=== PATIENT | female | born 1965 | race Caucasian/White ===

== ENCOUNTER → 2018-08-23 10:52 | Outpatient (CLI) | payer OTHER, SELFPAY ==
[2017-07-14 12:49] VITALS: BMI 25.7
[2018-08-23 11:52] LABS: Absolute Lymphocyte Count 0.94 X10^3/ul (0.83-4.51); Absolute Neutrophil Count 2.6 X10^3/uL (2.0-7.7); Basophil# 0.04 X10^3/uL; Eosinophil# 0.16 X10^3/uL; Hematocrit 40.1 % (37-47); Hemoglobin 12.6 g/dl (12.0-15.0); Lymphocyte # 0.94 X10^3/ul (4.0); Lymphocyte % 23.2 % (19-41); Mean Corp Hgb Conc 31.4 g/gl (32-36); Mean Corpuscular Hgb 26.6 pg (27.0-32.0); Mean Corpuscular Volume 84.8 fL (81-99); Mean Platelet Vol. 10.8 fl (6.2-12.0); Monocyte% 7.4 % (0-10); Neutrophil # 2.61 X10^3/uL (2.7-7.7); Neutrophil % 64.4 % (47-70); Platelet Count 243 K/mm3 (150-450); RBC Distribution Width CV 14.4 % (11.6-14.6); RBC Distribution Width SD 44.9 fl (35.1-43.9); Red Blood Count 4.73 M/mm3 (4.2-5.4); White Blood Count 4.1 K/mm3 (4.4-11.0)
[2018-08-23 11:53] LABS: POSITIVE COUNT NO; POSITIVE DIFFERENTIAL NO; POSITIVE MORPHOLOGY NO
[2018-08-23 12:26] LABS: Vitamin B12 948 pg/mL (211-911); Vitamin D,25 Hydroxy 35.7 ng/mL (29.95-100.01)
[2018-08-23 12:35] LABS: AST(SGOT) 14 U/L (15-37); Alanine Aminotransfer ALT/SGPT 25 U/L (13-56); Albumin, Serum 3.7 g/dL (3.2-5.0); Alkaline Phosphatase 62 U/L (45-117); Anion Gap 7 (5-15); BUN 14 mg/dL (7-18); BUN/Creat Ratio 16.2 RATIO (10-20); Calcium,Total 8.8 mg/dL (8.5-10.1); Chloride 106 mmol/L (98-107); Cholesterol 159 mg/dL (200); Creatinine, Serum 0.86 mg/dL (0.55-1.02); EST Glomerular Filtration Rate 73 mL/min (>60); Est Glom Filt Rate - Afr Amer 88 mL/min (>60); Ferritin 18 ng/mL (8-252); Globulin 3.7 g/dL (2.2-4.2); Glucose 78 mg/dL (74-106); High Density Lipoprotein 70 mg/dL; Iron 125 ug/dL (50-170); Iron Binding Capacity,Total 399 ug/dL (250-450); Potassium 3.9 mmol/L (3.5-5.1); Protein, Total 7.4 g/dL (6.4-8.2); Sodium Level 139 mmol/L (136-145); T4 Free Direct 1.13 ng/dL (0.76-1.46); Thyroid Stim Hormone (TSH) 0.63 uIU/mL (0.358-3.74); Triglycerides 59 mg/dL; Very Low Density Lipoprotein 12 mg/dL (5-40)
[2018-08-25 09:28] LABS: Anti-Thyroglobulin AB < 1.0 IU/mL (0.0-0.9); Thyroglobulin, Serum Qt. < 0.1 ng/mL (1.5-38.5)
--- OUTSIDE RECORDS SUMMARY | 2018-10-28 06:49 | XMS RPT_ITS ---
:1965 Author Organization OH[facility] Care Team Providers Name Role Phone MARY MCKEON Referring Unavailable MARY MCKEON Attending Unavailable MARY MCKEON Referring Unavailable Dong Arreaga Attending Unavailable Dong Arreaga Primary Care Unavailable Yuri Banuelos Attending Unavailable PROBLEMS PROBLEMS DATE TYPE CONDITION / CODE ATTENDING STATUS SOURCE 08/28/2010 Active Malignant neoplasm NA Active [place] of thyroid gland / Clinic Main C73(ICD-10) [place] Rep[facility] 05/03/2018 Active Postprocedural NA Active [place] hypothyroidism / Clinic Main E89.0(ICD-10) [place] [facility] 10/25/2017 Active Unknown / MARY MCKEON Active [place] UNK(Unknown) Clinic Main [place] [facility] 07/14/2017 Unknown J01.00 - Acute Yuri Banuelos Active [place] maxillary sinusitis, Community unspecified / Hospital J01.00(ICD-10) Repository PROCEDURES PROCEDURES No Procedure Records FoundRESULTS RESULTS CBC W/DIFF, AUTOMATED Collected: 08/23/2018 Status: F Source: [place] 10:55 AM [facility] REPOSITORY TYPE CODE TESTS RESULT OUT OF RANGE REFERENCE UNITS LAB L100.1000 4.4-11.0 K/mm3 Low WBC 4.1 LAB L100.1200 4.2-5.4 M/mm3 Normal RBC 4.73 LAB L100.1300 12.0-15.0 g/dl Normal HGB 12.6 LAB L100.1400 37-47 % Normal HCT 40.1 LAB L100.1500 81-99 fL Normal MCV 84.8 LAB L100.1600 27.0-32.0 pg Low MCH 26.6 LAB L100.1700 32-36 g/gl Low MCHC 31.4 LAB L100.1810 11.6-14.6 % Normal RDW CV 14.4 LAB L100.1820 35.1-43.9 fl High RDW SD 44.9 LAB L100.1900 150-450 K/mm3 Normal PLT 243 LAB L100.2000 6.2-12.0 fl Normal MPV 10.8 LAB L100.2100 47-70 % Normal NEUT% 64.4 LAB L100.2200 19-41 % Normal LY% 23.2 LAB L100.2300 0-10 % Normal MONO% 7.4 LAB L100.2400 0-5 % Normal EO% 4.0 LAB L100.2500 0-1 % Normal BASO% 1.0 LAB L100.2550 0.0-0.9 % Normal IM GRAN % 0.000 Result Comment: IG% - Immature Granulocytes (promyelocytes, myelocytes and metamyelocytes) > 1% indicates that a LEFT SHIFT is Present. LAB L100.2620 2.0-7.7 X10 3/uL Normal Absolute Neut 2.6 LAB L100.2720 0.83-4.51 X10 3/ul Normal Absolute Lymph 0.94 Performed By: #### L100.0100, L503.0105, L506.1000, L500.4050, L500.4100, L501.9520, L503.6075, L503.6150, L503.6550, L506.0250, L506.0400 #### [facility] [address] [place], [address] #### [id number] #### [facility] (refer to report for specific site) refer to report for address and phone number VITAMIN B12 Collected: 08/23/2018 Status: F Source: [place] 10:55 AM [facility] [place] TYPE CODE TESTS RESULT OUT OF REFERENCE UNITS RANGE LAB L503.0105 211-911 pg/mL High Vitamin B12 948 Performed By: #### L100.0100, L503.0105, L506.1000, L500.4050, L500.4100, L501.9520, L503.6075, L503.6150, L503.6550, L506.0250, L506.0400 #### [facility] [address] [facility] [facility] [place], [address] #### [id number] #### [facility] (refer to report for specific site) refer to report for address and phone number VITAMIN D,25 HYDROXY Collected: 08/23/2018 Status: F Source: [place] 10:55 AM [facility] TYPE CODE TESTS RESULT OUT OF RANGE REFERENCE UNITS LAB L506.1000 29.95-100.01 ng/mL Normal Vitamin D 35.7 25-OH Result Comment: Vitamin D 25(OH) Status Range Deficiency <20 ng/mL (50nmol/L) Insuffciency 20 - 30 ng/mL (50 - 75 nmol/L) Sufficiency 30 - 100 ng/mL (75 - 250 nmol/L) Toxicity >100 ng/mL (>250 nmol/L) Performed By: #### L100.0100, L503.0105, L506.1000, L500.4050, L500.4100, L501.9520, L503.6075, L503.6150, L503.6550, L506.0250, L506.0400 #### [facility] [address] [place], [address] #### [id number] #### [facility] (refer to report for specific site) refer to report for address and phone number COMPREHENSIVE METABOLIC Collected: 08/23/2018 Status: F Source: [facility] 10:55 AM [facility] Order Comment: Is Patient Taking Vitamins or Folic Acid Supplements? N TYPE CODE TESTS RESULT OUT OF RANGE REFERENCE UNITS LAB L501.0100 74-106 mg/dL Normal GLU 78 Result Comment: Please note revised GLUCOSE reference range effective 2017. LAB L501.1000 7-18 mg/dL Normal BUN 14 LAB L501.1100 0.55-1.02 mg/dL Normal CREAT,SERUM 0.86 Result Comment: The validity of the calculated GFR AND GFRAA in patients over 70 years has not been determined. Clinical correlation is essential. LAB L501.1110 >60 mL/min Normal EST GFR 73 Result Comment: Non- GFR Calc LAB L501.1115 >60 mL/min Normal EST GFR - AA 88 Result Comment: GFR Calc LAB L501.1300 10-20 RATIO Normal BUN/CRE 16.2 LAB L501.1500 6.4-8.2 g/dL T Normal PROT 7.4 LAB L501.1800 3.2-5.0 g/dL Normal ALB 3.7 LAB L501.1950 2.2-4.2 g/dL Normal GLOB 3.7 LAB L501.2000 0.9-2.4 RATIO Normal A/G 1.0 LAB L501.2200 8.5-10.1 mg/dL CA Normal 8.8 LAB L501.4100 15-37 U/L Low AST 14 LAB L501.4305 45-117 U/L Normal ALK P 62 LAB L501.4405 13-56 U/L Normal ALT 25 LAB L501.4600 0.20-1.00 mg/dL T Normal BILI 0.60 LAB L501.5300 136-145 mmol/L NA Normal 139 LAB L501.5600 3.5-5.1 mmol/L K Normal 3.9 LAB L501.5900 98-107 mmol/L CL Normal 106 LAB L501.6100 21.0-32.0 mmol/L Normal CO2 26.0 LAB L501.6200 5-15 Normal GAP 7 Performed By: #### L100.0100, L503.0105, L506.1000, L500.4050, L500.4100, L501.9520, L503.6075, L503.6150, L503.6550, L506.0250, L506.0400 #### [facility] [address] [place], [place], [address] #### [id number] #### [facility] (refer to report for specific site) refer to report for address and phone number LIPID PROFILE Collected: 08/23/2018 Status: F Source: [place] 10:55 AM [facility] Order Comment: Is Patient Taking Vitamins or Folic Acid Supplements? N TYPE CODE TESTS RESULT OUT OF RANGE REFERENCE UNITS LAB L501.4900 200 mg/dL Normal CHOL 159 Result Comment: <200 mg/dL Desirable 200-240 mg/dL Borderline >240 mg/dL High Risk LAB L501.5000 mg/dL Normal TRIG 59 Result Comment: The drugs N-Acetylcysteine and Metamizole may falsely depress this assay. Serum Triglycerides Reference Interval Normal <150 mg/dL Borderline high 150 - 199 mg/dL High 200 - 499 mg/dL Very High > or = 500 mg/dL LAB L501.6400 mg/dL Normal HDL 70 Result Comment: The drugs N-Acetylcysteine and Metamizole may falsely depress this assay. Reference Range HDL <40 mg/dL Low HDL Cholesterol HDL >or= 60 mg/dL High HDL Cholesterol LAB L501.6500 0-130 mg/dL Normal LDL 77 LAB L501.6600 5-40 mg/dL Normal VLDL 12 Performed By: #### L100.0100, L503.0105, L506.1000, L500.4050, L500.4100, L501.9520, L503.6075, L503.6150, L503.6550, L506.0250, L506.0400 #### [facility] [address] [place], [address] #### [id number] #### [facility] (refer to report for specific site) refer to report for address and phone number THYROID STIM HORMONE Collected: 08/23/2018 Status: F Source: [place] (TSH) 10:55 AM [facility] Order Comment: Is Patient Taking Vitamins or Folic Acid Supplements? N TYPE CODE TESTS RESULT OUT OF RANGE REFERENCE UNITS LAB L501.9520 0.358-3.74 uIU/mL Normal TSH 0.63 Performed By: #### L100.0100, L503.0105, L506.1000, L500.4050, L500.4100, L501.9520, L503.6075, L503.6150, L503.6550, L506.0250, L506.0400 #### [facility] [address] [place], [place], [id number] #### [id number] #### [facility] (refer to report for specific site) refer to report for address and phone number IRON BINDING Collected: 08/23/2018 Status: F Source: [facility] 10:55 AM [facility] Order Comment: Is Patient Taking Vitamins or Folic Acid Supplements? N TYPE CODE TESTS RESULT OUT OF RANGE REFERENCE UNITS LAB L503.6075 250-450 ug/dL Normal TIBC 399 Performed By: #### L100.0100, L503.0105, L506.1000, L500.4050, L500.4100, L501.9520, L503.6075, L503.6150, L503.6550, L506.0250, L506.0400 #### [facility] [address] [place], [place], [id number] #### [id number] #### [facility] (refer to report for specific site) refer to report for address and phone number IRON Collected: 08/23/2018 Status: F Source: [place] 10:55 AM [facility] Order Comment: Is Patient Taking Vitamins or Folic Acid Supplements? N TYPE CODE TESTS RESULT OUT OF RANGE REFERENCE UNITS LAB L503.6150 50-170 ug/dL Normal IRON 125 Performed By: #### L100.0100, L503.0105, L506.1000, L500.4050, L500.4100, L501.9520, L503.6075, L503.6150, L503.6550, L506.0250, L506.0400 #### [facility] [address] [place], [place], [id number] #### [id number] #### [facility] (refer to report for specific site) refer to report for address and phone number FERRITIN Collected: 08/23/2018 Status: F Source: [place] 10:55 AM [facility] Order Comment: Is Patient Taking Vitamins or Folic Acid Supplements? N TYPE CODE TESTS RESULT OUT OF RANGE REFERENCE UNITS LAB L503.6550 8-252 ng/mL Normal FERRITIN 18 Performed By: #### L100.0100, L503.0105, L506.1000, L500.4050, L500.4100, L501.9520, L503.6075, L503.6150, L503.6550, L506.0250, L506.0400 #### [facility] [address], [place], [id number] #### [id number] #### [facility] (refer to report for specific site) refer to report for address and phone number FOLATES, (FOLIC ACID) Collected: 08/23/2018 Status: F Source: [place] 10:55 AM [facility] Order Comment: Is Patient Taking Vitamins or Folic Acid Supplements? N TYPE CODE TESTS RESULT OUT OF RANGE REFERENCE UNITS LAB L506.0250 3.1-55.4 ng/mL Normal FOLATES 13.30 Performed By: #### L100.0100, L503.0105, L506.1000, L500.4050, L500.4100, L501.9520, L503.6075, L503.6150, L503.6550, L506.0250, L506.0400 #### [facility] [address] [place] [address]. [place], [place], [id number] #### [id number] #### [facility] (refer to report for specific site) refer to report for address and phone number T4 FREE DIRECT Collected: 08/23/2018 Status: F Source: [place] 10:55 AM [facility] Order Comment: Is Patient Taking Vitamins or Folic Acid Supplements? N TYPE CODE TESTS RESULT OUT OF RANGE REFERENCE UNITS LAB L506.0400 0.76-1.46 ng/dL Normal T4 FREE 1.13 DIRECT Performed By: #### L100.0100, L503.0105, L506.1000, L500.4050, L500.4100, L501.9520, L503.6075, L503.6150, L503.6550, L506.0250, L506.0400 #### [facility] [address] [facility] [place], [place], [address] #### [id number] #### [facility] (refer to report for specific site) refer to report for address and phone number THYROGLOBULIN W/ANTI-TG Collected: 08/23/2018 Status: P Source: [place] AB 10:55 AM [facility] TYPE CODE TESTS RESULT OUT OF RANGE REFERENCE UNITS LAB L3300.7025 0.0-0.9 IU/mL Normal ANTI-TG < 1.0 AB Result Comment: Thyroglobulin Antibody measured by [facility] [employer] LAB L3400.1030 1.5-38.5 ng/mL Low THYROGLOB < 0.1 Result Comment: According to the National Academy of Clinical Biochemistry, the reference interval for Thyroglobulin (TG) should be related to euthyroid patients and not for patients who underwent thyroidectomy. TG reference intervals for these patients depend on the residual mass of the thyroid tissue left after surgery. Establishing a post-operative baseline is recommended. The assay limit of quantitation is 0.1 ng/mL Thyroglobulin measured by [facility] [employer] Assay Performed at: - [facility] [address] [id number] Cloth Tester: Nito Steinberg PhD, Phone: [phone] Performed By: #### L100.0100, L503.0105, L506.1000, L500.4050, L500.4100, L501.9520, L503.6075, L503.6150, L503.6550, L506.0250, L506.0400 #### [facility] [address] [facility] [place], [place], [address] #### [id number] #### [facility] (refer to report for specific site) refer to report for address and phone number COMP METABOLIC PANEL Collected: 05/03/2018 Status: F Source: [place] 9:15 AM [facility] [place] REPOSITORY TYPE CODE TESTS RESULT OUT OF REFERENCE UNITS RANGE LAB TP 6.3-8.0 g/dL Protein, Total 7.2 LAB ALB 3.9-4.9 g/dL Albumin 4.3 LAB CA 8.5-10.2 mg/dL Calcium, Total 10.1 LAB TBIL 0.2-1.3 mg/dL Bilirubin, Total 0.5 LAB ALKP 34-123 U/L Alkaline Phosphatase 62 LAB AST 13-35 U/L AST 15 LAB GLU 74-99 mg/dL Glucose 88 Result Comment: The [place] [employer] (ADA) provides guidance for cutoff values for fasting glucose and random glucose. The ADA defines fasting as no caloric intake for at least 8 hours. Fas ting plasma glucose results between 100 to 125 mg/dL indicate increased risk for diabetes (prediabetes). Fasting plasma glucose results greater than or equal to 126 mg/dL meet the criteria for diagnosis of diabetes. In the absence of unequivocal hyperglycemia, results should be confirmed by repeat testing. In a patient with classic symptoms of hyperglycemia or hyperglycemic crisis, random plasma glucose results greater than or equal to 200 mg/dL meet the criteria for diagnosis of diabetes. Reference: Standards of Medical Care in Diabetes 2016, [place] [employer] Association. Diabetes Care. 2016.39(Suppl 1). LAB BUN 7-21 mg/dL BUN 15 LAB CRET 0.58-0.96 mg/dL Creatinine 0.71 LAB NA 136-144 mmol/L Sodium 140 LAB K 3.7-5.1 mmol/L Potassium 4.1 LAB CL 97-105 mmol/L Chloride 104 LAB CO2 22-30 mmol/L CO2 23 LAB AGAP 9-18 mmol/L Anion Gap 13 LAB ALT 7-38 U/L ALT 13 LAB GFRAA eGFR- Amer. >60 LAB GFRNAA . eGFR-All Other Races >60 Result Comment: eGFR (Estimated GFR) Units of measure: mL/min/1.73 meters squared eGFR is derived from the reexpressed MDRD Study equation using the following parameters: serum creatinine, age, gender and race. The creatinine assay has been calibrated to be traceable to IDMS. An eGFR <60 mL/min/1.73m2 for >3 months is consistent with chronic kidney disease. Refer to KDOQI guidelines for clinical interpretation. In patients with unstable renal function, e.g. those with acute kidney injury, the eGFR may not accurately reflect actual GFR. Performed By: #### CMP, URIC, FT4, TSH, FREET3, TG #### [facility] [employer] [address] [place] [address] URIC ACID Collected: 05/03/2018 Status: F Source: [place] 9:15 AM [facility] REPOSITORY TYPE CODE TESTS RESULT OUT OF RANGE REFERENCE UNITS LAB URIC 2.5-6.6 mg/dL Uric Acid 3.7 Performed By: #### CMP, URIC, FT4, TSH, FREET3, TG #### [place] [phone] FREE T4 Collected: 05/03/2018 Status: F Source: [place] 9:15 AM [facility] REPOSITORY TYPE CODE TESTS RESULT OUT OF RANGE REFERENCE UNITS LAB FT4 0.9-1.7 ng/dL Free T4 1.5 Performed By: #### CMP, URIC, FT4, TSH, FREET3, TG #### [place] [phone] TSH Collected: 05/03/2018 Status: F Source: [place] 9:15 AM [facility] REPOSITORY TYPE CODE TESTS RESULT OUT OF RANGE REFERENCE UNITS LAB TSH 0.400-5.500 uU/mL Low TSH 0.266 Performed By: #### CMP, URIC, FT4, TSH, FREET3, TG #### [place] [phone] FREE T3 Collected: 05/03/2018 Status: F Source: [place] 9:15 [facility] REPOSITORY TYPE CODE TESTS RESULT OUT OF RANGE REFERENCE UNITS LAB FREET3 2.3-4.1 pg/mL Free T3 3.5 Performed By: #### CMP, URIC, FT4, TSH, FREET3, TG #### [place] [phone] THYROGLOBULIN Collected: 05/03/2018 Status: F Source: [place] 9:15 AM [facility] REPOSITORY TYPE CODE TESTS RESULT OUT OF REFERENCE UNITS RANGE LAB THYG 1.6-59.9 ng/mL Thyroglobulin Low <0.2 Result Comment: Test analyzed by the Siemens Immulite method LAB TGABS <14.4 IU/mL TG Antibody Screen 7.5 Performed By: #### CMP, URIC, FT4, TSH, FREET3, TG #### [address] [place] [address] PROGRESS Observed: 10/25/2017 Status: COMPLETED Source: [place] 12:36 PM [facility] RE[facility] HNO ID: [id number] Author: Mary Mckeon Service: (none) Author Type: Physician Type: Progress Notes Filed: 11/24/2017 11:02 AM Note Text: Last Visit: October 25, 2016 Reason for follow up: Thyroid Ca and hypothyrodism HISTORY OF PRESENT ILLNESS; Ms. Victor is a 52 year old woman came for follow up visit regarding Thyroid Ca and hypothyrodism. She was initially diagnosed with a thyroid disorder 2009, s/p total thyroidectomy, and I-131 in sep 2010. She had a sister thyroid cancer. October 25, 2016: Currently taking 7 pills of 112 mcg LT4, feeling very good at this time, she is also taking taking 5 mcg cytomel once daily, taking Vit D everyday. She had few episodes of high BP in the recent past during doctor's appointment and she had investigations done including ECHO, and everything was normal, and now her BP is normal without any meds. October 25, 2017: feels her thyroid medicine is working very well at this time, no concern or complaints, taking 112 mcg LT4 7 pills a week, and T3 5 mcg 7 pills a week, both at the AM together. Energy is better, but still dizzy from her old horse injuries. Severity, modifying factors, context and associated signs and symptoms are as follows: October 25, 2017 ? Thyroid pain: no ? Mass effect: still occasional cough Change in Voice, ? Energy: significantly better than before ? Sleep: hot flashes ? Temperature Intolerance: hot flashes in the night sporadic ? STUDENT SERVICES REPRESENTATIVE: irregular Menses not on any ? GI: normal ? Weight: lost 20 lbs on keto diet since last visit intentional ? Eyes: No ? Memory: good ? Diaphoresis: still night hot flashes ? Skin: normal ? Neuro: still some dizziness ? History of radiation exposure to head or neck area? yes: I-131 Rx ? Family h/o thyroid cancer: yes, sister, she also has Payal's thyroiditis Chart review: Prior History: Problem name: Thyroid cancer Location: left lobe and isthmus Quality: papillary, follicular variant Severity: 1.5cm in left lower pole is largest, also note minimal focal invasion into adipose tissue Duration: nodule found end of May 2010, Modifying factors:levothyroxine 112mcg 7.5 tabs per week. Thyrogen stimulated scan in December 2011 ROS: constitutional:no wt change in 6 months Endocrine:positive for heat intolerance Relevant History: 1) Thyroid CA * Surgery (07/08/10): total thyroidectomy, Dr. Joshua * Path (07/08/10): papillary thyroid CA, 1.5cm, left lobe inferior pole, and 3 microcarcinomas (<0.1cm), 2 in left lobe and 1 in isthmus, capsular penetration present, minimal focal invasion to surrounding adipose tissue * [facility] (09/23/10): Thyrogen stimulated 131-Iodine Rx with 126.1 mCi * Scan (10/02/10): post Rx scan, residual uptake in right thyroid bed and in possible thyroglossal duct remnant. (03/30/12): thyrogen stim 123-I scan, no evidence of disease * mRNA (06/01/10): TSH-R mRNA <1.0 ng/ug * Thyroglobulin Component Thyroglobulin TG Antibody Screen Latest Ref Rng 0.8 - 49.0 ng/mL <14.4 IU/mL 08/28/2010 0.9 12.1 09/23/2010 1.3 11.6 Thyrogen stim Rx 04/13/2011 <0.2 (L) 5.8 10/30/2011 <0.2 (L) 6.8 12/31/2011 <0.2 (L) 7.1 Thyrogen stim 05/13/2012 <0.2 (L) 4.3 * Ultrasound (08/28/10): no suspicious adenopathy along great vessels or in lateral neck on either side. No masses in thyroid bed. (11/22/11): no suspicious adenopathy along great vessels or in lateral neck on either side. No masses in thyroid bed. 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 - PAST SURGICAL HISTORY OF tubal ligation. - THYROIDECTOMY 2010 FAMILY HISTORY Problem Relation Age of Onset - thyroid cancer [Other] [OTHER] Sister - endometriosis [Other] [OTHER] Sister - Hypertension Sister - Hypertension Paternal Grandmother - Cancer Mother lung cancer with extensive mets including brain - Heart Failure Sister - Coronary Artery Disease Paternal Grandmother - Coronary Artery Disease Paternal Grandfather - Coronary Artery Disease Sister Family and social history reviewed and updated in the system. SOCIAL HISTORY Social History Substance Use Topics - Smoking status: Never Smoker - Smokeless tobacco: Never Used - Alcohol use Yes Comment: Seldom Current Outpatient Prescriptions: fluocinolone (SYNALAR) 0.025 % ointment Apply 1 application to affected area twice daily. APPLY TO AFFECTED AREA Disp: 15 g Rfl: 3 levothyroxine (SYNTHROID) 112 mcg tablet Take 1 tablet by mouth once daily. Disp: 90 tablet Rfl: 3 liothyronine (CYTOMEL) 5 mcg tablet Take 1 tablet by mouth once daily. Disp: 90 tablet Rfl: 3 Cholecalciferol, Vitamin D3, 5,000 unit cap Take 1 capsule by mouth once daily. Disp: Rfl: 0 No current facility-administered medications for this visit. ALLERGIES ALLERGIES Allergen Reactions - Seasonal Allergies Other: See Comments REVIEW OF SYSTEMS: October 25, 2017 SYSTEMIC: lost weight 20lbs intentionally and good energy EYES: normal NECK: always cough from allergy, and hoarseness - stable RESPIRATORY: normal, mild cough CARDIOVASCULAR: normal GASTRO-INTESTINAL: normal NEUROLOGICAL: still occasional dizziness MUSCULOSKELETAL: still some back pain from horse back riding. No joint pain, stiffness, swelling, cramping or weakness, SKIN: normal PSYCHIATRIC: normal occasional irritability LIBIDO: not asked SEXUAL-REPRODUCTIVE: not asked All other systems: non-contributory PHYSICAL EXAM: BP 116/75 (BP Site: Left Arm, BP Position: Sitting, BP Cuff Size: Regular Adult) Pulse 65 Ht 169.8 cm (5' 6.85) Wt 69.9 kg (154 lb) SpO2 98% BMI 24.23 kg/m2 October 25, 2017 General: alert, in no acute distress, Head: atraumatic, normocephalic Eyes: CAROLE, extra occular movements normal Oropharynx: Lips, mucosa, and tongue normal, Thyroid: surgically removed Thyroid size: surgically removed Heart: RRR without murmur, gallop, or rubs. No ectopy Lungs: Clear to auscultation, no wheezing or rhonchi Abdomen: soft, non-tender, positive bowel sounds Extremities: normal exam of the extremities, no edema present, no deformities Neuro: Awake, alert and oriented x 3, No involuntary motions. and Reflexes symmetrical Skin: color, texture, turgor normal, no rashes or lesions DATA: Component Latest Ref Rng AND Units 12/31/2016 10/18/2017 Thyroglobulin 1.6 - 59.9 ng/mL <0.2 (L) <0.2 (L) TG Antibody Screen <14.4 IU/mL 9.5 9.2 TSH 0.400 - 5.500 uU/mL 0.864 0.210 (L) Component Latest Ref Rng AND Units 10/20/2016 Vitamin D 25 Hydroxy 31.0 - 80.0 ng/mL 38.1 Free T4 0.9 - 1.7 ng/dL 1.3 Free T3 2.3 - 4.1 pg/mL 3.8 TSH 0.400 - 5.500 uU/mL 0.253 (L) Component Latest Ref Rng 06/11/2015 Thyroglobulin 0.8 - 49.0 ng/mL <0.2 (L) TG Antibody Screen <14.4 IU/mL 4.8 Free T4 0.7 - 1.8 ng/dL 1.1 TSH 0.400 - 5.500 uU/mL 0.918 Component Latest Ref [facility] 06/25/2014 Thyroglobulin 0.8 - 49.0 ng/mL <0.2 (L) TG Antibody Screen <14.4 IU/mL 6.0 Free T4 0.7 - 1.8 ng/dL 1.2 TSH 0.400 - 5.500 uU/mL 2.110 Free T3 1.8 - 4.6 pg/mL 3.6 Vitamin D 25 Hydroxy 31.0 - 80.0 ng/mL 29.1 (L) Component Latest Ref Rn 01/14/2014 Thyroglobulin 0.8 - 49.0 ng/mL <0.2 (L) TG Antibody Screen <14.4 IU/mL 4.7 TSH 0.400 - 5.500 uU/mL 1.850 Free T4 0.7 - 1.8 ng/dL 1.3 No components found with this basename: totalt4 Free T4 (ng/dL) Date Date Value Range Status 12/15/2012 1.4 0.7 - 1.8 ng/dL Final No components found with this basename: totalt3 TSH (uU/mL) Date Date Value Range Status 12/15/2012 0.962 0.400 - 5.500 uU/mL Final No results found for this basename: freet3 No results found for this basename: microsomab Component Latest Ref Rng 12/15/2012 Thyroglobulin 0.8 - 49.0 ng/mL <0.2 (L) TG Antibody Screen <14.4 IU/mL 4.2 TSH 0.400 - 5.500 uU/mL 0.962 Free T4 0.7 - 1.8 ng/dL 1.4 Vitamin D 25 Hydroxy 31.0 - 80.0 ng/mL 34.6 RADIOLOGY: US Thyroid was done in 2012. DATE OF EXAM: Dec 26 2012 [facility]ID / PROCEDURE REASON: Malignant neoplasm of thyroid gland --- Physician Interpretation --- RESULT: CLINICAL INDICATION: Malignant neoplasm of thyroid gland COMPARISON: 05/22/2010 TECHNIQUE: Real-time imaging of the thyroid was performed using ultrasound. Images were submitted for evaluation. RESULTS:The thyroid is surgically absent. No residual of thyroid tissue is seen. Lymph node is seen in the right thyroid bed, has a normal fatty hilum, and measures 1.9 x 0.5 x 1.0 cm. IMPRESSION: Post thyroidectomy. No abnormal mass is seen. CLINICIAN'S INDEPENDENT IMAGE INTERPRETATION: N.B.: Images pulled in the PACS and I independently reviewed the Thyroid US image from December 26, 2012. ASSESSMENT: Ms. Victor is a 52 year old woman came for follow up visit regarding Thyroid Ca, hypothyroid and few other medical concerns as below. RECOMMENDATIONS: (C73) Papillary thyroid CA (primary encounter diagnosis) Comment: pathophysiology AND treatment options discussed. Monitor TG and cervical lymph nodes. 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 Prescribe 112 mcg LT4. check level AND Rx as needed. Plan: levothyroxine (SYNTHROID) 112 mcg tablet, liothyronine (CYTOMEL) 5 mcg tablet, TSH BLD, T4 FREE/FREE THYROX, T3 FREE BLD, THYROGLOBULIN BLD (E55.9) Vitamin D deficiency Comment: on Vit D, stable Plan: continue current Rx. (I49.3) PVC's (premature ventricular contractions) Comment: followed by cardiology, stable Plan: follow cardiology suggestions, avoid too low TSH. (N95.1) Hot flash, menopausal Comment: pathophysiology AND treatment options discussed. After discussion we will try clonidine patch small dose. Plan: cloNIDine TTS (CATAPRES-TTS) 0.1 mg/24 hr (Z78.0) Menopause Comment: pathophysiology AND treatment options discussed. Plan: supportive care, not hot drinks at night time, use loose clothing during bed time, drink plenty of water etc healthy life style discussed. encouraged to avoid excess Coffee/tea/alcohol, enough calcium and Vit D, weight bearing exercise regularly. Mary Mckeon MD October 25, 2017 CNOV Observed: 10/25/2017 Status: COMPLETED Source: [place] 12:25 PM [facility] REPOSITORY Office Visit (MARY) NATHAN VICTOR ([id number]) 1965 F Date Time Provider Department 10/25/17 12:25 PM MARY MCKEON During your visit today, we recorded the following information about you: Pulse Blood pressure Weight Height 65/minute 116/75 69.9 kg 1.698 m Mary Mckeon MD 11/24/2017 11:02 AM Signed Last Visit: October 25, 2016 Reason for follow up: Thyroid Ca and hypothyrodism HISTORY OF PRESENT ILLNESS; Ms. Victor is a 52 year old woman came for follow up visit regarding Thyroid Ca and hypothyrodism. She was initially diagnosed with a thyroid disorder 2009, s/p total thyroidectomy, and I-131 in sep 2010. She had a sister thyroid cancer. October 25, 2016: Currently taking 7 pills of 112 mcg LT4, feeling very good at this time, she is also taking taking 5 mcg cytomel once daily, taking Vit D everyday. She had few episodes of high BP in the recent past during doctor's appointment and she had investigations done including ECHO, and everything was normal, and now her BP is normal without any meds. October 25, 2017: feels her thyroid medicine is working very well at this time, no concern or complaints, taking 112 mcg LT4 7 pills a week, and T3 5 mcg 7 pills a week, both at the AM together. Energy is better, but still dizzy from her old horse injuries. Severity, modifying factors, context and associated signs and symptoms are as follows: October 25, 2017 ? Thyroid pain: no ? Mass effect: still occasional cough Change in Voice, ? Energy: significantly better than before ? Sleep: hot flashes ? Temperature Intolerance: hot flashes in the night sporadic ? STUDENT SERVICES REPRESENTATIVE: irregular Menses not on any ? GI: normal ? Weight: lost 20 lbs on keto diet since last visit intentional ? Eyes: No ? Memory: good ? Diaphoresis: still night hot flashes ? Skin: normal ? Neuro: still some dizziness ? History of radiation exposure to head or neck area? yes: I-131 Rx ? Family h/o thyroid cancer: yes, sister, she also has Payal's thyroiditis Chart review: Prior History: Problem name: Thyroid cancer Location: left lobe and isthmus Quality: papillary, follicular variant Severity: 1.5cm in left lower pole is largest, also note minimal focal invasion into adipose tissue Duration: nodule found end of May 2010, Modifying factors:levothyroxine 112mcg 7.5 tabs per week. Thyrogen stimulated scan in December 2011 ROS: constitutional:no wt change in 6 months Endocrine:positive for heat intolerance Relevant History: 1) Thyroid CA * Surgery (07/08/10): total thyroidectomy, Dr. Joshua * Path (07/08/10): papillary thyroid CA, 1.5cm, left lobe inferior pole, and 3 microcarcinomas (ANDlt;0.1cm), 2 in left lobe and 1 in isthmus, capsular penetration present, minimal focal invasion to surrounding adipose tissue * [facility] (09/23/10): Thyrogen stimulated 131-Iodine Rx with 126.1 mCi * Scan (10/02/10): post Rx scan, residual uptake in right thyroid bed and in possible thyroglossal duct remnant. (03/30/12): thyrogen stim 123-I scan, no evidence of disease * mRNA (06/01/10): TSH-R mRNA ANDlt;1.0 ng/ug * Thyroglobulin Component Thyroglobulin TG Antibody Screen Latest Ref Rng 0.8 - 49.0 ng/mL ANDlt;14.4 IU/mL 08/28/2010 0.9 12.1 09/23/2010 1.3 11.6 Thyrogen stim Rx 04/13/2011 ANDlt;0.2 (L) 5.8 10/30/2011 ANDlt;0.2 (L) 6.8 12/31/2011 ANDlt;0.2 (L) 7.1 Thyrogen stim 05/13/2012 ANDlt;0.2 (L) 4.3 * Ultrasound (08/28/10): no suspicious adenopathy along great vessels or in lateral neck on either side. No masses in thyroid bed. (11/22/11): no suspicious adenopathy along great vessels or in lateral neck on either side. No masses in thyroid bed. 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 - PAST SURGICAL HISTORY OF tubal ligation. - THYROIDECTOMY 2009 FAMILY HISTORY Problem Relation Age of Onset - thyroid cancer [Other] [OTHER] Sister - endometriosis [Other] [OTHER] Sister - Hypertension Sister - Hypertension Paternal Grandmother - Cancer Mother lung cancer with extensive mets including brain - Heart Failure Sister - Coronary Artery Disease Paternal Grandmother - Coronary Artery Disease Paternal Grandfather - Coronary Artery Disease Sister Family and social history reviewed and updated in the system. SOCIAL HISTORY Social History Substance Use Topics - Smoking status: Never Smoker - Smokeless tobacco: Never Used - Alcohol use Yes Comment: Seldom Current Outpatient Prescriptions: fluocinolone (SYNALAR) 0.025 % ointment Apply 1 application to affected area twice daily. APPLY TO AFFECTED AREA Disp: 15 g Rfl: 3 levothyroxine (SYNTHROID) 112 mcg tablet Take 1 tablet by mouth once daily. Disp: 90 tablet Rfl: 3 liothyronine (CYTOMEL) 5 mcg tablet Take 1 tablet by mouth once daily. Disp: 90 tablet Rfl: 3 Cholecalciferol, Vitamin D3, 5,000 unit cap Take 1 capsule by mouth once daily. Disp: Rfl: 0 No current facility-administered medications for this visit. ALLERGIES ALLERGIES Allergen Reactions - Seasonal Allergies Other: See Comments REVIEW OF SYSTEMS: October 25, 2017 SYSTEMIC: lost weight 20lbs intentionally and good energy EYES: normal NECK: always cough from allergy, and hoarseness - stable RESPIRATORY: normal, mild cough CARDIOVASCULAR: normal GASTRO-INTESTINAL: normal NEUROLOGICAL: still occasional dizziness MUSCULOSKELETAL: still some back pain from horse back riding. No joint pain, stiffness, swelling, cramping or weakness, SKIN: normal PSYCHIATRIC: normal occasional irritability LIBIDO: not asked SEXUAL-REPRODUCTIVE: not asked All other systems: non-contributory PHYSICAL EXAM: BP 116/75 (BP Site: Left Arm, BP Position: Sitting, BP Cuff Size: Regular Adult) Pulse 65 Ht 169.8 cm (5' 6.85ANDquot;) Wt 69.9 kg (154 lb) SpO2 98% BMI 24.23 kg/m2 October 25, 2017 General: alert, in no acute distress, Head: atraumatic, normocephalic Eyes: CAROLE, extra occular movements normal Oropharynx: Lips, mucosa, and tongue normal, Thyroid: surgically removed Thyroid size: surgically removed Heart: RRR without murmur, gallop, or rubs. No ectopy Lungs: Clear to auscultation, no wheezing or rhonchi Abdomen: soft, non-tender, positive bowel sounds Extremities: normal exam of the extremities, no edema present, no deformities Neuro: Awake, alert and oriented x 3, No involuntary motions. and Reflexes symmetrical Skin: color, texture, turgor normal, no rashes or lesions DATA: Component Latest Ref Rng ANDamp; Units 12/31/2016 10/18/2017 Thyroglobulin 1.6 - 59.9 ng/mL ANDlt;0.2 (L) ANDlt;0.2 (L) TG Antibody Screen ANDlt;14.4 IU/mL 9.5 9.2 TSH 0.400 - 5.500 uU/mL 0.864 0.210 (L) Component Latest Ref Rng ANDamp; Units 10/20/2016 Vitamin D 25 Hydroxy 31.0 - 80.0 ng/mL 38.1 Free T4 0.9 - 1.7 ng/dL 1.3 Free T3 2.3 - 4.1 pg/mL 3.8 TSH 0.400 - 5.500 uU/mL 0.253 (L) Component Latest Ref [facility] 06/11/2015 Thyroglobulin 0.8 - 49.0 ng/mL ANDlt;0.2 (L) TG Antibody Screen ANDlt;14.4 IU/mL 4.8 Free T4 0.7 - 1.8 ng/dL 1.1 TSH 0.400 - 5.500 uU/mL 0.918 Component Latest Ref [facility] 06/25/2014 Thyroglobulin 0.8 - 49.0 ng/mL ANDlt;0.2 (L) TG Antibody Screen ANDlt;14.4 IU/mL 6.0 Free T4 0.7 - 1.8 ng/dL 1.2 TSH 0.400 - 5.500 uU/mL 2.110 Free T3 1.8 - 4.6 pg/mL 3.6 Vitamin D 25 Hydroxy 31.0 - 80.0 ng/mL 29.1 (L) Component Latest Ref [facility] 01/14/2014 Thyroglobulin 0.8 - 49.0 ng/mL ANDlt;0.2 (L) TG Antibody Screen ANDlt;14.4 IU/mL 4.7 TSH 0.400 - 5.500 uU/mL 1.850 Free T4 0.7 - 1.8 ng/dL 1.3 No components found with this basename: totalt4 Free T4 (ng/dL) Date Date Value Range Status 12/15/2012 1.4 0.7 - 1.8 ng/dL Final No components found with this basename: totalt3 TSH (uU/mL) Date Date Value Range Status 12/15/2012 0.962 0.400 - 5.500 uU/mL Final No results found for this basename: freet3 No results found for this basename: microsomab Component Latest Ref Rng 12/15/2012 Thyroglobulin 0.8 - 49.0 ng/mL ANDlt;0.2 (L) TG Antibody Screen ANDlt;14.4 IU/mL 4.2 TSH 0.400 - 5.500 uU/mL 0.962 Free T4 0.7 - 1.8 ng/dL 1.4 Vitamin D 25 Hydroxy 31.0 - 80.0 ng/mL 34.6 RADIOLOGY: US Thyroid was done in 2012. DATE OF EXAM: Dec 26 2012 2:32PM TOM 0122 - US THYROID / PROCEDURE REASON: Malignant neoplasm of thyroid gland --- Physician Interpretation --- RESULT: CLINICAL INDICATION: Malignant neoplasm of thyroid gland COMPARISON: 05/22/2010 TECHNIQUE: Real-time imaging of the thyroid was performed using ultrasound. Images were submitted for evaluation. RESULTS:The thyroid is surgically absent. No residual of thyroid tissue is seen. Lymph node is seen in the right thyroid bed, has a normal fatty hilum, and measures 1.9 x 0.5 x 1.0 cm. IMPRESSION: Post thyroidectomy. No abnormal mass is seen. CLINICIAN'S INDEPENDENT IMAGE INTERPRETATION: N.B.: Images pulled in the PACS and I independently reviewed the Thyroid US image from December 26, 2012. ASSESSMENT: Ms. Victor is a 52 year old woman came for follow up visit regarding Thyroid Ca, hypothyroid and few other medical concerns as below. RECOMMENDATIONS: (C73) Papillary thyroid CA (primary encounter diagnosis) Comment: pathophysiology ANDamp; treatment options discussed. Monitor TG and cervical lymph nodes. 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 Prescribe 112 mcg LT4. check level ANDamp; Rx as needed. Plan: levothyroxine (SYNTHROID) 112 mcg tablet, liothyronine (CYTOMEL) 5 mcg tablet, TSH BLD, T4 FREE/FREE THYROX, T3 FREE BLD, THYROGLOBULIN BLD (E55.9) Vitamin D deficiency Comment: on Vit D, stable Plan: continue current Rx. (I49.3) PVC's (premature ventricular contractions) Comment: followed by cardiology, stable Plan: follow cardiology suggestions, avoid too low TSH. (N95.1) Hot flash, menopausal Comment: pathophysiology ANDamp; treatment options discussed. After discussion we will try clonidine patch small dose. Plan: cloNIDine TTS (CATAPRES-TTS) 0.1 mg/24 hr (Z78.0) Menopause Comment: pathophysiology ANDamp; treatment options discussed. Plan: supportive care, not hot drinks at night time, use loose clothing during bed time, drink plenty of water etc healthy life style discussed. encouraged to avoid excess Coffee/tea/alcohol, enough calcium and Vit D, weight bearing exercise regularly. Mary Mckeon MD October 25, 2017 Referring Provider: SELF [200] Allergies As of Date: 10/25/2017 Noted Allergy Reaction SEASONAL ALLERGIES 06/01/2010 14 - Other: See Comments Date Reviewed: 10/25/2017 Reviewed by: Thu Neely MA - Fully Assessed Reason for Visit: Thyroid Problem [110] Primary Visit Diagnosis:Papillary thyroid CA [C73] Other Visit Diagnoses:Postablative hypothyroidism [E89.0] Vitamin D deficiency [E55.9] PVC's (premature ventricular contractions) [I49.3] Hot flash, menopausal [N95.1] Menopause [Z78.0] Order(s):levothyroxine (SYNTHROID) 112 mcg tabletTake 1 tablet by mouth once daily.Disp: 90 tabletRfl: 3 liothyronine (CYTOMEL) 5 mcg tabletTake 1 tablet by mouth once daily.Disp: 90 tabletRfl: 3 CERVICAL LYMPH NODE MAPPING [9122738] Order #: [id number] FUTURE cloNIDine TTS (CATAPRES-TTS) 0.1 mg/24 hrApply 1 Patch as directed once each week.Disp: 4 PatchRfl: 5 TSH BLD [SQTSH] Order #: [id number] FUTURE T4 FREE/FREE THYROX [SQFT4] Order #: [id number] FUTURE T3 FREE BLD [SQFREET3] Order #: [id number] FUTURE THYROGLOBULIN BLD [SQTG] Order #: [id number] FUTURE Prescriptions as of 10/25/2017 Sig: LEVOTHYROXINE 112 MCG TABLET Take 1 tablet by mouth once d* LIOTHYRONINE 5 MCG TABLET Take 1 tablet by mouth once d* FLUOCINOLONE 0.025 % TOPICAL * Apply 1 application to affect* CHOLECALCIFEROL (VITAMIN D3) * Take 1 capsule by mouth once * CLONIDINE 0.1 MG/24 HR WEEKLY* Apply 1 Patch as directed onc* Problem List As Of Date 10/25/2017 Noted Resolved Heart Murmur [R01.1] INVALID FOR* Papillary thyroid CA [C73] INVALID FOR* More... Lichen sclerosus [L90.0] INVALID FOR* Vitamin D deficiency [E55.9] INVALID FOR* PVC's (premature ventricular contractions) [I49*INVALID FOR* Prescriptions ordered this encounter Disp Refills Start End LEVOTHYROXINE 112 MCG TABLET 90 t* 3 10/25/2017 Route: ORAL Sig: Take 1 tablet by mouth once daily. LIOTHYRONINE 5 MCG TABLET 90 t* 3 10/25/2017 Route: ORAL Sig: Take 1 tablet by mouth once daily. CLONIDINE 0.1 MG/24 HR WEEKLY TRANSD* 4 Pa* 5 10/25/2017 Class: Print RX Route: TRANSDERM. Sig: Apply 1 Patch as directed once each week. Medications Discontinued During This Encounter levothyroxine (SYNTHROID) 112 mcg ta* 90 t* 3 10/25/2016 10/25/2017 Route: ORAL Sig: Take 1 tablet by mouth once daily. Disc: Reason for discontinue is not on file. liothyronine (CYTOMEL) 5 mcg tablet 90 t* 3 10/25/2016 10/25/2017 Route: ORAL Sig: Take 1 tablet by mouth once daily. Disc: Reason for discontinue is not on file. Disposition: Return in about 18 months (around 04/27/2019). Follow-up and Disposition History Recorded Encounter Status:Closed by MARY MCKEON MD on 11/24/17 TSH Collected: 10/18/2017 Status: F Source: [place] 8:56 AM [facility] REPOSITORY TYPE CODE TESTS RESULT OUT OF RANGE REFERENCE UNITS LAB TSH 0.400-5.500 uU/mL Low TSH 0.210 Performed By: #### TSH, TG #### [facility] [address], [place] [address] THYROGLOBULIN Collected: 10/18/2017 Status: F Source: [place] 8:56 AM [facility] [place] REPOSITORY TYPE CODE TESTS RESULT OUT OF REFERENCE UNITS RANGE LAB THYG 1.6-59.9 ng/mL Thyroglobulin Low <0.2 Result Comment: Test analyzed by the Siemens Immulite method LAB TGABS <14.4 IU/mL TG Antibody Screen 9.2 Performed By: #### TSH, TG #### [facility] [address] [place], [place] [address] OFFICE VISIT REPORT Observed: 09/20/2017 Status: F Source: [place] 11:12 AM [facility] [place] [facility] [place] [address] [place] [address] OFFICE VISIT Date of Service: 07/14/17 MR#: [id number] Acct: [id number] Patient: NATHAN VICTOR Rep #: [id number] : 1965 Provider: Yuri HARRELL Age/Sex: 51/F Location: [facility] Status: Signed Intake Vital Signs07/14/17 Height 5 ft 7 in Intake Visit Reasons: Cough Candle Wicker Required: No Accompanied by: None Allergies No Known Allergies Allergy (Unverified 07/14/17 12:51) Medications amoxicillin 500 mg capsule 500 mg PO BID 10 Days #20 cap 07/14/17 [Rx Confirmed 07/14/17] levothyroxine 112 mcg tablet PO 07/14/17 [History Confirmed 07/14/17] PFSH Medical History Sinusitis, acute maxillary (Acute) removal of cancerous thyroid (Acute) HPI Cough: Chief Complaint: Cough and sinus pressure Details: NATHAN VICTOR, is a 51 F who presents to the office today for initial evaluation facial pressure and postnasal drip times approximately 10 days. Patient notes chills beginning over the last couple of days and therefore decided to have her symptoms addressed at this time. She is a non-smoker. She notes her discomfort is aggravated with leaning forward, alleviated by essentially nothing. She notes no other associated symptoms, no other alleviating or aggravating factors. ROS Const Constitutional: Positive for chills; no excessive sweating, abnormal sleep pattern, fever(s) or night sweats Eyes Eyes: No change in vision ENT ENT: Positive for post nasal drip and sinus pressure; no abnormal hearing, ear pain, ear discharge, ear pressure or hearing loss Resp Respiratory: Positive for cough; no chest congestion Cardio Cardiology: No excessive sweating, chest pain at rest, chest pain with exertion, shortness of breath, dyspnea on exertion, irregular heart rhythm, generalized swelling or leg pain with exertion Gastro GI: No abdominal pain, change in stool character or change in bowel habits Musc Musculoskeletal: No joint pain, back pain or limited range of motion Skin Skin: No change in hair or sores Neuro Neurology: No abnormal hearing, abnormal speech or abnormal movements Psych Psychiatric: No abnormal sleep pattern Endo Endocrine: No excessive sweating, change in body appearance, cold intolerance or heat intolerance Aller/Imm Allergy/Immunologic: No food intolerance Greg/Lymp Hematologic/Lymphatic: No easy bruising Exam Const General: cooperative, healthy appearing, no acute distress Nutritional Appearance: average body habitus Orientation: alert, awake, oriented x3 HENMT Head: normal to inspection Ears: hearing grossly normal bilaterally, external ears normal, TM's normal bilaterally, EAC's normal Nose: external nose normal, nares normal, septum normal, no nasal discharge Face and sinus: normal facial exam, sinus tenderness (With fullness to bilateral maxillary sinuses) Mouth: oral mucosae normal Teeth and gingiva: dentition normal Throat: posterior oropharynx normal (Though exudative postnasal drip visualized in posterior pharynx) Eyes General: appearance normal, both eyes and all related structures Neck Neck: normal visual inspection, full ROM, no lymphadenopathy, no meningeal signs, supple Neck mass: No Thyroid: thyroid normal Lymphatic: no lymphadenopathy noted Chest Chest palpation AND inspection: normal inspection of the chest Resp Effort AND Inspection: normal respiratory effort, able to speak in complete sentences Auscultation: Bilateral: Clear to Auscultation (With moist nonproductive cough) Cardio Palpation: normal PMI Rate: regular rate Rhythm: regular rhythm Heart Sounds: S1 normal, S2 normal, no gallops, no murmurs, no rubs Pulses: radial pulses present GI Inspection: normal to inspection Palpation: soft, no hepatosplenomegaly Skin General: no rashes or lesions noted Neuro General: alert, awake, oriented x3, gait normal Cognition: normal cognition Speech: speech normal Gait: normal gait Motor: muscle tone normal throughout Sensory Exam: no sensory deficits noted Extrem General: normal to inspection Psych Appearance: grossly normal Mental Status: mental status grossly normal Mood: congruent mood Affect: normal affect Speech and Movement: speech and movement normal Attitude: cooperative Thought Process: normal Thought Content: normal Judgment: judgment good Assessment AND Plan Problems 1. Sinusitis, acute maxillary J01.00 Plan Amoxicillin as prescribed today. Clear fluids, rest, Tylenol, warm facial compresses as needed as instructed today. Avoid tobacco smoke exposure. Follow-up with PCP in 3-5 days should symptoms not improved, sooner should symptoms worsen or any other concerns develop. Patient states acknowledging understanding all the above. Medications New: Coding Level of Care Code Off vis,new,level 4 Diagnoses Sinusitis, acute maxillary J01.00 09/20/17 1112 <Electronically signed by Yuri HARRELL> Date Yuri HARRELL Cosigner Signature: Date (if applicable) CC: ALLERGIES ALLERGIES DATE TYPE / CODE NAME / CODE REACTION SEVERITY SOURCE 07/14/2017 Drug No Known Unknown [facility] Allergy/416 Allergies/[id number] [facility] [id number](SNOM 0388(RXNORM) Repository ED CT) 06/01/2010 Environ/420 SEASONAL OTHER: SEE C [facility] [id number](SNOM ALLERGIES [facility] [place] ED [facility]) Repository ENCOUNTERS ENCOUNTERS ADMIT/DISCHARGE ACCOUNT ADMITTING ENCOUNTER LOCATION SOURCE NUMBER CLASS 08/23/2018 [id number] [facility] ing:MFPLAB Repository 05/03/2018/05/03/20 [id number] Ambulatory [address] Repository 10/25/2017 [id number] Ambulatory [facility] Repository 10/18/2017/10/19/19 [id number] Ambulatory [address] Repository 07/14/2017/07/14/20 [id number] Ambulatory [address]MS[address]:[facility] [address] Repository PAYERS PAYERS ENCOUNTER GUARANTOR PAYER SUBSCRIBER SOURCE 08/23/2018 Kalia Primary NATHAN A Hazel [id number] Insurance:MEDICAL LAMONICADOB: [address] [address]Iwr: Number: Repository [id number] () Date:4812-23-[place] [id number]: 08/23/2018 Secondary NOT GIVENUNK Ronny Insurance:SELF PAY [facility] Number: Effective Repository Date:2018-08-23 07/14/2017 KALIA Primary NATHAN A Ronny [id number] Insurance:MEDICAL LAMONICADOB: [address] [address]Umy: Number: Repository [id number] () Date:[id number] [id number]: 07/14/2017 Secondary NOT GIVENUNK Hazel Insurance:SELF PAY [facility] Number: Effective Repository Date:2017-07-14
== END ==
PROVIDERS: Family Provider Family Medicine; PCP Family Medicine; Visit Provider Family Medicine
DX: E89.0 Postprocedural hypothyroidism (principal); R53.83 Other fatigue; Z86.2 Personal history of diseases of the blood and blood-forming organs and certain disorders involving the immune mechanism
CPT/HCPCS: 36415; 80053; 80061; 82306; 82607; 82728; 82746; 83540; 83550; 84432; 84439; 84443; 85025; 86800

== ENCOUNTER → 2018-11-16 10:22 | Outpatient (CLI) | payer OTHER, SELFPAY ==
--- NOTE | 2018-11-16 10:26 | BI_ITS ---
MAMMOGRAPHY - BILATERAL SCREENING REASON FOR EXAM: Female, 53 years old. Routine annual screening examination. PERTINENT HISTORY: Non-contributory. TECHNIQUE: Digital bilateral breast maritza (3D mammographic acquisition) in the CC and MLO projections. 2-D mediolateral oblique (MLO) and craniocaudad (CC) views of both breasts were obtained. CAD: Full Field Digital Mammography with Computer Added Detection was performed. COMPARISON: Comparison is made with prior outside examination dated March 10, 2016. FINDINGS: Breast Composition: The breasts are heterogeneously dense, which may obscure small masses. There are no dominant masses or suspicious calcifications. No other significant abnormalities are identified. There has been no significant change since the prior study. BI/SCREENING MAMM (CAD), BILAT IMPRESSION: Stable bilateral screening mammogram. Yearly follow-up mammogram recommended. (A) ASSESSMENT CATEGORY: BIRADS Category 1: Negative. A letter regarding these results will be sent to the patient by the facility within 30 days. Approximately 10% of breast cancers are not detected by mammography. A normal mammogram should not delay biopsy of a clinically suspicious abnormality. [id number] Electronically Signed: Tanvir Martinez, at 12:24 EDT , Service support ,
== END ==
PROVIDERS: Family Provider Family Medicine; PCP Family Medicine; Visit Provider Family Medicine
DX: Z12.31 Encounter for screening mammogram for malignant neoplasm of breast (principal)
CPT/HCPCS: 77063; 77067

== ENCOUNTER → 2019-01-02 | Outpatient (CLI) | payer OTHER, SELFPAY ==
[2017-07-14 12:49] VITALS: BMI 25.7
[2019-01-02 12:55] LABS: Free T3 3.3 pg/mL (2.18-3.98); T4 Free Direct 1.06 ng/dL (0.76-1.46); Thyroid Stim Hormone (TSH) 0.13 uIU/mL (0.358-3.74)
== END | disposition home or self-care (01) ==
LOC: MTLAB 09:43
PROVIDERS: Family Provider Family Medicine; PCP Family Medicine; Referring Provider Internal Medicine Endocrinology, Diabetes & Metabolism; Visit Provider Internal Medicine Endocrinology, Diabetes & Metabolism
DX: E89.0 Postprocedural hypothyroidism (principal); Z13.820 Encounter for screening for osteoporosis
CPT/HCPCS: 36415; 84439; 84443; 84481

== ENCOUNTER → 2019-06-13 09:09 | Outpatient (CLI) | payer OTHER, SELFPAY ==
[2017-07-14 12:49] VITALS: BMI 25.7
[2019-06-13 10:58] LABS: Free T3 3.5 pg/mL (2.18-3.98); T4 Free Direct 1.18 ng/dL (0.76-1.46); Thyroid Stim Hormone (TSH) 0.07 uIU/mL (0.358-3.74)
[2019-06-15 16:10] LABS: Anti-Thyroglobulin AB < 1.0 IU/mL (0.0-0.9); Thyroglobulin, Serum Qt. < 0.1 ng/mL (1.5-38.5); Thyroid Peroxidase AB 12 IU/mL (0-34)
== END ==
PROVIDERS: Family Provider Family Medicine; PCP Family Medicine; Referring Provider Family Medicine; Visit Provider Internal Medicine Endocrinology, Diabetes & Metabolism
DX: Z13.820 Encounter for screening for osteoporosis (principal); E89.0 Postprocedural hypothyroidism
CPT/HCPCS: 36415; 84432; 84439; 84443; 84481; 86376; 86800

== ENCOUNTER → 2019-07-17 08:43 | Outpatient (CLI) | payer OTHER, SELFPAY ==
--- NOTE | 2019-07-17 09:01 | BD_ITS ---
STUDY: DUAL ENERGY X-RAY ABSORPTIOMETRY / DXA REASON FOR EXAM: Female, 53 years old. The patient is postmenopausal. Loss of height. TECHNIQUE: Bone Mineral Density (BMD) measurements of lumbar spine and bilateral hips were obtained. COMPARISON: None. FINDINGS: Lumbar Spine (L1-L4): g/cm2 (1.019) / T-score (-1.5) / Z-score (-0.7) Findings are suggestive of osteopenia with a moderate fracture risk. Left Femur Total: g/cm2 (0.893) / T-score (-0.9) / Z-score (-0.3) Left Femoral Neck: g/cm2 (0.845) / T-score (-1.4) / Z-score (-0.4) Right Femur Total: g/cm2 (0.857) / T-score (-1.2) / Z-score (-0.6) Right Femoral Neck: g/cm2 (0.803) / T-score (-1.7) / Z-score (-0.7) BD/Dexa Bone Density Study IMPRESSION: The patient is considered osteopenic as outlined below according to World Jai Organization (WHO) criteria with a moderate fracture risk. Reference Information: The T-score is the number of standard deviations above or below the standard which is normal for young adults at their peak bone mineral density. The World Health Organization (WHO) interprets the T-scores as follows: Above -1 Normal bone density Between -1 and -2.5 Osteopenia Equal to / or below -2.5 Osteoporosis As a practical clinical guideline, osteopenia may be graded as follows: Mild -1 through -1.5 Moderate -1.6 through -2.0 Severe -2.1 through -2.4 The Z-score is the number of standard deviations above or below age-matched controls. A Z-score of less than -1.5 would be considered abnormal. References: 1. NIH Osteoporosis and Related Bone Diseases http://www.osteo.org 2. International Society for Clinical Densitometry http://www.iscd.org 3. National Osteoporosis Foundation http://www.nof.org Electronically Signed: Tanvir Martinez, at 9:29 EST , Service support ,
== END ==
PROVIDERS: Family Provider Family Medicine; PCP Family Medicine; Referring Provider Internal Medicine Endocrinology, Diabetes & Metabolism; Visit Provider Internal Medicine Endocrinology, Diabetes & Metabolism
DX: Z13.820 Encounter for screening for osteoporosis (principal)
CPT/HCPCS: 77080

== ENCOUNTER → 2019-09-04 09:17 | Outpatient (CLI) | payer OTHER, SELFPAY ==
[2017-07-14 12:49] VITALS: BMI 25.7
[2019-09-04 12:40] LABS: Free T3 3.6 pg/mL (2.18-3.98); T4 Free Direct 1.04 ng/dL (0.76-1.46); Thyroid Stim Hormone (TSH) 0.34 uIU/mL (0.358-3.74)
== END ==
PROVIDERS: PCP Family Medicine; Referring Provider Family Medicine; Visit Provider Family Medicine
DX: E89.0 Postprocedural hypothyroidism (principal)
CPT/HCPCS: 36415; 84439; 84443; 84481

== ENCOUNTER → 2019-10-25 16:54 | Outpatient (CLI) | payer OTHER, SELFPAY ==
[2017-07-14 12:49] VITALS: BMI 25.7
--- NOTE | 2019-10-25 16:57 | RAD_ITS ---
STUDY: X-RAY CHEST REASON FOR EXAM: Female, 54 years old. Cough x 1 1/2 months TECHNIQUE: Frontal and lateral views of the chest. COMPARISON: None. FINDINGS: The lungs are clear and expanded. There is no demonstrated pleural abnormality. Normal size heart. Normal mediastinum and poppy. Normal visualized pulmonary arteries. Normal visualized aortic arch and descending thoracic aorta. Normal visualized thoracic spine. Normal visualized ribs, clavicles, and shoulders. There is no demonstrated abnormality of the visualized soft tissue structures of the upper abdomen. RAD/Chest PA and Lateral IMPRESSION: Normal x-ray examination of the chest. Electronically Signed: Zeb Stein MD at 17:35 EDT , Service support ,
== END ==
PROVIDERS: PCP Family Medicine; Referring Provider Family Medicine; Visit Provider Family Medicine
DX: J20.9 Acute bronchitis, unspecified (principal)
CPT/HCPCS: 71046

== ENCOUNTER → 2020-01-04 16:22 | Outpatient (CLI) | payer OTHER, SELFPAY | PROVIDERS: PCP Family Medicine; Referring Provider Family Medicine; Visit Provider Family Medicine | DX: Z01.419 Encounter for gynecological examination (general) (routine) without abnormal findings (principal) | CPT/HCPCS: 88175; G0145 ==

== ENCOUNTER → 2020-02-12 08:37 | Outpatient (CLI) | payer OTHER, SELFPAY ==
[2017-07-14 12:49] VITALS: BMI 25.7
--- NOTE | 2020-02-12 08:39 | BI_ITS ---
MAMMOGRAPHY - BILATERAL SCREENING REASON FOR EXAM: Female, 54 years old. Routine annual screening examination. PERTINENT HISTORY: Non-contributory. TECHNIQUE: Digital bilateral breast angely (3D mammographic acquisition) in the CC and MLO projections. 2-D mediolateral oblique (MLO) and craniocaudad (CC) views of both breasts were obtained. CAD: Full Field Digital Mammography with Computer Added Detection was performed. COMPARISON: Comparison is made with prior study dated November 16, 2018. FINDINGS: Breast Composition: The breasts are heterogeneously dense, which may obscure small masses. There are no dominant masses or suspicious calcifications. No other significant abnormalities are identified. There has been no significant change since the prior study. BI/SCREEN MAMM (CAD) W/ANGELY BILAT IMPRESSION: Stable bilateral screening mammogram. Yearly follow-up mammogram recommended. (A) ASSESSMENT CATEGORY: BIRADS Category 1: Negative. A letter regarding these results will be sent to the patient by the facility within 30 days. Approximately 10% of breast cancers are not detected by mammography. A normal mammogram should not delay biopsy of a clinically suspicious abnormality. [id number] Electronically Signed: Tanvir Martinez, at 9:22 EDT , Service support ,
== END ==
PROVIDERS: PCP Family Medicine; Referring Provider Family Medicine; Visit Provider Family Medicine
DX: Z12.31 Encounter for screening mammogram for malignant neoplasm of breast (principal)
CPT/HCPCS: 77063; 77067

== ENCOUNTER → 2020-04-21 16:45 | Outpatient (CLI) | payer OTHER, SELFPAY ==
[2017-07-14 12:49] VITALS: BMI 25.7
[2020-04-22 10:57] LABS: ALB/GLOB Ratio 1.1 RATIO (0.9-2.4); AST(SGOT) 16 U/L (15-37); Alanine Aminotransfer ALT/SGPT 21 U/L (13-56); Albumin, Serum 3.8 g/dL (3.2-5.0); Alkaline Phosphatase 61 U/L (45-117); Anion Gap 4 (5-15); BUN 16 mg/dL (7-18); BUN/Creat Ratio 20.3 RATIO (10-20); Calcium,Total 8.9 mg/dL (8.5-10.1); Chloride 106 mmol/L (98-107); Creatinine, Serum 0.79 mg/dL (0.55-1.02); EST Glomerular Filtration Rate 80 mL/min (>60); Est Glom Filt Rate - Afr Amer 97 mL/min (>60); Free T3 2.8 pg/mL (2.18-3.98); Globulin 3.6 g/dL (2.2-4.2); Glucose 102 mg/dL (74-106); Protein, Total 7.4 g/dL (6.4-8.2); Sodium Level 136 mmol/L (136-145); Thyroid Stim Hormone (TSH) 0.11 uIU/mL (0.358-3.74)
== END ==
PROVIDERS: PCP Family Medicine; Referring Provider Family Medicine; Visit Provider Internal Medicine Endocrinology, Diabetes & Metabolism
DX: E89.0 Postprocedural hypothyroidism (principal)
CPT/HCPCS: 36415; 80053; 84439; 84443; 84481

== ENCOUNTER → 2020-09-17 13:52 | Outpatient (CLI) | payer OTHER, SELFPAY ==
[2020-09-17 18:24] LABS: T4 Free Direct 1.04 ng/dL (0.76-1.46)
== END ==
PROVIDERS: PCP Family Medicine; Referring Provider Family Medicine; Visit Provider Internal Medicine Endocrinology, Diabetes & Metabolism
DX: E89.0 Postprocedural hypothyroidism (principal)
CPT/HCPCS: 36415; 84439; 84443

== ENCOUNTER → 2021-05-11 09:16 | Outpatient (CLI) | payer OTHER, SELFPAY ==
[2021-05-11 10:26] LABS: Vitamin D,25 Hydroxy 57.6 ng/mL
[2021-05-11 10:34] LABS: AST(SGOT) 13 U/L (15-37); Alanine Aminotransfer ALT/SGPT 22 U/L (13-56); Albumin, Serum 3.4 g/dL (3.2-5.0); Alkaline Phosphatase 59 U/L (45-117); Anion Gap 7 (5-15); BUN 20 mg/dL (7-18); BUN/Creat Ratio 24.8 RATIO (10-20); Chloride 105 mmol/L (98-107); EST Glomerular Filtration Rate 78 mL/min (>60); Est Glom Filt Rate - Afr Amer 95 mL/min (>60); Globulin 3.5 g/dL (2.2-4.2); Glucose 91 mg/dL (74-106); Potassium 4.3 mmol/L (3.5-5.1); Protein, Total 6.9 g/dL (6.4-8.2); Sodium Level 138 mmol/L (136-145); T4 Free Direct 0.96 ng/dL (0.76-1.46); Thyroid Stim Hormone (TSH) 2.12 uIU/mL (0.358-3.74)
== END ==
PROVIDERS: PCP Family Medicine; Referring Provider Family Medicine; Visit Provider Internal Medicine Endocrinology, Diabetes & Metabolism
DX: E03.9 Hypothyroidism, unspecified (principal); C73 Malignant neoplasm of thyroid gland; M85.80 Other specified disorders of bone density and structure, unspecified site; E55.9 Vitamin D deficiency, unspecified
CPT/HCPCS: 36415; 80053; 82306; 84439; 84443; 84481

== ENCOUNTER 2021-07-06 10:28 | Emergency (ER) | payer OTHER, SELFPAY ==
[2021-07-06 10:28] VITALS: BP 112/64; PULSE 90; RESP 18; TEMP 37.4; O2SAT 98; BMI 22.7
[2021-07-06 10:30] VITALS: O2SAT 98
--- NOTE | 2021-07-06 11:58 | EX.ED.VIS.UR ---
HPI HPI - URI History of Present Illness Chief Complaint: Shortness of Breath Informant: patient Onset/Context/Timing Onset: Days (8) Context: Gradual Onset Timing: Continuous Quality: Cannot catch breath Location: Chest Worsened by: - (Nothing) Relieved by: - (Nothing) Associated Symptoms Associated Symptoms: Positive for Myalgias and Productive Cough (Clear); Negative for Nasal Congestion, Headache, Sinus Pressure, Nausea, Vomiting, Diarrhea, Chest Pain and Hemoptysis Narrative Narrative: Patient presents with increasing cough for the past 8 days. Patient states she tested positive for COVID-19 on 1121. Patient states her had it before that. Patient states she is coughing up some clear sputum. Patient states nothing seems to help with the cough. Patient admits to subjective chills but denies any fevers. Patient states her maximum temperature was 99. Patient denies any chest pain. Patient denies any sore throat or rhinorrhea. ROS ROS ED Constitutional Constitutional ED: Reports chills and subjective; Denies fever(s) Eyes Eyes: Denies blurry vision or change in vision ENT ENT ED: Denies rhinorrhea or sore throat Cardiovascular Cardiovascular: Denies chest pain or palpitations Respiratory/Chest Respiratory/Chest: Reports cough and sputum; Denies dyspnea Gastrointestinal Gastrointestinal: Denies nausea or vomiting Genitourinary Genitourinary ED: Denies dysuria or hematuria Musculoskeletal Musculoskeletal: Reports arthralgias and back pain; Denies neck pain Integumentary Denies abscess or rash Neurologic Neurologic: Reports headache(s); Denies weakness Allergic/Immunologic Allergic/Immunologic ED: Denies mouth swelling or urticaria PFSH PFSH Medical History (Updated 07/06/21 @ 13:[address] Jonathon Slaughter, ) Heart murmur Hypothyroid removal of cancerous thyroid Home Medications levothyroxine 112 mcg tablet 112 mcg PO MOTUWETHFRSA 07/14/17 [History Last Taken Unknown] Allergy/AdvReac Type Severity Reaction Status Date / Time No Known Allergies Allergy Unverified 07/06/21 10:32 Surgical History (Updated 07/06/21 @ 12:[address] Jonathon Slaughter, DO) H/O section Hx of foot surgery Hx of thyroidectomy Social History Smoking Status: Never smoker EXAM Physical Exam Const Vital Signs: 07/06/21 10:28 07/06/21 10:30 Temperature 99.3 F H Temperature Source Temporal Pulse Rate 90 Respiratory Rate 18 Respiratory Effort Normal Non-Labored Respiratory Depth Normal Respiratory Pattern Normal Blood Pressure 112/64 Blood Pressure Mean 80 Pulse Ox 98 Oxygen Delivery Method Room Air Room Air Positive well nourished and well developed General Appearance ED: well developed HEENT Reports moist mucous membranes Neck supple and no JVD Resp normal respiratory effort and clear to auscultation bilaterally Cardio regular rate, regular rhythm and no murmurs GI normal to inspection, nondistended, normoactive bowel sounds and non-tender Palpation: soft Extremity normal to inspection General Extremety ED: Negative for edema or tenderness General Extremity: Negative for edema Neuro oriented x3, CN's II-XII intact bilaterally and no sensory deficits noted Sensorium / Orientation: alert Motor Exam: strength 5/5 throughout Psych mental status grossly normal Skin no rashes or lesions noted MDM MDM MDM Narrative Medical decision making narrative: Portable 1 view chest x-ray was obtained. On my interpretation, lung pack are clear. There is normal cardiac silhouette. Bony thorax is normal. There is no acute process noted. Radiologist also interpreted the x-ray and agrees. Patient was advised of her findings. Patient does not meet criteria for monoclonal antibody therapy. Patient was instructed to use honey as needed for the cough. Patient was also instructed to use Mucinex DM as needed for coughing. Patient was instructed to follow-up with her primary care physician in 5 to 7 days. Patient understood and was agreeable with the plan. All questions were answered. Radiography Chest X-Ray - ED: 1 View, Read by ED Physician, Read by Radiologist and Normal Diagnostic Testing: Clinical Impression(s) from Imaging Studies Chest X-Ray 07/06/21 12:04 IMPRESSION: No acute pulmonary process Electronically Signed: Jason Martínez MD at 12:34 EST , Service support , Discharge Plan Triage Chief Complaint: Shortness of Breath ED Provider: Jonathon Slaughter Dx/Rx/DC Orders Clinical Impression: COVID-19 Instructions: Coronavirus Disease 2019 (COVID-19): Caring for Yourself or Others Prescriptions: No Action levothyroxine [Synthroid] 112 mcg tablet 112 mcg PO MOTUWETHFRSA RF: 0 Primary Care Provider: Dong Arreaga Referrals: Dong Arreaga MD [Primary Care Provider] - 5-7 Days Disposition Disposition: Home, Self Care
--- NOTE | 2021-07-06 12:04 | RAD_ITS ---
STUDY: X-RAY CHEST REASON FOR EXAM: Female, 55 years old. Cough TECHNIQUE: Single AP portable view of the chest. COMPARISON: 10/25/2019 FINDINGS: The lungs are clear and expanded. There is no demonstrated pleural abnormality. Normal size heart. Normal mediastinum and poppy. Normal visualized pulmonary arteries. Normal visualized aortic arch and descending thoracic aorta. There are diffuse degenerative changes of the visualized thoracic spine. Normal visualized ribs, clavicles, and shoulders. There is no demonstrated abnormality of the visualized soft tissue structures of the upper abdomen. RAD/Chest 1 View (Portable) IMPRESSION: No acute pulmonary process Electronically Signed: Jason Martínez MD at 12:34 EST , Service support ,
[2021-07-06 13:41] VITALS: BP 115/76; PULSE 91; RESP 16; O2SAT 93
== END 2021-07-06 13:44 | disposition home or self-care (01) ==
PROVIDERS: Emergency Provider Emergency Medicine; PCP Family Medicine
DX: U07.1 COVID-19 (principal); Z79.899 Other long term (current) drug therapy
CPT/HCPCS: 71045; 99282

== ENCOUNTER → 2022-05-27 | Outpatient (CLI) | payer OTHER, SELFPAY ==
[2022-05-27 18:11] LABS: ALB/GLOB Ratio 1.1 RATIO (0.9-2.4); AST(SGOT) 13 U/L (15-37); Alanine Aminotransfer ALT/SGPT 28 U/L (13-56); Albumin, Serum 3.9 g/dL (3.2-5.0); Alkaline Phosphatase 63 U/L (45-117); Anion Gap 7 (5-15); BUN 17 mg/dL (7-18); Calcium,Total 9.4 mg/dL (8.5-10.1); Chloride 105 mmol/L (98-107); Creatinine, Serum 0.94 mg/dL (0.55-1.02); EST Glomerular Filtration Rate 65 mL/min (>60); Est Glom Filt Rate - Afr Amer 78 mL/min (>60); Free T3 3.1 pg/mL (2.18-3.98); Globulin 3.7 g/dL (2.2-4.2); Glucose 83 mg/dL (74-106); Potassium 3.7 mmol/L (3.5-5.1); Protein, Total 7.6 g/dL (6.4-8.2); Sodium Level 139 mmol/L (136-145); Thyroid Stim Hormone (TSH) 1.03 uIU/mL (0.358-3.74)
== END | disposition home or self-care (01) ==
LOC: MFPLAB 15:03
PROVIDERS: PCP Family Medicine; Referring Provider Family Medicine; Visit Provider Internal Medicine Endocrinology, Diabetes & Metabolism
DX: E03.9 Hypothyroidism, unspecified (principal); C73 Malignant neoplasm of thyroid gland; M85.80 Other specified disorders of bone density and structure, unspecified site
CPT/HCPCS: 36415; 80053; 82306; 84439; 84443; 84481

== ENCOUNTER → 2022-07-21 | Outpatient (CLI) | payer OTHER, SELFPAY ==
--- NOTE | 2022-07-21 09:18 | BD_ITS ---
STUDY: DUAL ENERGY X-RAY ABSORPTIOMETRY / DXA REASON FOR EXAM: Female, 56 years old. [id number] TECHNIQUE: Bone Mineral Density (BMD) measurements of lumbar spine and bilateral hips were obtained. COMPARISON: Comparison is made with prior study 07/17/2019. FINDINGS: Lumbar Spine (L1-L4): g/cm2 (0.817) / T-score (-2.1) / Z-score (-0.8) Findings are suggestive of osteopenia with a high fracture risk. Left Femur Total: g/cm2 (0.820) / T-score (-1.0) / Z-score (-0.2) Left Femoral Neck: g/cm2 (0.658) / T-score (-1.7) / Z-score (-0.5) Right Femur Total: g/cm2 (0.770) / T-score (-1.4) / Z-score (-0.6) Right Femoral Neck: g/cm2 (0.573) / T-score (-2.5) / Z-score (-1.3) The T-Scores on the most recent prior examination were: Lumbar Spine (L1-L4): There has been worsening of bone density since the previous examination. Left Femur Total: which represents a worsening of 1.3%. Right Femur Total: which represents a worsening of 3.2%. BD/Dexa Bone Density Study IMPRESSION: The patient is considered osteopenic as outlined below according to World Jai Organization (WHO) criteria with a high fracture risk. There has been worsening of bone density since the previous examination. Reference Information: The T-score is the number of standard deviations above or below the standard which is normal for young adults at their peak bone mineral density. The World Health Organization (WHO) interprets the T-scores as follows: Above -1 Normal bone density Between -1 and -2.5 Osteopenia Equal to / or below -2.5 Osteoporosis As a practical clinical guideline, osteopenia may be graded as follows: Mild -1 through -1.5 Moderate -1.6 through -2.0 Severe -2.1 through -2.4 The Z-score is the number of standard deviations above or below age-matched controls. A Z-score of less than -1.5 would be considered abnormal. References: 1. NIH Osteoporosis and Related Bone Diseases www osteo.org 2. International Society for Clinical Densitometry www iscd.org 3. National Osteoporosis Foundation www nof.org Electronically Signed: Tanvir Martinez MD at 10:50 EST ,
== END | disposition home or self-care (01) ==
LOC: OPBD 09:11
PROVIDERS: PCP Family Medicine; Visit Provider Internal Medicine Endocrinology, Diabetes & Metabolism
DX: M81.0 Age-related osteoporosis without current pathological fracture (principal)
CPT/HCPCS: 77080

== ENCOUNTER 2022-08-26 14:48 | Emergency (ER) | payer BC, SELFPAY ==
[2022-08-26 14:48] VITALS: BP 156/87; PULSE 71; RESP 16; TEMP 36.3; O2SAT 97; BMI 23.5
[2022-08-26 15:15] VITALS: BMI 23.4
--- NOTE | 2022-08-26 15:32 | MRI_ITS ---
STUDY: MRI BRAIN WITHOUT CONTRAST REASON FOR EXAM: Female, 57 years old. Neuro symptoms, left face numbness and paresthesia TECHNIQUE: Standardized multiplanar fat and water weighted pulse sequences were obtained. COMPARISON: No relevant prior imaging available for comparison. HEMISPHERES, CEREBELLUM AND BRAINSTEM: 1. The cerebral parenchyma, ventricular system, subarachnoid spaces have normal configuration. There is a normal gyral pattern. There is normal bhatia/white differentiation. No midline shift.. 2. The hemispheric white matter has normal appearance. 3. No intraparenchymal mass, hemorrhage, or acute territorial infarct. 4. The cerebellum, brainstem, basilar and suprasellar cisterns have normal appearance. No Chiari malformation. PITUITARY: Infundibulum and pituitary have normal configuration. Midline structures appear normal. CSF SPACES: Appropriate for age. No hydrocephalus. Basal cisterns are patent. VESSELS: 1. There are normal flow voids noted in the great vessels at the skull base ORBITS AND PARANASAL SINUSES: 1. Both globes, extraocular muscles, optic nerves and retrobulbar fat appear unremarkable. 2. Paranasal sinuses are clear. BONY ELEMENTS: There is fatty infiltration of the clivus marrow. SCALP AND SOFT TISSUES: Normal appearance of the soft tissues of the scalp and the visualized face OTHER: None MRI/Brain without Contrast IMPRESSION: 1. Fatty infiltration of the clivus marrow may represent yellow marrow conversion or fibrous dysplasia. Consider CT of the sinuses to further evaluate. 2. Normal appearance of the brain. Electronically Signed: Junior Desai MD at 17:22 EST ,
--- NOTE | 2022-08-26 15:35 | EKG12_ITS ---
Test Reason : Blood Pressure : / mmHG Vent. Rate : 062 BPM Atrial Rate : 062 BPM P-R Int : 164 ms QRS Dur : 086 ms QT Int : 422 ms P-R-T Axes : 062 062 038 degrees QTc Int : 428 ms Normal sinus rhythm Normal ECG Confirmed by VANDANA LEVINE MD ([id number]), supervising editor trailer JARED PAINTER ([id number]) on 08/30/2022 10:32:59 AM Referred By: JOSE Confirmed By:VANDANA LEVINE MD
[2022-08-26 16:05] LABS: Absolute Lymphocyte Count 1.61 X10^3/uL (0.83-4.51); Basophil# 0.04 X10^3/uL; Basophil% 0.8 % (0-1); Eosinophil# 0.22 X10^3/uL; Eosinophils% 4.2 % (0-5); Hematocrit 39.1 % (37-47); Lymphocyte # 1.61 X10^3/ul (0.83-4.51); Lymphocyte % 30.4 % (19-41); Mean Corp Hgb Conc 33.2 g/dL (32-36); Mean Corpuscular Hgb 28.8 pg (27.0-32.0); Mean Corpuscular Volume 86.5 fL (81-99); Mean Platelet Vol. 10.6 fl (6.2-12.0); Monocyte# 0.44 X10^3/uL; Monocyte% 8.3 % (0-10); NRBC Flagged by Analyzer 0 % (0-5); Neutrophil # 2.98 X10^3/uL (2.7-7.7); Neutrophil % 56.1 % (47-70); Platelet Count 251 K/mm3 (150-450); RBC Distribution Width CV 12.4 % (11.6-14.6); RBC Distribution Width SD 38.9 fl (35.1-43.9); Red Blood Count 4.52 M/mm3 (4.2-5.4); White Blood Count 5.3 K/mm3 (4.4-11.0)
[2022-08-26 16:13] LABS: International Normalized Ratio 1.2; Partial Thromboplast Time 29.6 Seconds (24.1-36.2)
--- NOTE | 2022-08-26 16:23 | EDS_ITS ---
HPI History of Present Illness Chief Complaint: Neuro S/Sx Informant: patient Narrative Narrative: Patient is a 57-year-old female with history of hypothyroid presenting for facial droop and facial numbness. Patient states that she started having twitching in her face on Tuesday and then yesterday she started giving numbness and weakness on the left side of her face. She saw her primary care doctor today who thought she might have a Blackwood's palsy but given that she still had movement in her forehead and had the numbness wanted her brought in for further stroke evaluation. Patient has no other symptoms. No speech changes except for those associated with difficulty moving the left side of her lips. Not drooling. Is complaining of dry eye and tearing in her left eye. Patient denies any head injuries. Is not any blood thinners. No other complaints at this time. PFSH [facility] Medical History Heart murmur Hypothyroid removal of cancerous thyroid Home Medications levothyroxine 112 mcg tablet (Synthroid) 110 mcg PO MOTUWETHFRSA 07/14/17 [History Last Taken Unknown] calcium carbonate 500 mg calcium (1,250 mg) chewable tablet (Calcium 500) 500 mg PO DAILY 08/26/22 [History Last Taken Unknown] cholecalciferol (vitamin D3) 10 mcg (400 unit) tablet (Vitamin D3) 400 unit PO DAILY 08/26/22 [History Last Taken Unknown] ferrous sulfate 325 mg (65 mg iron) tablet 325 mg PO DAILY 08/26/22 [History Last Taken Unknown] liothyronine 5 mcg tablet 5 mcg PO DAILY 08/26/22 [History Last Taken Unknown] prednisone 20 mg tablet 60 mg PO DAILY #12 tabs 08/26/22 [Rx Last Taken Unknown] valacyclovir 1 gram tablet 1,000 mg PO Q8H #21 tabs 08/26/22 [Rx Last Taken Unknown] Allergy/AdvReac Type Severity Reaction Status Date / Time No Known Allergies Allergy Verified 08/26/22 14:51 Surgical History H/O section Hx of foot surgery Hx of thyroidectomy Social History Smoking Status: Never smoker ROS ROS ED Constitutional Constitutional ED: Denies chills or fever(s) Eyes Eyes: Reports other Details: Left eye wateriness, dry eye in the left ; Denies blurry vision or change in vision ENT ENT ED: Denies ear pain, rhinorrhea or sore throat Cardiovascular Cardiovascular: Denies chest pain or palpitations Respiratory/Chest Respiratory/Chest: Denies cough or dyspnea Gastrointestinal Gastrointestinal: Denies abdominal pain Musculoskeletal Musculoskeletal: Denies arthralgias or myalgias Integumentary Denies rash Neurologic Neurologic: Reports other Details: Paresthesias to left face ; Denies headache(s) or weakness Hematologic/Lymphatic Hematologic/Lymphatic: Denies easy bleeding or easy bruising EXAM Physical Exam Const Vital Signs: 08/26/22 14:48 Temperature 97.4 F L Temperature Source Temporal Pulse Rate 71 Respiratory Rate 16 Blood Pressure 156/87 H Blood Pressure Mean 110 Pulse Ox 97 Oxygen Delivery Method Room Air Positive well nourished and well developed General Appearance ED: well developed and NAD HEENT Reports TM's clear and moist mucous membranes Tympanic Membrane ED: Yes TM's clear Eyes PERRL and EOMs intact bilaterally Eyes Narrative: Slight ptosis and watery eye on the left. Normal conjunctiva. Neck supple Chest Wall inspection of chest normal and palpation of chest normal Resp normal respiratory effort and clear to auscultation bilaterally Cardio regular rate and regular rhythm GI normal to inspection, nondistended, normoactive bowel sounds Back/Spine no CVA tenderness Neuro oriented x3 Neuro Narrative: Of facial droop of the left face with a small amount of movement of the left forehead but it is asymmetric. Decreased movement of the left upper eyelid with blinking. Subjective paresthesia to the left face however sensation is intact to light touch. Uvula is midline. Normal range of motion of the tongue. No drooling appreciated. Normal strength and sensation of the extremities. No visual field cut. 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 No other neurologic symptoms. Patient's really only medical history is history of thyroid cancer. Decision to obtain an MRI to rule out central process/stroke is made. 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 A CT of the sinuses obtained for further evaluation of this. Patient know she does have some chronic sinus issues. Sinus CT shows mild expansile appearance of the clivus favoring early fibrous dysplasia versus less likely fatty marrow replacement. In addition a chest x-ray was obtained interpreted by myself as well as radiology which showed no acute process. Patient's lab work is remarkable only for a mildly elevated TSH of 3.80. I do not think her presentation is consistent with hypothyroid. Case discussed with Dr. Leon, oncology on-call for the CT/MRI findings. He recommended outpatient follow-up with PCP for CT of the chest abdomen pelvis loo caroline for potential source in case this is a cancer. I spoke with physician on- call for the patient's PCP, Dr. Rubio, who will relay this to the patient's primary care doctor. 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 Is counseled on eye care including patching at night. Given return precautions. Discharged home in stable condition. Lab Data Attestation: I reviewed the patient's lab results. Labs: Laboratory Results - last 24 hr 08/26/22 08/26/22 08/26/22 15:20 15:20 15:20 WBC 5.3 RBC 4.52 Hgb 13.0 Hct 39.1 MCV 86.5 MCH 28.8 MCHC 33.2 RDW Std Deviation 38.9 RDW Coeff of Dewey 12.4 Plt Count 251 MPV 10.6 Immature Gran % (Auto) 0.200 Neut % (Auto) 56.1 Lymph % (Auto) 30.4 Bucks % (Auto) 8.3 Eos % (Auto) 4.2 Baso % (Auto) 0.8 Absolute Neuts (auto) 3.0 Absolute Lymphs (auto) 1.61 Nucleated RBC % 0 PT 15.0 H INR 1.2 APTT 29.6 Sodium 140 Potassium 3.6 Chloride 106 Carbon Dioxide 29.0 Anion Gap 5 BUN 15 Creatinine 0.89 Estim Creat Clear Calc 67.00 Est GFR (MDRD) Af Amer 84 Est GFR (MDRD) Non-Af 69 BUN/Creatinine Ratio 16.9 Glucose 95 Calcium 9.4 Magnesium 2.6 TSH 3.80 H Radiography Diagnostic Testing: Clinical Impression(s) from Imaging Studies Brain MRI 08/26/22 15:32 IMPRESSION: 1. Fatty infiltration of the clivus marrow may represent yellow marrow conversion or fibrous dysplasia. Consider CT of the sinuses to further evaluate. 2. Normal appearance of the brain. Electronically Signed: Junior Desai MD at 17:22 EST Reading Location ID and State: [facility] / [place] Tel , Service support , Chest X-Ray 08/26/22 17:10 IMPRESSION: No radiographic evidence of acute cardiopulmonary disease. 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 Electronically Signed: Junior Desai MD at 18:31 EST , Rhythm Strip Rhythm Strip: Sinus Rhythm Rate: 62 Ectopy: None EKG Initial EKG: Attestation: I personally reviewed and interpreted this EKG as follows: Interpretation: Sinus Rhythm Comments: Normal sinus rhythm and rate of 62 bpm Normal axis Normal intervals Normal ST segments Discharge Plan Triage Chief Complaint: Neuro S/Sx ED Provider: Malaika Landry Dx/Rx/DC Orders Instructions: ED Blackwood's Palsy Prescriptions: New valacyclovir 1 gram tablet 1,000 mg PO Q8H Qty: 21 0RF prednisone 20 mg tablet 60 mg PO DAILY Qty: 12 0RF No Action levothyroxine [Synthroid] 112 mcg tablet 110 mcg PO MOTUWETHFRSA liothyronine 5 mcg tablet 5 mcg PO DAILY ferrous sulfate 325 mg (65 mg iron) Tablet 325 mg PO DAILY calcium carbonate [Calcium 500] 500 mg calcium (1,250 mg) tablet,chewable 500 mg PO DAILY cholecalciferol (vitamin D3) [Vitamin D3] 10 mcg (400 unit) tablet 400 unit PO DAILY Primary Care Provider: Dong Arreaga Referrals: Dong Arreaga MD [Primary Care Provider] - Activity Restrictions/Additional Instructions: 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 At night use [id number] eye ointment to keep your eye moist and patch or icy do not scratch it. Use eyedrops such as Systane eyedrops to help prevent dry eye. Your CT/MRI did show some abnormalities at the base of the skull which can be associated with malignancy. We recommend you follow-up with your primary care doctor for further evaluation and likely CT of the chest abdomen and pelvis. Please return to the ER if you have any progression or worsening symptoms. At this time your MRI did not show any signs of a stroke. Disposition Disposition: Home, Self Care
[2022-08-26 16:39] LABS: Anion Gap 5 (5-15); BUN 15 mg/dL (7-18); BUN/Creat Ratio 16.9 RATIO (10-20); Calcium,Total 9.4 mg/dL (8.5-10.1); Chloride 106 mmol/L (98-107); Creatinine, Serum 0.89 mg/dL (0.55-1.02); EST Glomerular Filtration Rate 69 mL/min (>60); Est Glom Filt Rate - Afr Amer 84 mL/min (>60); Glucose 95 mg/dL (74-106); Magnesium 2.6 mg/dL (1.6-2.6); Potassium 3.6 mmol/L (3.5-5.1); Sodium Level 140 mmol/L (136-145)
--- NOTE | 2022-08-26 17:10 | RAD_ITS ---
INDICATION: Neuro symptoms EXAMINATION/TECHNIQUE: X-RAY - XR Chest 1 View COMPARISON: 07/06/2021 FINDINGS: LINES/DEVICES: None. LUNGS: No consolidation, edema or effusion. No pneumothorax. MEDIASTINUM AND CARDIOVASCULAR STRUCTURES: Cardiac silhouette not enlarged. Central airways and mediastinal contour are unremarkable. RAD/Chest 1 View (Portable) IMPRESSION: No radiographic evidence of acute cardiopulmonary disease. Electronically Signed: Junior Desai MD at 17:34 EST ,
--- NOTE | 2022-08-26 17:50 | CT_ITS ---
INDICATION: Abnormal MRI of Clivus EXAMINATION: CT SINUSES - CT Sinuses W/O Contrast Injection TECHNIQUE: Helically acquired images were obtained of the paranasal sinuses. A radiation dose optimization technique was used for this scan. COMPARISON: Same day brain MRI FINDINGS: FRONTAL SINUSES AND RECESSES: Clear. ETHMOID AIR CELLS: Clear. MAXILLARY SINUSES: A few bilateral mucous retention cysts. OSTIOMEATAL COMPLEXES: Clear and normally formed. SPHENOID SINUSES: Clear. SPHENOETHMOIDAL RECESSES: Clear. There is mild hypoattenuation of the clivus and slight expansion of the inferior and superior cortices. ANCILLARY FINDINGS: NASAL TURBINATES: Unremarkable. NASAL SEPTUM: Midline. ORBITS: Unremarkable. VISUALIZED DENTITION: No periodontal osseous erosion. ANTERIOR CRANIAL FOSSA: Unremarkable. 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 Electronically Signed: Junior Desai MD at 18:31 EST ,
[2022-08-26 19:26] VITALS: BP 138/85; PULSE 68; RESP 18; O2SAT 98
[2022-08-26] MEDS: Acyclovir 200 MG Capsule 400 MG PO (19:38)
[2022-08-26] MEDS: predniSONE 20 MG Tablet 60 MG PO (19:38)
== END 2022-08-26 19:53 | disposition home or self-care (01) ==
PROVIDERS: Emergency Provider Emergency Medicine; PCP Family Medicine; Visit Provider Emergency Medicine
DX: G51.0 Bell's palsy (principal); E03.9 Hypothyroidism, unspecified; Z79.899 Other long term (current) drug therapy
CPT/HCPCS: 70486; 70551; 71045; 80048; 83735; 84443; 85025; 85610; 85730; 93005; 99285; A4216

== ENCOUNTER → 2022-09-23 | Outpatient (CLI) | payer BC, SELFPAY ==
--- NOTE | 2022-09-23 08:25 | NM_ITS ---
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 WHOLE BODY 99m Tc MDP RADIONUCLIDE BONE SCINTIGRAPHY COMPARISON: None available FINDINGS: Following the intravenous administration of 25.4 mCi of 99m Tc MDP, whole body bone images reveal: 1. Increased radiopharmaceutical concentration is defined in the midline calvarium which may reside in the region of the clivus. 2. Facilitated uptake is noted in the acromioclavicular compartments of both shoulders, the wrist articulations bilaterally, both knees, the bilateral elbows, the right midfoot. 3. The remaining skeletal structures are scintigraphically unremarkable with normal-appearing renal images and urinary bladder activity identified. NM/Bone Scan Whole Body IMPRESSION: 1. The increase in tracer concentration noted in the region of the interorbital aspect of the skull may represent uptake within the clivus. 2. Degenerative arthrosis is otherwise defined in the bilateral shoulder and wrists, the knees bilaterally right-left elbows, the right midfoot. 3. There is no scintigraphic evidence of diffuse axial skeletal metastatic disease on the current examination. Electronically Signed: Gerber Conklin, at 22:17 EST ,
== END | disposition home or self-care (01) ==
LOC: NM 08:24
PROVIDERS: PCP Family Medicine; Referring Provider Internal Medicine Medical Oncology; Visit Provider Internal Medicine Medical Oncology
DX: R93.0 Abnormal findings on diagnostic imaging of skull and head, not elsewhere classified (principal); Z85.850 Personal history of malignant neoplasm of thyroid
CPT/HCPCS: 78306; A9503

== ENCOUNTER 2023-01-07 06:30 | Outpatient (CLI) | payer BC, SELFPAY ==
--- NOTE | 2023-01-07 06:55 | MRI_ITS ---
INDICATION: F/U for BASE OF SKULL LESION- Hx of thyroid CA EXAMINATION: MRI - MR Brain WO/W Contrast TECHNIQUE: MRI examination brain fusion protocol including multiplanar multiecho pre and postcontrast imaging. IV Contrast Dosage and Agent: Clariscan administered, dose was not provided. COMPARISON: MRI and CT examination of 08/26/2022. FINDINGS: HEMISPHERES, CEREBELLUM AND BRAINSTEM: 1. The cerebral parenchyma, ventricular system, subarachnoid spaces have normal configuration and density. There is a normal gyral pattern. There is normal bhatia/white differentiation. No midline shift.. 2. The hemispheric white matter has normal appearance. 3. No intraparenchymal mass, hemorrhage, or acute territorial infarct. 4. The cerebellum, brainstem, basilar and suprasellar cisterns have normal appearance. No Chiari malformation. PITUITARY: Mildly ectopic posterior pituitary noted. No sellar or suprasellar masses.. CSF SPACES: Appropriate for age. No hydrocephalus. Basal cisterns are patent. VESSELS: 1. There are normal flow voids noted in the great vessels at the skull base ORBITS AND PARANASAL SINUSES: 1. Both globes, extraocular muscles, optic nerves and retrobulbar fat appear unremarkable. 2. Mild maxillary mucosal thickening. BONY ELEMENTS: Bony elements of the cranial vault, facial skeleton and skull base have normal appearance. There is a unchanged appearance of the clivus with significant fatty infiltration. No significant interval change. SCALP AND SOFT TISSUES: Normal appearance of the soft tissues of the scalp and the visualized face OTHER: None MRI/Brain W/WO Contrast IMPRESSION: 1. No intracranial mass, hemorrhage, or acute territorial infarct. 2. No radiographically significant sinus disease. 3. Stable appearance of fatty marrow signal throughout the clivus. Electronically Signed: Gerber De La Rosa MD at 0:29 EDT ,
[2023-01-07 07:18] LABS: T4 Free Direct 0.83 ng/dL (0.76-1.46); Thyroid Stim Hormone (TSH) 6.82 uIU/mL (0.358-3.74)
[2023-01-11 09:09] LABS: Anti-Thyroglobulin AB < 1.0 IU/mL (0.0-0.9); Thyroglobulin, Serum Qt. < 0.1 ng/mL (1.5-38.5)
== END 2023-01-07 23:59 | disposition home or self-care (01) ==
LOC: MRI 06:31
PROVIDERS: PCP Family Medicine; Referring Provider Internal Medicine Medical Oncology; Visit Provider Internal Medicine Medical Oncology
DX: R93.0 Abnormal findings on diagnostic imaging of skull and head, not elsewhere classified (principal); Z85.850 Personal history of malignant neoplasm of thyroid
CPT/HCPCS: 36415; 70553; 84432; 84439; 84443; 86800; A9575

== ENCOUNTER → 2023-03-28 | Outpatient (CLI) | payer BC, SELFPAY ==
[2023-03-28 11:17] LABS: Anion Gap 4 (5-15); BUN 19 mg/dL (7-18); BUN/Creat Ratio 20.2 RATIO (10-20); Calcium,Total 9.7 mg/dL (8.5-10.1); Chloride 108 mmol/L (98-107); Creatinine, Serum 0.94 mg/dL (0.55-1.02); EST Glomerular Filtration Rate 65 mL/min (>60); Est Glom Filt Rate - Afr Amer 78 mL/min (>60); Free T3 3.4 pg/mL (2.18-3.98); Glucose 99 mg/dL (74-106); Potassium 4.3 mmol/L (3.5-5.1); Sodium Level 141 mmol/L (136-145); T4 Free Direct 1.03 ng/dL (0.76-1.46); Thyroid Stim Hormone (TSH) 1.34 uIU/mL (0.358-3.74)
== END | disposition home or self-care (01) ==
LOC: MFPLAB 08:50
PROVIDERS: PCP Family Medicine; Visit Provider Family Medicine
DX: C73 Malignant neoplasm of thyroid gland (principal); E03.9 Hypothyroidism, unspecified; E55.9 Vitamin D deficiency, unspecified; R42 Dizziness and giddiness
CPT/HCPCS: 36415; 80048; 82533; 84439; 84443; 84481

== ENCOUNTER → 2023-07-07 | Outpatient (CLI) | payer BC, SELFPAY ==
[2023-07-07 11:03] LABS: T4 Free Direct 1.08 ng/dL (0.76-1.46); Thyroid Stim Hormone (TSH) 1.17 uIU/mL (0.358-3.74)
== END | disposition home or self-care (01) ==
LOC: MFPLAB 08:16
PROVIDERS: PCP Family Medicine; Visit Provider Internal Medicine Endocrinology, Diabetes & Metabolism
DX: E03.9 Hypothyroidism, unspecified (principal); C73 Malignant neoplasm of thyroid gland; M85.80 Other specified disorders of bone density and structure, unspecified site; E55.9 Vitamin D deficiency, unspecified
CPT/HCPCS: 36415; 84439; 84443

== ENCOUNTER → 2024-07-14 | Outpatient (CLI) | payer OTHER, SELFPAY ==
[2024-07-14 10:31] LABS: AST(SGOT) 13 U/L (15-37); Alanine Aminotransfer ALT/SGPT 24 U/L (13-56); Albumin, Serum 3.5 g/dL (3.2-5.0); Alkaline Phosphatase 64 U/L (45-117); Anion Gap 2 (5-15); BUN 13 mg/dL (7-18); BUN/Creat Ratio 14.9 RATIO (10-20); Calcium,Total 9.1 mg/dL (8.5-10.1); Chloride 108 mmol/L (98-107); Cholesterol 201 mg/dL (200); Creatinine, Serum 0.88 mg/dL (0.55-1.02); EST Glomerular Filtration Rate 70 mL/min (>60); Est Glom Filt Rate - Afr Amer 85 mL/min (>60); Free T3 3.3 pg/mL (2.18-3.98); Globulin 3.5 g/dL (2.2-4.2); Glucose 96 mg/dL (74-106); High Density Lipoprotein 74 mg/dL; Sodium Level 139 mmol/L (136-145); Triglycerides 53 mg/dL; Very Low Density Lipoprotein 11 mg/dL (5-40)
[2024-07-14 10:41] LABS: Vitamin D,25 Hydroxy 25.8 ng/mL
== END | disposition home or self-care (01) ==
PROVIDERS: PCP Family Medicine; Referring Provider Internal Medicine Endocrinology, Diabetes & Metabolism; Visit Provider Internal Medicine Endocrinology, Diabetes & Metabolism
DX: C73 Malignant neoplasm of thyroid gland (principal); E03.9 Hypothyroidism, unspecified; R42 Dizziness and giddiness; E55.9 Vitamin D deficiency, unspecified
CPT/HCPCS: 36415; 80053; 80061; 82306; 84439; 84443; 84481

== ENCOUNTER 2025-02-28 12:18 | Inpatient (IN) | payer OTHER, SELFPAY ==
[2025-02-28] VITALS (17 sets, daily range): BP systolic 115–174; BP diastolic 72–99; PULSE 65–80; RESP 12–25; TEMP 36.1–36.9; O2SAT 96–98; BMI 23.8; BMI 22.7
--- NOTE | 2025-02-28 13:02 | RAD_ITS ---
PROCEDURE: CHEST PA AND LATERAL 02/28/2025 REASON FOR EXAM: CHEST PAIN TECHNIQUE: CHEST PA AND LATERAL COMPARISON: August 26, 2022 FINDINGS: Heart size and mediastinal configuration are within normal limits. There is no focal infiltrate or consolidation. There is no pneumothorax or effusion. Aortic calcifications are visible. There is no acute bony abnormality. RAD/Chest PA and Lateral IMPRESSION: No acute process is identified in the chest. Reading Location: [facility]
--- NOTE | 2025-02-28 13:02 | EKG12_ITS ---
Test Reason : Blood Pressure : */* mmHG Vent. Rate : 57 BPM Atrial Rate : 57 BPM P-R Int : 168 ms QRS Dur : 92 ms QT Int : 428 ms P-R-T Axes : 63 60 64 degrees QTcB Int : 416 ms Sinus bradycardia Otherwise normal ECG Confirmed by ABNER GOEL, VANDANA ([id number]), mapping editor LAITH OSULLIVAN ([id number]) on 03/04/2025 9:40:00 AM Referred By: JOSE Confirmed By: VANDANA LEVINE MD
--- NOTE | 2025-02-28 13:03 | EX.ED.DYSGE1 ---
HPI History of Present Illness Chief Complaint: Anxiety Informant: patient Narrative Narrative: Patient is a 59-year-old female with history of thyroid cancer (previously treated and now on Synthroid), lifelong heart murmur and chronic lightheadedness presenting with chest discomfort. He states she had an episode last week where she was feeling overwhelmed that she is having a panic attack. It lasted for about 30 minutes. 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 She states it is not a pain but feels more like an ache. She has a family history of heart disease (her grandmother as well as her older sister) and wanted to make sure that this wasn't anything to do with her heart so she came to the emergency room. She currently is starting to feel better and except for her headache. She denies any recent medication changes. Denies any recent weight changes. Does report a lot of social stressors in her life. No other complaints or concerns reported at this time. Denies history of tobacco use. Denies associated GI or symptoms. [facility] Medical History Heart murmur Hypothyroid removal of cancerous thyroid Home Medications Medication Instructions Recorded Last Taken Type liothyronine 5 mcg tablet 5 mcg PO DAILY 08/26/22 Unknown History cholecalciferol (vitamin D3) 1,250 1,250 mcg PO QWEEK 02/28/25 Unknown History mcg (50,000 unit) capsule levothyroxine 100 mcg tablet 100 mcg PO DAILY 02/28/25 02/28/25 History Allergy/AdvReac Type Severity Reaction Status Date / Time No Known Allergies Allergy Verified 02/28/25 12:18 Family History Mother Cancer metastatic-un known primary site Grandmother Uterine cancer Sister Thyroid cancer Surgical History Hx of foot surgery H/O section Hx of thyroidectomy Social History Smoking Status: Never smoker alcohol intake: never substance use type: does not use ROS ROS ED Constitutional Constitutional ED: Denies chills, fever(s) or sweats Cardiovascular Cardiovascular: Reports chest pain Respiratory/Chest Respiratory/Chest: Denies cough or dyspnea Gastrointestinal Gastrointestinal: Denies abdominal pain, nausea or vomiting Musculoskeletal Musculoskeletal: Denies arthralgias or myalgias Integumentary Denies rash Psychiatric Psychiatric: Reports anxiety EXAM Physical Exam Const Vital Signs: 02/28/25 12:18 02/28/25 13:10 02/28/25 14:18 Temperature 97 F L Temperature Source Temporal Pulse Rate 70 65 Respiratory Rate 22 H 18 Blood Pressure 174/78 H 141/85 H Blood Pressure Mean 110 103 Pulse Ox 97 97 Oxygen Delivery Method Room Air Room Air 02/28/25 14:38 02/28/25 15:00 02/28/25 15:15 Temperature Temperature Source Pulse Rate 70 74 69 Respiratory Rate 18 15 18 Blood Pressure 133/92 H 129/72 H Blood Pressure Mean 105 88 Pulse Ox 97 97 97 Oxygen Delivery Method 02/28/25 15:30 02/28/25 15:45 02/28/25 16:00 Temperature Temperature Source Pulse Rate 78 70 67 Respiratory Rate 17 13 16 Blood Pressure 135/80 H 115/96 H 130/74 H Blood Pressure Mean 96 102 92 Pulse Ox 97 97 96 Oxygen Delivery Method Positive well nourished and well developed General Appearance ED: well developed and NAD Eyes PERRL Neck supple and no JVD Chest Wall inspection of chest normal and palpation of chest normal Resp normal respiratory effort and clear to auscultation bilaterally Cardio regular rate, regular rhythm and no murmurs Cardio Narrative: 2+ radial DP pulses present GI normal to inspection, nondistended, normoactive bowel sounds and non-tender Extremity normal to inspection General Extremety ED: Negative for edema or tenderness General Extremity: Negative for edema Neuro oriented x3 Sensorium / Orientation: alert Motor Exam: Negative for general weakness Psych mental status grossly normal Mood & Affect: anxious; Negative for tearful Skin no rashes or lesions noted and no wounds MDM MDM MDM Narrative Medical decision making narrative: Patient evaluated for episode of chest discomfort, headache and discomfort going down the back of her bilateral arms. She initially attributed to anxiety but it did not improve with rest today so she came in. Denies any known history of coronary disease but does have significant family history of coronary artery disease. Differential includes anxiety reaction, pneumothorax, pneumonia, ACS, pericarditis and electrolyte derangement Workup including EKG, chest x-ray lab work is obtained. EKG shows some T wave morphology changes to lead III but no other acute changes. She is relatively asymptomatic right now. High sensitivity troponins elevated at 106. Repeat EKG obtained which now shows a T wave inversion in lead III but no other acute changes. Patient does report that when she was moving around for chest x-ray she had the pain again but she is feeling better after aspirin. Will discuss with cardiology but patient will require admission to the hospital for concern for ACS. Repeat high-sensitivity troponin is uptrending (now to 29). Patient is pain-free at this time. Case discussed with cardiology, Dr. Chamroro. He plans on cathing the patient tomorrow. Patient started on heparin drip in the emergency room. Patient agreeable plan of care. Discussed with hospitalist for admission. Lab Data Attestation: I reviewed the patient's lab results. Labs: Laboratory Results - last 24 hr 02/28/25 02/28/25 13:10 14:56 WBC 8.1 RBC 4.53 Hgb 12.9 Hct 38.3 MCV 84.5 MCH 28.5 MCHC 33.7 RDW Std Deviation 39.2 RDW Coeff of Dewey 12.8 Plt Count 237 MPV 10.4 Immature Gran % (Auto) 0.400 Neut % (Auto) 83.7 H Lymph % (Auto) 10.0 L [place] % (Auto) 4.8 Eos % (Auto) 0.5 Baso % (Auto) 0.6 Absolute Neuts (auto) 6.8 Absolute Lymphs (auto) 0.81 L Nucleated RBC % 0 Sodium 139 Potassium 3.7 Chloride 105 Carbon Dioxide 23.7 Anion Gap 10 BUN 18 Creatinine 0.76 Estim Creat Clear Calc 76.55 Est GFR (MDRD) Non-Af 90 BUN/Creatinine Ratio 23.7 H Glucose 118 H Calcium 9.3 Troponin T High Sens 106 H* Troponin T Hi Sens 2 Hr 229 H* Radiography Chest X-Ray - ED: 2 View, Read by ED Physician, Read by Radiologist and No Acute Disease Diagnostic Testing: Clinical Impression(s) from Imaging Studies Chest X-Ray 02/28/25 13:02 IMPRESSION: No acute process is identified in the chest. Reading [facility] Rhythm Strip Rhythm Strip: Sinus Rhythm Rate: 57 Ectopy: None EKG Initial EKG: Attestation: I personally reviewed and interpreted this EKG as follows: Interpretation: Sinus Rhythm Comments: Sinus bradycardia rate of 57 bpm Normal axis Normal intervals Nonspecific ST morphology change in lead III but no reciprocal changes This is new compared to prior EKG on 08/26/2022 Prior EKG tracings: available for review Prior: Changed Follow-up EKG: Attestation: I personally reviewed and interpreted this EKG as follows: Interpretation: Sinus Rhythm Comments: Normal sinus rhythm at a rate of 64 bpm Normal axis Normal intervals T wave inversion in lead III now with no further dynamic changes Management Discussion w/another healthcare provider: Hospitalist and Airport Traffic Controller Critical Care Time Critical Care Time: Yes Critical care time (excluding procedures): 30-74 minutes (40), Discussing w/Patient &/or Family/Auto Travel Counselor, Discussing w/Consultants and Arranging Admission or Transfer Discharge Plan Triage Chief Complaint: Anxiety ED Provider: Malaika Landry Dx/Rx/DC Orders Clinical Impression: Acute non-ST elevation myocardial infarction (NSTEMI), Chest pain Prescriptions: No Action liothyronine 5 mcg tablet 5 mcg PO DAILY levothyroxine 100 mcg tablet 100 mcg PO DAILY cholecalciferol (vitamin D3) 1,250 mcg (50,000 unit) capsule 1,250 mcg PO QWEEK Patient Comments: Take weekly on Sat. Primary Care Provider: Dong Arreaga Referrals: Dong Arreaga MD [Primary Care Provider] - Print Language: Croatian Disposition Disposition: Acute Care Hospital [facility]
[2025-02-28 13:21] LABS: Hematocrit 38.3 % (37-47); Hemoglobin 12.9 g/dL (12.0-15.0); Immature Granulocytes Count 0.030 X10^3/uL (0.0-0.0); Mean Corp Hgb Conc 33.7 g/dL (32-36); Mean Corpuscular Volume 84.5 fL (81-99); Mean Platelet Vol. 10.4 fl (6.2-12.0); NRBC Flagged by Analyzer 0 % (0-5); Platelet Count 237 K/mm3 (150-450); RBC Distribution Width CV 12.8 % (11.6-14.6); RBC Distribution Width SD 39.2 fl (35.1-43.9); Red Blood Count 4.53 M/mm3 (4.2-5.4); White Blood Count 8.1 K/mm3 (4.4-11.0)
[2025-02-28 14:12] LABS: Anion Gap 10 (5-15); BUN 18 mg/dL (4-19); BUN/Creat Ratio 23.7 RATIO (10-20); Calcium,Total 9.3 mg/dL (7.6-11.0); Carbon Dioxide 23.7 mmol/L (21.0-32.0); Chloride 105 mmol/L (98-108); Estimated Creatinine Clearance 76.55 ml/min (50-250); Glucose 118 mg/dL (70-99); Potassium 3.7 mmol/L (3.3-5.1)
[2025-02-28 14:14] LABS: Troponin T High Sensitivity 106 ng/L (<=14)
--- NOTE | 2025-02-28 14:19 | EKG12_ITS ---
Test Reason : CP Blood Pressure : */* mmHG Vent. Rate : 64 BPM Atrial Rate : 64 BPM P-R Int : 160 ms QRS Dur : 86 ms QT Int : 420 ms P-R-T Axes : 38 30 23 degrees QTcB Int : 433 ms Normal sinus rhythm Possible Inferior infarct , age undetermined Abnormal ECG Confirmed by VANDANA LEVINE MD ([id number]), script editor LAITH OSULLIVAN ([id number]) on 03/04/2025 9:40:14 AM Referred By: JOSE Confirmed By: VANDANA LEVINE MD
[2025-02-28 15:51] LABS: Troponin T High Sens 2 HR 229 ng/L (<=14)
[2025-02-28] MEDS: HEPARIN/D5w 25,000 UNITS 25,000 UNITS/250 ML IV.SOLN. 8.3 UNITS CONT INF (16:17)
[2025-02-28] MEDS: Heparin Injection (Vial) 5,000 UNIT/ML VIAL 4000 UNIT IV (16:19)
[2025-02-28 16:25] LABS: Hematocrit 38.5 % (37-47); Hemoglobin 13.0 g/dL (12.0-15.0); Immature Granulocytes Count 0.030 X10^3/uL (0.0-0.0); Mean Corp Hgb Conc 33.8 g/dL (32-36); Mean Corpuscular Volume 84.8 fL (81-99); Mean Platelet Vol. 10.2 fl (6.2-12.0); NRBC Flagged by Analyzer 0 % (0-5); Platelet Count 247 K/mm3 (150-450); RBC Distribution Width CV 12.8 % (11.6-14.6); RBC Distribution Width SD 39.7 fl (35.1-43.9); Red Blood Count 4.54 M/mm3 (4.2-5.4); White Blood Count 9.4 K/mm3 (4.4-11.0)
--- NOTE | 2025-02-28 17:13 | HP.PCM.HOS_ITS ---
HPI - General General Date of Admission: 02/28/25 Date of Service: 02/28/25 Chief Complaint: Chest pain HPI Narrative NATHAN MURRELL, is a 59-year-old female history of thyroid cancer previously treated and now on Synthroid, chronic lightheadedness who presented to [facility] ED 02/28/2025 with chest discomfort. She had an episode last week when she was feeling overwhelmed and had a panic attack, it lasted for about 30 minutes. This morning she was running errands and around 730 started feeling anxious and had some tightness or pressure in the center of her chest about 730 and developed a headache and sensation going down bilateral arms that was almost an ache in nature. Does have a history of heart disease in grandmother and older sister so she came to the ED for evaluation. Symptoms were starting to improve by the time she got to the ED aside from her headache. In the ED temp 97, heart rate of 70 and blood pressure 174/78, respiratory rate 22 and pulse ox 97% on room air, CBC with white blood cell count 8.1 and hemoglobin 12.9, BMP only remarkable for glucose 118, chest x-ray no acute process and troponin found to be elevated at 106. Repeat troponin 229. ED physician discussed with cardiology who recommended admission and they will see in consult. Patient placed on heparin drip with plans for cardiac cath in the a.m. and hospitalist contacted for admission. Patient evaluated bedside, reports history as above, had a bad headache earlier but it has been improving, chest discomfort also much improved from earlier. Denied any nausea or shortness of breath, patient has no other new or acute complaints. [facility] Medical History Heart murmur Hypothyroid removal of cancerous thyroid Home Medications Medication Instructions Recorded Last Taken Type liothyronine 5 mcg tablet 5 mcg PO DAILY 08/26/22 Unkn own History cholecalciferol (vitamin D3) 1,250 1,250 mcg PO QWEEK 02/28/25 Unknown History mcg (50,000 unit) capsule levothyroxine 100 mcg tablet 100 mcg PO DAILY 02/28/25 02/28/25 History Allergy/AdvReac Type Severity Reaction Status Date / Time No Known Allergies Allergy Verified 02/28/25 12:18 Family History Mother Cancer metastatic-un known primary site Grandmother Uterine cancer Sister Thyroid cancer Surgical History Hx of foot surgery H/O section Hx of thyroidectomy Social History Smoking Status: Never smoker alcohol intake: never substance use type: does not use ROS ROS Narrative General: Denies fever/chills HENT: Had a global headache that is improving, denies stuffy nose, denies sore throat EYES: Denies changes in vision Resp: Has some chronic cough after her thyroid cancer, denies shortness of breath Cardiac: Chest pain significantly improved GI: Denies abdominal pain, denies changes in bowel, denies nausea/vomiting : Denies changes in urination Extremity: Denies swelling MSK: Denies weakness Neuro: Denies any numbness/tingling Heme: Denies any bleeding or bruising Skin: Denies rashes Psychiatric: No complaints voiced Vital Signs Vital Signs Vital Signs: 02/28/25 12:18 02/28/25 13:10 02/28/25 14:18 Temperature 97 F L Temperature Source Temporal Pulse Rate 70 65 Respiratory Rate 22 H 18 Blood Pressure 174/78 H 141/85 H Blood Pressure Mean 110 103 Pulse Ox 97 97 Oxygen Delivery Method Room Air Room Air 02/28/25 14:38 02/28/25 15:00 02/28/25 15:15 Temperature Temperature Source Pulse Rate 70 74 69 Respiratory Rate 18 15 18 Blood Pressure 133/92 H 129/72 H Blood Pressure Mean 105 88 Pulse Ox 97 97 97 Oxygen Delivery Method 02/28/25 15:30 02/28/25 15:45 02/28/25 16:00 Temperature Temperature Source Pulse Rate 78 70 67 Respiratory Rate 17 13 16 Blood Pressure 135/80 H 115/96 H 130/74 H Blood Pressure Mean 96 102 92 Pulse Ox 97 97 96 Oxygen Delivery Method 02/28/25 16:44 Temperature 97 F L Temperature Source Pulse Rate 67 Respiratory Rate 16 Blood Pressure 145/79 H Blood Pressure Mean 101 Pulse Ox 98 Oxygen Delivery Method Weight Weight: 69.218 kg Body Mass Index (BMI) 23.8 Physical Exam Narrative General: Alert, oriented, no apparent distress HEENT: Atraumatic, normocephalic Eyes: Anicteric, normal conjunctiva, extraocular movements grossly intact Neck: Supple Respiratory: Clear to auscultation bilaterally, normal respiratory effort Cardiovascular: Regular rate and rhythm GI: Soft, nontender, nondistended Extremities: No edema Musculoskeletal: Moving all extremities Neuro: No overt focal neurological deficits Skin: No rashes appreciated Psych: Cooperative Results Lab / Micro Data 02/28/25 16:14 02/28/25 13:10 Labs: Laboratory Results - last 24 hr 02/28/25 13:10: WBC 8.1, RBC 4.53, Hgb 12.9, Hct 38.3, MCV 84.5, MCH 28.5, MCHC 33.7, RDW Std Deviation 39.2, RDW Coeff of Dewey 12.8, Plt Count 237, MPV 10.4, Immature Gran % (Auto) 0.400, Neut % (Auto) 83.7 H, Lymph % (Auto) 10.0 L, Cataño % (Auto) 4.8, Eos % (Auto) 0.5, Baso % (Auto) 0.6, Absolute Neuts (auto) 6.8, A bsolute Lymphs (auto) 0.81 L, Nucleated RBC % 0, Sodium 139, Potassium 3.7, Chloride 105, Carbon Dioxide 23.7, Anion Gap 10, BUN 18, Creatinine 0.76, Estim Creat Clear Calc 76.55, Est GFR (MDRD) Non-Af 90, BUN/Creatinine Ratio 23.7 H, G lucose 118 H, Calcium 9.3, Troponin T High Sens 106 H* 02/28/25 14:56: Troponin T Hi Sens 2 Hr 229 H* 02/28/25 16:14: WBC 9.4, RBC 4.54, Hgb 13.0, Hct 38.5, MCV 84.8, MCH 28.6, MCHC 33.8, RDW Std Deviation 39.7, RDW Coeff of Dewey 12.8, Plt Count 247, MPV 10.2, Immature Gran % (Auto) 0.300, Neut % (Auto) 83.9 H, Lymph % (Auto) 11.4 L, Cataño % (Auto) 3.4, Eos % (Auto) 0.6, Baso % (Auto) 0.4, Absolute Neuts (auto) 7.9 H, Absolute Lymphs (auto) 1.07, Nucleated RBC % 0 Rhythm Strip Rhythm Strip: Sinus Rhythm Rate: 57 Ectopy: None Imaging Radiology Impression Chest X-Ray 02/28/25 13:02 IMPRESSION: No acute process is identified in the chest. Reading [facility] Assessment & Plan Assessment/Plan (1) Acute non-ST elevation myocardial infarction (NSTEMI): PLAN: Plan # NSTEMI suspect type I - Troponin 106 with a repeat 229 -EKG T wave inversion in lead III but no acute changes - Admit to telemetry - Aspirin, statin - Cardiology consult, patient on heparin drip with plans for heart cath tomorrow - Echocardiogram ordered # History of thyroid cancer status posttreatment - Now on Synthroid and T3 replacement #DVT ppx: SCDs Evon Vo MD Charges/Coding Visit Charges Inpatient E&M: 40844 Init Hosp L1
[2025-02-28 17:20] LABS: Prothrombin Time (Protime)PT. 15.3 SECONDS (11.7-14.9)
[2025-02-28 17:21] LABS: Partial Thromboplast Time 25.8 Seconds (24.1-36.2)
--- NOTE | 2025-02-28 17:53 | CASEMGMT ---
Care Management Face to Face with patient for initial transition planning/care coordination assessment in the ED. This proposal writer introduced self and role at [facility]. Patient alert and oriented. Patient willing to participate in assessment and is able to answer all questions appropriately. Patient's sister, Tara, at bedside; permission given to speak in front of guest. Care providers, pharmacy, and demographics verified. Admitting Diagnosis: acute NSTEMI Other diagnosis history: thyroid cancer PCP: [facility] Specialists: none Preferred Pharmacy: [facility] Insurance: [employer] Prescription Benefit: yes Living Will/HPOA: none, but desires information during admission (possible completion) LNOK: , Bro. Sister, Tara. Living Arrangements: with in a 2 story home with 3 steps to enter; 12 steps between floors; independent with all ADLs/IADLs at baseline Transportation: patient drives DME: none HHC: none SNF/Rehab: none Community Resources: none Patient goals: Patient wishes to discharge home, denies need for home health care at this time. Patient denies any further needs or concerns at this time. Disposition Plan: admission to acute; RN CM/SW to follow for discharge planning needs that may arise. Arlette Coleman, FIRST COAT OPERATOR, DEGREASING WHEEL OPERATOR
[2025-02-28 18:10] LABS: Troponin T High Sens 4 HR 429 ng/L (<=14)
--- NOTE | 2025-02-28 20:13 | EKG12_ITS ---
Test Reason : CHEST PAIN Blood Pressure : */* mmHG Vent. Rate : 61 BPM Atrial Rate : 61 BPM P-R Int : 158 ms QRS Dur : 98 ms QT Int : 408 ms P-R-T Axes : 55 38 3 degrees QTcB Int : 410 ms Normal sinus rhythm Inferior infarct , age undetermined Abnormal ECG When compared with ECG of 28-Feb-2025 14:24, MANUAL COMPARISON REQUIRED DATA IS UNCONFIRMED Confirmed by ABNER GOEL, VANDANA ([id number]), editor newspaper LAITH OSULLIVAN ([id number]) on 03/04/2025 9:46:20 AM Referred By: WINSTON Confirmed By: VANDANA LEVINE MD
--- NOTE | 2025-02-28 20:13 | ECHOD_ITS ---
Reason For Study Reason For Study: CHEST PAIN Procedure This was a 2D Doppler, Color Flow transthoracic echocardiogram. Exam performed portable in patient room. Left Ventricle Normal LV size. The left ventricular ejection fraction is 60 %. Segmental dysfunction with preserved ejection fraction (see wall motion). Mild segmental systolic dysfunction (see wall motion). Stage 2 diastolic dysfunction. Mid-Inferior: Hypokinetic. Inferior [place] : Hypokinetic. The rest of the wall segments are normal. Right Ventricle Normal RV size. Normal systolic function. [place] Normal left atrium. Normal right atrium. Mitral Valve Normal mitral valve. Tricuspid Valve Normal tricuspid valve. Mild (1+) tricuspid valve insufficiency. Pulmonary artery systolic pressure is 33 mmHg. Aortic Valve Trisinus/trileaflet aortic valve. Pulmonic Valve Normal pulmonic valve. Great Vessels Normal aortic root. The pulmonary artery is normal size. Inferior vena cava collapse with respiration. Pericardium/Pleural No pericardial effusion. MMode/2D Measurements & Calculations LVIDd: 4.2 cm IVSd: 1.0 cm LAV(MOD- bp): 39.6 ml LVIDs: 2.5 cm LVPWd: 1.1 cm LAV(MOD- bp) Indexed: 22.4 ml/m2 RVDd: 3.4 cm FS: 40.4 % LAV(MOD- sp2): 32.3 ml LAV(MOD- sp4): 45.5 ml SV(MOD-sp4): 50.0 ml SV(sp4- el): 50.4 ml LVAd ap4: 23.9 cm2 LVLd ap4: 7.2 cm SI(MOD-sp4): 28.3 ml/m2 EDV(MOD-sp4): 67.0 ml EDV(sp4-el): 67.1 ml LVAs ap4: 10.5 cm2 LVLs ap4: 5.6 cm ESV(MOD-sp4): 17.0 ml ESV(sp4-el): 16.7 ml EF(MOD-sp4): 74.6 % EF(sp4-el): 75.1 % LA A4 area: 16.4 cm2 RA A4 area: 15.3 cm2 Time Measurements MV dec time: 0.26 sec Doppler Measurements & Calculations MV E max tommie: 78.9 cm/sec Lat Peak E' [place]: 8.4 cm/sec Med Peak E' [place]: 6.9 cm/sec MV A max tommie: 70.7 cm/sec E/E' lat: 9.4 E/E' med: 11.5 MV E/A: 1.1 MV V2 max: 82.7 cm/sec MV dec slope: 307.5 cm/sec2 Ao V2 max: 124.0 cm/sec MV max P.7 mmHg Ao max P.2 mmHg MV V2 mean: 50.4 cm/sec Ao V2 mean: 82.8 cm/sec MV mean P.2 mmHg Ao mean P.2 mmHg MV V2 VTI: 30.3 cm Ao V2 VTI: 27.2 cm AV (velocity ratio): 0.90 LV V1 max: 110.4 cm/sec TR max tommie: 269.5 cm/sec LV V1 max P.9 mmHg TR max P.0 mmHg LV V1 mean P.7 mmHg LV V1 mean: 78.2 cm/sec LV V1 VTI: 24.3 cm ECHO/Echo Complete Interpretation Summary Normal LV size. The left ventricular ejection fraction is 60 %. Segmental dysfunction with preserved ejection fraction (see wall motion). Mild segmental systolic dysfunction (see wall motion). Stage 2 diastolic dysfunction. Ordering Physician: Evon Vo Referring Physician: Dong Arreaga Performed By: Yoselin Griffin and Student
[2025-02-28] MEDS: 0.9% Normal Saline (1000mL) 1,000 ML 100 ML IV (20:36)
--- OUTSIDE RECORDS SUMMARY | 2025-02-28 22:38 | XMS RPT_ITS | CCD ---
Author Organization [facility] Care Team Providers Care Owner/Operator Name Role Phone Sherry Fierro Primary Care Provider [phone] Dr. Sherry Fierro Primary Care Provider Dr. Sherry Fierro Referring Provider Dr. Rachid Leon Attending Provider Dr. Sherry Fierro Primary Care Provider Dr. Sherry Fierro Referring Provider Dr. Rachid Leon Attending Provider SHERRY FIERRO MD Primary Care Physician EMMY GOEL, POORNIMA Coates Attending Unavailable SHERRY FIERRO MD Primary Care Unavailable Dr. Sherry Fierro Primary Care Provider Dr. Sherry Fierro Referring Provider Dr. Rachid Leon Attending Provider Sherry Fierro MD Primary Care Provider Raghunathan, Marnie Na Attending Niall Velardepana Natasha Referring Sherry Tracy Primary Care Unavailable Monica Reida Natasha Attending Sherry Tracy Primary Care Unavailable Dr. Sherry Fierro MD Primary Care Provider Dr. Malaika Landry DO Emergency Provider Dr. Evon Vo MD Attending Provider Dr. Evon Vo MD Admit Provider [phone] Allergies Allergy Classification Reported Allergen(s) Allergy Type Date of Onset Reaction(s) Facility (4 sources) Seasonal allergy; Translations: [SEASONAL ALLERGIES] Allergy to substance 0 Other: See Comments [facility] Medications Current Medications Medication Drug Class(es) Dates Sig (Normalized) Sig (Original) cholecalciferol 1.25 mg oral capsule (10 sources) Vitamin D Start: 02-28-2025 take 1 capsule by mouth every week Cholecalciferol (Vitamin D3) 1,250 mcg (50,000 unit) capsule Active 1250 ug PO EVERY WEEK February 28, 2025 12:00am Start: 08-26-2022 End: 02-28-2025 take 1 tablet by mouth once daily Cholecalciferol (Vitamin D3) (Vitamin D3) 10 mcg (400 unit) tablet Discontinued 400 U PO DAILY August 26, 2022 1:00am February 28, 2025 12:33pm Start: 06-01-2016 take 1 capsule by [facility] once daily Cholecalciferol, Vitamin D3, 5,000 unit cap Indications: Vitamin D deficiency Take 1 capsule by mouth once daily. 0 06/01/2016 Active Comment on above: Take 1 capsule by [facility] once daily. 168 hr cloNIDine 0.73400 mg/hr transdermal system (3 sources) Central alpha-2 Adrenergic Agonist Start: 8 cloNIDine TTS (CATAPRES-TTS) 0.1 mg/24 hr Indications: Hot flash, menopausal Apply 1 Patch as directed once each week. 4 Patch 5 10/25/2017 Active Comment on above: Apply 1 Patch as dir ected once each week. levothyroxine sodium 0.1 mg oral tablet (13 sources) l-Thyroxine Start: 5 take 1 tablet by mouth once daily Levothyroxine 100 mcg tablet Active 100 ug PO DAILY February 28, 2025 12:00am Start: 02-10-2023 take 1 tablet by jennifer once daily levothyroxine 100 mcg (0.1 mg) oral tablet See Instructions, TAKE 1 TABLET DAILY, # 90 tab(s), 3 Refill(s), Pharmacy: [id number], 170.2, cm, 02/10/23 11:42:00 EDT, Height, kg, 02/10/23 11:42:00 EDT, Dosing Weight Start Date: 02/10/23 Status: Ordered Start: 07-14-2017 End: 02-28-2025 Levothyroxine (Synthroid) 11 2 mcg tablet Discontinued 110 ug PO MOTUWETHFRSA 0 July 14, 2017 1:00am February 28, 2025 12:33pm Start: 07-14-2017 take 1 tablet by jennifer th once daily levothyroxine (SYNTHROID) 112 mcg tablet Indications: Malignant neoplasm of thyroid gland (HCC) , Postablative hypothyroidism Take 1 tablet by mouth once daily. 90 tablet 3 10/25/2017 Active Comment on above: Take 1 tablet by jennifer once daily. liothyronine sodium 0.005 mg oral tablet (10 sources) l-Triiodothyroni ne Start: 02-10-2023 take 1 tablet by mouth once daily liothyronine 5 mcg oral tablet See Instructions, TAKE 1 TABLET DAILY, # 90 tab(s), 3 Refill(s), Pharmacy: [id number], 170.2, cm, 02/10/23 11:42:00 EDT, Height, kg, 02/10/23 11:42:00 EDT, Dosing Weight Start Date: 02/10/23 Status: Ordered Start: 10-25-2017 take 1 tablet by jennifer once daily Liothyronine 5 mcg tablet Active 5 ug PO DAILY August 26, 2022 1:00am Comment on above: Take 1 tablet by jennifer once daily. Completed/Discontinued Medications Medication Drug Class(es) Dates Sig (Normalized) Sig (Original) [id number] 200 actuat albuterol 0.09 mg/actuat metered dose inhaler (6 sources) beta2-Adrenergic Agonist Start: 09-02-2022 End: 02-28-2025 Albuterol Sulfate (Proair Hfa) 90 mcg/actuation HFA aerosol inhaler Discontinued 2 NMA INHALATION EVERY 6 HOURS as needed September 02, 2022 1:00am February 28, 2025 12:33pm Start: 09-02-2022 take 1 puff(s) by in halation every six hours Albuterol Sulfate (Proair Hfa) 90 mcg/actuation HFA aerosol inhaler Active 2 PUFF INHALATION EVERY 6 HOURS September 02, 2022 12:00am Start: 07-20-2021 take 2 puff(s) by in halation every six hours as needed for wheezing albuterol HFA (PROVENTIL HFA, VENTOLIN HFA) 90 mcg/actuation inhaler Inhale 2 Puffs as instructed every 6 hours as needed for wheezing/shortness of breath. 1 Each 0 07/20/2021 Active Comment on above: Inhale 2 Puffs as in structed every 6 hours as needed for wheezing/shortness of breath. amoxicillin 500 mg oral capsule (8 sources) Penicillin-class Antibacterial Start: End: take 1 capsule by mouth twice daily Amoxicillin 500 mg capsule Discontinued 500 mg PO TWICE A DAY 20 10 0 July 14, 2017 1:00am July 23, 2017 1:00am July 24, 2017 1:05am benzonatate 100 mg oral capsule (1 source) Non-narcotic Antitussive Start: take 1 capsule by mouth every eight hours as needed benzonatate (TESSALON PERLES) 100 mg capsule Take 1 capsule by mouth three times daily as needed for cough. 15 capsule 0 07/30/2022 Active Comment on above: Take 1 capsule by [facility] three times daily as needed for cough. calcium carbonate 1250 mg chewable tablet (6 sources) Start: End: take 1 tablet by mouth once daily Calcium Carbonate (Calcium 500) 500 mg calcium (1,250 mg) tablet,chewable Discontinued 500 mg PO DAILY August 26, 2022 1:00am February 28, 2025 12:33pm ferrous sulfate 325 mg oral tablet (6 sources) Start: End: take 1 tablet by mouth once daily Ferrous Sulfate 325 mg (65 mg iron) Tablet Discontinued 325 mg PO DAILY August 26, 2022 1:00am February 28, 2025 12:33pm fluocinolone acetonide 0.52644 mg/mg topical ointment (8 sources) Corticosteroid Start: End: Fluocinolone 0.025 % ointment Discontinued 1 NMA TOPICAL TWICE A DAY September 02, 2022 1:00am February 28, 2025 12:33pm Comment on above: Apply 1 application to affected area twice daily. APPLY TO AFFECTED AREA predniSONE 20 mg oral tablet (6 sources) Start: End: 025 take 3 tablets by mouth once daily Prednisone 20 mg tablet Discontinued 60 mg PO DAILY August 26, 2022 1:00am February 28, 2025 12:33pm Start: 08-26-2022 take 60 mg by mouth once daily Prednisone Active 60 MG PO DAILY August 26, 2022 12:00am valACYclovir 1000 mg oral tablet (6 sources) Herpesvirus Nucleoside Analog DNA Polymerase Inhibitor, Herpes Simplex Virus Nucleoside Analog DNA Polymerase Inhibitor, Herpes Zoster Virus Nucleoside Analog DNA Polymerase Inhibitor Start: 08-26-2022 End: 02-28-2025 Valacyclovir 1 gram tablet Discontinued 1000 mg PO Q8H August 26, 2022 1:00am February 28, 2025 12:33pm Start: 08-26-2022 take 1000 mg by mout h every eight hours Valacyclovir Active 1000 MG PO Q8H August 26, 2022 12:00am Problems Active Problems Problem Classification Problem Date Documented Da te Episodic/Chronic Acute myocardial infarction (2 sources) Acute non-ST segment elevation myocardial infarction; Translations: [Non-ST elevation (NSTEMI) myocardial infarction] 02-28-2025 Chronic Cancer of thyroid (6 sources) Malignant tumor of thyroid gland; Translations: [Malignant neoplasm of thyroid gland] Onset: 08-28-2010 08-03-2021 Chronic Cancer of thyroid (10 sources) History of malignant neoplasm of thyroid; Translations: [Personal history of malignant neoplasm of thyroid] 09-08-2022 Episodic Comment on above: Had surgery in 2009 here in [place]. Thyroglobin and anti-thyroglobin antibodies levels are normal. Cardiac dysrhythmias (3 sources) Ventricular premature beats; Translations: [Ventricular premature depolarization] Onset: 06-02-2016 06-02-2016 Chronic Conditions associated with dizziness or vertigo (5 sources) Dizziness; Translations: [Vertigo] 02-10-2023 Episodic Comment on above: Has some hearing imp airment. Nonspecific chest pain (2 sources) Chest pain; Translations: [Chest pain, unspecified] 02-28-2025 Episodic Nutritional deficiencies (5 sources) Vitamin D deficiency; Translations: [Vitamin D deficiency, unspecified] Onset: 06-01-2016 06-01-2016 Chronic Other bone disease and musculoskeletal deformities (1 source) Osteopenia 05-08-2020 Episodic Other lower respiratory disease (1 source) Cough; Translations: [Cough] 07-10-2021 Episodic Other screening for suspected conditions (not mental disorders or infectious disease) (10 sources) Abnormal findings on diagnostic imaging of skull and head; Translations: [Abnormal findings on diagnostic imaging of skull and head, not elsewhere classified] 09-29-2022 Episodic Comment on above: 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 Other skin disorders (3 sources) Lichen sclerosus et atrophicus; Translations: [Circumscribed scleroderma] Onset: 01-03-2014 01-03-2014 Chronic Other upper respiratory infections (9 sources) Acute maxillary sinusitis; Translations: [Acute maxillary sinusitis, unspecified] Episodic Thyroid disorders (2 sources) Hypothyroidism; Translations: [Hypothyroidism, unspecified] Onset: 07-20-2024 05-08-2020 Chronic Viral infection (8 sources) Disease caused by 2019-nCoV; Translations: [COVID-19] 07-06-2021 Episodic Past or Other Problems Problem Classification Problem Date Documented Da te Episodic/Chronic Heart valve disorders (3 sources) Heart murmur; Translations: [Cardiac murmur, unspecified] Onset: 05-07-2010 05-07-2010 Episodic Unclassified (8 sources) removal of cancerous thyroid 02-26-2022 Results Test Name Value Interpretation Reference Range Facility Absolute lymphocyte countOrd ered By: Malaika Landry on 02-28-2025 Lymphocytes Auto (Unsp spec) [#/Vol] 1.07 10*3/uL 0.83-4.51 [facility] Absolute neutrophil countOrd ered By: Malaika Landry on 02-28-2025 Neutrophils (Bld) [#/Vol] 7.9 10*3/uL High 2.0-7.7 [facility] Activated partial thrombopla stin time (aPTT) in platelet poor plasma by coagulation aOrdered By: Malaika Landry on 02-28-2025 aPTT Coag (PPP) [Time] 25.8 s 24.1-36.[address] [facility] Anion gap in Serum or Plasma Ordered By: Malaika Landry on 02-28-2025 Anion gap [Moles/Vol] 10 mmol/L 5-15 [facility] Automated lymphocyte count a s percentage of total leukocytesOrdered By: Malaika Landry on 02-28-2025 Lymphocytes/100 WBC Auto (Unsp spec) 11.4 % Low 19-41 [facility] BUN/creatinine ratioOrdered By: Malaika Landry on 02-28-2025 Urea nitrogen/Creatinine [Mass ratio] 23.7 mg/mg High 10-20 [facility] Basophil percentageOrdered B y: Malaika Landry on 02-28-2025 Basophils/100 WBC (Bld) 0.4 % 0-1 [facility] Carbon dioxide, total [Moles /volume] in Central venous bloodOrdered By: Malaika Landry on 02-28-2025 CO2 [Moles/Vol] 23.7 mmol/L 21.0-32.0 [facility] Chloride assayOrdered By: Edin Landry on 02-28-2025 Chloride [Moles/Vol] 105 mmol/L 98-108 [facility] Eosinophil percentageOrdered By: Malaika Landry on 02-28-2025 Eosinophils/100 WBC (Bld) 0.6 % 0-5 [facility] Erythrocyte distribution wid th ratioOrdered By: Malaika Lnadry on 02-28-2025 Erythrocyte distribution width (RBC) [Ratio] 12.8 % 11.6-14.6 [facility] Erythrocyte distribution wid th standard deviationOrdered By: Malaika Landry on 02-28-2025 Erythrocyte distribution width (RBC) [Ratio] 39.7 fl 35.1-43.9 [facility] Glomerular filtration rate ( GFR) estimation/1.73 sq m using serum, plasma, or whole bOrdered By: Malaika Landry on 02-28-2025 GFR/1.73 sq M.predicted among non-blacks MDRD (S/P/Bld) [Vol rate/Area] 90 mL/min/{1.73_m2} >60 [facility] Comment on above: mL/min/1.73m2 CKD-EP I Creatinine Equation (2020) Hematocrit Auto (Bld) [Volum e fraction]Ordered By: Malaika Landry on 02-28-2025 Hematocrit (Bld) [Volume fraction] 38.5 % 37-47 [facility] Hemoglobin measurementOrdere d By: Malaika Landry on 02-28-2025 Hemoglobin (Bld) [Mass/Vol] 13.0 g/dL 12.0-15.0 [facility] Immature granulocytes/100 WB C Auto (Bld)Ordered By: Malaika Landry on 02-28-2025 Immature granulocytes/100 WBC (Bld) 0.300 % 0.0-0.9 [facility] Comment on above: IG% - Immature Granu locytes (promyelocytes, myelocytes and metamyelocytes) > 1% indicates that a LEFT SHIFT is Present. International normalized rat io (INR) calculationOrdered By: Malaika Landry on 02-28-2025 INR Coag (Bld) [Relative time] 1.2 {INR} [facility] MCV (mean corpuscular volume ) determinationOrdered By: Malaika Landry on 02-28-2025 MCV (RBC) [Entitic vol] 84.8 fL 81-99 [facility] Mean corpuscular hemoglobin (MCH) determinationOrdered By: Malaika Landry on 02-28-2025 MCH (RBC) [Entitic mass] 28.6 pg 27.0-32.0 [facility] Mean corpuscular hemoglobin concentration (MCHC) determinationOrdered By: Malaika Landry on 02-28-2025 MCHC (RBC) [Mass/Vol] 33.8 g/dL 32-36 [facility] Mean platelet volume determi nationOrdered By: Malaika Landry on 02-28-2025 Platelet mean volume (Bld) [Entitic vol] 10.2 fL 6.2-12.0 [facility] Monocyte percentageOrdered B y: Malaika Landry on 02-28-2025 Monocytes/100 WBC (Bld) 3.4 % 0-10 [facility] Neutrophil percentageOrdered By: Malaika Landry on 02-28-2025 Neutrophils/100 WBC (Bld) 83.9 % High 47-70 [facility] Nucleated red blood cell per centageOrdered By: Malaika Landry on 02-28-2025 Nucleated RBC/100 WBC (Bld) [Ratio] 0 % 0-5 [facility] Platelet countOrdered By: Edin Landry on 02-28-2025 Platelets (Bld) [#/Vol] 247 10*3/uL 150-450 [facility] Potassium measurement (mass/ volume)Ordered By: Malaika Landry on 02-28-2025 Potassium (Unsp spec) [Mass/Vol] 3.7 mmol/L 3.3-5.1 [facility] Prothrombin timeOrdered By: Malaika Landry on 02-28-2025 PT Coag (PPP) [Time] 15.3 s High 11.7-14.9 [facility] RBC Auto (Bld) [#/Vol]Ordere d By: Malaika Landry on 02-28-2025 RBC (Bld) [#/Vol] 4.54 10*6/uL 4.2-5.4 [facility] Serum creatinine measurement (mass/volume)Ordered By: Malaika Landry on 02-28-2025 Creatinine [Mass/Vol] 0.76 mg/dL 0.70-1.20 [facility] Serum glucose measurement (m ass/volume)Ordered By: Malakia Landry on 02-28-2025 Glucose [Mass/Vol] 118 mg/dL High 70-99 [place] Serum or plasma calcium tip urement (mass/volume)Ordered By: Malaika Landry on 02-28-2025 Calcium [Mass/Vol] 9.3 mg/dL 7.6-11.0 [place] Serum or plasma urea nitroge n measurement (mass/volume)Ordered By: Malaika Landry on 02-28-2025 Urea nitrogen [Mass/Vol] 18 mg/dL 4-19 [facility] Sodium levelOrdered By: Nettie Landry on 02-28-2025 Sodium [Moles/Vol] 139 mmol/L 133-145 [place] Troponin T.cardiac [Mass/vol ume] in Serum or Plasma by High sensitivity methodOrdered By: Malaika Landry on 02-28-2025 Troponin T.cardiac High sensitivity method [Mass/Vol] 429 ng/L High <14 [facility] Comment on above: Critical Result(s) C alled at: 0610 TO Jazmin ABDUL by: Lam GAMEZ. Results read back by same. Troponin T.cardiac High sensitivity method [Mass/Vol] 229 ng/L High <14 [facility] Comment on above: Critical Result(s) C alled at: 1550 TO Leann BISHOP by: Lam GAMEZ. Results read back by same. Troponin T.cardiac High sensitivity method [Mass/Vol] 106 ng/L High <14 [facility] Comment on above: Critical Result(s) C alled at 1414: by: ALEXX MCCALLUM TO JASON. Results read back by same. White blood cell (WBC) count Ordered By: Malaika Landry on 02-28-2025 WBC (Bld) [#/Vol] 9.4 10*3/uL 4.4-11.0 [place] [facility] Metabolic Prof oron 07-14-2024 Albumin [Mass/Vol] 3.5 g/dL Normal 3.2-5.0 [place] Comment on above: Performed By: #### L 500.4100, L506.1000, L501.9520, L501.65526, L500.4050, L506.0400 #### [facility] [address] [place], [address] Albumin/Globulin [Mass ratio] 1.0 {ratio} Normal 0.9-2.4 [facility] Comment on above: Performed By: #### L 500.4100, L506.1000, L501.9520, L501.24042, L500.4050, L506.0400 #### [facility] [address] [place], [address] ALK P 64 U/L Normal 45-117 [facility] Comment on above: Performed By: #### L 500.4100, L506.1000, L501.9520, L501.60027, L500.4050, L506.0400 #### [facility] [address] [place], [address] ALT [Catalytic activity/Vol] 24 U/L Normal 13-56 [facility] Comment on above: Performed By: #### L 500.4100, L506.1000, L501.9520, L501.42940, L500.4050, L506.0400 #### [facility] [address] [place], [address] AST [Catalytic activity/Vol] 13 U/L Low 15-37 [facility] Comment on above: Performed By: #### L 500.4100, L506.1000, L501.9520, L501.86216, L500.4050, L506.0400 #### [facility] [address] [place], [address] Bilirubin [Mass/Vol] 0.70 mg/dL Normal 0.20-1.00 [facility] Comment on above: Result Comment: For patients on eltrombopag therapy, use of Dimension [place] TBIL is not recommended. Performed By: #### L 500.4100, L506.1000, L501.9520, L501.61827, L500.4050, L506.0400 #### [facility] [address] [place], [address] BUN/CRE 14.9 RATIO Normal 10-20 [facility] Comment on above: Performed By: #### L 500.4100, L506.1000, L501.9520, L501.71317, L500.4050, L506.0400 #### [facility] [address] [place], [address] CA,Total 9.1 mg/dL Normal 8.5-10.1 [facility] Comment on above: Performed By: #### L 500.4100, L506.1000, L501.9520, L501.06866, L500.4050, L506.0400 #### [facility] [address] [place], [address] Chloride [Moles/Vol] 108 mmol/L High 98-107 [facility] Comment on above: Performed By: #### L 500.4100, L506.1000, L501.9520, L501.64227, L500.4050, L506.0400 #### [facility] [address] [place], [address] CO2 [Moles/Vol] 30.0 mmol/L Normal 21.0-32.0 [facility] Comment on above: Performed By: #### L 500.4100, L506.1000, L501.9520, L501.83608, L500.4050, L506.0400 #### [facility] [address] [place], [address] Creatinine [Mass/Vol] 0.88 mg/dL Normal 0.55-1.02 [facility] Comment on above: Result Comment: The validity of the calculated GFR GFRAA in patients over 70 years has not been determined. Clinical correlation is essential. Performed By: #### L 500.4100, L506.1000, L501.9520, L501.47185, L500.4050, L506.0400 #### [facility] [address] [place], [address] EST GFR - AA 85 mL/min Normal >60 [facility] Comment on above: Result Comment: Afri can Lao GFR Calc Performed By: #### L 500.4100, L506.1000, L501.9520, L501.86431, L500.4050, L506.0400 #### [facility] [address] [place], [address] GAP 2 Low 5-15 [facility] Comment on above: Performed By: #### L 500.4100, L506.1000, L501.9520, L501.39016, L500.4050, L506.0400 #### [facility] [address] [place], [address] GFR/1.73 sq M.predicted among non-blacks MDRD (S/P/Bld) [Vol rate/Area] 70 mL/min/{1.73_m2} Normal >60 [facility] Comment on above: Result Comment: Non- GFR Calc Performed By: #### L 500.4100, L506.1000, L501.9520, L501.84307, L500.4050, L506.0400 #### [facility] [address] [place], [address] Globulin (S) [Mass/Vol] 3.5 g/dL Normal 2.2-4.2 [facility] Comment on above: Performed By: #### L 500.4100, L506.1000, L501.9520, L501.32960, L500.4050, L506.0400 #### [facility] [address] [place], [address] Glucose [Mass/Vol] 96 mg/dL Normal 74-106 [place] Comment on above: Performed By: #### L 500.4100, L506.1000, L501.9520, L501.19414, L500.4050, L506.0400 #### [facility] [address] [place], [address] Potassium [Moles/Vol] 4.0 mmol/L Normal 3.5-5.1 [facility] Comment on above: Performed By: #### L 500.4100, L506.1000, L501.9520, L501.13495, L500.4050, L506.0400 #### [facility] [address] [place], [address] Sodium [Moles/Vol] 139 mmol/L Normal 136-145 [place] Comment on above: Performed By: #### L 500.4100, L506.1000, L501.9520, L501.11442, L500.4050, L506.0400 #### [facility] [address] [place], [address] T PROT 7.0 g/dL Normal 6.4-8.2 [facility] Comment on above: Performed By: #### L 500.4100, L506.1000, L501.9520, L501.78434, L500.4050, L506.0400 #### [facility] [address] [place], [address] Urea nitrogen [Mass/Vol] 13 mg/dL Normal 7-18 [facility] Comment on above: Performed By: #### L 500.4100, L506.1000, L501.9520, L501.44624, L500.4050, L506.0400 #### [facility] [address] [place], [address] Free T3on 07-14-2024 Free T3 [Mass/Vol] 3.3 pg/mL Normal 2.18-3.98 [place] Comment on above: Performed By: #### L 500.4100, L506.1000, L501.9520, L501.73367, L500.4050, L506.0400 #### [facility] [address] [place], [address] Lipid Profileon 07-14-2024 Cholesterol [Mass/Vol] 201 mg/dL High [address] [facility] Comment on above: Result Comment: <200 mg/dL Desirable 200-240 mg/dL Borderline >240 mg/dL High Risk Performed By: #### L 500.4100, L506.1000, L501.9520, L501.09349, L500.4050, L506.0400 #### [facility] [address] [place], [address] Cholesterol in HDL [Mass/Vol] 74 mg/dL Normal [facility] Comment on above: Result Comment: The drugs N-Acetylcysteine and Metamizole may falsely depress this assay. Reference Range HDL <40 mg/dL Low HDL Cholesterol HDL >or= 60 mg/dL High HDL Cholesterol Performed By: #### L 500.4100, L506.1000, L501.9520, L501.11024, L500.4050, L506.0400 #### [facility] [address] [place], [address] Cholesterol in LDL [Mass/Vol] 116 mg/dL Normal 0-130 [facility] Comment on above: Performed By: #### L 500.4100, L506.1000, L501.9520, L501.14240, L500.4050, L506.0400 #### [facility] [address] [place], [address] Cholesterol in VLDL [Mass/Vol] 11 mg/dL Normal 5-40 [facility] Comment on above: Performed By: #### L 500.4100, L506.1000, L501.9520, L501.27156, L500.4050, L506.0400 #### [facility] [address] [place], [address] Triglyceride [Mass/Vol] 53 mg/dL Normal [facility] Comment on above: Result Comment: The drugs N-Acetylcysteine and Metamizole may falsely depress this assay. Serum Triglycerides Reference Interval Normal <150 mg/dL Borderline high 150 - 199 mg/dL High 200 - 499 mg/dL Very High > or = 500 mg/dL Performed By: #### L 500.4100, L506.1000, L501.9520, L501.97616, L500.4050, L506.0400 #### [facility] [address] [place], [address] T4 Free Directon 07-14-2024 T4 FREE DIRECT 1.00 ng/dL Normal 0.76-1.46 [facility] Comment on above: Performed By: #### L 500.4100, L506.1000, L501.9520, L501.61165, L500.4050, L506.0400 #### [facility] [address] [place], [address] Thyroid Stim Hormone (TSH)on 07-14-2024 TSH 2.450 uIU/mL Normal 0.358-3.74 0 [facility] Comment on above: Performed By: #### L 500.4100, L506.1000, L501.9520, L501.79783, L500.4050, L506.0400 #### [facility] [address] [place], [address] Vitamin D,25 Hydroxyon 07-14 Vitamin D 25-OH 25.8 ng/mL Normal [facility] Comment on above: Result Comment: Erika min D 25(OH) Status Range Deficiency <20 ng/mL (50nmol/L) Insufficiency 20 - 30 ng/mL (50 - 75 nmol/L) Sufficiency 30 - 100 ng/mL (75 - 250 nmol/L) Toxicity >100 ng/mL (>250 nmol/L) Performed By: #### L 500.4100, L506.1000, L501.9520, L501.01831, L500.4050, L506.0400 #### [facility] [address] [place], [address] Laboratory - Chemistry and C hemistry - challengeOrdered By: Marnie Reid on 07-07-2023 Free T4 [Mass/Vol] 1.08 ng/dL 0.76-1.46 [place] No Panel InformationOrdered By: Marnie Reid on 07-07-2023 Thyroid Stimulating Hormone (TSH) 1.17 uIU/mL 0.358-3.74 [facility] Basophil percentageOrdered B y: Sherry Fierro on 03-28-2023 Chloride [Moles/Vol] 108 mmol/L 98-107 [facility] Glucose [Mass/Vol] 99 mg/dL 74-106 [place] Potassium [Moles/Vol] 4.3 mmol/L 3.5-5.1 [facility] Sodium [Moles/Vol] 141 mmol/L 136-145 [place] Laboratory - Chemistry and C hemistry - challengeOrdered By: Sherry Fierro on 03-28-2023 CO2 [Moles/Vol] 29.0 mmol/L 21.0-32.0 [facility] Free T4 [Mass/Vol] 1.03 ng/dL 0.76-1.46 [place] Urea nitrogen/Creatinine [Mass ratio] 20.2 mg/mg 10-20 [facility] No Panel InformationOrdered By: Sherry Fierro on 03-28-2023 Estimated GFR (MDRD) Amer 78 mL/min >60 [facility] Comment on above: GFR Calc Estimated GFR (MDRD) Non-Af Amer 65 mL/min >60 [facility] Comment on above: Non- GFR Calc Free Triiodothyronine (T3) pg/dL 3.4 pg/mL 2.18-3.98 [facility] Thyroid Stimulating Hormone (TSH) 1.34 uIU/mL 0.358-3.74 [facility] Serum or plasma calcium tip urement (mass/volume)Ordered By: Sherry Fierro on 03-28-2023 Calcium [Mass/Vol] 9.7 mg/dL 8.5-10.1 [place] Serum or plasma cortisol oz surement (mass/volume)Ordered By: Sherry Fierro on 03-28-2023 Cortisol [Mass/Vol] 13.70 ug/dL 3.44-22.45 [facility] Comment on above: Adult (AM) 5.27 - 22 .45 ug/dL Adult (PM) 3.44 - 16.76 ug/dLPlease note revised CORTISOL reference range effective 2019. Serum or plasma creatinine m easurement (mass/volume)Ordered By: Sherry Fierro on 03-28-2023 Creatinine [Mass/Vol] 0.94 mg/dL 0.55-1.02 [facility] Comment on above: The validity of the calculated GFR & GFRAA in patients over 70 years has not been determined. Clinical correlation is essential. Serum or plasma urea nitroge n measurement (mass/volume)Ordered By: Sherry Fierro on 03-28-2023 Urea nitrogen [Mass/Vol] 19 mg/dL 7-18 [facility] Thin prep Papanicolaou smear with manual screeningOrdered By: Sherry Fierro on 03-28-2023 Thin prep Papanicolaou smear with manual screening 4 5-15 [facility] - Chemistry and C hemistry - challengeOrdered By: Dr. Leon on 01-07-2023 Free T4 [Mass/Vol] 0.83 ng/dL 0.76-1.46 [place] No Panel InformationOrdered By: Dr. Leon on 01-07-2023 Thyroglobulin Antibody < 1.0 IU/mL 0.0-0.9 [facility] Comment on above: Thyroglobulin Antibo dy measured by Benedict CoulterMethodology Thyroglobulin Level < 0.1 ng/mL 1.5-38.5 [facility] Comment on above: According to the [employer] [place],the reference interval for Thyroglobulin (TG) should berelated to euthyroid patients and not for patients whounderwent thyroidectomy. TG reference intervals for thesepatients depend on the residual mass of the thyroid tissueleft after surgery. Establishing a post-operative baselineis recommended. The assay limit of quantitation is 0.1ng/mLThyroglobulin measured by Benedict [place] ImmunometricAssayPerformed at: [facility] [address] [id number] Director: Nito Steinberg PhD, Phone: [phone] Thyroid Stimulating Hormone (TSH) 6.82 uIU/mL 0.358-3.74 [facility] - Chemistry and C hemistry - challengeOrdered By: Dr. Leon on 09-27-2022 Free T4 [Mass/Vol] 0.92 ng/dL 0.76-1.46 [place] No Panel InformationOrdered By: Dr. Leon on 09-27-2022 Miscellaneous Test See comment [facility] Comment on above: TEST RESULT LIMITSCo mprehensive Thyroglobulin Anti-Thyroglobulin Antibodies <1.0 IU/mL Reference Range: <1.0 Negative > or = 1.0 Positive Thyroglobulin (ICMA) <0.1 ng/mL Reference Range: >17y: 1.5 - 38.5 According to the National Academy of Clinical Biochemistry, the reference interval for Thyroglobulin (TG) should be related to euthyroid patients and not for patients who underwent thyroidectomy. TG reference intervals for these patients depend on the residual mass of the thyroid tissue left after surgery. Establishing a post-operative baseline is recommended. The assay quantitation limit is 0.1 ng/mL. Thyroglobulin (TG-ZENY) Not applicableThis test was developed and its performance characteristicsdetermined by [facility]. It has not been cleared or approvedby the Food and Drug Administration. TESTING PERFORMED AT [facility]. ORIGINAL REPORT ON FILE IN LAB CONTAINS ADDITIONAL TEST SITE INFORMATION. Thyroid Stimulating Hormone (TSH) 1.58 uIU/mL 0.358-3.74 [facility] Absolute lymphocyte countOrd ered By: Dr. Landry on 08-26-2022 Lymphocytes Auto (Unsp spec) [#/Vol] 1.61 10*3/uL 0.83-4.51 [facility] Basophil percentageOrdered B y: Dr. Landry on 08-26-2022 Basophils/100 WBC (Bld) 0.8 % 0-1 [facility] Chloride [Moles/Vol] 106 mmol/L 98-107 [facility] Eosinophils/100 WBC (Bld) 4.2 % 0-5 [facility] Glucose [Mass/Vol] 95 mg/dL 74-106 [place] Neutrophils (Bld) [#/Vol] 3.0 10*3/uL 2.0-7.7 [facility] Neutrophils/100 WBC (Bld) 56.1 % 47-70 [facility] Potassium [Moles/Vol] 3.6 mmol/L 3.5-5.1 [facility] Sodium [Moles/Vol] 140 mmol/L 136-145 [place] WBC (Bld) [#/Vol] 5.3 10*3/uL 4.4-11.0 [place] Blood erythrocytes count (nu mber/volume)Ordered By: Dr. Landry on 08-26-2022 RBC (Bld) [#/Vol] 4.52 10*6/uL 4.2-5.4 [facility] Blood hemoglobin measurement (mass/volume)Ordered By: Dr. Landry on 08-26-2022 Hemoglobin (Bld) [Mass/Vol] 13.0 g/dL 12.0-15.0 [facility] Blood lymphocytes/100 leukoc ytesOrdered By: Dr. Landry on 08-26-2022 Lymphocytes/100 WBC (Bld) 30.4 % 19-41 [facility] Blood monocytes/100 leukocyt esOrdered By: Dr. Landry on 08-26-2022 Monocytes/100 WBC (Bld) 8.3 % 0-10 [facility] Blood platelet mean volumeOr dered By: Dr. Landry on 08-26-2022 Platelet mean volume (Bld) [Entitic vol] 10.6 fL 6.2-12.0 [facility] Determination of erythrocyte mean corpuscular volume (MCV)Ordered By: Dr. Landry on 08-26-2022 MCV (RBC) [Entitic vol] 86.5 fL 81-99 [facility] Hematocrit Auto (Bld) [Volum e fraction]Ordered By: Dr. Landry on 08-26-2022 Hematocrit (Bld) [Volume fraction] 39.1 % 37-47 [facility] INR in Blood by Coagulation assayOrdered By: Dr. Landry on 08-26-2022 INR Coag (Bld) [Relative time] 1.2 {INR} [facility] - Chemistry and C hemistry - challengeOrdered By: Dr. Landry on 08-26-2022 CO2 [Moles/Vol] 29.0 mmol/L 21.0-32.0 [facility] Magnesium [Mass/Vol] 2.6 mg/dL 1.6-2.6 [facility] Urea nitrogen/Creatinine [Mass ratio] 16.9 mg/mg 10-20 [facility] - CoagulationOrde red By: Dr. Landry on 08-26-2022 aPTT Coag (Bld) [Time] 29.6 s 24.1-36.[address] [facility] PT Coag (PPP) [Time] 15.0 s 11.7-14.9 [facility] - Hematology and Cell countsOrdered By: Dr. Landry on 08-26-2022 Erythrocyte distribution width (RBC) [Entitic vol] 38.9 fL 35.1-43.9 [facility] Erythrocyte distribution width (RBC) [Ratio] 12.4 % 11.6-14.6 [facility] Immature granulocytes/100 WBC (Bld) 0.200 % 0.0-0.9 [facility] Comment on above: IG% - Immature Granu locytes (promyelocytes, myelocytes and metamyelocytes) > 1% indicates that a LEFT SHIFT is Present. MCH (RBC) [Entitic mass] 28.8 pg 27.0-32.0 [facility] Nucleated RBC/100 WBC (Bld) [Ratio] 0 % 0-5 [facility] MCHC Auto (RBC) [Mass/Vol]Or dered By: Dr. Landry on 08-26-2022 MCHC (RBC) [Mass/Vol] 33.2 g/dL 32-36 [facility] No Panel InformationOrdered By: Dr. Landry on 08-26-2022 Estimated Creatinine Clearance Calc 67.00 ml/min [facility] Estimated GFR (MDRD) Amer 84 mL/min >60 [facility] Comment on above: GFR Calc Estimated GFR (MDRD) Non-Af Amer 69 mL/min >60 [facility] Comment on above: Non- GFR Calc Thyroid Stimulating Hormone (TSH) 3.80 uIU/mL 0.358-3.74 [facility] Platelets bldOrdered By: Dr. Landry on 08-26-2022 Platelets (Bld) [#/Vol] 251 10*3/uL 150-450 [facility] Serum or plasma calcium tip urement (mass/volume)Ordered By: Dr. Landry on 08-26-2022 Calcium [Mass/Vol] 9.4 mg/dL 8.5-10.1 [place] Serum or plasma creatinine m easurement (mass/volume)Ordered By: Dr. Landry on 08-26-2022 Creatinine [Mass/Vol] 0.89 mg/dL 0.55-1.02 [facility] Comment on above: The validity of the calculated GFR & GFRAA in patients over 70 years has not been determined. Clinical correlation is essential. Serum or plasma urea nitroge n measurement (mass/volume)Ordered By: Dr. Landry on 08-26-2022 Urea nitrogen [Mass/Vol] 15 mg/dL 7-18 [facility] Thin prep Papanicolaou smear with manual screeningOrdered By: Dr. Landry on 08-26-2022 Thin prep Papanicolaou smear with manual screening 5 5-15 [facility] CNOVon 07-30-20[facility] NATHAN MURRELL ([id number]) 1965 F Date Time Provider Department 07/30/22 12:15 PM JUAN JOSE [facility] During your visit today, we recorded the following information about you: Temperature Pulse Respiration Blood pressure 98.6 degrees 99/minute 20/minute 148/96 Weight 71.2 kg Juan Jose Patel APRN.CNP 07/30/2022 12:43 PM Signed Subjective HPI Nontoxic-appearing female presents to urgent care with chief complaint of upper respiratory tract like infection. Duration of symptoms 3 days. Associated symptoms sore throat, nasal congestion, nasal discharge and nonproductive cough. Patient denies the use of any fups-jdi-unprwht medications or home remedies for symptom management. Patient states recent sick contacts with similar signs and symptoms. Also fluid exposure. Was seen by PCP negative flu and COVID test. Patient denies any productive cough, fever, chest pain, shortness of breath, pleuritic pain, rash, abdominal pain, nausea, vomiting or change in bowel or bladder habit. Past medical history prescription medication use allergies reviewed. 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 PAST SURGICAL HISTORY OF tubal ligation. THYROIDECTOMY TOTAL/COMPLETE 2009 ALLERGIES Seasonal Allergies MEDICATIONS albuterol HFA (PROVENTIL HFA, VENTOLIN HFA) 90 mcg/actuation inhaler Inhale 2 Puffs as instructed every 6 hours as needed for wheezing/shortness of breath. levothyroxine (SYNTHROID) 112 mcg tablet Take 1 tablet by mouth once daily. liothyronine (CYTOMEL) 5 mcg tablet Take 1 tablet by mouth once daily. cloNIDine TTS (CATAPRES-TTS) 0.1 mg/24 hr Apply 1 Patch as directed once each week. fluocinolone (SYNALAR) 0.025 % ointment Apply 1 application to affected area twice daily. APPLY TO AFFECTED AREA Cholecalciferol, Vitamin D3, 5,000 unit cap Take 1 capsule by mouth once daily. FAMILY HISTORY Problem Relation Age of Onset other (thyroid cancer [Other]) Sister other (endometriosis [Other]) Sister Hypertension Sister Hypertension Paternal Grandmother Cancer Mother lung cancer with extensive mets including brain Heart Failure Sister Coronary Artery Disease Paternal Grandmother Coronary Artery Disease Paternal Grandfather Coronary Artery Disease Sister Social History Tobacco Use Smoking status: Never Smokeless tobacco: Never Substance Use Topics Alcohol use: Yes Comment: Seldom Drug use: No BP 148/96 Pulse 99 Temp 37 ?C (98.6 ?F) Resp 20 Wt 71.2 kg (157 lb) LMP 10/14/2016 (Approximate) SpO2 96% BMI 24.70 kg/m? Review of Systems Constitutional: Positive for malaise/fatigue. Negative for chills and fever. HENT: Positive for congestion. Negative for ear discharge, ear pain, sinus pain and sore throat. Eyes: Negative for blurred vision, pain, discharge and redness. Respiratory: Positive for cough. Negative for hemoptysis, sputum production, shortness of breath, wheezing and stridor. Cardiovascular: Negative for chest pain. Gastrointestinal: Negative for abdominal pain, diarrhea, nausea and vomiting. Musculoskeletal: Positive for myalgias. Skin: Negative for itching and rash. Neurological: Positive for headaches. Negative for dizziness. Objective Physical Exam Constitutional: General: She is not in acute distress. Appearance: She is not diaphoretic. HENT: Head: Normocephalic. Nose: Congestion present. Mouth/Throat: Mouth: Mucous membranes are moist. Pharynx: Oropharynx is clear. No oropharyngeal exudate or posterior oropharyngeal erythema. Eyes: Conjunctiva/sclera: Conjunctivae normal. Pupils: Pupils are equal, round, and reactive to light. Cardiovascular: Rate and Rhythm: Normal rate and regular rhythm. Heart sounds: Normal heart sounds. Pulmonary: Effort: Pulmonary effort is normal. No tachypnea, accessory muscle usage or respiratory distress. Breath sounds: Normal breath sounds. No stridor. No wheezing, rhonchi or rales. Abdominal: General: There is no distension. Palpations: Abdomen is soft. Tenderness: There is no abdominal tenderness. There is no guarding or rebound. Musculoskeletal: Cervical back: Normal range of motion and neck supple. No rigidity or tenderness. Lymphadenopathy: Cervical: No cervical adenopathy. Skin: General: Skin is warm and dry. Neurological: Mental Status: She is alert and oriented to person, place, and time. ASSESSMENT/PLAN: 1. URI with cough and congestion - ICD9: 465.9, ICD10: J06.9 - Discussed viral etiology and (more content not included)... Normal [facility] [place] Basophil percentageOrdered B y: Dr. Reid on 05-27-2022 Bilirubin [Mass/Vol] 0.60 mg/dL 0.20-1.00 [facility] Comment on above: For patients on eltr ombopag therapy, use of [employer] TBIL is not recommended. Chloride [Moles/Vol] 105 mmol/L 98-107 [facility] Glucose [Mass/Vol] 83 mg/dL 74-106 [place] Potassium [Moles/Vol] 3.7 mmol/L 3.5-5.1 [facility] Protein [Mass/Vol] 7.6 g/dL 6.4-8.2 [place] Sodium [Moles/Vol] 139 mmol/L 136-145 [place] [facility] - Chemistry and C hemistry - challengeOrdered By: Dr. Reid on 05-27-2022 ALP [Catalytic activity/Vol] 63 U/L 45-117 [facility] ALT [Catalytic activity/Vol] 28 U/L 13-56 [facility] CO2 [Moles/Vol] 27.0 mmol/L 21.0-32.0 [facility] Free T4 [Mass/Vol] 1.00 ng/dL 0.76-1.46 [place] Globulin (S) [Mass/Vol] 3.7 g/dL 2.2-4.2 [facility] Urea nitrogen/Creatinine [Mass ratio] 18.0 mg/mg 05-27 [facility] No Panel InformationOrdered By: Dr. Reid on 05-27-2022 Estimated GFR (MDRD) Amer 78 mL/min >60 [facility] Comment on above: GFR Calc Estimated GFR (MDRD) Non-Af Amer 65 mL/min >60 [facility] Comment on above: Non- GFR Calc Free Triiodothyronine (T3) pg/dL 3.1 pg/mL 2.18-3.98 [facility] Thyroid Stimulating Hormone (TSH) 1.03 uIU/mL 0.358-3.74 [facility] Vitamin D 25-Hydroxy 34.0 ng/mL [facility] Comment on above: Vitamin D 25(OH) Sta tus Range Deficiency <20 ng/mL (50nmol/L) Insufficiency 20 - 30 ng/mL (50 - 75 nmol/L) Sufficiency 30 - 100 ng/mL (75 - 250 nmol/L) Toxicity >100 ng/mL (>250 nmol/L) Serum or plasma albumin tip urement (mass/volume)Ordered By: Dr. Reid on 05-27-2022 Albumin [Mass/Vol] 3.9 g/dL 3.2-5.0 [place] Serum or plasma albumin/glob ulin mass ratioOrdered By: Dr. Reid on 05-27-2022 Albumin/Globulin [Mass ratio] 1.1 {ratio} 0.9-2.4 [facility] Serum or plasma calcium tip urement (mass/volume)Ordered By: Dr. Reid on 05-27-2022 Calcium [Mass/Vol] 9.4 mg/dL 8.5-10.1 [place] Serum or plasma creatinine m easurement (mass/volume)Ordered By: Dr. Reid on 05-27-2022 Creatinine [Mass/Vol] 0.94 mg/dL 0.55-1.02 [facility] Comment on above: The validity of the calculated GFR & GFRAA in patients over 70 years has not been determined. Clinical correlation is essential. Serum or plasma urea nitroge n measurement (mass/volume)Ordered By: Dr. Reid on 05-27-2022 Urea nitrogen [Mass/Vol] 17 mg/dL 7-18 [facility] Thin prep Papanicolaou smear with manual screeningOrdered By: Dr. Reid on 05-27-2022 Thin prep Papanicolaou smear with manual screening 13 U/L 15-37 [facility] Thin prep Papanicolaou smear with manual screening 7 5-15 [facility] XR Chest PA and Lateralon IMPRESSION: Patchy opacities throughout both lungs, likely representing multifocal pneumonia. Body Team Member: DIEGO Transcribe Date/Time: Jul 10 2021 2:30P Dictated by : MITRA MORALES MD This examination was interpreted and the report reviewed and electronically signed by: MITRA MORALES MD on Jul 10 2021 2:32PM [facility] DIVISION OF RADIOLOGY * * *Final Report* * * DATE OF EXAM: Jul 10 2021 2:26PM WOX [id number] - XR CHEST 2V FRONTAL/LAT / PROCEDURE REASON: Cough * * * * Physician Interpretation * * * * EXAMINATION: CHEST RADIOGRAPH (2 VIEW FRONTAL & LATERAL) CLINICAL HISTORY: Cough MQ: XC2_6 EXAM DATE/TIME: 07/10/2021 2:26 PM COMPARISON: Chest x-ray on 12/09/2015. RESULT: Lines, tubes, and devices: None. Lungs and pleura: There are numerous patchy opacities throughout both lungs with lower lung predominance. No solid mass lesions seen. No pleural effusions or pneumothorax. Cardiomediastinal silhouette: Normal cardiomediastinal silhouette. Bones and soft tissues: None. DIVISION OF RADIOLOGY Provider, Martinez Tatum - 07/10/2021 * * *Final Report* * * DATE OF EXAM: Jul 10 2021 2:26PM WOX [id number] - XR CHEST 2V FRONTAL/LAT / PROCEDURE REASON: Cough * * * * Physician Interpretation * * * * EXAMINATION: CHEST RADIOGRAPH (2 VIEW FRONTAL & LATERAL) CLINICAL HISTORY: Cough MQ: XC2_6 EXAM DATE/TIME: 07/10/2021 2:26 PM COMPARISON: Chest x-ray on 12/09/2015. RESULT: Lines, tubes, and devices: None. Lungs and pleura: There are numerous patchy opacities throughout both lungs with lower lung predominance. No solid mass lesions seen. No pleural effusions or pneumothorax. Cardiomediastinal silhouette: Normal cardiomediastinal silhouette. Bones and soft tissues: None. IMPRESSION IMPRESSION: Patchy opacities throughout both lungs, likely representing multifocal pneumonia. Body Team Member: PSCB Transcribe Date/Time: Jul 10 2021 2:30P Dictated by : MITRA MORALES MD This examination was interpreted and the report reviewed and electronically signed by: MITRA MORALES MD on Jul 10 2021 2:32PM EST [facility] Radiology Study observation (narrative) [facility] XR Chest PA and LateralOrder ed By: [facility] Provider on 07-10-2021 [facility] Vital Signs Date Time Vital Sign Value Performing Clinician Amarilis eason 02-28-2025 18:00-0400 Diastolic blood pressure 89 mm[Hg] Dr. Sherry Fierro MD Work Phone: [facility] 02-28-2025 18:00-0400 Heart rate 69 /min Dr. Sherry Fierro MD Work Phone: [facility] 02-28-2025 18:00-0400 Respiratory rate 21 /min Dr. Sherry Fierro MD Work Phone: [facility] 02-28-2025 18:00-0400 Systolic blood pressure 142 mm[Hg] Dr. Sherry Fierro MD Work Phone: [facility] 02-28-2025 16:44-0400 Body temperature 97 [degF] Dr. Sherry Fierro MD Work Phone: [facility] 02-28-2025 16:44-0400 SaO2% (BldA) [Mass fraction] 98 % Dr. Sherry Fierro MD Work Phone: [facility] 02-28-2025 12:18-0400 Body height 170.[address] Sherry Fierro MD Work Phone: [facility] 02-28-2025 12:18-0400 Body mass index (BMI) [Ratio] 23.8 kg/m2 Dr. Sherry Fierro MD Work Phone: [facility] 02-28-2025 12:18-0400 Body weight 69.[address] Sherry Fierro MD Work Phone: [facility] 01-18-2023 10:03-0400 Body height 170.[address] Sherry Fierro Work Phone: [facility] 01-18-2023 10:03-0400 Body mass index (BMI) [Ratio] 23.8 kg/m2 Dr. Sherry Fierro Work Phone: [facility] 01-18-2023 10:03-0400 Body temperature 97.1 [degF] Dr. Sherry Fierro Work Phone: [facility] 01-18-2023 10:03-0400 Body weight 68.[address] Sherry Fierro Work Phone: [facility] 01-18-2023 10:03-0400 Diastolic blood pressure 79 mm[Hg] Dr. Sherry Fierro Work Phone: [facility] 01-18-2023 10:03-0400 Heart rate 64 /min Dr. Sherry Fierro Work Phone: [facility] 01-18-2023 10:03-0400 Respiratory rate 16 /min Dr. Shrery Fierro Work Phone: [facility] 01-18-2023 10:03-0400 SaO2% (BldA) [Mass fraction] 98 % Dr. Sherry Fierro Work Phone: [facility] 01-18-2023 10:03-0400 Systolic blood pressure 114 mm[Hg] Dr. Sherry Fierro Work Phone: [facility] 10-12-2022 09:04-0500 Body height 170.[address] Sherry Fierro Work Phone: [facility] 10-12-2022 08:59-0500 Body mass index (BMI) [Ratio] 23.8 kg/m2 Dr. Sherry Fierro Work Phone: [facility] 10-12-2022 08:59-0500 Body temperature 97.6 [degF] Dr. Sherry Fierro Work Phone: [facility] 10-12-2022 08:59-0500 Body weight 68.[address] Sherry Fierro Work Phone: [facility] 10-12-2022 08:59-0500 Diastolic blood pressure 81 mm[Hg] Dr. Sherry Fierro Work Phone: [facility] 10-12-2022 08:59-0500 Heart rate 68 /min Dr. Sherry Fierro Work Phone: [facility] 10-12-2022 08:59-0500 Respiratory rate 17 /min Dr. Sherry Fierro Work Phone: [facility] 10-12-2022 08:59-0500 SaO2% (BldA) [Mass fraction] 98 % Dr. Sherry Fierro Work Phone: [facility] 10-12-2022 08:59-0500 Systolic blood pressure 146 mm[Hg] Dr. Sherry Fierro Work Phone: [facility] 09-27-2022 10:35-0500 Body height 170.[address] Sherry Fierro Work Phone: [facility] 09-27-2022 10:30-0500 Body mass index (BMI) [Ratio] 23.6 kg/m2 Dr. Sherry Fierro Work Phone: [facility] 09-27-2022 10:30-0500 Body temperature 98.1 [degF] Dr. Sherry Fierro Work Phone: [facility] 09-27-2022 10:30-0500 Body weight 68.[address] Sherry Fierro Work Phone: [facility] 09-27-2022 10:30-0500 Diastolic blood pressure 82 mm[Hg] Dr. Sherry Fierro Work Phone: [facility] 09-27-2022 10:30-0500 Heart rate 69 /min Dr. Sherry Fierro Work Phone: [facility] 09-27-2022 10:30-0500 Respiratory rate 18 /min Dr. Sherry Fierro Work Phone: [facility] 09-27-2022 10:30-0500 SaO2% (BldA) [Mass fraction] 97 % Dr. Sherry Fierro Work Phone: [facility] 09-27-2022 10:30-0500 Systolic blood pressure 129 mm[Hg] Dr. Sherry Fierro Work Phone: [facility] 09-08-2022 08:52-0500 Body mass index (BMI) [Ratio] 23 kg/m2 Dr. Sherry Fierro Work Phone: [facility] 09-08-2022 08:52-0500 Body temperature 98.6 [degF] Dr. Sherry Fierro Work Phone: [facility] 09-08-2022 08:52-0500 Body weight 66.[address] Sherry Fierro Work Phone: [facility] 09-08-2022 08:52-0500 Diastolic blood pressure 77 mm[Hg] Dr. Sherry Fierro Work Phone: [facility] 09-08-2022 08:52-0500 Heart rate 59 /min Dr. Sherry Fierro Work Phone: [facility] 09-08-2022 08:52-0500 Respiratory rate 17 /min Dr. Sherry Fierro Work Phone: [facility] 09-08-2022 08:52-0500 SaO2% (BldA) [Mass fraction] 97 % Dr. Sherry Fierro Work Phone: [facility] 09-08-2022 08:52-0500 Systolic blood pressure 114 mm[Hg] Dr. Sherry Fierro Work Phone: [facility] 08-26-2022 19:26-0500 Diastolic blood pressure 85 mm[Hg] [facility] 08-26-2022 19:26-0500 Heart rate 68 /min [facility] 08-26-2022 19:26-0500 Respiratory rate 18 /min [facility] 08-26-2022 19:26-0500 SaO2% (BldA) [Mass fraction] 98 % [facility] 08-26-2022 19:26-0500 Systolic blood pressure 138 mm[Hg] [facility] 08-26-2022 15:15-0500 Body height 170.18 cm [facility] 08-26-2022 15:15-0500 Body mass index (BMI) [Ratio] 23.4 kg/m2 [facility] 08-26-2022 15:15-0500 Body weight 67.94 kg [facility] 08-26-2022 14:48-0500 Body temperature 97.4 [degF] [facility] 07-30-2022 12:12-0500 Body temperature 98.6 [degF] Juan Jose Patel APRN.LOOPING MACHINE OPERATOR Work Phone: [facility] 07-30-2022 12:12-0500 Body weight 71.22 kg Juan Jose Patel APRN.LOOPING MACHINE OPERATOR Work Phone: [facility] 07-30-2022 12:12-0500 Diastolic blood pressure 96 mm[Hg] [facility] SIGN MAKER.LOOPING MACHINE OPERATOR Work Phone: [facility] 07-30-2022 12:12-0500 Heart rate 99 /min Juan [facility] SIGN MAKER.LOOPING MACHINE OPERATOR Work Phone: [facility] 07-30-2022 12:12-0500 Respiratory rate 20 /min [facility] SIGN MAKER.LOOPING MACHINE OPERATOR Work Phone: [facility] 07-30-2022 12:12-0500 SaO2% (BldA) [Mass fraction] 96 % Juan Josepaola [facility] SIGN MAKER.LOOPING MACHINE OPERATOR Work Phone: [facility] 07-30-2022 12:12-0500 Systolic blood pressure 148 mm[Hg] [facility] SIGN MAKER.LOOPING MACHINE OPERATOR Work Phone: [facility] 07-21-2022 09:12-0500 Body height 170.18 cm [facility] Work Phone: Encounters Encounter Date Encounter Type Care Provider Facility Start: 02-28-2025 Evaluation and management of inpatient Dr. Evon Vo MD -Progressive Care Unit Work Phone: Start: 02-28-2025 Non-patient / Non-visit Dr. Evon Vo MD -[facility] Work Phone: Start: 07-20-2024 ambulatory [facility] Facility:[facility] Start: 07-14-2024 End: 07-14-2024 ambulatory [facility] Facility:[facility] Start: 07-07-2023 End: 07-07-2023 ambulatory [facility] Work Phone: Start: 07-07-2023 End: 07-07-2023 Patient encounter procedure [facility] Start: 03-28-2023 End: 03-28-[address] Sherry Fierro Work Phone: [facility] Work Phone: Start: 03-28-2023 End: 03-28-[address] Sherry Fierro Work Phone: [facility] Start: 03-07-2023 End: 03-08-2023 ambulatory POORNIMA BOOTH MD Facility:A Start: 03-07-2023 End: 03-07-2023 Patient encounter procedure POORNIMA BOOTH MD [facility] Start: 01-18-2023 End: 01-18-[address] Sherry Fierro Work Phone: [facility] Work Phone: Start: 01-07-2023 End: 01-07-[address] Sherry Fierro Work Phone: [facility] Work Phone: Start: 01-07-2023 End: 01-07-[address] Sherry Fierro Work Phone: [facility] Start: 10-12-2022 End: 10-12-[address] Sherry Fierro Work Phone: [facility] Start: 09-27-[address] Sherry Fierro Work Phone: [facility] Start: 09-27-2022 End: 09-27-[address] Sherry Fierro Work Phone: [facility] Start: 09-23-2022 End: 09-23-[address] Sherry Fierro Work Phone: [facility] Work Phone: Start: 09-23-2022 End: 09-23-[address] Sherry Fierro Work Phone: [facility]-Nuclear Medicine, [facility] Start: 09-08-2022 End: 09-08-[address] Sherry Fierro Work Phone: [facility] Start: 08-26-2022 End: 08-26-2022 Emergency department patient visit [facility]-Emergency Department Start: 07-30-2022 End: 07-30-2022 ambulatory SHERRY FIERRO Facility:[facility] Start: 07-30-2022 End: 07-30-2022 Office outpatient visit 15 minutes Juan Jose Patel APRN.LOOPING MACHINE OPERATOR Work Phone: [facility] Comment on above: URI with cough and c ongestion (Primary Dx) Start: 07-21-2022 End: 07-21-2022 ambulatory [facility] Work Phone: Start: 07-21-2022 End: 07-21-2022 Patient encounter procedure [facility]-Outpatient Bone Densitometry Start: 05-27-2022 End: 05-27-2022 ambulatory [facility] Work Phone: Start: 05-27-2022 End: 05-27-2022 Patient encounter procedure [facility] Start: 07-10-2021 End: 07-10-2021 Subsequent hospital visit by physician Xr [facility] Work Phone: Radiology Comment on above: Cough [R05.9] Start: 06-30-2021 Telephone encounter Ladonna Mcdaniel APRN.LOOPING MACHINE OPERATOR Work Phone: [facility] Comment on above: Erroneous encounter- disregard Procedures Date Procedure Procedure Detail Performing Clinician Start: 02-28-[address] Sherry Fierro MD Work Phone: Start: 02-28-2025 X-ray of chest, PA a nd lateral views Dr. Sherry Fierro MD Work Phone: Start: 01-07-2023 MRI of brain with contrast Dr. Sherry Fierro Work Phone: Start: 09-23-2022 Radionuclide whole b nano bone study Dr. Sherry Fierro Work Phone: Start: 08-26-2022 CT of face Start: 08-26-2022 Plain chest X-ray Start: 08-26-2022 MRI of brain without contrast Start: 07-21-2022 Dual energy X-ray absorptiometry Start: 07-10-2021 Radiologic exam ches t 2 views Marion Lamb APRN.LOOPING MACHINE OPERATOR Work Phone: Start: 05-08-2016 Lipid 1996 panel - S dunia or Plasma [facility] Work Phone: Start: 05-07-2016 Adult depression scr eening assessment Ladonna Mcdaniel APRN.LOOPING MACHINE OPERATOR Work Phone: Start: 03-10-2016 Mammography Ladonna Mcdaniel APRN.LOOPING MACHINE OPERATOR Work Phone: Start: 12-05-2015 Colonoscopy Ladonna Mcdaniel APRN.[facility] Work Phone: Start: 08-08-2009 Thyroidectomy total/complete POORNIMA BOOTH MD Start: 08-08-1984 section POORNIMA BOOTH MD Ligation of fallopian tube R HANY BOOTH MD Plan of Treatment Date Care Activity Detail Author Start: 01-03-2030 Urine microalbumin profile DTaP,Tdap,Td Vaccine (2 - Td or Tdap) [facility] Start: 02-28-2025 Hospital admission, emergency, from emergency room, medical nature [facility] Start: 02-28-2025 Verification routine [facility] Start: 02-28-2025 Admission procedure [facility] Start: 02-28-2025 [facility] Start: 04-08-2024 Covid-19 Vaccine ( season) Covid-19 Vaccine ( season) [facility] Start: 04-08-2024 Influenza vaccination Influenza Vaccine (#1) [facility] Start: 01-18-2023 Patient referral [facility] Work Phone: Start: 09-27-2022 Procedure [facility] Start: 04-08-2022 Influenza vaccination INFLUENZA (#1) [facility] Start: 10-13-2021 Screening for malignant neoplasm of colon [facility] Start: 08-08-2021 DEPRESSION ASSESSMENT DEPRESSION ASSESSMENT [facility] Start: 05-08-2021 Lipid panel Lipid Screening [facility] Start: 05-08-2021 LIPID SCREEN LIPID SCREEN [facility] Start: 05-03-2021 DIABETES SCREEN DIABETES SCREEN [facility] Start: 05-03-2021 Diabetes Screening Diabetes Screening [facility] Start: 01-14-2020 HPV TESTING HPV TESTING [facility] Start: 01-14-2020 PAP TESTING PAP TESTING [facility] Start: 01-14-2020 Screening for malignant neoplasm of cervix Cervical Cancer Screening [facility] Start: 05-07-2017 Adult depression screening assessment DEPRESSION SCREENING [facility] Start: 03-10-2017 Mammography MAMMOGRAM [facility] Start: 03-10-2017 Screening for malignant neoplasm of breast Mammogram Screening [facility] Start: 12-04-2016 Colonoscopy COLONOSCOPY [facility] Start: 12-04-2016 COLORECTAL CANCER SCREENING COLORECTAL CANCER SCREENING [facility] Start: 12-04-2016 Screening for malignant neoplasm of colon Colonoscopy [facility] Start: 2014 SHINGRIX VACCINE (1 of 2) SHINGRIX VACCINE (1 of 2) [facility] Start: 2009 COLOGUARD (FIT-DNA) COLOGUARD (FIT-DNA) [facility] Start: [address] COLONOGRAPHY [facility] Start: 2009 FECAL OCCULT BLOOD FECAL OCCULT BLOOD [facility] Start: 2009 Screening for malignant neoplasm of colon [facility] Start: 2009 SIGMOIDOSCOPY SIGMOIDOSCOPY [facility] Start: 1983 Urine microalbumin profile DTAP,TDAP,TD (1 - Tdap) [facility] Start: 1982 Anxiety Screening Anxiety Screening [facility] Start: 1982 Depression Screening Depression Screening [facility] Start: 1982 HEPATITIS C SCREENING HEPATITIS C SCREENING [facility] Start: 1982 Hepatitis C screening Hepatitis C Screening [facility] Start: 1982 HIV SCREENING HIV SCREENING [facility] Start: 1982 HIV screening HIV Screening [facility] Start: 01-24-1965 COVID-19 VACCINE (#1) COVID-19 VACCINE (#1) [facility] Start: 1964 HEPATITIS B (1 of 3 - 3-dose series) HEPATITIS B (1 of 3 - 3-dose series) [facility] Erythrocyte mean corpuscular volume determination [facility] Hematocrit [Volume Fraction] of Blood [facility] Hemoglobin [Mass/vol ume] in Blood [facility] Leukocytes [#/volume ] in Blood [facility] Mean corpuscular hemoglobin concentration determination [facility] Mean corpuscular hemoglobin determination [facility] MR Brain WO and W contrast IV [facility] Neutrophil count [facility] Neutrophil percent differential count [facility] Patient Education ED Blackwood's Palsy [facility] Work Phone: Patient referral [facility] Work Phone: Platelets [#/volume] in Blood [facility] Red blood cell count [facility] Red cell distributio n width determination [facility] Immunizations Immunization Date Immunization Notes Care Provider Fa erlinda 06-01-2016 influenza virus vacc ine, unspecified formulation [facility] Work Phone: [facility] Payers Date Payer Category Payer Private Health Insurance [id number] 2024 Self-pay [id number] 2015 Unknown MMO MMO [employer] [id number] 2015-Present [phone] [address] [place] [address] PPO [id number] 2015 Unknown [id number] 2015 Unknown [id number] 2007 Unknown JESSICA [id number] 2007 Unknown [id number] 1965 Unknown [id number] Unknown [id number] Unknown [id number] Social History Date Type Detail Facility Start: 04-20-2011 End: 02-28-2025 Tobacco smoking status NHIS Never smoked tobacco [facility] Work Phone: Start: 06-29-2021 End: 07-10-2021 Alcohol intake Current drinker of alcohol (finding) [facility] Start: 01-03-2014 History SDOH Alcohol Comment Seldom [facility] Start: 1965 Sex Assigned At Not on file [facility] Start: 06-10-2021 End: 07-20-2021 Exposure to SARS-CoV-2 (event) Not sure [facility] Start: 07-06-2021 End: 09-02-2022 Tobacco smoking status NHIS Unknown if ever smoked [facility] Start: 1965 Sex Assigned At Female [facility] Start: 04-20-2011 Tobacco use and exposure Smokeless tobacco non-user [facility] Work Phone: Start: 05-13-2021 End: 07-10-2021 History of Social function [facility] Start: 05-13-2021 End: 07-10-2021 Tobacco use panel [facility] National Score (1-100), lower number is lower risk Not on file [facility] Mental Status Date Assessment Result Facility 08-26-2022 Cognitive function Level Of Cons ciousness Awake;Alert;Appropriate;Follow s Commands [facility] Work Phone: Clinical Notes 07-10-2021 to 02-28-2025 Note Date & Type Note Facility 02-28-2025 History and physi arabella note Note Date/Time February 28, 2025 5:19pm [facility] Medical Records Department [address] [place] [address] H&P Exam - Hospitalist 02/28/25 1713 MR#: [id number] Acct: [id number] Name: NATHAN MURRELL Rep #:[id number] : 1965 59 From: Evon Vo MD PCP: Dr. Sherry Fierro MD Status:RE G ER Location: ED HPI - General General Date of Admission: 02/28/25 Date of Service: 02/28/25 Chief Complaint: Chest pain HPI Narrative NATHAN MURRELL, is a 59-year-old female history of thyroid cancer previously treated and now on Synthroid, chronic lightheadedness who presented to [facility] ED 02/28/2025 with chest discomfort. She had an episode last week when she was feeling overwhelmed and had a panic attack, it lasted for about 30 minutes. This morning she was running errands and around 730 started feeling anxious and had some tightness or pressure in the center of her chest about 730 and developed a headache and sensation going down bilateral arms that was almost an ache in nature. Does have a history of heart disease in grandmother and older sister so she came to the ED for evaluation. Symptoms were starting to improve by the time she got to the ED aside from her headache. In the ED temp 97, heart rate of 70 and blood pressure 174/78, respiratory rate 22 and pulse ox 97% on room air, CBC with white blood cell count 8.1 and hemoglobin 12.9, BMP only remarkable for glucose 118, chest x-ray no acute process and troponin found to be elevated at 106. Repeat troponin 229. ED physician discussed with cardiology who recommended admission and they will see in consult. Patient placed on heparin drip with plans for cardiac cath in the a.m. and hospitalist contacted for admission. Patient evaluated bedside, reports history as above, had a bad headache earlier but it has been improving, chest discomfort also much improved from earlier. Denied any nausea or shortness of breath, patient has no other new or acute complaints. [facility] Medical History Heart murmur Hypothyroid removal of cancerous thyroid Home Medications ?Medication ?Instructions ?Recorded ?Last Taken ?Type liothyronine 5 mcg tablet 5 mcg PO DAILY 08/26/22 Unkn own History cholecalciferol (vitamin D3) 1,250 1,250 mcg PO QWEEK 02/28/25 Unknown History mcg (50,000 unit) capsule levothyroxine 100 mcg tablet 100 mcg PO DAILY 02/28/25 02/28/25 History Allergy/AdvReac Type Severity Reaction Status Date / Time No Known Allergies Allergy Verified 02/28/25 12:18 Family History Mother Cancer metastatic-un known primary site Grandmother Uterine cancer Sister Thyroid cancer Surgical History Hx of foot surgery H/O section Hx of thyroidectomy Social History Smoking Status: Never smoker alcohol intake: never substance use type: does not use ROS ROS Narrative General: Denies fever/chills HENT: Had a global headache that is improving, denies stuffy nose, denies sore throat EYES: Denies changes in vision Resp: Has some chronic cough after her thyroid cancer, denies shortness of breath Cardiac: Chest pain significantly improved GI: Denies abdominal pain, denies changes in bowel, denies nausea/vomiting : Denies changes in urination Extremity: Denies swelling MSK: Denies weakness Neuro: Denies any numbness/tingling Heme: Denies any bleeding or bruising Skin: Denies rashes Psychiatric: No complaints voiced Vital Signs Vital Signs Vital Signs: 02/28/25 12:18 02/28/25 13:10 02/28/25 14:18 Temperature 97 F L Temperature Source Temporal Pulse Rate 70 65 Respiratory Rate 22 H 18 Blood Pressure 174/78 H 141/85 H Blood Pressure Mean 110 103 Pulse Ox 97 97 Oxygen Delivery Method Room Air Room Air 02/28/25 14:38 02/28/25 15:00 02/28/25 15:15 Temperature Temperature Source Pulse Rate 70 74 69 Respiratory Rate 18 15 18 Blood Pressure 133/92 H 129/72 H Blood Pressure Mean 105 88 Pulse Ox 97 97 97 Oxygen Delivery Method 02/28/25 15:30 02/28/25 15:45 02/28/25 16:00 Temperature Temperature Source Pulse Rate 78 70 67 Respiratory Rate 17 13 16 Blood Pressure 135/80 H 115/96 H 130/74 H Blood Pressure Mean 96 102 92 Pulse Ox 97 97 96 Oxygen Delivery Method 02/28/25 16:44 Temperature 97 F L Temperature Source Pulse Rate 67 Respiratory Rate 16 Blood Pressure 145/79 H Blood Pressure Mean 101 Pulse Ox 98 Oxygen Delivery Method Weight Weight: 69.218 kg Body Mass Index (BMI) 23.8 Physical Exam Narrative General: Alert, oriented, no apparent distress HEENT: Atraumatic, normocephalic Eyes: Anicteric, normal conjunctiva, extraocular movements grossly intact Neck: Supple Respiratory: Clear to auscultation bilaterally, normal respiratory effort Cardiovascular: Regular rate and rhythm GI: Soft, nontender, nondistended Extremities: No edema Musculoskeletal: Moving all extremities Neuro: No overt focal neurological deficits Skin: No rashes appreciated Psych: Cooperative Results Lab / Micro Data 02/28/25 16:14 02/28/25 13:10 Labs: Laboratory Results - last 24 hr 02/28/25 13:10: WBC 8.1, RBC 4.53, Hgb 12.9, Hct 38.3, MCV 84.5, MCH 28.5, MCHC 33.7, RDW Std Deviation 39.2, RDW Coeff of Dewey 12.8, Plt Count 237, MPV 10.4, Immature Gran % (Auto) 0.400, Neut % (Auto) 83.7 H, Lymph % (Auto) 10.0 L, Owsley % (Auto) 4.8, Eos % (Auto) 0.5, Baso % (Auto) 0.6, Absolute Neuts (auto) 6.8, Absolute Lymphs (auto) 0.81 L, Nucleated RBC % 0, Sodium 139, Potassium 3.7, Chloride 105, Carbon Dioxide 23.7, Anion Gap 10, BUN 18, Creatinine 0.76, Estim Creat Clear Calc 76.55, Est GFR (MDRD) Non-Af 90, BUN/Creatinine Ratio 23.7 H, Glucose 118 H, Calcium 9.3, Troponin T High Sens 106 H* 02/28/25 14:56: Troponin T Hi Sens 2 Hr 229 H* 02/28/25 16:14: WBC 9.4, RBC 4.54, Hgb 13.0, Hct 38.5, MCV 84.8, MCH 28.6, MCHC 33.8, RDW Std Deviation 39.7, RDW Coeff of Dewey 12.8, Plt Count 247, MPV 10.2, Immature Gran % (Auto) 0.300, Neut % (Auto) 83.9 H, Lymph % (Auto) 11.4 L, Owsley % (Auto) 3.4, Eos % (Auto) 0.6, Baso % (Auto) 0.4, Absolute Neuts (auto) 7.9 H, Absolute Lymphs (auto) 1.07, Nucleated RBC % 0 Rhythm Strip Rhythm Strip: Sinus Rhythm Rate: 57 Ectopy: None Imaging Radiology Impression Chest X-Ray 02/28/25 13:02 IMPRESSION: No acute process is identified in the chest. [facility] & Plan Assessment/Plan (1) Acute non-ST elevation myocardial infarction (NSTEMI): PLAN: Plan # NSTEMI suspect type I - Troponin 106 with a repeat 229 -EKG T wave inversion in lead III but no acute changes - Admit to telemetry - Aspirin, statin - Cardiology consult, patient on heparin drip with plans for heart cath tomorrow - Echocardiogram ordered # History of thyroid cancer status posttreatment - Now on Synthroid and T3 replacement #DVT ppx: SCDs Evon Vo MD Charges/Coding Visit Charges Inpatient E&M: 86306 Init Hosp L1 02/28/25 1719 <Electronically signed by Evon Vo MD> Cosigner Signature (if applicable): CC: Dr. Sherry Fierro MD; Dr. Evon Vo MD~ Signed [facility] Work Phone: 1(174) 746-270107-24-2025 Evaluation note* Diagnosis Onset Date Resolution Status Admit Date Acute non-ST elevation myoca rdial infarction (NSTEMI) acute February 28, 2 025 5:15pm Chest pain acute February 28 5:15pm [facility] Work Phone: [phone]) 868-302407-24-2025 Discharge summary Author Malaika Landry [facility] Note Date/Time February 28, 2025 4:20 pm [facility] Medical Records Department [address] [place] [address] Emergency Department Summary 02/28/25 MR#: [id number] Acct: [id number] Name: NATHAN MURRELL Rep #:[id number] : 1965 59 From: Malaika Valenzuela PCP: Dr. Sherry Fierro MD Status:RE G ER Location: ED HPI History of Present Illness Chief Complaint: Anxiety Informant: patient Narrative Narrative: Patient is a 59-year-old female with history of thyroid cancer (previously treated and now on Synthroid), lifelong heart murmur and chronic lightheadednesspresenting with chest discomfort. He states she had an episode last week where she was feeling overwhelmed that she is having a panic attack. It lasted for about 30 minutes. 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 She states it is not a pain but feels more like an ache. She has a family history of heart disease (her grandmother as well as her older sister) and wanted to make sure that this wasn't anything to do with her heart so she came to the emergency room. She currently is starting to feel better and except for her headache. She denies any recent medication changes. Denies any recent weight changes. Does report a lot of social stressors in her life. No other complaints or concerns reported at this time. Denies history of tobacco use. Denies associated GI or symptoms. [facility] Medical History Heart murmur Hypothyroid removal of cancerous thyroid Home Medications ?Medication ?Instructions ?Recorded ?Last Taken ?Type liothyronine 5 mcg tablet 5 mcg PO DAILY 08/26/22 Unkn own History cholecalciferol (vitamin D3) 1,250 1,250 mcg PO QWEEK 02/28/25 Unknown History mcg (50,000 unit) capsule levothyroxine 100 mcg tablet 100 mcg PO DAILY 02/28/25 02/28/25 History Allergy/AdvReac Type Severity Reaction Status Date / Time No Known Allergies Allergy Verified 02/28/25 12:18 Family History Mother Cancer metastatic-un known primary site Grandmother Uterine cancer Sister Thyroid cancer Surgical History Hx of foot surgery H/O section Hx of thyroidectomy Social History Smoking Status: Never smoker alcohol intake: never substance use type: does not use ROS ROS ED Constitutional Constitutional ED: Denies chills, fever(s) or sweats Cardiovascular Cardiovascular: Reports chest pain Respiratory/Chest Respiratory/Chest: Denies cough or dyspnea Gastrointestinal Gastrointestinal: Denies abdominal pain, nausea or vomiting Musculoskeletal Musculoskeletal: Denies arthralgias or myalgias Integumentary Denies rash Psychiatric Psychiatric: Reports anxiety EXAM Physical Exam Const Vital Signs: 02/28/25 12:18 02/28/25 13:10 02/28/25 14:18 Temperature 97 F L Temperature Source Temporal Pulse Rate 70 65 Respiratory Rate 22 H 18 Blood Pressure 174/78 H 141/85 H Blood Pressure Mean 110 103 Pulse Ox 97 97 Oxygen Delivery Method Room Air Room Air 02/28/25 14:38 02/28/25 15:00 02/28/25 15:15 Temperature Temperature Source Pulse Rate 70 74 69 Respiratory Rate 18 15 18 Blood Pressure 133/92 H 129/72 H Blood Pressure Mean 105 88 Pulse Ox 97 97 97 Oxygen Delivery Method 02/28/25 15:30 02/28/25 15:45 02/28/25 16:00 Temperature Temperature Source Pulse Rate 78 70 67 Respiratory Rate 17 13 16 Blood Pressure 135/80 H 115/96 H 130/74 H Blood Pressure Mean 96 102 92 Pulse Ox 97 97 96 Oxygen Delivery Method Positive well nourished and well developed General Appearance ED: well developed and NAD Eyes PERRL Neck supple and no JVD Chest Wall inspection of chest normal and palpation of chest normal Resp normal respiratory effort and clear to auscultation bilaterally Cardio regular rate, regular rhythm and no murmurs Cardio Narrative: 2+ radial DP pulses present GI normal to inspection, nondistended, normoactive bowel sounds and non-tender Extremity normal to inspection General Extremety ED: Negative for edema or tenderness General Extremity: Negative for edema Neuro oriented x3 Sensorium / Orientation: alert Motor Exam: Negative for general weakness Psych mental status grossly normal Mood & Affect: anxious; Negative for tearful Skin no rashes or lesions noted and no wounds MDM MDM MDM Narrative Medical decision making narrative: Patient evaluated for episode of chest discomfort, headache and discomfort goingdown the back of her bilateral arms. She initially attributed to anxiety but itdid not improve with rest today so she came in. Denies any known history of coronary disease but does have significant family history of coronary artery disease. Differential includes anxiety reaction, pneumothorax, pneumonia, ACS, pericarditis and electrolyte derangement Workup including EKG, chest x-ray lab work is obtained. EKG shows some T wave morphology changes to lead III but no other acute changes. She is relatively asymptomatic right now. High sensitivity troponins elevated at 106. Repeat EKG obtained which now showsa T wave inversion in lead III but no other acute changes. Patient does report that when she was moving around for chest x-ray she had the pain again but she is feeling better after aspirin. Will discuss with cardiology but patient will require admission to the hospital for concern for ACS. Repeat high-sensitivity troponin is uptrending (now to 29). Patient is pain-free at this time. Case discussed with cardiology, Dr. Chamorro. He plans on cathing the patient tomorrow. Patient started on heparin drip in the emergency room. Patient agreeable plan of care. Discussed with hospitalist for admission. Lab Data Attestation: I reviewed the patient's lab results. Labs: Laboratory Results - last 24 hr 02/28/25 02/28/25 13:10 14:56 WBC 8.1 RBC 4.53 Hgb 12.9 Hct 38.3 MCV 84.5 MCH 28.5 MCHC 33.7 RDW Std Deviation 39.2 RDW Coeff of Dewey 12.8 Plt Count 237 MPV 10.4 Immature Gran % (Auto) 0.400 Neut % (Auto) 83.7 H Lymph % (Auto) 10.0 L Owsley % (Auto) 4.8 Eos % (Auto) 0.5 Baso % (Auto) 0.6 Absolute Neuts (auto) 6.8 Absolute Lymphs (auto) 0.81 L Nucleated RBC % 0 Sodium 139 Potassium 3.7 Chloride 105 Carbon Dioxide 23.7 Anion Gap 10 BUN 18 Creatinine 0.76 Estim Creat Clear Calc 76.55 Est GFR (MDRD) Non-Af 90 BUN/Creatinine Ratio 23.7 H Glucose 118 H Calcium 9.3 Troponin T High Sens 106 H* Troponin T Hi Sens 2 Hr 229 H* Radiography Chest X-Ray - ED: 2 View, Read by ED Physician, Read by Radiologist and No AcuteDisease Diagnostic Testing: Clinical Impression(s) from Imaging Studies Chest X-Ray 02/28/25 13:02 IMPRESSION: No acute process is identified in the chest. Reading [facility] Rhythm Strip Rhythm Strip: Sinus Rhythm Rate: 57 Ectopy: None EKG Initial EKG: Attestation: I personally reviewed and interpreted this EKG as follows: Interpretation: Sinus Rhythm Comments: Sinus bradycardia rate of 57 bpm Normal axis Normal intervals Nonspecific ST morphology change in lead III but no reciprocal changes This is new compared to prior EKG on 08/26/2022 Prior EKG tracings: available for review Prior: Changed Follow-up EKG: Attestation: I personally reviewed and interpreted this EKG as follows: Interpretation: Sinus Rhythm Comments: Normal sinus rhythm at a rate of 64 bpm Normal axis Normal intervals T wave inversion in lead III now with no further dynamic changes Management Discussion w/another healthcare provider: Hospitalist and Safety Instructor Critical Care Time Critical Care Time: Yes Critical care time (excluding procedures): 30-74 minutes (40), Discussing w/Patient &/or Family/Director Medical Writing, Discussing w/Consultants and Arranging Admission or Transfer Discharge Plan Triage Chief Complaint: Anxiety ED Provider: Malaika Landry Dx/Rx/DC Orders Clinical Impression: Acute non-ST elevation myocardial infarction (NSTEMI), Chest pain Prescriptions: No Action liothyronine 5 mcg tablet 5 mcg PO DAILY levothyroxine 100 mcg tablet 100 mcg PO DAILY cholecalciferol (vitamin D3) 1,250 mcg (50,000 unit) capsule 1,250 mcg PO QWEEK Patient Comments: Take weekly on Sat. Primary Care Provider: Sherry Fierro Referrals: Sherry Fierro MD [Primary Care Provider] - Print Language: Hungarian Disposition Disposition: Acute Care Hospital [facility] What to do if you have Problems For any increased pain, shortness of breath, bleeding, nausea or vomiting, chestpain, or any unexpected problems, contact your Primary Care Provider. Call [facility] ([phone]) or report to the closest Emergency Room. Call 911 if necessary. 02/28/25 1620 <Electronically signed by Malaika Landry DO> Cosigner Signature (if applicable): CC: Dr. Sherry Fierro MD ~ Signed [facility] Work Phone: [phone] 883-430307-24-2025 History and physical note [facility] Medical Records Department [address] [place] [address] H&P Exam - Hospitalist 02/28/25 1713 MR#: [id number] Acct: [id number] Name: NATHAN MURRELL Rep #:[id number] : 1965 59 From: Evon Vo MD PCP: Dr. Sherry Fierro MD Status:RE G ER Location: ED HPI - General General Date of Admission: 02/28/25 Date of Service: 02/28/25 Chief Complaint: Chest pain HPI Narrative NATHAN MURRELL, is a 59-year-old female history of thyroid cancer previously treated and now on Synthroid, chronic lightheadedness who presented to [facility] ED 02/28/2025 with chest discomfort. She had an episode last week when she was feeling overwhelmed and had a panic attack,it lasted for about 30 minutes. This morning she was running errands and around 730 started feeling anxious and had some tightness or pressure in the center of her chest about 730 and developed a headache and sensation going down bilateral arms that was almost an ache in nature. Does have a historyof heart disease in grandmother and older sister so she came to the ED for evaluation. Symptoms were starting to improve by the time she got to the ED aside from her headache. In the ED temp 97, heart rate of 70 and blood pressure 174/78, respiratory rate 22 and pulse ox 97% on room air, CBC with white blood cell count 8.1 and hemoglobin 12.9, BMP only remarkable for glucose 118, chest x-ray no acute process and troponin found to be elevated at 106. Repeat troponin 229. ED physician discussed with cardiology who recommended admission and they will see in consult. Patient placed on heparin drip with plans for cardiac cath in the a.m. and hospitalist contacted for admission. Patient evaluatedbedside, reports history as above, had a bad headache earlier but it has been improving, chest discomfort also much improved from earlier. Denied any nausea or shortness of breath, patient has no other new or acute complaints. [facility] Medical History Heart murmur Hypothyroid removal of cancerous thyroid Home Medications ?Medication ?Instructions ?Recorded ?Last Taken ?Type liothyronine 5 mcg tablet 5 mcg PO DAILY 08/26/22 Unkn own History cholecalciferol (vitamin D3) 1,250 1,250 mcg PO QWEEK 02/28/25 Unknown History mcg (50,000 unit) capsule levothyroxine 100 mcg tablet 100 mcg PO DAILY 02/28/25 02/28/25 History Allergy/AdvReac Type Severity Reaction Status Date / Time No Known Allergies Allergy Verified 02/28/25 12:18 Family History Mother Cancer metastatic-un known primary site Grandmother Uterine cancer Sister Thyroid cancer Surgical History Hx of foot surgery H/O section Hx of thyroidectomy Social History Smoking Status: Never smoker alcohol intake: never substance use type: does not use ROS ROS Narrative General: Denies fever/chills HENT: Had a global headache that is improving, denies stuffy nose, denies sore throat EYES: Denies changes in vision Resp: Has some chronic cough after her thyroid cancer, denies shortness of breath Cardiac: Chest pain significantly improved GI: Denies abdominal pain, denies changes in bowel, denies nausea/vomiting : Denies changes in urination Extremity: Denies swelling MSK: Denies weakness Neuro: Denies any numbness/tingling Heme: Denies any bleeding or bruising Skin: Denies rashes Psychiatric: No complaints voiced Vital Signs Vital Signs Vital Signs: 02/28/25 12:18 02/28/25 13:10 02/28/25 14:18 Temperature 97 F L Temperature Source Temporal Pulse Rate 70 65 Respiratory Rate 22 H 18 Blood Pressure 174/78 H 141/85 H Blood Pressure Mean 110 103 Pulse Ox 97 97 Oxygen Delivery Method Room Air Room Air 02/28/25 14:38 02/28/25 15:00 02/28/25 15:15 Temperature Temperature Source Pulse Rate 70 74 69 Respiratory Rate 18 15 18 Blood Pressure 133/92 H 129/72 H Blood Pressure Mean 105 88 Pulse Ox 97 97 97 Oxygen Delivery Method 02/28/25 15:30 02/28/25 15:45 02/28/25 16:00 Temperature Temperature Source Pulse Rate 78 70 67 Respiratory Rate 17 13 16 Blood Pressure 135/80 H 115/96 H 130/74 H Blood Pressure Mean 96 102 92 Pulse Ox 97 97 96 Oxygen Delivery Method 02/28/25 16:44 Temperature 97 F L Temperature Source Pulse Rate 67 Respiratory Rate 16 Blood Pressure 145/79 H Blood Pressure Mean 101 Pulse Ox 98 Oxygen Delivery Method Weight Weight: 69.218 kg Body Mass Index (BMI) 23.8 Physical Exam Narrative General: Alert, oriented, no apparent distress HEENT: Atraumatic, normocephalic Eyes: Anicteric, normal conjunctiva, extraocular movements grossly intact Neck: Supple Respiratory: Clear to auscultation bilaterally, normal respiratory effort Cardiovascular: Regular rate and rhythm GI: Soft, nontender, nondistended Extremities: No edema Musculoskeletal: Moving all extremities Neuro: No overt focal neurological deficits Skin: No rashes appreciated Psych: Cooperative Results Lab / Micro Data 02/28/25 16:14 02/28/25 13:10 Labs: Laboratory Results - last 24 hr 02/28/25 13:10: WBC 8.1, RBC 4.53, Hgb 12.9, Hct 38.3, MCV 84.5, MCH 28.5, MCHC 33.7, RDW Std Deviation 39.2, RDW Coeff of Dewey 12.8, Plt Count 237, MPV 10.4, Immature Gran % (Auto) 0.400, Neut % (Auto) 83.7 H, Lymph % (Auto) 10.0 L, Owsley % (Auto) 4.8, Eos % (Auto) 0.5, Baso % (Auto) 0.6, Absolute Neuts (auto) 6.8, Absolute Lymphs (auto) 0.81 L, Nucleated RBC % 0, Sodium 139, Potassium 3.7, Chloride 105, Carbon Dioxide 23.7, Anion Gap 10, BUN 18, Creatinine 0.76, Estim Creat Clear Calc 76.55, Est GFR (MDRD) Non-Af 90, BUN/Creatinine Ratio 23.7 H, Glucose 118 H, Calcium 9.3, Troponin T High Sens 106 H* 02/28/25 14:56: Troponin T Hi Sens 2 Hr 229 H* 02/28/25 16:14: WBC 9.4, RBC 4.54, Hgb 13.0, Hct 38.5, MCV 84.8, MCH 28.6, MCHC 33.8, RDW Std Deviation 39.7, RDW Coeff of Dewey 12.8, Plt Count 247, MPV 10.2, Immature Gran % (Auto) 0.300, Neut % (Auto) 83.9 H, Lymph % (Auto) 11.4 L, Owsley % (Auto) 3.4, Eos % (Auto) 0.6, Baso % (Auto) 0.4, Absolute Neuts (auto) 7.9 H, Absolute Lymphs (auto) 1.07, Nucleated RBC % 0 Rhythm Strip Rhythm Strip: Sinus Rhythm Rate: 57 Ectopy: None Imaging Radiology Impression Chest X-Ray 02/28/25 13:02 IMPRESSION: No acute process is identified in the chest. Reading Location: [facility] Assessment & Plan Assessment/Plan (1) Acute non-ST elevation myocardial infarction (NSTEMI): PLAN: Plan # NSTEMI suspect type I - Troponin 106 with a repeat 229 -EKG T wave inversion in lead III but no acute changes - Admit to telemetry - Aspirin, statin - Cardiology consult, patient on heparin drip with plans for heart cath tomorrow - Echocardiogram ordered # History of thyroid cancer status posttreatment - Now on Synthroid and T3 replacement #DVT ppx: SCDs Evon Vo MD Charges/Coding Visit Charges Inpatient E&M: 49813 Init Hosp L1 02/28/25 1717 Cosigner Signature (if applicable): CC: Dr. Sherry Fierro MD; Dr. Evon Vo MD~ Signed [facility]07-24-2025 Discharge summary [facility] Medical Records Department [address] [place] [address] Emergency Department Summary 02/28/25 MR#: [id number] Acct: [id number] Name: NATHAN MURRELL Rep #:[id number] : 1965 59 From: Malaika Valenzuela PCP: Dr. Sherry Fierro MD Status:RE G ER Location: ED HPI History of Present Illness Chief Complaint: Anxiety Informant: patient Narrative Narrative: Patient is a 59-year-old female with history of thyroid cancer (previously treated and now on Synthroid), lifelong heart murmur and chronic lightheadednesspresenting with chest discomfort. He states she had an episode last week where she was feeling overwhelmed that she is having a panic attack. Itlasted for about 30 minutes. 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 She states it is not a pain but feelsmore like an ache. She has a family history of heart disease (her grandmother as well as her older sister) and wanted to make sure that this wasn't anything to do with her heart so she came to the emergency room. She currently is starting to feel better and except for her headache. She denies any recent medication changes. Denies any recent weight changes. Does report a lot of social stressors inher life. No other complaints or concerns reported at this time. Denies history of tobacco use. Denies associated GI or symptoms. [facility] Medical History Heart murmur Hypothyroid removal of cancerous thyroid Home Medications ?Medication ?Instructions ?Recorded ?Last Taken ?Type liothyronine 5 mcg tablet 5 mcg PO DAILY 08/26/22 Unkn own History cholecalciferol (vitamin D3) 1,250 1,250 mcg PO QWEEK 02/28/25 Unknown History mcg (50,000 unit) capsule levothyroxine 100 mcg tablet 100 mcg PO DAILY 02/28/25 02/28/25 History Allergy/AdvReac Type Severity Reaction Status Date / Time No Known Allergies Allergy Verified 02/28/25 12:18 Family History Mother Cancer metastatic-un known primary site Grandmother Uterine cancer Sister Thyroid cancer Surgical History Hx of foot surgery H/O section Hx of thyroidectomy Social History Smoking Status: Never smoker alcohol intake: never substance use type: does not use ROS ROS ED Constitutional Constitutional ED: Denies chills, fever(s) or sweats Cardiovascular Cardiovascular: Reports chest pain Respiratory/Chest Respiratory/Chest: Denies cough or dyspnea Gastrointestinal Gastrointestinal: Denies abdominal pain, nausea or vomiting Musculoskeletal Musculoskeletal: Denies arthralgias or myalgias Integumentary Denies rash Psychiatric Psychiatric: Reports anxiety EXAM Physical Exam Const Vital Signs: 02/28/25 12:18 02/28/25 13:10 02/28/25 14:18 Temperature 97 F L Temperature Source Temporal Pulse Rate 70 65 Respiratory Rate 22 H 18 Blood Pressure 174/78 H 141/85 H Blood Pressure Mean 110 103 Pulse Ox 97 97 Oxygen Delivery Method Room Air Room Air 02/28/25 14:38 02/28/25 15:00 02/28/25 15:15 Temperature Temperature Source Pulse Rate 70 74 69 Respiratory Rate 18 15 18 Blood Pressure 133/92 H 129/72 H Blood Pressure Mean 105 88 Pulse Ox 97 97 97 Oxygen Delivery Method 02/28/25 15:30 02/28/25 15:45 02/28/25 16:00 Temperature Temperature Source Pulse Rate 78 70 67 Respiratory Rate 17 13 16 Blood Pressure 135/80 H 115/96 H 130/74 H Blood Pressure Mean 96 102 92 Pulse Ox 97 97 96 Oxygen Delivery Method Positive well nourished and well developed General Appearance ED: well developed and NAD Eyes PERRL Neck supple and no JVD Chest Wall inspection of chest normal and palpation of chest normal Resp normal respiratory effort and clear to auscultation bilaterally Cardio regular rate, regular rhythm and no murmurs Cardio Narrative: 2+ radial DP pulses present GI normal to inspection, nondistended, normoactive bowel sounds and non-tender Extremity normal to inspection General Extremety ED: Negative for edema or tenderness General Extremity: Negative for edema Neuro oriented x3 Sensorium / Orientation: alert Motor Exam: Negative for general weakness Psych mental status grossly normal Mood & Affect: anxious; Negative for tearful Skin no rashes or lesions noted and no wounds MDM MDM MDM Narrative Medical decision making narrative: Patient evaluated for episode of chest discomfort, headache and discomfort goingdown the back of her bilateral arms. She initially attributed to anxiety but itdid not improve with rest today so she came in. Denies any known history of coronary disease but does have significant family history of coronary artery disease. Differential includes anxiety reaction, pneumothorax, pneumonia, ACS, pericarditis and electrolyte derangement Workup including EKG, chest x-ray lab work is obtained. EKG shows some T wave morphology changes to lead III but no other acute changes. She is relatively asymptomatic right now. High sensitivity troponins elevated at 106. Repeat EKG obtained which now showsa T wave inversion in lead III but no other acute changes. Patient does report that when she was moving around for chest x-ray she had the pain again but she is feeling better after aspirin. Will discuss with cardiology but patient will require admission to the hospital for concern for ACS. Repeat high-sensitivity troponin is uptrending (now to 29). Patient is pain-free at this time. Casediscussed with cardiology, Dr. Chamorro. He plans on cathing the patient tomorrow. Patient startedon heparin drip in the emergency room. Patient agreeable plan of care. Discussed with hospitalist for admission. Lab Data Attestation: I reviewed the patient's lab results. Labs: Laboratory Results - last 24 hr 02/28/25 02/28/25 13:10 14:56 WBC 8.1 RBC 4.53 Hgb 12.9 Hct 38.3 MCV 84.5 MCH 28.5 MCHC 33.7 RDW Std Deviation 39.2 RDW Coeff of Dewey 12.8 Plt Count 237 MPV 10.4 Immature Gran % (Auto) 0.400 Neut % (Auto) 83.7 H Lymph % (Auto) 10.0 L Owsley % (Auto) 4.8 Eos % (Auto) 0.5 Baso % (Auto) 0.6 Absolute Neuts (auto) 6.8 Absolute Lymphs (auto) 0.81 L Nucleated RBC % 0 Sodium 139 Potassium 3.7 Chloride 105 Carbon Dioxide 23.7 Anion Gap 10 BUN 18 Creatinine 0.76 Estim Creat Clear Calc 76.55 Est GFR (MDRD) Non-Af 90 BUN/Creatinine Ratio 23.7 H Glucose 118 H Calcium 9.3 Troponin T High Sens 106 H* Troponin T Hi Sens 2 Hr 229 H* Radiography Chest X-Ray - ED: 2 View, Read by ED Physician, Read by Radiologist and No AcuteDisease Diagnostic Testing: Clinical Impression(s) from Imaging Studies Chest X-Ray 02/28/25 13:02 IMPRESSION: No acute process is identified in the chest. Reading Location: [facility] Rhythm Strip Rhythm Strip: Sinus Rhythm Rate: 57 Ectopy: None EKG Initial EKG: Attestation: I personally reviewed and interpreted this EKG as follows: Interpretation: Sinus Rhythm Comments: Sinus bradycardia rate of 57 bpm Normal axis Normal intervals Nonspecific ST morphology change in lead III but no reciprocal changes This is new compared to prior EKG on 08/26/2022 Prior EKG tracings: available for review Prior: Changed Follow-up EKG: Attestation: I personally reviewed and interpreted this EKG as follows: Interpretation: Sinus Rhythm Comments: Normal sinus rhythm at a rate of 64 bpm Normal axis Normal intervals T wave inversion in lead III now with no further dynamic changes Management Discussion w/another healthcare provider: Hospitalist and Safety Instructor Critical Care Time Critical Care Time: Yes Critical care time (excluding procedures): 30-74 minutes (40), Discussing w/Patient &/or Family/Director Medical Writing, Discussing w/Consultants and Arranging Admission or Transfer Discharge Plan Triage Chief Complaint: Anxiety ED Provider: Malaika Landry Dx/Rx/DC Orders Clinical Impression: Acute non-ST elevation myocardial infarction (NSTEMI), Chest pain Prescriptions: No Action liothyronine 5 mcg tablet 5 mcg PO DAILY levothyroxine 100 mcg tablet 100 mcg PO DAILY cholecalciferol (vitamin D3) 1,250 mcg (50,000 unit) capsule 1,250 mcg PO QWEEK Patient Comments: Take weekly on Sat. Primary Care Provider: Sherry Fierro Referrals: Sherry Fierro MD [Primary Care Provider] - Print Language: Hungarian Disposition Disposition: Acute Care Hospital [facility] What to do if you have Problems For any increased pain, shortness of breath, bleeding, nausea or vomiting, chestpain, or any unexpected problems, contact your Primary Care Provider. Call [facility] ([phone]) or report tothe closest Emergency Room. Call 911 if necessary. 02/28/25 1620 Cosigner Signature (if applicable): CC: Dr. Sherry Fierro MD ~ Signed [facility]07-24-2025 Radiology Diagnostic study note [facility] Imaging Services [address] [place] [address] Chest PA and Lateral MR#: [id number] Acct: [id number] Name: NATHAN MURRELL Rep #: [id number] : 1965 F 59 From: Amberly Freitas MD PCP: Dr. Sherry Fierro MD Status: RE G ER Study:Chest PA and Lateral Date of Exam: 02/28/25 Exam# [id number] Ordering Dr: Danial Landry DO PROCEDURE: CHEST PA AND LATERAL 02/28/2025 REASON FOR EXAM: CHEST PAIN TECHNIQUE: CHEST PA AND LATERAL COMPARISON: August 26, 2022 FINDINGS: Heart size and mediastinal configuration are within normal limits. There is no focal infiltrate or consolidation. There is no pneumothorax or effusion. Aortic calcifications are visible. There is no acutebony abnormality. RAD/Chest PA and Lateral IMPRESSION: No acute process is identified in the chest. Reading Location: [facility] CC: Dr. Malaika Landry DO; Dr. Sherry Fierro MD ~ Body Team Member: Signed [facility]01-19-[address] Landry [facility] August 26, 2022 7:15pm Note Date/Time August 26, 2022 4 :25pm [facility] Medical Records Department [address] [place] [address] Emergency Department Summary 08/26/22 MR#: [id number] Acct: [id number] Name: NATHAN MURRELL Rep #:[id number] : 1965 57 From: Malaika Valenzuela PCP: Dr. Sherry Fierro MD Status:RE G ER Location: ED HPI History of Present Illness Chief Complaint: Neuro S/Sx Informant: patient Narrative Narrative: Patient is a 57-year-old female with history of hypothyroid presenting for facial droop and facial numbness. Patient states that she started having twitching in her face on Tuesday and then yesterday she started giving numbness and weakness on the left side of her face. She saw her primary care doctor today who thought she might have a Blackwood's palsy but given that she still had movement in her forehead and had the numbness wanted her brought in for further stroke evaluation. Patient has no other symptoms. No speech changes except forthose associated with difficulty moving the left side of her lips. Not drooling. Is complaining of dry eye and tearing in her left eye. Patient denies any head injuries. Is not any blood thinners. No other complaints at this time. PFSH PFS Medical History Heart murmur Hypothyroid removal of cancerous thyroid Home Medications levothyroxine 112 mcg tablet (Synthroid) 110 mcg PO MOTUWETHFRSA 07/14/17 [History Last Taken Unknown] calcium carbonate 500 mg calcium (1,250 mg) chewable tablet (Calcium 500) 500 mgPO DAILY 08/26/22 [History Last Taken Unknown] cholecalciferol (vitamin D3) 10 mcg (400 unit) tablet (Vitamin D3) 400 unit PO DAILY 08/26/22 [History Last Taken Unknown] ferrous sulfate 325 mg (65 mg iron) tablet 325 mg PO DAILY 08/26/22 [History Last Taken Unknown] liothyronine 5 mcg tablet 5 mcg PO DAILY 08/26/22 [History Last Taken Unknown] prednisone 20 mg tablet 60 mg PO DAILY #12 tabs 08/26/22 [Rx Last Taken Unknown] valacyclovir 1 gram tablet 1,000 mg PO Q8H #21 tabs 08/26/22 [Rx Last Taken Unknown] Allergy/AdvReac Type Severity Reaction Status Date / Time No Known Allergies Allergy Verified 08/26/22 14:51 Surgical History H/O section Hx of foot surgery Hx of thyroidectomy Social History Smoking Status: Never smoker ROS ROS ED Constitutional Constitutional ED: Denies chills or fever(s) Eyes Eyes: Reports other Details: Left eye wateriness, dry eye in the left ; Denies blurry vision or change in vision ENT ENT ED: Denies ear pain, rhinorrhea or sore throat Cardiovascular Cardiovascular: Denies chest pain or palpitations Respiratory/Chest Respiratory/Chest: Denies cough or dyspnea Gastrointestinal Gastrointestinal: Denies abdominal pain Musculoskeletal Musculoskeletal: Denies arthralgias or myalgias Integumentary Denies rash Neurologic Neurologic: Reports other Details: Paresthesias to left face ; Denies headache(s) or weakness Hematologic/Lymphatic Hematologic/Lymphatic: Denies easy bleeding or easy bruising EXAM Physical Exam Const Vital Signs: 08/26/22 14:48 Temperature 97.4 F L Temperature Source Temporal Pulse Rate 71 Respiratory Rate 16 Blood Pressure 156/87 H Blood Pressure Mean 110 Pulse Ox 97 Oxygen Delivery Method Room Air Positive well nourished and well developed General Appearance ED: well developed and NAD HEENT Reports TM's clear and moist mucous membranes Tympanic Membrane ED: Yes TM's clear Eyes PERRL and EOMs intact bilaterally Eyes Narrative: Slight ptosis and watery eye on the left. Normal conjunctiva. Neck supple Chest Wall inspection of chest normal and palpation of chest normal Resp normal respiratory effort and clear to auscultation bilaterally Cardio regular rate and regular rhythm GI normal to inspection, nondistended, normoactive bowel sounds Back/Spine no CVA tenderness Neuro oriented x3 Neuro Narrative: Of facial droop of the left face with a small amount of movement of the left forehead but it is asymmetric. Decreased movement of the left upper eyelid withblinking. Subjective paresthesia to the left face however sensation is intact to light touch. Uvula is midline. Normal range of motion of the tongue. No drooling appreciated. Normal strength and sensation of the extremities. No visual field cut. 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 No other neurologic symptoms. Patient's really only medical history is history of thyroid cancer. Decision to obtain an MRI to rule out central process/stroke is made. 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 A CT of the sinuses obtained for further evaluation of this. Patient know she does have some chronic sinus issues. Sinus CT shows mild expansile appearance of the clivus favoring early fibrous dysplasia versus less likely fatty marrow replacement. In addition a chest x-ray was obtained interpreted by myself as well as radiology which showedno acute process. Patient's lab work is remarkable only for a mildly elevated TSH of 3.80. I do not think her presentation is consistent with hypothyroid. Case discussed with Dr. Leon, oncology on-call for the CT/MRI findings. He recommended outpatient follow-up with PCP for CT of the chest abdomen pelvis looking for potential source in case this is a cancer. I spoke with physician on-call for the patient's PCP, Dr. Rubio, who will relay this to the [facility] care doctor. 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 Is counseled on eye care including patching atnight. Given return precautions. Discharged home in stable condition. Lab Data Attestation: I reviewed the patient's lab results. Labs: Laboratory Results - last 24 hr 08/26/22 08/26/22 08/26/22 15:20 15:20 15:20 WBC 5.3 RBC 4.52 Hgb 13.0 Hct 39.1 MCV 86.5 MCH 28.8 MCHC 33.2 RDW Std Deviation 38.9 RDW Coeff of Dewey 12.4 Plt Count 251 MPV 10.6 Immature Gran % (Auto) 0.200 Neut % (Auto) 56.1 Lymph % (Auto) 30.4 Owsley % (Auto) 8.3 Eos % (Auto) 4.2 Baso % (Auto) 0.8 Absolute Neuts (auto) 3.0 Absolute Lymphs (auto) 1.61 Nucleated RBC % 0 PT 15.0 H INR 1.2 APTT 29.6 Sodium 140 Potassium 3.6 Chloride 106 Carbon Dioxide 29.0 Anion Gap 5 BUN 15 Creatinine 0.89 Estim Creat Clear Calc 67.00 Est GFR (MDRD) Af Amer 84 Est GFR (MDRD) Non-Af 69 BUN/Creatinine Ratio 16.9 Glucose 95 Calcium 9.4 Magnesium 2.6 TSH 3.80 H Radiography Diagnostic Testing: Clinical Impression(s) from Imaging Studies Brain MRI 08/26/22 15:32 IMPRESSION: 1. Fatty infiltration of the clivus marrow may represent yellow marrow conversion or fibrous dysplasia. Consider CT of the sinuses to further evaluate. 2. Normal appearance of the brain. Electronically Signed: Junior Desai MD at 17:22 EST , Chest X-Ray 08/26/22 17:10 IMPRESSION: No radiographic evidence of acute cardiopulmonary disease. 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 Electronically Signed: Junior Desai MD at 18:31 EST , Rhythm Strip Rhythm Strip: Sinus Rhythm Rate: 62 Ectopy: None EKG Initial EKG: Attestation: I personally reviewed and interpreted this EKG as follows: Interpretation: Sinus Rhythm Comments: Normal sinus rhythm and rate of 62 bpm Normal axis Normal intervals Normal ST segments Discharge Plan Triage Chief Complaint: Neuro S/Sx ED Provider: Malaika Landry Dx/Rx/DC Orders Instructions: ED Blackwood's Palsy Prescriptions: New valacyclovir 1 gram tablet 1,000 mg PO Q8H Qty: 21 0RF prednisone 20 mg tablet 60 mg PO DAILY Qty: 12 0RF No Action levothyroxine [Synthroid] 112 mcg tablet 110 mcg PO MOTUWETHFRSA liothyronine 5 mcg tablet 5 mcg PO DAILY ferrous sulfate 325 mg (65 mg iron) Tablet 325 mg PO DAILY calcium carbonate [Calcium 500] 500 mg calcium (1,250 mg) tablet,chewable 500 mg PO DAILY cholecalciferol (vitamin D3) [Vitamin D3] 10 mcg (400 unit) tablet 400 unit PO DAILY Primary Care Provider: Sherry Fierro Referrals: Sherry Fierro MD [Primary Care Provider] - Activity Restrictions/Additional Instructions: 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 At night use koku-pyp-udnwwsw eye ointment to keep your eye moist and patch or icy do not scratch it. Use eyedrops such as Systane eyedrops to help prevent dry eye. Your CT/MRI did show some abnormalities at the base of the skull which can be associated with malignancy. We recommend you follow-up with your primary care doctor for further evaluation and likely CT of the chest abdomen and pelvis. Please return to the ER if you have any progression or worsening symptoms. At this time your MRI did not show any signs of a stroke. Disposition Disposition: Home, Self Care What to do if you have Problems For any increased pain, shortness of breath, bleeding, nausea or vomiting, chestpain, or any unexpected problems, contact your Primary Care Provider. Call [facility] ([phone]) or report to the closest Emergency Room. Call 911 if necessary. 08/26/221914 <Electronically signed by Malaika Landry DO> Cosigner Signature (if applicable): CC: Dr. Sherry Fierro MD ~ Signed [facility] Work Phone: [phone] 819-403112-23-2022 NoteHNO ID: [id number] Author: Juan Jose Patel APRN.LOOPING MACHINE OPERATOR Service: ? Author Type: Nurse Practitioner Type: Progress Notes Filed: 07/30/2022 12:43 PM Note Text: Subjective HPI Nontoxic-appearing female presents to urgent care with chief complaint of upper respiratory tract like infection. Duration of symptoms 3 days. Associated symptoms sore throat, nasal congestion, nasal discharge and nonproductive cough. Patient denies the use of any eios-kdn-qrnoouy medications or home remedies for symptom management. Patient states recent sick contacts with similar signs and symptoms. Also fluid exposure. Was seen by PCP negative flu and COVID test. Patient denies any productive cough, fever, chest pain, shortness of breath, pleuritic pain, rash, abdominal pain, nausea, vomiting or change in bowel or bladder habit. Past medical history prescription medication use allergies reviewed. 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 PAST SURGICAL HISTORY OF tubal ligation. THYROIDECTOMY TOTAL/COMPLETE 2009 ALLERGIES Seasonal Allergies MEDICATIONS albuterol HFA (PROVENTIL HFA, VENTOLIN HFA) 90 mcg/actuation inhaler Inhale 2 Puffs as instructed every 6 hours as needed for wheezing/shortness of breath. levothyroxine (SYNTHROID) 112 mcg tablet Take 1 tablet by mouth once daily. liothyronine (CYTOMEL) 5 mcg tablet Take 1 tablet by mouth once daily. cloNIDine TTS (CATAPRES-TTS) 0.1 mg/24 hr Apply 1 Patch as directed once each week. fluocinolone (SYNALAR) 0.025 % ointment Apply 1 application to affected area twice daily. APPLY TO AFFECTED AREA Cholecalciferol, Vitamin D3, 5,000 unit cap Take 1 capsule by mouth once daily. FAMILY HISTORY Problem Relation Age of Onset other (thyroid cancer [Other]) Sister other (endometriosis [Other]) Sister Hypertension Sister Hypertension Paternal Grandmother Cancer Mother lung cancer with extensive mets including brain Heart Failure Sister Coronary Artery Disease Paternal Grandmother Coronary Artery Disease Paternal Grandfather Coronary Artery Disease Sister Social History Tobacco Use Smoking status: Never Smokeless tobacco: Never Substance Use Topics Alcohol use: Yes Comment: Seldom Drug use: No BP 148/96 Pulse 99 Temp 37 ?C (98.6 ?F) Resp 20 Wt 71.2 kg (157 lb) LMP 10/14/2016 (Approximate) SpO2 96% BMI 24.70 kg/m? Review of Systems Constitutional: Positive for malaise/fatigue. Negative for chills and fever. HENT: Positive for congestion. Negative for ear discharge, ear pain, sinus pain and sore throat. Eyes: Negative for blurred vision, pain, discharge and redness. Respiratory: Positive for cough. Negative for hemoptysis, sputum production, shortness of breath, wheezing and stridor. Cardiovascular: Negative for chest pain. Gastrointestinal: Negative for abdominal pain, diarrhea, nausea and vomiting. Musculoskeletal: Positive for myalgias. Skin: Negative for itching and rash. Neurological: Positive for headaches. Negative for dizziness. Objective Physical Exam Constitutional: General: She is not in acute distress. Appearance: She is not diaphoretic. HENT: Head: Normocephalic. Nose: Congestion present. Mouth/Throat: Mouth: Mucous membranes are moist. Pharynx: Oropharynx is clear. No oropharyngeal exudate or posterior oropharyngeal erythema. Eyes: Conjunctiva/sclera: Conjunctivae normal. Pupils: Pupils are equal, round, and reactive to light. Cardiovascular: Rate and Rhythm: Normal rate and regular rhythm. Heart sounds: Normal heart sounds. Pulmonary: Effort: Pulmonary effort is normal. No tachypnea, accessory muscle usage or respiratory distress. Breath sounds: Normal breath sounds. No stridor. No wheezing, rhonchi or rales. Abdominal: General: There is no distension. Palpations: Abdomen is soft. Tenderness: There is no abdominal tenderness. There is no guarding or rebound. Musculoskeletal: Cervical back: Normal range of motion and neck supple. No rigidity or tenderness. Lymphadenopathy: Cervical: No cervical adenopathy. Skin: General: Skin is warm and dry. Neurological: Mental Status: She is alert and oriented to person, place, and time. ASSESSMENT/PLAN: 1. URI with cough and congestion - ICD9: 465.9, ICD10: J06.9 - Discussed viral etiology and rationale for treatment. - Symptomatic treatment with prn analgesia - Supportive care with fluids and rest Cough suppressant called into pharmacy. Patient will follow up with primary care provider as needed. Patient was instructed to immediately proceed to emergency room for any new (more content not included)...[facility]12-23-2022 History of Present illness Narrative* Juan Jose Patel APRN.LOOPING MACHINE OPERATOR - 07/30/2022 12:17 PM EST Subjective HPI Nontoxic-appearing female presents to urgent care with chief complaint of upper respiratory tract like infection. Duration of symptoms 3 days. Associated symptoms sore throat, nasal congestion, nasaldischarge and nonproductive cough. Patient denies the use of any rvel-tfe-vatefob medications or home remedies for symptom management. Patient states recent sick contacts with similar signs and symptoms. Also fluid exposure. Was seen by PCP negative flu and COVID test. Patient denies any productivecough, fever, chest pain, shortness of breath, pleuritic pain, rash, abdominal pain, nausea, vomiting or change in bowel or bladder habit. Past medical history prescription medication use allergies re viewed. 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 PAST SURGICAL HISTORY OF tubal ligation. THYROIDECTOMY TOTAL/COMPLETE 2009 ALLERGIES Seasonal Allergies MEDICATIONS albuterol HFA (PROVENTIL HFA, VENTOLIN HFA) 90 mcg/actuation inhaler Inhale 2 Puffs as instructed every 6 hours as needed for wheezing/shortness of breath. levothyroxine (SYNTHROID) 112 mcg tablet Take 1 tablet by mouth once daily. liothyronine (CYTOMEL) 5 mcg tablet Take 1 tablet by mouth once daily. cloNIDine TTS (CATAPRES-TTS) 0.1 mg/24 hr Apply 1 Patch as directed once each week. fluocinolone (SYNALAR) 0.025 % ointment Apply 1 application to affected area twice daily. APPLY TO AFFECTED AREA Cholecalciferol, Vitamin D3, 5,000 unit cap Take 1 capsule by mouth once daily. FAMILY HISTORY Problem Relation Age of Onset other (thyroid cancer [Other]) Sister other (endometriosis [Other]) Sister Hypertension Sister Hypertension Paternal Grandmother Cancer Mother lung cancer with extensive mets including brain Heart Failure Sister Coronary Artery Disease Paternal Grandmother Coronary Artery Disease Paternal Grandfather Coronary Artery Disease Sister Social History Tobacco Use Smoking status: Never Smokeless tobacco: Never Substance Use Topics Alcohol use: Yes Comment: Seldom Drug use: No BP 148/96 Pulse 99 Temp 37 C (98.6 F) Resp 20 Wt 71.2 kg (157 lb) LMP 10/14/2016 (Approximate) SpO2 96% BMI 24.70 kg/m Review of Systems Constitutional: Positive for malaise/fatigue. Negative for chills and fever. HENT: Positive for congestion. Negative for ear discharge, ear pain, sinus pain and sore throat. Eyes: Negative for blurred vision, pain, discharge and redness. Respiratory: Positive for cough. Negative for hemoptysis, sputum production, shortness of breath, wheezing and stridor. Cardiovascular: Negative for chest pain. Gastrointestinal: Negative for abdominal pain, diarrhea, nausea and vomiting. Musculoskeletal: Positive for myalgias. Skin: Negative for itching and rash. Neurological: Positive for headaches. Negative for dizziness. Objective Physical Exam Constitutional: General: She is not in acute distress. Appearance: She is not diaphoretic. HENT: Head: Normocephalic. Nose: Congestion present. Mouth/Throat: Mouth: Mucous membranes are moist. Pharynx: Oropharynx is clear. No oropharyngeal exudate or posterior oropharyngeal erythema. Eyes: Conjunctiva/sclera: Conjunctivae normal. Pupils: Pupils are equal, round, and reactive to light. Cardiovascular: Rate and Rhythm: Normal rate and regular rhythm. Heart sounds: Normal heart sounds. Pulmonary: Effort: Pulmonary effort is normal. No tachypnea, accessory muscle usage or respiratory distress. Breath sounds: Normal breath sounds. No stridor. No wheezing, rhonchi or rales. Abdominal: General: There is no distension. Palpations: Abdomen is soft. Tenderness: There is no abdominal tenderness. There is no guarding or rebound. Musculoskeletal: Cervical back: Normal range of motion and neck supple. No rigidity or tenderness. Lymphadenopathy: Cervical: No cervical adenopathy. Skin: General: Skin is warm and dry. Neurological: Mental Status: She is alert and oriented to person, place, and time. ASSESSMENT/PLAN: 1. URI with cough and congestion - ICD9: 465.9, ICD10: J06.9 - Discussed viral etiology and rationale for treatment. - Symptomatic treatment with prn analgesia - Supportive care with fluids and rest Cough suppressant called into pharmacy. Patient will follow up with primary care provider as needed. Patient was instructed to immediately proceed to emergency room for any new, worsening, or symptoms lasting longer than anticipated. The patient's clinical presentation is otherwise unremarkable at this time. Based on exam and clinical finding, the patient is stable for discharge. Plan of care was discussed with patient. Patient verbalizes understanding and agrees to plan of care. This note was generated using [employer] software. It may contain errors in wording, punctuation, or spelling. Juan Jose Patel APRN.ISIAH [facility] History of Present illness Narrative* Didi Platt RT(R) - 07/10/2021 2:20 PM EST Radiology Service Progress Note PATIENT NAME: Nathan Murrell DATE OF SERVICE: July 10, 2021 TIME: 2:18 PM PATIENT IDENTITY VERIFICATION COMPLETED USING TWO (2) IDENTIFIERS: Name and Date of confirmedby patient verbally. FALL SCREENING: Has the patient had 2 falls in the last year or 1 fall with injury or currently using an Ambulatory Assistive Device (Walker, Cane, Wheelchair, Crutches, etc.)? No PATIENT GENDER DATA: Female. status: : No status: NO. PATIENT RELEVANT IMPLANT DATA REVIEWED: Not Applicable RADIOLOGY DEPARTMENT: General X-ray: Exam(s) Completed: Chest X-Ray PERIPHERAL IV DATA: Not applicable SIGNED BY: RT Terri(R) July 10, 2021 2:18 PM [facility] note Future Appointments Appointment Date:06/23/2023 09:00:00 AM Scheduled Provider:MARNIE REID MD Location:[facility] Appointment Type:ENDO OV Future Scheduled Tests Laboratory* Cortisol Level 03/24/23 * Basic Metabolic Panel 03/24/23 * Calcium Level Ionized 06/13/23 * Thyroid Stimulating Hormone 03/24/23 * Thyroid Stimulating Hormone 06/13/23 * Thyroid Stimulating Hormone 07/15/23 * Free T4 03/24/23 * Free T4 06/13/23 * Free T4 07/15/23 * Free T3 03/24/23 * Free T3 06/13/23 * Free T3 07/15/23 * PTH, Intact 06/13/23 * PTH, Intact 07/15/23 * Vitamin D Level 06/13/23 * Vitamin D Level 07/15/23 * Complete Metabolic Panel 06/13/23 * Complete Metabolic Panel 07/15/23 Radiology* BD Bone Density DEXA Axial Skeleton 05/31/22 [facility] Evaluation noteNo assessment information available [facility] Work Phone: Evaluation note* Diagnosis URI with cough and congestion- Primary documented in this encounter [facility] note* Diagnosis Onset Date Resolution Status [id number] [facility] [id number] chronic History of thyroid cancer [facility] Work Phone: Evaluation note* Diagnosis Onset Date Resolution Status Vertigo acute [id number] chronic History of thyroid cancer [facility] Work Phone: Evaluation note* Diagnosis [facility]ough [facility] N[facility] No data available for this section [facility] Hospital Discharge instructions Additional Instructions 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 At night use uavo-bjy-lhxslyx eye ointment to keep your eye moist and patch or icy do not scratch it. Use eyedrops such as Systane eyedrops to help prevent dry eye. Your CT/MRI did show some abnormalities at the base of the skull which can be associated with malignancy. We recommend you follow-up with your primary care doctor for further evaluation and likely CT of the chest abdomen and pelvis. Please return to the ER if you have any progression or worsening symptoms. At this time your MRI did not show any signs of a stroke.[facility] Work Phone: Hospital Discharge instructions No data available for this section [facility] Progress note No data available for this section [facility] Reason for referral (narrative)No reason for referral information availableWSt. [facility] Work Phone: Health Concerns Infection Onset Date Last Indicated Resolved Time COVID-19 Rule-Out 06/29/2021 06/29/2021 06/30/2021 4:06 AM EST COVID-19 Confirmed 06/29/2021 06/29/2021 8:51 PM EST Advance Directives Advance Directive Response Recorded Date/ Time Living Will No July 06, 11:30am Power of Telecommunication Equipment Repairer No July 06, 2021 11:30am Advance Directive Response Recorded Date/ Time Living Will No July 06 10:30am Power of Telecommunication Equipment Repairer No July 06, 2021 10:30am Advance Directive Response Recorded Date/ Time Living Will No August 26 3:10pm Power of Telecommunication Equipment Repairer No August 26, 2022 3:10pm Advance Directive Response Recorded Date/ Time Living Will No August 26 4:10pm Power of Telecommunication Equipment Repairer No August 26, 2022 4:10pm Advance Directive Response Recorded Date/ Time Do you have a Healthcare Power of Telecommunication Equipment Repairer? No February 28, 2025 12:27pm Summary Purpose Family History Relationship Condition Age at Onset Recorded Date/T samanta mother Malignant neoplasm Unknown grandmother Malignant neoplasm of uterus Unknown sister Malignant neoplasm of thyroid gland Unkno wn Chief Complaint and Reason for Visit Chief Complaint OSTEOPOROSIS Chief Complaint OSTEOPOROSIS NEURO SYMPTOMS Chief Complaint OSTEOPOROSIS NEURO SYMPTOMS NEW-ABNORMAL CT Abnormal findings on diagnostic imaging of skull a 2WKS NO LABS REVIEW BONE SCAN MED ONC Reason for Visit [id number] History of thyroid cancer [id number] History of thyroid cancer Chief Complaint Abnormal findings on diagnostic imaging of skull a 2WKS NO LABS REVIEW BONE SCAN MED ONC 2WKS LABS PRIOR LESION AT BASE OF SKULL Reason for Visit [id number] History of thyroid cancer [id number] History of thyroid cancer Chief Complaint LESION AT BASE OF SK ULL 3MO LABS PRIOR REVIEW MRI Reason for Visit Vertigo [id number] History of thyroid cancer Chief Complaint Admit Date anxiety February 28, 2025 5:13 pm CHEST PAIN February 28, 2025 5:15 pm Reason for Visit Admit Date Acute non-ST elevation myocardial infarc tion (NSTEMI) February 28, 2025 5:15pm Chest pain February 28, 2025 5:15 pm Additional Source Comments Source Comments (unrecognize d section and content) In the event this informatio n is protected by the Federal Confidentiality of Alcohol and Drug Abuse Patient Records regulations: The Federal rules restrict any use of the information to criminally investigate or prosecute any alcohol or drug abuse patient.[facility] the event this information is protected by the Federal Confidentiality of Alcohol and Drug Abuse Patient Records regulations: The Federal rules restrict any use of the information to criminally investigate or prosecute any alcohol or drug abuse patient.[facility] the event this information is protected by the Federal Confidentiality of Alcohol and Drug Abuse Patient Records regulations: The Federal rules restrict any use of the information to criminally investigate or prosecute any alcohol or drug abuse patient.[facility] Reason for Visit (unrecogniz ed section and content) Reason Comments Erroneous encounter-disregard Reason Comments Cough X3 daysExposure to F sonal, - testing with PCP Care Teams (unrecognized sec tion and content) Owner/Operator Relationship Specialty Start Date End Date Sherry Fierro [address] [place] [address] PCP - General Family Practice 05/13/21 Owner/Operator Relationship Specialty Start Date End Date Sherry Fierro [address] [facility] [address] [place] [address] PCP - General Family Medicine 05/13/21 Team Status: Active Member Role Status Dates Dr. Sherry Fierro MD Family Provider Active Dr. Sherry Fierro MD Primary Care Provider Active Team Status: Inactive Member Role Status Dates Dr. Sherry Fierro MD Primary Care Pr ovider, Referring Provider Active Dr. Marnie Reid MD Attending Provider Act miguel Team Status: Inactive Member Role Status Dates Dr. Sherry Fierro MD Primary Care Provider Active Dr. Marnie Reid MD Attending Provider Act miguel Team Status: Inactive Member Role Status Dates Dr. Sherry Fierro MD Primary Care Provider Active Dr. Malaika Landry DO Emergency Provider Active Team Status: Inactive Member Role Status Dates Dr. Sherry Fierro MD Primary Care Provider, Referr ing Provider Active Dr. Rachid Leon MD Attending Provider Active Team Status: Inactive Member Role Status Dates Dr. Sherry Fierro MD Primary Care Provider Active Dr. Malaika Landry DO Attending Provider, Emergency P rovider Active Team Status: Inactive Member Role Status Dates Dr. Sherry Fierro MD Primary Care Provider Active Dr. Rachid Leon MD Attending Provider, Referring Pro vider Active Team Status: Active Member Role Status Dates Dr. Sherry Fierro MD Primary Care Provider Active Dr. Rachid Leon MD Attending Provider, Referring Pro vider Active Team Status: Inactive Member Role Status Dates Dr. Sherry Fierro MD Primary Care Provider Active Sherry GARCIA MD Attending Provider Active Owner/Operator Relationship Specialty Start Date End Date Sherry Fierro MD [address] [facility] [address] [place], [place] [id number] PCP - General Family Medicine 05/13/21 Team Status: Active Member Role/Relationship Status Dates Dr. Sherry Fierro MD Primary Care Provider Active Team Status: Active Member Role/Relationship Status Dates Dr. Sherry Fierro MD Primary Care Provider Active Start: February 28, 2025 Dr. Malaika Landry , Emergency Provider Active Start: February 28, 2025 Dr. Evon Vo MD Attending Provider Active Start: February 28, 2025 Team Status: Active Member Role/Relationship Status Dates Dr. Sherry Fierro MD Primary Care Provider Active Start: February 28, 2025 Dr. Malaika Landry , Emergency Provider Active Start: February 28, 2025 Dr. Evon Vo MD Admit Provider Active Star t: February 28, 2025 Dr. Evon Vo MD Attending Provider Active Start: February 28, 2025 Goals (unrecognized section and content) Goals may be documented in a n alternate sectionGoals may be documented in an alternate sectionGoals may be documented in an alternate sectionGoals may be documented in an alternate sectionGoals may be documented in an alternate section No data available for this sectionGoals may be documented in an alternate sectionGoals may be documented in an alternate sectionGoals may be documented in an alternate section INFORMATION SOURCE (unrecogn ized section and content) DATE CREATED AUTHOR 08/01/2022 [facility] DATE CREATED AUTHOR AUTHOR'S ORGANIZ ATION 03/09/2023 [facility] ([place]) DATE CREATED AUTHOR AUTHOR'S ORGANIZ ATION 08/21/2024 [facility] FOR RECORDS PERTAINING TO PATIENTS WHO ARE OR HAVE BEEN ENROLLED IN A CHEMICAL DEPENDENCY/SUBSTANCEABUSE PROGRAM, SOME INFORMATION MAY BE OMITTED. This clinical summary was aggregated from multiple sources. Caution should be exercised in using it in the provision of clinical care. This summary normalizes information from multiple sources, and as a consequence, information in this document may materially change the coding, format and clinical context of patient data. In addition, data may be omitted in some cases. CLINICAL DECISIONS SHOULD BE BASED ON THE PRIMARY CLINICAL RECORDS. [facility] [employer] [facility]. provides no warranty or guarantee of the accuracy or completeness of information in this document.
[2025-02-28 23:08] LABS: Partial Thromboplast Time 76.0 Seconds (24.1-36.2)
[2025-03-01] VITALS (15 sets, daily range): BP systolic 116–173; BP diastolic 69–95; PULSE 52–79; RESP 14–18; TEMP 36.7–36.8; O2SAT 96–99
[2025-03-01 06:52] LABS: Hematocrit 38.7 % (37-47); Hemoglobin 12.7 g/dL (12.0-15.0); Immature Granulocytes Count 0.010 X10^3/uL (0.0-0.0); Mean Corp Hgb Conc 32.8 g/dL (32-36); Mean Corpuscular Volume 86.4 fL (81-99); Mean Platelet Vol. 10.7 fl (6.2-12.0); NRBC Flagged by Analyzer 0 % (0-5); Platelet Count 227 K/mm3 (150-450); RBC Distribution Width CV 12.8 % (11.6-14.6); RBC Distribution Width SD 40.3 fl (35.1-43.9); Red Blood Count 4.48 M/mm3 (4.2-5.4); White Blood Count 6.1 K/mm3 (4.4-11.0)
[2025-03-01 06:57] LABS: Partial Thromboplast Time 62.3 Seconds (24.1-36.2); Prothrombin Time (Protime)PT. 16.0 SECONDS (11.7-14.9)
--- NOTE | 2025-03-01 07:52 | CON.PCM.CA_ITS ---
Assessment & Plan Assessment/Plan (1) Acute non-ST elevation myocardial infarction (NSTEMI): PLAN: She presents with chest discomfort and has a non-ST elevation myocardial infarction. My recommendation at this time in addition to the aspirin and the heparin is for her to undergo a left heart catheterization. Risk benefits alternatives have been explained to the patient she understands and agrees to proceed and depending on the findings further recommendations will be made. PLAN: Plan Addendum: Left heart catheterization demonstrated the following: Normal left main coronary. Left anterior descending artery with no significant disease. Left circumflex artery with no significant disease. Dominant right coronary artery with small distal right coronary artery subtotally occluded. Overall preserved left ventricular systolic function with mid and apical inferior hypokinesis. Would recommend aggressive medical therapy HPI Consult Data Date of Consult: 03/01/25 HPI Narrative HPI Narrative: NATHAN MURRELL, is a 59 F who presents to the emergency room with chest discomfort. She says she had an episode last week when she was feeling overwhelmed and had a panic attack. It lasted for about half an hour. She was apparently running errands when it happened. In the morning of presentation she had chest discomfort again associated with an anxious feeling tightness in her chest and developed a headache sensation. It also went down both arms. In the ED temp 97, heart rate of 70 and blood pressure 174/78, respiratory rate 22 and pulse ox 97% on room air, CBC with white blood cell count 8.1 and hemoglobin 12.9, BMP only remarkable for glucose 118, chest x-ray no acute process and troponin found to be elevated at 106. Repeat troponin 229. ED physician discussed with cardiology who recommended admission. At this particular time she is pain-free she was started on heparin. [facility] Medical History Heart murmur Hypothyroid removal of cancerous thyroid Home Medications Medication Instructions Recorded Last Taken Type liothyronine 5 mcg tablet 5 mcg PO DAILY 08/26/22 Unkn own History cholecalciferol (vitamin D3) 1,250 1,250 mcg PO QWEEK 02/28/25 Unknown History mcg (50,000 unit) capsule levothyroxine 100 mcg tablet 100 mcg PO DAILY 02/28/25 02/28/25 History Allergy/AdvReac Type Severity Reaction Status Date / Time No Known Allergies Allergy Verified 02/28/25 12:18 Family History Mother Cancer metastatic-un known primary site Grandmother Uterine cancer Sister Thyroid cancer Surgical History Hx of foot surgery H/O section Hx of thyroidectomy Social History Smoking Status: Never smoker alcohol intake: never substance use type: does not use ROS Constitutional Constitutional: Denies fever(s) or weight loss Eyes Eyes: Reports systems reviewed and no addt'l complaints, except as documented ENT HEENT: Reports systems reviewed and no addt'l complaints, except as documented Cardiovascular Cardiovascular: Reports chest pain with activity; Denies chest pain at rest, dyspnea at rest, dyspnea on exertion, edema, palpitations or paroxysmal nocturnal dyspnea Respiratory/Chest Respiratory/Chest: Denies dyspnea on exertion, productive cough, shortness of breath at rest or shortness of breath with exertion Gastrointestinal Gastrointestinal: Denies change in bowel habits, nausea, vomiting or weight changes Genitourinary Genitourinary: Denies difficulty urinating Musculoskeletal Musculoskeletal: Denies joint stiffness or muscle weakness Integumentary Integumentary: Denies lesions Neurologic Neurologic: Denies dizziness or syncope Psychiatric Psychiatric: Denies anxiety Endocrine Endocrinology: Denies excessive sweating or fatigue Hematologic/Lymphatic Hematologic/Lymphatic: Denies anemia Allergic/Immunologic Allergic/Immunologic: Denies seasonal rhinorrhea Physical Exam Const alert, oriented x3 and no apparent distress General Appearance: cooperative HEENT hearing grossly normal bilaterally Head and Scalp: atraumatic Eyes EOMs intact bilaterally Neck General: normal visual inspection Chest inspection of chest normal and palpation of chest normal Resp normal respiratory effort Auscultation: clear to auscultation bilaterally Cardio regular rate, regular rhythm, S1 normal heart sound and S2 normal heart sound Jugular Venous Distention: JVD GI normal to inspection, nondistended, normoactive bowel sounds Extremity normal capillary refill and no pedal edema Peripheral Pulses: Yes pulses 2+ throughout and femoral pulses present Skin no rashes or lesions noted Neuro oriented x3 and CN's II-XII intact bilaterally Psych Appearance: grossly normal and appropriate Risk Stratification Risk Stratification Applicable: Yes Age >/= 65: No >/= 3 CAD Risk Factors (HTN, HLD, DM, family hx of CAD, or current smoker): No Aspirin Use in the Past 7 Days: No Severe Angina (>/= episodes in 24 hours): No EKG ST Changes >/= 0.5mm: No Positive Cardiac Marker: Yes BELEN Risk Stratification Score: 1 BELEN % Risk: 5% Risk Objective Data Vital Signs: Vital Signs Temp Pulse Resp BP Pulse Ox O2 Del Method 98.1 F 62 16 173/95 H 96 Room Air 03/01/25 07:39 03/01/25 07:39 03/01/25 07:39 03/01/25 07:39 03/01/25 02:15 03/01/25 07:39 Oxygen Delivery Method Room Air Weight: 145 lb 1.027 oz Body Mass Index (BMI) 22.7 Intake & Output: Intake and Output for Last 24 Hours 02/27/25 02/28/25 03/01/25 23:59 23:59 23:59 Intake Total 59.21 / 59.21 1058.89 / 1058.89 Balance 59.21 / 59.21 1058.89 / 1058.89 Lab / Micro Data 03/01/25 06:15 03/01/25 06:15 Labs: Laboratory Results - last 24 hr 02/28/25 13:10: WBC 8.1, RBC 4.53, Hgb 12.9, Hct 38.3, MCV 84.5, MCH 28.5, MCHC 33.7, RDW Std Deviation 39.2, RDW Coeff of Dewey 12.8, Plt Count 237, MPV 10.4, Immature Gran % (Auto) 0.400, Neut % (Auto) 83.7 H, Lymph % (Auto) 10.0 L, [place] % (Auto) 4.8, Eos % (Auto) 0.5, Baso % (Auto) 0.6, Absolute Neuts (auto) 6.8, A bsolute Lymphs (auto) 0.81 L, Nucleated RBC % 0, Sodium 139, Potassium 3.7, Chloride 105, Carbon Dioxide 23.7, Anion Gap 10, BUN 18, Creatinine 0.76, Estim Creat Clear Calc 76.55, Est GFR (MDRD) Non-Af 90, BUN/Creatinine Ratio 23.7 H, G lucose 118 H, Calcium 9.3, Troponin T High Sens 106 H* 02/28/25 14:56: Troponin T Hi Sens 2 Hr 229 H* 02/28/25 16:14: WBC 9.4, RBC 4.54, Hgb 13.0, Hct 38.5, MCV 84.8, MCH 28.6, MCHC 33.8, RDW Std Deviation 39.7, RDW Coeff of Dewey 12.8, Plt Count 247, MPV 10.2, Immature Gran % (Auto) 0.300, Neut % (Auto) 83.9 H, Lymph % (Auto) 11.4 L, [place] % (Auto) 3.4, Eos % (Auto) 0.6, Baso % (Auto) 0.4, Absolute Neuts (auto) 7.9 H, Absolute Lymphs (auto) 1.07, Nucleated RBC % 0, PT 15.3 H, INR 1.2, APTT 25.8 02/28/25 17:04: Troponin T Hi Sens 4Hr 429 H* 02/28/25 22:32: APTT 76.0 H 03/01/25 06:15: WBC 6.1, RBC 4.48, Hgb 12.7, Hct 38.7, MCV 86.4, MCH 28.3, MCHC 32.8, RDW Std Deviation 40.3, RDW Coeff of Dewey 12.8, Plt Count 227, MPV 10.7, Immature Gran % (Auto) 0.200, Neut % (Auto) 63.4, Lymph % (Auto) 25.2, [place] % (Auto) 7.7, Eos % (Auto) 2.8, Baso % (Auto) 0.7, Absolute Neuts (auto) 3.9, Absolute Lymphs (auto) 1.53, Nucleated RBC % 0, PT 16.0 H, INR 1.3, APTT 62.3 H Rhythm Strip Rhythm Strip: Sinus Rhythm Rate: 57 Ectopy: None Cardiology Labs/Tests 02/28/25 13:10: WBC 8.1, RBC 4.53, Hgb 12.9, Hct 38.3, MCV 84.5, MCH 28.5, MCHC 33.7, Plt Count 237, MPV 10.4, Immature Gran % (Auto) 0.400, Neut % (Auto) 83.7 H, Lymph % (Auto) 10.0 L, [place] % (Auto) 4.8, Eos % (Auto) 0.5, Baso % (Auto) 0.6, Absolute Neuts (auto) 6.8, Nucleated RBC % 0, Sodium 139, Potassium 3.7, Chloride 105, Carbon Dioxide 23.7, Anion Gap 10, BUN 18, Creatinine 0.76, Est GFR (MDRD) Non-Af 90, BUN/Creatinine Ratio 23.7 H, Glucose 118 H, Calcium 9.3 02/28/25 16:14: WBC 9.4, RBC 4.54, Hgb 13.0, Hct 38.5, MCV 84.8, MCH 28.6, MCHC 33.8, Plt Count 247, MPV 10.2, Immature Gran % (Auto) 0.300, Neut % (Auto) 83.9 H, Lymph % (Auto) 11.4 L, [place] % (Auto) 3.4, Eos % (Auto) 0.6, Baso % (Auto) 0.4, Absolute Neuts (auto) 7.9 H, Nucleated RBC % 0, PT 15.3 H, INR 1.2, APTT 25.8 02/28/25 22:32: APTT 76.0 H 03/01/25 06:15: WBC 6.1, RBC 4.48, Hgb 12.7, Hct 38.7, MCV 86.4, MCH 28.3, MCHC 32.8, Plt Count 227, MPV 10.7, Immature Gran % (Auto) 0.200, Neut % (Auto) 63.4, Lymph % (Auto) 25.2, [place] % (Auto) 7.7, Eos % (Auto) 2.8, Baso % (Auto) 0.7, Absolute Neuts (auto) 3.9, Nucleated RBC % 0, PT 16.0 H, INR 1.3, APTT 62.3 H Rhythm: EKG: ECHO: Stress Test: Cardiac Cath: PCI: CT Surgery: Holter monitor: EPS: PPM: CXR: Chest CT Scan: Radiography Diagnostic Testing: Radiology Impression Chest X-Ray 02/28/25 13:02 IMPRESSION: No acute process is identified in the chest. Reading [facility]
[2025-03-01 08:39] LABS: Anion Gap 11 (5-15); BUN 13 mg/dL (4-19); BUN/Creat Ratio 17.7 RATIO (10-20); Calcium,Total 9.0 mg/dL (7.6-11.0); Carbon Dioxide 23.3 mmol/L (21.0-32.0); Chloride 109 mmol/L (98-108); Estimated Creatinine Clearance 77.57 ml/min (50-250); Glucose 100 mg/dL (70-99); Potassium 3.8 mmol/L (3.3-5.1)
--- NOTE | 2025-03-01 09:04 | PN.HOSP_ITS ---
Subjective Subjective Chest pain is resolved but she did have rising troponins. Currently heparin drip plan for heart cath Objective Data Objective Data Vital Signs: Vital Signs Temp Pulse Resp BP Pulse Ox O2 Del Method 98.1 F 62 16 173/95 H 96 Room Air 03/01/25 07:39 03/01/25 07:39 03/01/25 07:39 03/01/25 07:39 03/01/25 02:15 03/01/25 07:39 Oxygen Delivery Method Room Air Weight: 145 lb 1.027 oz Body Mass Index (BMI) 22.7 Intake & Output: Intake and Output for Last 24 Hours 02/28/25 03/01/25 03/02/25 03:59 03:59 03:59 Intake Total 59.21 / 59.21 1058.89 / 1058.89 Balance 59.21 / 59.21 1058.89 / 1058.89 Lab / Micro Data 03/01/25 06:15 03/01/25 06:15 Labs: Laboratory Results - last 24 hr 02/28/25 13:10: WBC 8.1, RBC 4.53, Hgb 12.9, Hct 38.3, MCV 84.5, MCH 28.5, MCHC 33.7, RDW Std Deviation 39.2, RDW Coeff of Dewey 12.8, Plt Count 237, MPV 10.4, Immature Gran % (Auto) 0.400, Neut % (Auto) 83.7 H, Lymph % (Auto) 10.0 L, [place] % (Auto) 4.8, Eos % (Auto) 0.5, Baso % (Auto) 0.6, Absolute Neuts (auto) 6.8, A bsolute Lymphs (auto) 0.81 L, Nucleated RBC % 0, Sodium 139, Potassium 3.7, Chloride 105, Carbon Dioxide 23.7, Anion Gap 10, BUN 18, Creatinine 0.76, Estim Creat Clear Calc 76.55, Est GFR (MDRD) Non-Af 90, BUN/Creatinine Ratio 23.7 H, G lucose 118 H, Calcium 9.3, Troponin T High Sens 106 H* 02/28/25 14:56: Troponin T Hi Sens 2 Hr 229 H* 02/28/25 16:14: WBC 9.4, RBC 4.54, Hgb 13.0, Hct 38.5, MCV 84.8, MCH 28.6, MCHC 33.8, RDW Std Deviation 39.7, RDW Coeff of [place]wey 12.8, Plt Count 247, MPV 10.2, Immature Gran % (Auto) 0.300, Neut % (Auto) 83.9 H, Lymph % (Auto) 11.4 L, [place] % (Auto) 3.4, Eos % (Auto) 0.6, Baso % (Auto) 0.4, Absolute Neuts (auto) 7.9 H, Absolute Lymphs (auto) 1.07, Nucleated RBC % 0, PT 15.3 H, INR 1.2, APTT 25.8 02/28/25 17:04: Troponin T Hi Sens 4Hr 429 H* 02/28/25 22:32: APTT 76.0 H 03/01/25 06:15: WBC 6.1, RBC 4.48, Hgb 12.7, Hct 38.7, MCV 86.4, MCH 28.3, MCHC 32.8, RDW Std Deviation 40.3, RDW Coeff of Dewey 12.8, Plt Count 227, MPV 10.7, Immature Gran % (Auto) 0.200, Neut % (Auto) 63.4, Lymph % (Auto) 25.2, [place] % (Auto) 7.7, Eos % (Auto) 2.8, Baso % (Auto) 0.7, Absolute Neuts (auto) 3.9, Absolute Lymphs (auto) 1.53, Nucleated RBC % 0, PT 16.0 H, INR 1.3, APTT 62.3 H, Sodium 144, Potassium 3.8, Chloride 109 H, Carbon Dioxide 23.3, Anion Gap 11, BUN 13, Creatinine 0.75, Estim Creat Clear Calc 77.57, Est GFR (MDRD) Non-Af 92, BUN/Creatinine Ratio 17.7, Glucose 100 H, Calcium 9.0 Radiography Diagnostic Testing: Radiology Impression Chest X-Ray 02/28/25 13:02 IMPRESSION: No acute process is identified in the chest. Reading [facility] Rhythm Strip Rhythm Strip: Sinus Rhythm Rate: 57 Ectopy: None Physical Exam Narrative General: Alert, Oriented x3, Cooperative, No apparent distress HEENT: Atraumatic, PERRLA, EOMI, Normocephalic Oral: Moist Mucosa Neck: Supple, No JVD Lungs: Diminished, Normal air movement, No rhonchi, No wheeze, No rales Cardiovascular: Regular rate, Regular Rhythm, Normal S1, Normal S2, No murmurs Abdomen: Soft, Non Tender, Non-Distended, No Hepato-splenomegaly Extremities: No edema, Capillary Refill Less than 3 Seconds Skin: No rashes, No breakdown Musculoskeletal: No Tenderness to Palpation of Joints or Extremities Neurological: No focal neurological deficits, Motor Exam 5/5 strength throughout, Sensory exam intact to light touch and pain Psych/Mental Status: Normal Affect, Appropriate Assessment & Plan Assessment/Plan (1) Acute non-ST elevation myocardial infarction (NSTEMI): PLAN: Plan 1. Non-STEMI – Plan for heart cath with rising troponins – Continue with heparin drip – Continue with aspirin and statin – Echo is pending – Appreciate cardiology's assistance 2. Hypothyroidism status post thyroid cancer treatment – Continue with Synthroid and liothyronine – Stable DVT: Heparin drip Charges/Coding Visit Charges Inpatient E&M: 95443 Subs Hosp L2
--- NOTE | 2025-03-01 10:20 | CASEMGMT ---
Tertiary Insurance review for hospitals In-network with [employer] insurance if transfer is recommended is as follows: [facility], [facility], [place], [facility], [facility], [facility], , [place], [facility], [facility], and [place]. Nimisha Ayala, Discharge Planning Asst.
--- NOTE | 2025-03-01 12:44 | CASEMGMT ---
Social Work SW in the ED had notified inpt SW that pt may want information regarding LW/POA. SW met w/pt and family, provided the LW/POA documents and reviewed w/pt. Pt does not want to complete at this time, SW did give her the number to the SW dept to call should she want to make an appt to complete the documents in the future. PRAVEENA Pathak
[2025-03-02 03:00] VITALS: BP 119/70; PULSE 65; RESP 16; TEMP 36.8; O2SAT 97
[2025-03-02 06:25] LABS: Hematocrit 39.0 % (37-47); Hemoglobin 12.9 g/dL (12.0-15.0); Immature Granulocytes Count 0.020 X10^3/uL (0.0-0.0); Mean Corp Hgb Conc 33.1 g/dL (32-36); Mean Corpuscular Volume 85.7 fL (81-99); Mean Platelet Vol. 10.6 fl (6.2-12.0); NRBC Flagged by Analyzer 0 % (0-5); Platelet Count 229 K/mm3 (150-450); RBC Distribution Width CV 12.8 % (11.6-14.6); RBC Distribution Width SD 39.8 fl (35.1-43.9); Red Blood Count 4.55 M/mm3 (4.2-5.4); White Blood Count 5.3 K/mm3 (4.4-11.0)
[2025-03-02 06:42] LABS: Anion Gap 10 (5-15); BUN 16 mg/dL (4-19); BUN/Creat Ratio 19.5 RATIO (10-20); Calcium,Total 9.5 mg/dL (7.6-11.0); Carbon Dioxide 24.2 mmol/L (21.0-32.0); Chloride 107 mmol/L (98-108); Estimated Creatinine Clearance 70.09 ml/min (50-250); Glucose 84 mg/dL (70-99); Potassium 4.5 mmol/L (3.3-5.1)
--- NOTE | 2025-03-02 07:19 | DCINST_ITS ---
Discharge Instructions DC O2, CPAP, BIPAP needs Home O2 Discharge instructions: No Dressing / Incision Discharge Activity: Return to Normal Activity Dressing / Incision Call your doctor if you observe: Fever of 101 or Higher, Shortness of breath, Dizziness, Fainting spells, Swelling in the ankles, Chest pain and Increased palpitations (irregular heartbeat) Follow Up Care Test Results: Test results from this visit will be discussed in further detail at your follow- up appointment, if applicable. Discharge Plan Admission Admit Date/Time: 02/28/25 17:15 Attending Provider: Maurice Diaz Primary Care Provider: Dong Arreaga [employer] Providers: Navid Chamorro; Evon Vo Discharge Orders/Prescriptions Prescriptions: New aspirin 81 mg Tablet,Chewable 81 mg PO BREAKFAST 30 Days Qty: 30 0RF atorvastatin 80 mg Tablet 80 mg PO QHS 30 Days Qty: 30 0RF metoprolol succinate 50 mg Tablet Extended Release 24 Hr 50 mg PO DAILY 30 Days Qty: 30 0RF Continued liothyronine 5 mcg tablet 5 mcg PO DAILY levothyroxine 100 mcg tablet 100 mcg PO DAILY cholecalciferol (vitamin D3) 1,250 mcg (50,000 unit) capsule 1,250 mcg PO QWEEK Patient Comments: Take weekly on Sat. Referrals / Follow Up: Rk Amaya MD [Med Staff - Active Staff] - Within 1 Month (Can see midlevel) Dong Arreaga MD [Primary Care Provider] - Within 1 Week Disposition Disposition (needs filled in before D/C Order can be placed): Home, Self Care
[2025-03-02 07:54] VITALS: BP 140/99; PULSE 66; RESP 18; TEMP 36; O2SAT 98
[2025-03-02 08:56] VITALS: BP 140/99; PULSE 66
[2025-03-02] MEDS: Metoprolol(XL)Succ 50 MG Tablet PO (08:56)
--- NOTE | 2025-03-02 11:39 | PCM.DC.SUM ---
Providers Date of Admission: 02/28/25 Primary Care Physician: Dr. Dong Arreaga MD Consultations 02/28/25 20:13 Consult: Cardiology Routine Consulting Provider: Navid Chamorro Reason for Consult: NSTEMI EMERGENT Consult: No MD Notified: Yes Date Notified: 02/28/25 Time Notified: 17:17 Method of Notification: ED Physician Initiated Reason For Visit: CHEST PAIN Diagnosis Discharge Diagnosis (1) Acute non-ST elevation myocardial infarction (NSTEMI): Status: Acute Code(s): I21.4 - Non-ST elevation (NSTEMI) myocardial infarction Medications at Discharge Home Medications liothyronine 5 mcg tablet 5 mcg PO DAILY 08/26/22 cholecalciferol (vitamin D3) 1,250 mcg (50,000 unit) capsule 1,250 mcg PO QWEEK 02/28/25 levothyroxine 100 mcg tablet 100 mcg PO DAILY 02/28/25 aspirin 81 mg chewable tablet 81 mg PO BREAKFAST 30 days #30 tabs 03/02/25 atorvastatin 80 mg tablet 80 mg PO QHS 30 days #30 tabs 03/02/25 metoprolol succinate 50 mg tablet,extended release 24 hr 50 mg PO DAILY 30 days #30 tabs 03/02/25 Hospital Course Operations None Procedures 2-D Echocardiogram and Cardiac catheterization Summary of Care Provided Minutes Spent on Discharge: 33 Hospital Course: Per HPI: NATHAN MURRELL, is a 59-year-old female history of thyroid cancer previously treated and now on Synthroid, chronic lightheadedness who presented to [facility] ED 02/28/2025 with chest discomfort. She had an episode last week when she was feeling overwhelmed and had a panic attack, it lasted for about 30 minutes. This morning she was running errands and around 730 started feeling anxious and had some tightness or pressure in the center of her chest about 730 and developed a headache and sensation going down bilateral arms that was almost an ache in nature. Does have a history of heart disease in grandmother and older sister so she came to the ED for evaluation. Symptoms were starting to improve by the time she got to the ED aside from her headache. In the ED temp 97, heart rate of 70 and blood pressure 174/78, respiratory rate 22 and pulse ox 97% on room air, CBC with white blood cell count 8.1 and hemoglobin 12.9, BMP only remarkable for glucose 118, chest x-ray no acute process and troponin found to be elevated at 106. Repeat troponin 229. ED physician discussed with cardiology who recommended admission and they will see in consult. Patient placed on heparin drip with plans for cardiac cath in the a.m. and hospitalist contacted for admission. Patient evaluated bedside, reports history as above, had a bad headache earlier but it has been improving, chest discomfort also much improved from earlier. Denied any nausea or shortness of breath, patient has no other new or acute complaints. Hospital Course: 1. Non-STEMI/essential HTN/HLD–59-year-old female presented to the hospital with chest pain. She had an episode potentially a week prior that she thought it might have been a panic attack. On admission she had elevated troponins that were rising so she was started on a heparin drip. Cardiology was consulted and took her for a heart cath. Heart cath demonstrated coronary artery disease in the distal right coronary artery with PDA occlusion. They recommended medical therapy with aspirin, Lipitor, metoprolol. She has tolerated all his medications for the last 24 hours. Echocardiogram demonstrates an EF of 60% with stage II diastolic dysfunction and mild segmental systolic dysfunction in the inferior wall. She is feeling much better today and I discussed with her the possibility for discharge and she expressed understanding of the risk and benefits of going home and would like to go home today. I do recommend outpatient follow-up with her primary care doctor in 3 to 5 days and cardiology within the month. She does have a history of hypothyroidism secondary to treatment for thyroid cancer she will continue with her home thyroid medications. Physical Exam Narrative General: Alert, Oriented x3, Cooperative, No apparent distress HEENT: Atraumatic, PERRLA, EOMI, Normocephalic Oral: Moist Mucosa Neck: Supple, No JVD Lungs: Diminished, Normal air movement, No rhonchi, No wheeze, No rales Cardiovascular: Regular rate, Regular Rhythm, Normal S1, Normal S2, No murmurs Abdomen: Soft, Non Tender, Non-Distended, No Hepato-splenomegaly Extremities: No edema, Capillary Refill Less than 3 Seconds Skin: No rashes, No breakdown Musculoskeletal: No Tenderness to Palpation of Joints or Extremities Neurological: No focal neurological deficits, Motor Exam 5/5 strength throughout, Sensory exam intact to light touch and pain Psych/Mental Status: Normal Affect, Appropriate Weight / BMI Weight Weight: 145 lb 1.027 oz Body Mass Index (BMI) 22.7 ABG / Lab / Microbiology Data 03/02/25 05:26 03/02/25 05:26 Laboratory: Laboratory Results - last 24 hr 03/02/25 05:26: WBC 5.3, RBC 4.55, Hgb 12.9, Hct 39.0, MCV 85.7, MCH 28.4, MCHC 33.1, RDW Std Deviation 39.8, RDW Coeff of [place]wey 12.8, Plt Count 229, MPV 10.6, Immature Gran % (Auto) 0.400, Neut % (Auto) 58.5, Lymph % (Auto) 27.9, [place] % (Auto) 8.2, Eos % (Auto) 4.1, Baso % (Auto) 0.9, Absolute Neuts (auto) 3.1, Absolute Lymphs (auto) 1.49, Nucleated RBC % 0, Sodium 141, Potassium 4.5, Chloride 107, Carbon Dioxide 24.2, Anion Gap 10, BUN 16, Creatinine 0.83, Estim Creat Clear Calc 70.09, Est GFR (MDRD) Non-Af 81, BUN/Creatinine Ratio 19.5, Glucose 84, Calcium 9.5 Radiography Diagnostic Testing: Radiology Impression Echocardiogram 02/28/25 20:13 Interpretation Summary Normal LV size. The left ventricular ejection fraction is 60 %. Segmental dysfunction with preserved ejection fraction (see wall motion). Mild segmental systolic dysfunction (see wall motion). Stage 2 diastolic dysfunction. Ordering Physician: Evon Vo Referring Physician: Dong Arreaga Performed By: Yoselin Griffin and Student D/C Instructions Call your doctor if you observe: Fever of 101 or Higher, Shortness of breath, Dizziness, Fainting spells, Swelling in the ankles, Chest pain and Increased palpitations (irregular heartbeat) DC O2, CPAP, BIPAP Needs Home O2 Discharge instructions: No Meaningful Use Info Meaningful Use Meaningful Use Diagnoses (Choose all that apply): None applicable Discharge Plan Admission Admit Date/Time: 02/28/25 17:15 Attending Provider: Maurice Diaz Primary Care Provider: Dong Arreaga Consulting Providers: Navid Chamorro; Evon Vo Discharge Orders/Prescriptions Prescriptions: New aspirin 81 mg Tablet,Chewable 81 mg PO BREAKFAST 30 Days Qty: 30 0RF atorvastatin 80 mg Tablet 80 mg PO QHS 30 Days Qty: 30 0RF metoprolol succinate 50 mg Tablet Extended Release 24 Hr 50 mg PO DAILY 30 Days Qty: 30 0RF Continued liothyronine 5 mcg tablet 5 mcg PO DAILY levothyroxine 100 mcg tablet 100 mcg PO DAILY cholecalciferol (vitamin D3) 1,250 mcg (50,000 unit) capsule 1,250 mcg PO QWEEK Patient Comments: Take weekly on Sat. Referrals / Follow Up: Rk Amaya MD [Med Staff - Active Staff] - Within 1 Month (Can see midlevel) Dong Arreaga MD [Primary Care Provider] - Within 1 Week Disposition Disposition (needs filled in before D/C Order can be placed): Home, Self Care Charges/Coding Visit Charges Inpatient E&M: 81235 Disch Hosp >30min
--- NOTE | 2025-03-18 09:47 | CL.D_ITS ---
Patient Name: NATHAN MURRELL Study Date: 03/01/2025 Performing: Rk Amaya MD Ht: 67 inches 170.18 cm : 1965 Wt: 145.3 lbs 65.8 kg Age: 59 Gender: female BSA: 1.76 PROCEDURE(S) PERFORMED DC01-([id number])LHC/COR/LV CLINICAL PROFILE AND INDICATIONS Indications: New Onset Angina <= 2 months Heart Failure: None Stress/Imaging Stress/Image Study Performed: No CAD Presentations: Non-STEMI. Symptom onset Date/Time: 03/01/25 Time Not Available CONCLUSIONS Coronary artery disease with distal right coronary artery PDA occlusion preserved ejection fraction with hypokinesis of the mid to distal inferior wall and apex. RECOMMENDATIONS Medical therapy DESCRIPTION OF PROCEDURE The patient arrived to the procedure lab. The risks and benefits of the procedure as well as a full description of our services here and current unavailability of surgical backup were fully explained to the patient and/or their significant other prior to the catheterization. The Timeout was completed, verifying the correct patient and procedure. The patient's procedural site was prepped and draped in the usual fashion. Local anesthetic was given subcutaneously to right radial region with Lidocaine 2%. Using a modified Seldinger technique, arterial access was obtained via the right radial artery, a 6Fr sheath was inserted. Right Coronary Artery selective angiography was then performed in multiple views using a 5 Fr. 4.0 [place] catheter. Left Coronary Artery selective angiography was performed in multiple views using a 5 Fr. 4.0 [place] catheter. Left Ventriculography was performed in JAIME projection using a 5 Fr. Pigtail catheter. LV to AO pullback pressures were then recorded.The arterial sheath was pulled and a TR Band was applied for hemostasis. 14cc air CORONARY ANGIOGRAPHY DOMINANCE: Right Dominant LEFT HEART ASSESSMENT Left Ventricular Ejection Fraction: by LV Gram 55 % Inferior Mid Hypokinesis - Severe Normal Left Ventricular systolic function LEFT MAIN: Angiographically normal LEFT ANTERIOR DESCENDING ARTERY: Mild luminal irregularities CIRCUMFLEX ARTERY: Mild luminal irregularities RIGHT CORONARY ARTERY: Dominant vessel with mild disease noted proximally the vessel then bifurcates to posterior descending artery and posterolateral vessel. The mid to distal posterior descending artery has a narrow area of approximately 80% and a very small vessel. It may represent an intramural hematoma. COMPLICATIONS No Complications PROCEDURE MEDICATIONS Fentanyl 50 mcg IV Versed 1 mg IV Oxygen: 2 L/min via nasal cannula Heparin given IA 03/01/2025 09:50:54 Verapamil 2.5mg, Ntg 100mcgs, 3000 units of Heparin given IA 03/01/2025 09:50:54 SUMMARY OF HEMODYNAMIC DATA Time AIR REST ECG 09:39:06 AO 155/87 (115) SA 10:15:37 LV 151/9, 15 10:21:09 LV 149/6, 15 10:21:16 LV 155/18, 21 10:22:27 LVp 157/17, 20 10:22:40 AOp 161/92 (122) 10:22:45 Signed By Rk Amaya MD On 03/01/2025 12:59:35 Signed By Rk Amaya MD On 03/01/2025 12:59:23 Rk Amaya MD
== END 2025-03-02 09:07 | disposition home or self-care (01) | DRG 282 ==
LOC: ED 17:53 → PCU 19:04
PROVIDERS: Admitting Provider Internal Medicine; Emergency Provider Emergency Medicine; PCP Family Medicine; Visit Provider Family Medicine
DX: I21.4 Non-ST elevation (NSTEMI) myocardial infarction (principal); E78.5 Hyperlipidemia, unspecified; E89.0 Postprocedural hypothyroidism; I10 Essential (primary) hypertension; I25.10 Atherosclerotic heart disease of native coronary artery without angina pectoris; R01.1 Cardiac murmur, unspecified; Z82.49 Family history of ischemic heart disease and other diseases of the circulatory system; Z79.899 Other long term (current) drug therapy
CPT/HCPCS: 36415; 71046; 80048; 84484; 85025; 85610; 85730; 93005; 93306; 93458; 99152; 99153; 99284; Q9967; A4216; C1769; C1894

== ENCOUNTER → 2025-05-11 | Outpatient (CLI) | payer OTHER, SELFPAY ==
--- OUTSIDE RECORDS SUMMARY | 2025-05-11 09:01 | XMS RPT_ITS | CCD ---
Author Organization [facility] CliniSytn Care Team Providers Care Agricultural Purchasing Agent Name Role Phone Sherry Fierro Primary Care Provider [phone] Dr. Sherry Fierro Primary Care Provider Dr. Sherry Fierro Referring Provider Dr. Rachid Leon Attending Provider Dr. Sherry Fierro Primary Care Provider Dr. Sherry Fierro Referring Provider Dr. Rachid Leon Attending Provider SRI GOEL, SHERRY Primary Care Physician EMMY GOEL, POORNIMA Coates Attending Unavailable SRI GOEL, SHERRY Primary Care Unavailable Dr. Sherry Fierro Primary Care Provider Dr. Sherry Fierro Referring Provider Dr. Rachid Leon Attending Provider Sherry Fierro MD Primary Care Provider Dr. Sherry Fierro MD Primary Care Provider [phone] Dr. Malaika Landry DO Emergency Provider Dr. Evon Vo MD Attending Provider Winston GOEL, Dr. Barnard Admit Provider Dr. Evon Vo MD Other Provider Dr. Navid Chamorro MD Other Provider Dr. Maurice Diaz MD Attending Provider Dr. Maurice Diaz MD Other Provider Moinque GOEL, Dr. Beckman Attending Provider Dr. Sherry Fierro MD Referring Provider Cliff Jarrett Attending Provider Sherry Fierro Primary Care Unavailable Ragjose martin, Marnie Na Attending Unavaila Luis Omerapradee Consulting UnavailEvon Gray Admitting Unavailable Maurice Diaz Attending Unavailable Sherry Fierro Primary Care Unavailable Evon Vo Consulting Unavailable Rk Amaya Attending Unavailable Sherry Fierro Primary Care Unavailable Rk Amaya Attending Unavailable Sherry Fierro Primary Care Unavailable Sherry Fierro Primary Care Unavailable Nagsary, Nagapradee Consulting UnavailEvon Gray Admitting Unavailable Maurice Diaz Attending Unavailable Evon Vo Consulting Unavailable Maurice Diaz Consulting Unavailable Sherry Fierro Primary Care Unavailable Evon Vo Attending Unavailable Sherry Fierro Primary Care Unavailable Sherry Fierro Referring Unavailable Cliff Fischer Attending Unavailable Sherry Fierro Primary Care Unavailable Raganuradhanatkathy, Marnie Na Attending Unavaila Niall Gomespana Natasha Referring Unavaila HECTOR Keane Attending SHERRY Gardiner MD [facility] Care Unavailable Allergies Allergy Classification Reported Allergen(s) Allergy Type Date of Onset Reaction(s) Facility (4 sources) Seasonal allergy; Translations: [SEASONAL ALLERGIES] Allergy to substance 0 Other: See Comments [facility] Medications Current Medications Medication Drug Class(es) Dates Sig (Normalized) Sig (Original) aspirin 81 mg oral tablet (5 sources) Platelet Aggregation Inhibitor, Nonsteroidal Anti-inflammatory Drug Start: 04-15-2025 take 1 tablet by mouth at breakfast Aspirin Low Dose 81 mg oral tablet, chewable CHEW AND SWALLOW 1 TABLET BY MOUTH WITH BREAKFAST Start Date: 04/15/25 Status: Ordered Medication Dispense Status: Completed Total Allowed Fills: 1 Fills Dispensed: 0 Start: 03-02-2025 End: 03-05-2025 take 1 tablet by mouth at breakfast Aspirin 81 mg tablet,chewable Active 81 mg PO WITH BREAKFAST 90 90 3 March 05, 2025 10:19am atorvastatin 80 mg oral tablet (4 sources) HMG-CoA Reductase Inhibitor Start: 03-02-2025 End: 03-05-2025 take 1 tablet by mouth at bedtime Atorvastatin 80 mg tablet Active 80 mg PO AT BEDTIME 90 90 3 March 05, 2025 10:18am cholecalciferol 1.25 mg oral capsule (16 sources) Vitamin D Start: 02-28-2025 take 1 [...] 12:33pm Start: 06-01-2016 take 1 capsule by [place] once daily Cholecalciferol, Vitamin D3, 5,000 unit cap Indications: Vitamin D deficiency Take 1 capsule by mouth once daily. 0 06/01/2016 Active Comment on above: Take 1 capsule by mo uth once daily. 168 hr cloNIDine 0.83175 mg/hr transdermal system (3 sources) Central alpha-2 Adrenergic Agonist Start: 10-25-2017 cloNIDine TTS (CATAPRES-TTS) 0.1 mg/24 hr Indications: Hot flash, menopausal Apply 1 Patch as directed once each week. 4 Patch 5 10/25/2017 Active Comment on above: Apply 1 Patch as dir ected once each week. fluocinolone acetonide 0.25 mg/ml topical cream (12 sources) Corticosteroid Start: 04-15-2025 Synalar Cream 0.025% topical kit See Instructions, Apply thin film twice daily to affected area, # 60 gram(s), 0 Refill(s), Pharmacy: [facility], 168.1, cm, 04/15/25 9:29:00 EDT, Height, 67.4, kg, 04/15/25 9:29:00 EDT, Dosing Weight Start Date: 04/15/25 Status: Ordered Medication Dispense Status: Completed Quantity: 60.0 Unit: g Total Allowed Fills: 1 Fills Dispensed: 0 Indications: Dermatitis, unspecified; Start: 11-10-2016 End: 02-28-2025 Fluocinolone 0.025 % ointmen t Discontinued 1 NMA TOPICAL TWICE A DAY September 02, 2022 1:00am February 28, 2025 12:33pm Comment on above: Apply 1 application to affected area twice daily. APPLY TO AFFECTED AREA levothyroxine sodium 0.1 mg oral tablet (20 sources) l-Thyroxine Start: 02-29-20 take 1 tablet by mouth once daily Levothyroxine 100 mcg tablet Active 100 ug PO DAILY February 28, 2025 12:00am Start: 07-19-2024 take 1 tablet by jennifer th once daily levothyroxine 100 mcg (0.1 mg) oral tablet See Instructions, TAKE 1 TABLET DAILY, # 90 tab(s), 3 Refill(s), Pharmacy: [facility], 170.2, cm, 07/19/24 8:42:00 EST, Height, kg, 07/19/24 8:42:00 EST, Dosing Weight Start Date: 07/19/24 Status: Ordered Medication Dispense Status: Completed Quantity: 90.0 Unit: tab(s) Total Allowed Fills: 4 Fills Dispensed: 0 Start: 02-10-2023 take 1 tablet by jennifer th once daily levothyroxine 100 mcg (0.1 mg) oral tablet See Instructions, TAKE 1 TABLET DAILY, # 90 tab(s), 3 Refill(s), Pharmacy: [facility], 170.2, cm, 02/10/23 11:42:00 EDT, [...] daily. liothyronine sodium 0.005 mg oral tablet (14 sources) l-Triiodothyroni ne Start: 07-19-2024 take 1 tablet by mouth once daily liothyronine 5 mcg oral tablet See Instructions, TAKE 1 TABLET DAILY, # 90 tab(s), 3 Refill(s), Pharmacy: [facility], 170.2, cm, 07/19/24 8:42:00 EST, Height, kg, 07/19/24 8:42:00 EST, Dosing Weight Start Date: 07/19/24 Status: Ordered Medication Dispense Status: Completed Quantity: 90.0 Unit: tab(s) Total Allowed Fills: 4 Fills Dispensed: 0 Start: 02-10-2023 take 1 tablet by jennifer once daily liothyronine 5 mcg oral tablet See Instructions, TAKE 1 TABLET DAILY, # 90 tab(s), 3 Refill(s), Pharmacy: [facility], 170.2, cm, 02/10/23 11:42:00 EDT, Height, kg, 02/10/23 11:42:00 EDT, Dosing Weight Start Date: 02/10/23 Status: Ordered Start: 10-25-2017 take 1 tablet by jennifer once daily Liothyronine 5 mcg tablet Active 5 ug PO DAILY August 26, 2022 1:00am Comment on above: Take 1 tablet by jennifer once daily. metoprolol tartrate 50 mg oral tablet (5 sources) beta-Adrenergic Samuel Start: 04-15-2025 Metoprolol Succinate ER 50 mg oral TABLET extended release Dose : 50 mg = 1 tab(s), 0 Refill(s) Start Date: 04/15/25 Status: Ordered Medication Dispense Status: Completed Total Allowed Fills: 1 Fills Dispensed: 0 Start: 03-02-2025 End: 03-05-2025 take 1 tablet by mouth once daily Metoprolol Succinate 50 mg tablet extended release 24 hr Active 50 mg PO DAILY 90 90 3 March 05, 2025 10:19am Vitamin D3 1250 mcg (50,000 intl units) oral capsule (1 source) Start: 03-18-2025 Vitamin D3 125 0 mcg (50,000 intl units) oral capsule Dose : 1,250 mcg = 1 cap(s), Oral, qWeek, # 12 cap(s), 0 Refill(s), Pharmacy: [facility], 170.2, cm, 07/19/24 8:42:00 EST, Height, kg, 07/19/24 8:42:00 EST, Dosing Weight Start Date: 03/18/25 Status: Ordered Medication Dispense Status: Completed Quantity: 12.0 Unit: cap(s) Total Allowed Fills: 1 Fills Dispensed: 0 Completed/Discontinued Medications Medication Drug Class(es) Dates Sig (Normalized) Sig (Original) [id number] 200 actuat albuterol 0.09 mg/actuat metered dose inhaler (9 sources) beta2-Adrenergic Agonist Start: 09-02-2022 End: 02-28-2025 [...] of breath. amoxicillin 500 mg oral capsule (11 sources) Penicillin-class Antibacterial Start: End: take 1 [...] Comment on above: Take 1 capsule by mo uth three times daily as needed for cough. calcium carbonate 1250 mg chewable tablet (9 sources) Start: End: take 1 tablet by mouth once daily Calcium Carbonate (Calcium 500) 500 mg calcium (1,250 mg) tablet,chewable Discontinued 500 mg PO DAILY August 26, 2022 1:00am February 28, 2025 12:33pm ferrous sulfate 325 mg oral tablet (9 sources) Start: End: take 1 tablet by mouth once daily Ferrous Sulfate 325 mg (65 mg iron) Tablet Discontinued 325 mg PO DAILY August 26, 2022 1:00am February 28, 2025 12:33pm predniSONE 20 mg oral tablet (9 sources) Start: End: take 3 tablets by mouth once daily Prednisone 20 mg tablet Discontinued 60 mg PO DAILY August 26, 2022 1:00am February 28, 2025 12:33pm Start: 08-26-2022 take 60 mg by mouth once daily Prednisone Active 60 MG PO DAILY August 26, 2022 12:00am valACYclovir 1000 mg oral tablet (9 sources) Herpesvirus Nucleoside Analog DNA Polymerase Inhibitor, [...] Documented Da te Episodic/Chronic Acute myocardial infarction (11 sources) Acute non-ST segment elevation myocardial infarction; Translations: [Non-ST elevation (NSTEMI) myocardial infarction] Onset: 03-02-2025 02-28-2025 Chronic Cancer of thyroid (7 sources) Malignant tumor of thyroid gland; Translations: [Malignant neoplasm of thyroid gland] Onset: 08-28-2010 08-03-2021 Chronic Cancer of thyroid (13 sources) History of malignant neoplasm of thyroid; Translations: [Personal history of malignant neoplasm of thyroid] 09-08-2022 Episodic Comment on above: Had surgery in 2009 here in [place]. Thyroglobin and anti-thyroglobin antibodies levels are normal. Cardiac dysrhythmias (3 sources) Ventricular premature beats; Translations: [Ventricular premature depolarization] Onset: 06-02-2016 06-02-2016 Chronic Conditions associated with dizziness or vertigo (9 sources) Dizziness; Translations: [Vertigo] 02-10-2023 Episodic Comment on above: Has some hearing imp airment. 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 Other screening for suspected conditions (not mental disorders or infectious disease) (14 sources) Abnormal findings on diagnostic imaging of skull and head; Translations: [Abnormal findings on diagnostic imaging of skull and head, not elsewhere classified] Onset: 04-29-2025 09-29-2022 Episodic Comment on above: Abnormal mass [...] 01-03-2014 01-03-2014 Chronic Other upper respiratory infections (12 sources) Acute maxillary sinusitis; Translations: [Acute maxillary sinusitis, unspecified] Episodic Thyroid disorders (3 sources) Hypothyroidism; Translations: [Hypothyroidism, unspecified] Onset: 07-20-2024 05-08-2020 Chronic Unclassified (3 sources) Can see midlevel Unclassified (2 sources) Acute non-ST elevation myocardial infarction (NSTEMI) Unclassified (2 sources) R07.9 - Chest pain, unspecified,I21.4 - Non-ST elevation (NSTEMI) myocardial infarction Viral infection (11 sources) Disease caused by 2019-nCoV; Translations: [COVID-19] 07-06-2021 Episodic Past or Other Problems Problem Classification Problem Date Documented Da te Episodic/Chronic Heart valve disorders (3 sources) Heart murmur; Translations: [Cardiac murmur, unspecified] Onset: 05-07-2010 05-07-2010 Episodic Unclassified (11 sources) removal of cancerous thyroid 02-26-2022 Results Test Name Value Interpretation Reference Range Facility MA MAMMOGRAM SCREENING BILAT ERAL W/TOMOon 05-02-2025 MA MAMMOGRAM SCREENING BILATERAL W/ANGELY ORIGINAL FROM: [address] [address] PROCEDURE FOR: NATHAN MURRELL [facility] [place] [address] Home: PID#: [id number] Exam#: [id number] : 1965 Age: 59 TO: HECTOR ABARCA NP [place], [place] [address] EXAMINATION: SCREENING DIGITAL BILATERAL MAMMOGRAM WITH TOMOSYNTHESIS, 04/29/2025 2:42 pm TECHNIQUE: Screening mammography of the bilateral breasts was performed with tomosynthesis. 2D standard and 3D tomosynthesis combination imaging performed through both breasts in the MLO and CC projection. Computer aided detection was utilized in the interpretation of this exam. COMPARISON: 02/12/2020 HISTORY: Breast cancer screening. FINDINGS: BREAST DENSITY: There are scattered areas of fibroglandular density. There are no significant masses or calcifications. IMPRESSION: No mammographic evidence of malignancy. Continued screening with annual mammograms is recommended. Allison Montiel risk calculations, generated with the history provided, report this patient's 10 year risk and lifetime risk for developing breast cancer at 1.5% and 3.7%, respectively. Based on this assessment tool, if the patient's calculated lifetime risk is below 20%, then the patient is considered at average risk for developing breast cancer. If the patient's calculated lifetime risk is at or above 20%, then the patient is considered high risk for developing breast cancer and may be a candidate for supplemental breast MRI screening in addition to annual mammographic screening per the [employer] [employer]. BIRADS: BI-RADS: 1: Negative RECALL: 1 year screening RECALL TYPE: mammo LETTER SENT: Normal BI-RADS 1 and 2 Interpreted by: Ramiro Hunt MD Preliminary Report By: Ramiro Hunt MD Electronically signed By Ramiro Hunt MD Dictated Date: 05/02/2025 8:46:55 AM Prelim Date: 05/02/2025 8:50:52 AM Sign Date: 05/02/2025 8:50:52 AM Ordering Provider: HECTOR ABARCA RP Workstation: [email or web address] Cloth Weigher: RICHI OMER RT(R)(M)(CT) letter sent: Normal BI-RADS 1 and 2 Mammogram BI-RADS: 1 Negative Normal [facility] Cardiac Cath Diagnosticon Cardiac Cath Diagnostic [facility] Imaging Services [address] [place] [address] Cardiac Cath Diagnostic MR#: [id number] Acct: [id number] Name: NATHAN MURRELL Rep #: [id number] : 1965 59 From: Rk Amaya MD PCP: Dr. Sherry Fierro MD Status:DIS IN Patient Name: NATHAN MURRELL Study Date: 03/01/2025 Performing: Rk Amaya MD Ht: 67 inches 170.18 cm : 1965 Wt: 145.3 lbs 65.8 kg Age: 59 Gender: female BSA: 1.76 PROCEDURE(S) PERFORMED DC01-(75946)LHC/COR/LV CLINICAL PROFILE AND INDICATIONS Indications: New Onset Angina <= 2 months Heart Failure: None Stress/Imaging Stress/Image Study Performed: No CAD Presentations: Non-STEMI. Symptom onset Date/Time: 03/01/25 Time Not Available CONCLUSIONS Coronary artery disease with distal right coronary artery PDA occlusion preserved ejection fraction with hypokinesis of the mid to distal inferior wall and apex. RECOMMENDATIONS Medical therapy DESCRIPTION OF PROCEDURE The patient arrived to the procedure lab. The risks and benefits of the procedure as well as a full description of our services here and current unavailability of surgical backup were fully explained to the patient and/or their significant other prior to the catheterization. The Timeout was completed, verifying the correct patient and procedure. The patient's procedural site was prepped and draped in the usual fashion. Local anesthetic was given subcutaneously to right radial region with Lidocaine 2%. Using a modified Seldinger technique, arterial access was obtained via the right radial artery, a 6Fr sheath was inserted. Right Coronary Artery selective angiography was then performed in multiple views using a 5 Fr. 4.0 [place] catheter. Left Coronary Artery selective angiography was performed in multiple views using a 5 Fr. 4.0 [place] catheter. Left Ventriculography was performed in JAIME projection using a 5 Fr. Pigtail catheter. LV to AO pullback pressures were then recorded.The arterial sheath was pulled and a TR Band was applied for hemostasis. 14cc air CORONARY ANGIOGRAPHY DOMINANCE: Right Dominant LEFT HEART ASSESSMENT Left Ventricular Ejection Fraction: by LV Gram 55 % Inferior Mid Hypokinesis - Severe Normal Left Ventricular systolic function LEFT MAIN: Angiographically normal LEFT ANTERIOR DESCENDING ARTERY: Mild luminal irregularities CIRCUMFLEX ARTERY: Mild luminal irregularities RIGHT CORONARY ARTERY: Dominant vessel with mild disease noted proximally the vessel then bifurcates to posterior descending artery and posterolateral vessel. The mid to distal posterior descending artery has a narrow area of approximately 80% and a very small vessel. It may represent an intramural hematoma. COMPLICATIONS No Complications PROCEDURE MEDICATIONS Fentanyl 50 mcg IV Versed 1 mg IV Oxygen: 2 L/min via nasal cannula Heparin given IA 03/01/2025 09:50:54 Verapamil 2.5mg, Ntg 100mcgs, 3000 units of Heparin given IA 03/01/2025 09:50:54 SUMMARY OF HEMODYNAMIC DATA Time AIR REST ECG 09:39:06 AO 155/87 (115) SA 10:15:37 LV 151/9, 15 10:21:09 LV 149/6, 15 10:21:16 LV 155/18, 21 10:22:27 LVp 157/17, 20 10:22:40 AOp 161/92 (122) 10:22:45 Signed By Rk Amaya MD On 03/01/2025 12:59:35 Signed By Rk Amaya MD On 03/01/2025 12:59:23 Rk Amaya MD 03/18/25 0947 Date Rk Ayalaigner Signature: Date (if indicated) CC: Dr. Rk Amaya MD; Dr. Sherry Fierro MD; Dr. Maurice Diaz MD Date Dictated: 03/01/25 0949 Date Transcribed: 03/01/25 1259 Cross Tie Cutter: CO Signed Normal [facility] Cardiology Visit Reporton Cardiology Visit Report [facility] [address] [place] [address]. [address] [place] [address] OFFICE VISIT Date of Service: 03/05/25 MR#: [id number] Acct: [id number] Name: NATHAN MURRELL Rep #: [id number] : 1965 Provider: JULIO CESAR Schofield Age/Sex: 59/F Location: [facility] Status: Signed HPI HPI History of Present Illness Details: Nathan Murrell is a 59-year-old female who [facility] to [facility]25 with concerns of chest discomfort. She reported experiencing an episode the week prior when she was feeling overwhelmed and had a panic attack, it lasted about 30 minutes. Morning prior to coming to the emergency department, she was running errands and began feeling anxious followed by some tightness and pressure in the center of her chest and bilateral arm achiness. Her troponin was found to be elevated at 106 and repeat 229. She underwent cardiac catheterization the following day, 03/01/2025 and this demonstrated 80% narrowing in the mid to distal posterior descending artery, mild disease in the proximal RCA, mild luminal irregularities in the circumflex artery, mild luminal irregularities in the LAD and angiographically normal left main. Recommendations was medical therapy. Her echocardiogram 03/01/2025 demonstrates an ejection fraction of 60% with mid???inferior hypokinesis, inferior apex hypokinetic, stage II diastolic dysfunction and mild tricuspid valve insufficiency with pulmonary artery systolic pressure 33 mmHg. She was discharged 03/02/2025 on antiplatelet therapy, high intensity statin and metoprolol. Upon presentation today, patient reports fatigue described as becoming tired in the afternoon and this has been noticed since her thyroid surgery in 2009. She reports her fatigue fluctuates, some weeks are good and some are more challenging. Her fatigue is reported to be the same since hospitalization/NSTEMI. Her balance problems are chronic since her thyroid surgery. She is cautious with certain movements. She denies any recurrence of her chest pain. Further ROS below. 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 Secretary Required: No Accompanied by: Self Is patient in pain?: No Allergies No Known Allergies Allergy (Verified 03/05/25 09:55) Medications ???Medication ???Instructions ???Recorded ???Confirmed ???Type liothyronine 5 mcg tablet 5 mcg PO DAILY 08/26/22 03/05/25 H istory cholecalciferol (vitamin D3) 1,250 1,250 mcg PO QWEEK 02/28/2502/06 History mcg (50,000 unit) capsule levothyroxine 100 mcg tablet 100 mcg PO DAILY 02/28/25 03/05/25 History aspirin 81 mg chewable tablet 81 mg PO BREAKFAST 90 days #90 tab s 03/05/25 03/05/25 Rx atorvastatin 80 mg tablet 80 mg PO QHS 90 days #90 tabs 02/0603/05/25 Rx metoprolol succinate 50 mg 50 mg PO DAILY 90 days #90 tabs 03/05/25 Rx tablet,extended release 24 hr Have you fallen in the past year?: No PFSH Medical History Heart murmur Hypothyroid removal of cancerous thyroid Surgical History Hx of foot surgery H/O section Hx of thyroidectomy Family History Mother Cancer metastatic-un known primary site Grandmother Uterine cancer Sister Thyroid cancer Social History Smoking Status: Never smoker alcohol intake: never substance use type: does not use caffeine: Yes ROS Const Const: Positive for fatigue; Negative for weakness ENT ENT: Positive for balance problems (attributes to thyroid removal); Negative for dizziness Cardio Chest Pain: No Palpitations: No Edema: None Muscle aches with walking: None Resp Respiratory: Negative for SOB with activity, SOB at rest or SOB orthopnea SOB lying down GI GI: Negative nausea, vomiting or heartburn Musc Musc: Positive for balance problems (attributes to thyroid removal); Negative for muscle weakness Neuro Neuro: Negative for dizziness, lightheadedness, near syncope, syncope or weakness Endo Endo: Positive for fatigue Cardiology Exam Const Appearance: cooperative, comfortable, no acute distress and well developed; Negative diaphoretic or ill appearing Nutritional Appearance: average body habitus Orientation: alert and oriented x3 Ambulating without assistive device Head Head: normal to inspection, normocephalic and atraumatic Ears: (more content not included)... Normal [facility] Absolute lymphocyte countOrd ered By: Maurice Diaz on 03-02-2025 Lymphocytes Auto (Unsp spec) [#/Vol] 1.49 10*3/uL 0.83-4.51 [facility] Absolute neutrophil countOrd ered By: Maurice Diza on 03-02-2025 Neutrophils (Bld) [#/Vol] 3.1 10*3/uL 2.0-7.7 [facility] Anion gap in Serum or Plasma Ordered By: Maurice Diaz on 03-02-2025 Anion gap [Moles/Vol] 10 mmol/L 12-20 [facility] Automated lymphocyte count a s percentage of total leukocytesOrdered By: Maurice Diaz on 03-02-2025 Lymphocytes/100 WBC Auto (Unsp spec) 27.9 % [facility] BUN/creatinine ratioOrdered By: Maurice Diaz on 03-02-2025 Urea nitrogen/Creatinine [Mass ratio] 19.5 mg/mg - [facility] Basic Metabolic Profile (BMP )on 03-02-2025 BUN/CRE 19.5 RATIO Normal 05-27 [facility] Comment on above: Performed By: #### L 100.0100, L500.2500 ####[facility] [address] [place], [address] Calcium [Mass/Vol] 9.5 mg/dL Normal 7.6-11.0 [facility] Comment on above: Performed By: #### L 100.0100, L500.2500 ####[facility] [address] [place], [address] Chloride [Moles/Vol] 107 mmol/L Normal 98-108 [facility] Comment on above: Performed By: #### L 100.0100, L500.2500 ####[facility] [address] [place], [address] CO2 [Moles/Vol] 24.2 mmol/L Normal 21.0-32.0 [facility] Comment on above: Performed By: #### L 100.0100, L500.2500 ####[facility] [address] [place], [address] Creatinine [Mass/Vol] 0.83 mg/dL Normal 0.70-1.20 [facility] Comment on above: Performed By: #### L 100.0100, L500.2500 ####[facility] [address] [place], [address] ECRCL 70.09 ml/min Normal 50-250 [facility] Comment on above: Performed By: #### L 100.0100, L500.2500 ####[facility] [address] [place], [place], [address] GAP 10 Normal 5-15 [facility] Comment on above: Performed By: #### L 100.0100, L500.2500 ####[facility] [address] [place], [address] GFR/1.73 sq M.predicted among non-blacks MDRD (S/P/Bld) [Vol rate/Area] 81 mL/min/{1.73_m2} Normal >60 [facility] Comment on above: Result Comment: mL/m in/1.73m2 CKD-EPI Creatinine Equation (2020) Performed By: #### L 100.0100, L500.2500 ####[facility] [address] [place], [address] Glucose [Mass/Vol] 84 mg/dL Normal 70-99 [facility] Comment on above: Performed By: #### L 100.0100, L500.2500 ####[facility] [address] [place], [address] Potassium [Moles/Vol] 4.5 mmol/L Normal 3.3-5.1 [facility] Comment on above: Performed By: #### L 100.0100, L500.2500 ####[facility] [address] [place], [address] Sodium [Moles/Vol] 141 mmol/L Normal 133-145 [facility] Comment on above: Performed By: #### L 100.0100, L500.2500 ####[facility] [address] [place], [address] Urea nitrogen [Mass/Vol] 16 mg/dL Normal 4-19 [facility] Comment on above: Performed By: #### L 100.0100, L500.2500 ####[facility] [address] [place], [address] Basophil percentageOrdered B y: Maurice Diaz on 03-02-2025 Basophils/100 WBC (Bld) 0.9 % 0-1 [facility] CBC W/Diff, Automatedon 02-06 Absolute Lymph 1.49 X10 3/uL Normal 0.83-4.51 [facility] Comment on above: Performed By: #### L 100.0100, L500.2500 ####[facility] [address] [place], [address] Absolute Neut 3.1 X10 3/uL Normal 2.0-7.7 [facility] Comment on above: Performed By: #### L 100.0100, L500.2500 ####[facility] [address] [place], [address] Basophils/100 WBC (Bld) 0.9 % Normal 0-1 [facility] Comment on above: Performed By: #### L 100.0100, L500.2500 ####[facility] [address] [place], [address] Eosinophils/100 WBC (Bld) 4.1 % Normal 0-5 [facility] Comment on above: Performed By: #### L 100.0100, L500.2500 ####[facility] [address] [place], [address] Erythrocyte distribution width (RBC) [Ratio] 12.8 % Normal 11.6-14.6 [facility] Comment on above: Performed By: #### L 100.0100, L500.2500 ####[facility] [address] [place], [address] Hematocrit (Bld) [Volume fraction] 39.0 % Normal 37-47 [facility] Comment on above: Performed By: #### L 100.0100, L500.2500 ####[facility] [address] [place], [address] Hemoglobin (Bld) [Mass/Vol] 12.9 g/dL Normal 12.0-15.0 [facility] Comment on above: Performed By: #### L 100.0100, L500.2500 ####[facility] [address] [place], [address] IG% 0.400 Normal 0.0-0.9 [facility] Comment on above: Result Comment: IG% - Immature Granulocytes (promyelocytes, myelocytes and metamyelocytes) > 1% indicates that a LEFT SHIFT is Present. Performed By: #### L 100.0100, L500.2500 ####[facility] [address] [place], [address] Lymphocytes/100 WBC (Bld) 27.9 % Normal 19-41 [facility] Comment on above: Performed By: #### L 100.0100, L500.2500 ####[facility] [address] [place], [address] MCH (RBC) [Entitic mass] 28.4 pg Normal 27.0-32.0 [facility] Comment on above: Performed By: #### L 100.0100, L500.2500 ####[facility] [address] [place], [address] MCHC (RBC) [Mass/Vol] 33.1 g/dL Normal 32-36 [facility] Comment on above: Performed By: #### L 100.0100, L500.2500 ####[facility] [address] [place], [address] MCV (RBC) [Entitic vol] 85.7 fL Normal 81-99 [facility] Comment on above: Performed By: #### L 100.0100, L500.2500 ####[facility] [address] [place], [address] Monocytes/100 WBC (Bld) 8.2 % Normal 0-10 [facility] Comment on above: Performed By: #### L 100.0100, L500.2500 ####[facility] [address] [place], [address] Neutrophils/100 WBC (Bld) 58.5 % Normal 47-70 [facility] Comment on above: Performed By: #### L 100.0100, L500.2500 ####[facility] [address] [place], [address] Nucleated RBC (Bld) [#/Vol] 0 10*3/uL Normal 0-5 [facility] Comment on above: Performed By: #### L 100.0100, L500.2500 ####[facility] [address] [place], [address] Platelet mean volume (Bld) [Entitic vol] 10.6 fL Normal 6.2-12.0 [facility] Comment on above: Performed By: #### L 100.0100, L500.2500 ####[facility] [address] [place], [address] Platelets (Bld) [#/Vol] 229 10*3/uL Normal 150-450 [facility] Comment on above: Performed By: #### L 100.0100, L500.2500 ####[facility] [address] [place], [address] RBC (Bld) [#/Vol] 4.55 10*6/uL Normal 4.2-5.4 [facility] Comment on above: Performed By: #### L 100.0100, L500.2500 ####[facility] [address] [place], [address] RDW SD 39.8 fl Normal 35.1-43.9 [facility] Comment on above: Performed By: #### L 100.0100, L500.2500 ####[facility] [address] [place], [address] WBC (Bld) [#/Vol] 5.3 10*3/uL Normal 4.4-11.0 [facility] Comment on above: Performed By: #### L 100.0100, L500.2500 ####[facility] [address] [place], [address] Carbon dioxide, total [Moles /volume] in Central venous bloodOrdered By: Maurice Diaz on 03-02-2025 CO2 [Moles/Vol] 24.2 mmol/L 21.0-32.0 [facility] Chloride assayOrdered By: Estefanía Diaz on 03-02-2025 Chloride [Moles/Vol] 107 mmol/L 98-108 [facility] Discharge Instructionon 02-06 Discharge Instruction [facility] Medical Records Department [address] [place] [address] Instructions for Home/Discharge Instructions 03/02/25 0719 MR#: [id number] Acct: [id number] Name: NATHAN MURRELL Rep #: [id number] : 1965 59 From: Maurice Diaz MD PCP: Dr. Sherry Fierro MD Status:ADM IN Discharge Instructions DC O2, CPAP, BIPAP needs Home O2 Discharge instructions: No Dressing / Incision Discharge Activity: Return to Normal Activity Dressing / Incision Call your doctor if you observe: Fever of 101 or Higher, Shortness of breath, Dizziness, Fainting spells, Swelling in the ankles, Chest pain and Increased palpitations (irregular heartbeat) Follow Up Care Test Results: Test results from this visit will be discussed in further detail at your follow-up appointment, if applicable. Discharge Plan Admission Admit Date/Time: 02/28/25 17:15 Attending Provider: Maurice Diaz Primary Care Provider: Sherry Fierro Consulting Providers: Navid Chamorro; Evon Vo Discharge Orders/Prescriptions Prescriptions: New aspirin 81 mg Tablet,Chewable 81 mg PO BREAKFAST 30 Days Qty: 30 0RF atorvastatin 80 mg Tablet 80 mg PO QHS 30 Days Qty: 30 0RF metoprolol succinate 50 mg Tablet Extended Release 24 Hr 50 mg PO DAILY 30 Days Qty: 30 0RF Continued liothyronine 5 mcg tablet 5 mcg PO DAILY levothyroxine 100 mcg tablet 100 mcg PO DAILY cholecalciferol (vitamin D3) 1,250 mcg (50,000 unit) capsule 1,250 mcg PO QWEEK Patient Comments: Take weekly on Sat. Referrals / Follow Up: Rk Amaya MD [Med Staff - Active Staff] - Within 1 Month (Can see midlevel) Sherry Fierro MD [Primary Care Provider] - Within 1 Week Disposition Disposition (needs filled in before D/C Order can be placed): Home, Self Care 03/02/25721 Maurice Diaz MD CC: Dr. Sherry Fierro MD; Dr. Navid Chamorro MD; Dr. Evon Vo MD Signed Normal [facility] Eosinophil percentageOrdered By: Maurice Diaz on 03-02-2025 Eosinophils/100 WBC (Bld) 4.1 % 0-5 [facility] Erythrocyte distribution wid th ratioOrdered By: Maurice Diaz on 03-02-2025 Erythrocyte distribution width (RBC) [Ratio] 12.8 % 11.6-14.6 [facility] Erythrocyte distribution wid th standard deviationOrdered By: Maurice Diaz on 03-02-2025 Erythrocyte distribution width (RBC) [Ratio] 39.8 fl 35.1-43.9 [facility] Glomerular filtration rate ( GFR) estimation/1.73 sq m using serum, plasma, or whole bOrdered By: Maurice Diaz on 03-02-2025 GFR/1.73 sq M.predicted among non-blacks MDRD (S/P/Bld) [Vol rate/Area] 81 mL/min/{1.73_m2} >60 [facility] Comment on above: mL/min/1.73m2 CKD-EP I Creatinine Equation (2020) Hematocrit Auto (Bld) [Volum e fraction]Ordered By: Maurice Diaz on 03-02-2025 Hematocrit (Bld) [Volume fraction] 39.0 % 37-47 [facility] Hemoglobin measurementOrdere d By: Maurice Diaz on 03-02-2025 Hemoglobin (Bld) [Mass/Vol] 12.9 g/dL 12.0-15.0 [facility] Immature granulocytes/100 WB C Auto (Bld)Ordered By: Maurice Diaz on 03-02-2025 Immature granulocytes/100 WBC (Bld) 0.400 % 0.0-0.9 [facility] Comment on above: IG% - Immature Granu locytes (promyelocytes, myelocytes and metamyelocytes) > 1% indicates that a LEFT SHIFT is Present. MCV (mean corpuscular volume ) determinationOrdered By: Maurice Diaz on 03-02-2025 MCV (RBC) [Entitic vol] 85.7 fL 81-99 [facility] Mean corpuscular hemoglobin (MCH) determinationOrdered By: Maurice Diaz on 03-02-2025 MCH (RBC) [Entitic mass] 28.4 pg 27.0-32.0 [facility] Mean corpuscular hemoglobin concentration (MCHC) determinationOrdered By: Maurice Diaz on 03-02-2025 MCHC (RBC) [Mass/Vol] 33.1 g/dL 32-36 [facility] Mean platelet volume determi nationOrdered By: Maurice Diaz on 03-02-2025 Platelet mean volume (Bld) [Entitic vol] 10.6 fL 6.2-12.0 [facility] Monocyte percentageOrdered B y: Maurice Diaz on 03-02-2025 Monocytes/100 WBC (Bld) 8.2 % 0-10 [facility] Neutrophil percentageOrdered By: Maurice Diaz on 03-02-2025 Neutrophils/100 WBC (Bld) 58.5 % 47-70 [facility] Nucleated red blood cell per centageOrdered By: Maurice Diaz on 03-02-2025 Nucleated RBC/100 WBC (Bld) [Ratio] 0 % 0-5 [facility] Platelet countOrdered By: Estefanía Diaz on 03-02-2025 Platelets (Bld) [#/Vol] 229 10*3/uL 150-450 [facility] Potassium measurement (mass/ volume)Ordered By: Maurice Diaz on 03-02-2025 Potassium (Unsp spec) [Mass/Vol] 4.5 mmol/L 3.3-5.1 [facility] RBC Auto (Bld) [#/Vol]Ordere d By: Maurice Diaz on 03-02-2025 RBC (Bld) [#/Vol] 4.55 10*6/uL 4.2-5.4 [facility] Serum creatinine measurement (mass/volume)Ordered By: Maurice Diaz on 03-02-2025 Creatinine [Mass/Vol] 0.83 mg/dL 0.70-1.20 [facility] Serum glucose measurement (m ass/volume)Ordered By: Maurice Diaz on 03-02-2025 Glucose [Mass/Vol] 84 mg/dL 70-99 [facility] Serum or plasma calcium tip urement (mass/volume)Ordered By: Maurice Diaz on 03-02-2025 Calcium [Mass/Vol] 9.5 mg/dL 7.6-11.0 [facility] Serum or plasma urea nitroge n measurement (mass/volume)Ordered By: Maurice Diaz on 03-02-2025 Urea nitrogen [Mass/Vol] 16 mg/dL 4-19 [facility] Sodium levelOrdered By: Nael Diaz on 03-02-2025 Sodium [Moles/Vol] 141 mmol/L 133-145 [facility] White blood cell (WBC) count Ordered By: Maurice Diaz on 03-02-2025 WBC (Bld) [#/Vol] 5.3 10*3/uL 4.4-11.0 [facility] Activated partial thrombopla stin time (aPTT) in platelet poor plasma by coagulation aOrdered By: Evon Vo on 03-01-2025 aPTT Coag (PPP) [Time] 62.3 s High 24.1-36.2 [facility] Basic Metabolic Profile (BMP )on 03-01-2025 BUN/CRE 17.7 RATIO Normal 10-20 [facility] Comment on above: Performed By: #### L 100.0100, L300.3900, L300.4310 #### [facility] [address] [place], [address] Calcium [Mass/Vol] 9.0 mg/dL Normal 7.6-11.0 [facility] Comment on above: Performed By: #### L 100.0100, L300.3900, L300.4310 #### [facility] [address] [place], [address] Chloride [Moles/Vol] 109 mmol/L High 98-108 [facility] Comment on above: Performed By: #### L 100.0100, L300.3900, L300.4310 #### [facility] [address] [place], [address] CO2 [Moles/Vol] 23.3 mmol/L Normal 21.0-32.0 [facility] Comment on above: Performed By: #### L 100.0100, L300.3900, L300.4310 #### [facility] [address] [place], [address] Creatinine [Mass/Vol] 0.75 mg/dL Normal 0.70-1.20 [facility] Comment on above: Performed By: #### L 100.0100, L300.3900, L300.4310 #### [facility] [address] [place], [address] ECRCL 77.57 ml/min Normal 50-250 [facility] Comment on above: Performed By: #### L 100.0100, L300.3900, L300.4310 #### [facility] [address] [place], [address] GAP 11 Normal 5-15 [facility] Comment on above: Performed By: #### L 100.0100, L300.3900, L300.4310 #### [facility] [address] [place], [address] GFR/1.73 sq M.predicted among non-blacks MDRD (S/P/Bld) [Vol rate/Area] 92 mL/min/{1.73_m2} Normal >60 [facility] Comment on above: Result Comment: mL/m in/1.73m2 CKD-EPI Creatinine Equation (2020) Performed By: #### L 100.0100, L300.3900, L300.4310 #### [facility] [address] [place], [address] Glucose [Mass/Vol] 100 mg/dL High 70-99 [facility] Comment on above: Performed By: #### L 100.0100, L300.3900, L300.4310 #### [facility] [address] [place], [address] Potassium [Moles/Vol] 3.8 mmol/L Normal 3.3-5.1 [facility] Comment on above: Performed By: #### L 100.0100, L300.3900, L300.4310 #### [facility] [address] [place], [address] Sodium [Moles/Vol] 144 mmol/L Normal 133-145 [facility] Comment on above: Performed By: #### L 100.0100, L300.3900, L300.4310 #### [facility] [address] [place], [address] Urea nitrogen [Mass/Vol] 13 mg/dL Normal 4-19 [facility] Comment on above: Performed By: #### L 100.0100, L300.3900, L300.4310 #### [facility] [address] [place], [address] CBC W/Diff, Automatedon 07-2 -2024 Absolute Lymph 1.53 X10 3/uL Normal 0.83-4.51 [facility] Comment on above: Performed By: #### L 100.0100, L300.3900, L300.4310 #### [facility] [address] [place], [address] Absolute Neut 3.9 X10 3/uL Normal 2.0-7.7 [facility] Comment on above: Performed By: #### L 100.0100, L300.3900, L300.4310 #### [facility] [address] [place], [address] Basophils/100 WBC (Bld) 0.7 % Normal 0-1 [facility] Comment on above: Performed By: #### L 100.0100, L300.3900, L300.4310 #### [facility] [address] [place], [address] Eosinophils/100 WBC (Bld) 2.8 % Normal 0-5 [facility] Comment on above: Performed By: #### L 100.0100, L300.3900, L300.4310 #### [facility] [address] [place], [address] Erythrocyte distribution width (RBC) [Ratio] 12.8 % Normal 11.6-14.6 [facility] Comment on above: Performed By: #### L 100.0100, L300.3900, L300.4310 #### [facility] [address] [place], [address] Hematocrit (Bld) [Volume fraction] 38.7 % Normal 37-47 [facility] Comment on above: Performed By: #### L 100.0100, L300.3900, L300.4310 #### [facility] [address] [place], [address] Hemoglobin (Bld) [Mass/Vol] 12.7 g/dL Normal 12.0-15.0 [facility] Comment on above: Performed By: #### L 100.0100, L300.3900, L300.4310 #### [facility] [address] [place], [address] IG% 0.200 Normal 0.0-0.9 [facility] Comment on above: Result Comment: IG% - Immature Granulocytes (promyelocytes, myelocytes and metamyelocytes) > 1% indicates that a LEFT SHIFT is Present. Performed By: #### L 100.0100, L300.3900, L300.4310 #### [facility] [address] [place], [address] Lymphocytes/100 WBC (Bld) 25.2 % Normal 19-41 [facility] Comment on above: Performed By: #### L 100.0100, L300.3900, L300.4310 #### [facility] [address] [place], [address] MCH (RBC) [Entitic mass] 28.3 pg Normal 27.0-32.0 [facility] Comment on above: Performed By: #### L 100.0100, L300.3900, L300.4310 #### [facility] [address] [place], [address] MCHC (RBC) [Mass/Vol] 32.8 g/dL Normal 32-36 [facility] Comment on above: Performed By: #### L 100.0100, L300.3900, L300.4310 #### [facility] [address] [place], [address] MCV (RBC) [Entitic vol] 86.4 fL Normal 81-99 [facility] Comment on above: Performed By: #### L 100.0100, L300.3900, L300.4310 #### [facility] [address] [place], [address] Monocytes/100 WBC (Bld) 7.7 % Normal 0-10 [facility] Comment on above: Performed By: #### L 100.0100, L300.3900, L300.4310 #### [facility] [address] [place], [address] Neutrophils/100 WBC (Bld) 63.4 % Normal 47-70 [facility] Comment on above: Performed By: #### L 100.0100, L300.3900, L300.4310 #### [facility] [address] [place], [address] Nucleated RBC (Bld) [#/Vol] 0 10*3/uL Normal 0-5 [facility] Comment on above: Performed By: #### L 100.0100, L300.3900, L300.4310 #### [facility] [address] [place], [address] Platelet mean volume (Bld) [Entitic vol] 10.7 fL Normal 6.2-12.0 [facility] Comment on above: Performed By: #### L 100.0100, L300.3900, L300.4310 #### [facility] [address] [place], [address] Platelets (Bld) [#/Vol] 227 10*3/uL Normal 150-450 [facility] Comment on above: Performed By: #### L 100.0100, L300.3900, L300.4310 #### [facility] [address] [place], [address] RBC (Bld) [#/Vol] 4.48 10*6/uL Normal 4.2-5.4 [facility] Comment on above: Performed By: #### L 100.0100, L300.3900, L300.4310 #### [facility] [address] [place], [address] RDW SD 40.3 fl Normal 35.1-43.9 [facility] Comment on above: Performed By: #### L 100.0100, L300.3900, L300.4310 #### [facility] [address] [place], [address] WBC (Bld) [#/Vol] 6.1 10*3/uL Normal 4.4-11.0 [facility] Comment on above: Performed By: #### L 100.0100, L300.3900, L300.4310 #### [facility] [address] [place], [address] Absolute Neut Normal 2.0-7.7 [facility] Comment on above: Result Comment: OVER LAPPING ORDER-CBCD ALSO ORDERED BY OTHER PROVIDER FOR AM LABS Performed By: #### L 100.0100 ####[facility] [address] [place], [address] HCT Normal 37-47 [facility] Comment on above: Result Comment: OVER LAPPING ORDER-CBCD ALSO ORDERED BY OTHER PROVIDER FOR AM LABS Performed By: #### L 100.0100 ####[facility] [address] [place], [address] HGB Normal 12.0-15.0 [facility] Comment on above: Result Comment: OVER LAPPING ORDER-CBCD ALSO ORDERED BY OTHER PROVIDER FOR AM LABS Performed By: #### L 100.0100 ####[facility] [address] [place], [address] MCH Normal 27.0-32.0 [facility] Comment on above: Result Comment: OVER LAPPING ORDER-CBCD ALSO ORDERED BY OTHER PROVIDER FOR AM LABS Performed By: #### L 100.0100 ####[facility] [address] [place], [address] MCHC Normal 32-36 [facility] Comment on above: Result Comment: OVER LAPPING ORDER-CBCD ALSO ORDERED BY OTHER PROVIDER FOR AM LABS Performed By: #### L 100.0100 ####[facility] [address] [place], [address] MCV Normal 81-99 [facility] Comment on above: Result Comment: OVER LAPPING ORDER-CBCD ALSO ORDERED BY OTHER PROVIDER FOR AM LABS Performed By: #### L 100.0100 ####[facility] [address] [place], [address] NEUT% Normal 47-70 [facility] Comment on above: Result Comment: OVER LAPPING ORDER-CBCD ALSO ORDERED BY OTHER PROVIDER FOR AM LABS Performed By: #### L 100.0100 ####[facility] [address] [place], [address] PLT Normal 150-450 [facility] Comment on above: Result Comment: OVER LAPPING ORDER-CBCD ALSO ORDERED BY OTHER PROVIDER FOR AM LABS Performed By: #### L 100.0100 ####[facility] [address] [place], [address] RBC Normal 4.2-5.4 [facility] Comment on above: Result Comment: OVER LAPPING ORDER-CBCD ALSO ORDERED BY OTHER PROVIDER FOR AM LABS Performed By: #### L 100.0100 ####[facility] [address] [place], [address] RDW CV Normal 11.6-14.6 [facility] Comment on above: Result Comment: OVER LAPPING ORDER-CBCD ALSO ORDERED BY OTHER PROVIDER FOR AM LABS Performed By: #### L 100.0100 ####[facility] [address] [place], [address] RDW SD Normal 35.1-43.9 [facility] Comment on above: Result Comment: OVER LAPPING ORDER-CBCD ALSO ORDERED BY OTHER PROVIDER FOR AM LABS Performed By: #### L 100.0100 ####[facility] [address] [place], [address] WBC Normal 4.4-11.0 [facility] Comment on above: Result Comment: OVER LAPPING ORDER-CBCD ALSO ORDERED BY OTHER PROVIDER FOR AM LABS Performed By: #### L 100.0100 ####[facility] [address] [place], [address] Consultation - Cardiologyon 03-01-2025 Consultation - Cardiology [facility] Medical Records Department [address] [facility] [place] [address] Consultation - Cardiology 03/01/25 0752 MR#: [id number] Acct: [id number] Name: NATHAN MURRELL Rep #: [id number] : 1965 59 From: Rk Amaya MD PCP: Dr. Sherry Fierro MD Status:DIS IN Location: [place] [address] Assessment Plan Assessment/Plan (1) Acute non-ST elevation myocardial infarction (NSTEMI): PLAN: She presents with chest discomfort and has a non-ST elevation myocardial infarction. My recommendation at this time in addition to the aspirin and the heparin is for her to undergo a left heart catheterization. Risk benefits alternatives have been explained to the patient she understands and agrees to proceed and depending on the findings further recommendations will be made. PLAN: Plan Addendum: Left heart catheterization demonstrated the following: Normal left main coronary. Left anterior descending artery with no significant disease. Left circumflex artery with no significant disease. Dominant right coronary artery with small distal right coronary artery subtotally occluded. Overall preserved left ventricular systolic function with mid and apical inferior hypokinesis. Would recommend aggressive medical therapy HPI Consult Data Date of Consult: 03/01/25 HPI Narrative HPI Narrative: NATHAN MURRELL, is a 59 F who presents to the emergency room with chest discomfort. She says she had an episode last week when she was feeling overwhelmed and had a panic attack. It lasted for about half an hour. She was apparently running errands when it happened. In the morning of presentation she had chest discomfort again associated with an anxious feeling tightness in her chest and developed a headache sensation. It also went down both arms. In the ED temp 97, heart rate of 70 and blood pressure 174/78, respiratory rate 22 and pulse ox 97% on room air, CBC with white blood cell count 8.1 and hemoglobin 12.9, BMP only remarkable for glucose 118, chest x-ray no acute process and troponin found to be elevated at 106. Repeat troponin 229. ED physician discussed with cardiology who recommended admission. At this particular time she is pain-free she was started on heparin. [facility] Medical History Heart murmur Hypothyroid removal of cancerous thyroid Home Medications ???Medication ???Instructions ???Recorded ???Last Taken ???Type liothyronine 5 mcg tablet 5 mcg PO DAILY 08/26/22 Unknown Hi story cholecalciferol (vitamin D3) 1,250 1,250 mcg PO QWEEK 02/28/25 Unkn own History mcg (50,000 unit) capsule levothyroxine 100 [...] substance use type: does not use ROS Constitutional Constitutional: Denies fever(s) or weight loss Eyes Eyes: Reports systems reviewed and no addt'l complaints, except as documented ENT HEENT: Reports systems reviewed and no addt'l complaints, except as documented Cardiovascular Cardiovascular: Reports chest pain with activity; Denies chest pain at rest, dyspnea at rest, dyspnea on exertion, edema, palpitations or paroxysmal nocturnal dyspnea Respiratory/Chest Respiratory/Chest: Denies dyspnea on exertion, productive cough, shortness of breath at rest or shortness of breath with exertion Gastrointestinal Gastrointestinal: Denies change in bowel habits, nausea, vomiting or weight changes Genitourinary Genitourinary: Denies difficulty urinating Musculoskeletal Musculoskeletal: Denies joint stiffness or muscle weakness Integumentary Integumentary: Denies lesions Neurologic Neurologic: Denies dizziness or syncope Psychiatric Psychiatric: Denies anxiety Endocrine Endocrinology: Denies excessive sweating or fatigue Hematologic/Lymphatic Hematologic/Lymphatic: Denies anemia Allergic/Immunologic Allergic/Immunologic: Denies seasonal rhinorrhea Physical Exam Const alert, oriented x3 and no apparent distress General Appearance: cooperative HEENT hearing grossly normal bilaterally Head and Scalp: atraumatic Eyes EOMs intact bilaterally Neck General: normal visual inspection Chest inspection of chest normal and palpation of chest normal Resp normal respiratory effort Auscultation: clear to auscult (more content not included)... Normal [facility] Echocardiogram study reportO rdered By: Rk Amaya on 03-01-2025 Study report [facility] Cardiovascular Services [address] [place] [address] Echo Complete 03/01/25 1322 MR#: [id number] Acct: [id number] Name: NATHAN MURRELL Rep #:[id number] : 1965 59 From: Rk Gutierrez Attending Dr: Dr. Maurice Diaz MD Status: ADM IN Ordering Dr: Evon Vo MD Date: Location: U Sex: F C Admitted: 02/28/25 Reason For Study Reason For Study: CHEST PAIN Procedure This was a 2D Doppler, Color Flow transthoracic echocardiogram. Exam performed portable in patient room. Left Ventricle Normal LV size. The left ventricular ejection fraction is 60 %. Segmental dysfunction with preserved ejection fraction (see wall motion). Mild segmental systolic dysfunction (see wall motion). Stage 2 diastolic dysfunction. Mid-Inferior: Hypokinetic. Inferior [place] : Hypokinetic. The rest of the wall segments are normal. Right Ventricle Normal RV size. Normal systolic function. Atria Normal left atrium. Normal right atrium. Mitral Valve Normal mitral valve. Tricuspid Valve Normal tricuspid valve. Mild (1+) tricuspid valve insufficiency. Pulmonary artery systolic pressure is 33 mmHg. Aortic Valve Trisinus/trileaflet aortic valve. Pulmonic Valve Normal pulmonic valve. Great Vessels Normal aortic root. The pulmonary artery is normal size. Inferior vena cava collapse with respiration. Pericardium/Pleural No pericardial effusion. MMode/2D Measurements & Calculations LVIDd: 4.2 cm IVSd: 1.0 cm LAV(MOD-bp): 39.6 ml LVIDs: 2.5 cm LVPWd: 1.1 cm LAV(MOD-bp) Indexed: 22.4 ml/m2 RVDd: 3.4 cm FS: 40.4 % LAV(MOD-sp2): 32.3 ml LAV(MOD-sp4): 45.5 ml SV(MOD-sp4): 50.0 ml SV(sp4-el): 50.4 ml LVAd ap4: 23.9 cm2 LVLd ap4: 7.2 cm SI(MOD-sp4): 28.3 ml/m2 EDV(MOD-sp4): 67.0 ml EDV(sp4-el): 67.1 ml LVAs ap4: 10.5 cm2 LVLs ap4: 5.6 cm ESV(MOD-sp4): 17.0 ml ESV(sp4-el): 16.7 ml EF(MOD-sp4): 74.6 % EF(sp4-el): 75.1 % LA A4 area: 16.4 cm2 RA A4 area: 15.3 cm2 Time Measurements MV dec time: 0.26 sec Doppler Measurements & Calculations MV E max caro: 78.9 cm/sec Lat Peak E' Caro: 8.4 cm/sec Med Peak E' Caro: 6.9 cm/sec MV A max caro: 70.7 cm/sec E/E' lat: 9.4 E/E' med: 11.5 MV E/A: 1.1 MV V2 max: 82.7 cm/sec MV dec slope: 307.5 cm/sec2 Ao V2 max: 124.0 cm/sec MV max P.7 mmHg Ao max P.2 mmHg MV V2 mean: 50.4 cm/sec Ao V2 mean: 82.8 cm/sec MV mean P.2 mmHg Ao mean P.2 mmHg MV V2 VTI: 30.3 cm Ao V2 VTI: 27.2 cm AV (velocity ratio): 0.90 LV V1 max: 110.4 cm/sec TR max caro: 269.5 cm/sec LV V1 max P.9 mmHg TR max P.0 mmHg LV V1 mean P.7 mmHg LV V1 mean: 78.2 cm/sec LV V1 VTI: 24.3 cm ECHO/Echo Complete Interpretation Summary Normal LV size. The left ventricular ejection fraction is 60 %. Segmental dysfunction with preserved ejection fraction (see wall motion). Mild segmental systolic dysfunction (see wall motion). Stage 2 diastolic dysfunction. Ordering Physician: Evon Vo Referring Physician: Sherry Fierro Performed By: Yoselin Griffin and Student 03/01/251729 Date _ Rk Amaya MD CC: Dr. Sherry Fierro MD; Dr. Maurice Diaz MD; Dr. Evon Vo MD ~ Date Dictated: 03/01/25 1322 Date Transcribed: 03/01/251729 Cross Tie Cutter: Signed [facility] Work Phone: International normalized rat io (INR) calculationOrdered By: Evon Vo on 03-01-2025 INR Coag (Bld) [Relative time] 1.3 {INR} [facility] Partial Thromboplast Timeon 03-01-2025 aPTT Coag (Bld) [Time] 62.3 s High 24.1-36.2 [facility] Comment on above: Performed By: #### L 100.0100, L300.3900, L300.4310 #### [facility] [address] [place], [place], [id number] Prothrombin Time w/INRon INR Coag (PPP) [Relative time] 1.3 {INR} Normal [facility] Comment on above: Performed By: #### L 100.0100, L300.3900, L300.4310 #### [facility] [address] [place], [place], [address] PT Coag (PPP) [Time] 16.0 s High 11.7-14.9 [facility] Comment on above: Performed By: #### L 100.0100, L300.3900, L300.4310 #### [facility] [address] [place], [place], [id number] Prothrombin timeOrdered By: Evon Vo on 03-01-2025 PT Coag (PPP) [Time] 16.0 s High 11.7-14.9 [facility] 12 Lead EKGon 02-28-2025 12 Lead EKG [facility] Cardiovascular Services [address] [place] [address] 12 Lead EKG 02/28/25 2207 MR#: [id number] Acct: [id number] Name: NATHAN MURRELL Rep #: [id number] : 1965 59 From: Rk Amaya MD Attending Dr: Dr. Maurice Diaz MD Status : DIS IN Ordering Dr: Evon Vo MD Date: 02/28/25 Location: [facility] Sex: F C Admitted: 02/28/25 Test Reason : CHEST PAIN Blood Pressure : */* mmHG Vent. Rate : 61 BPM Atrial Rate : 61 BPM P-R Int : 158 ms QRS Dur : 98 ms QT Int : 408 ms P-R-T Axes : 55 38 3 degrees QTcB Int : 410 ms Normal sinus rhythm Inferior infarct , age undetermined Abnormal ECG When compared with ECG of 28-Feb-2025 14:24, MANUAL COMPARISON REQUIRED DATA IS UNCONFIRMED Confirmed by MONIQUE GOEL, RK ([id number]), editor & co founder LAITH OSULLIVAN ([id number]) on 03/04/2025 9:46:20 AM Referred By: WINSTON Confirmed By: RK AMAYA MD 03/04/25 0946 Date Rk Amaya MD CC: Dr. Sherry Fierro MD; Dr. Maurice Diaz MD; Dr. Evon Vo MD Signed [facility] 12 Lead EKG [facility] Cardiovascular Services [address] [place] [address] 12 Lead EKG 02/28/25 1424 MR#: [id number] Acct: [id number] Name: NATHAN MURRELL Rep #: [id number] : 1965 59 From: Rk Amaya MD Attending Dr: Dr. Maurice Diaz MD Status : DIS IN Ordering Dr: Malaika Landry DO Date: 02/28/25 Location: [facility] Sex: F C Admitted: 02/28/25 Test Reason : CP Blood Pressure : */* mmHG Vent. Rate : 64 BPM Atrial Rate : 64 BPM P-R Int : 160 ms QRS Dur : 86 ms QT Int : 420 ms P-R-T Axes : 38 30 23 degrees QTcB Int : 433 ms Normal sinus rhythm Possible Inferior infarct , age undetermined Abnormal ECG Confirmed by MONIQUE GOEL, RK ([id number]), editor & co founder LAITH OSULLIVAN ([id number]) on 03/04/2025 9:40:14 AM Referred By: JOSE Confirmed By: RK AMAYA MD 03/04/25 0940 Date Rk Amaya MD CC: Dr. Malaika Landry DO; Dr. Sherry Fierro MD; Dr. Maurice Diaz MD Signed [facility] 12 Lead EKG [facility] Cardiovascular Services [address] [place] [address] 12 Lead EKG 02/28/25 1313 MR#: [id number] Acct: [id number] Name: NATHAN MURRELL Rep #: [id number] : 1965 59 From: Rk Amaya MD Attending Dr: Dr. Maurice Diaz MD Status : DIS IN Ordering Dr: Malaika Landry DO Date: 02/28/25 Location: [facility] Sex: F C Admitted: 02/28/25 Test Reason : Blood Pressure : */* mmHG Vent. Rate : 57 BPM Atrial Rate : 57 BPM P-R Int : 168 ms QRS Dur : 92 ms QT Int : 428 ms P-R-T Axes : 63 60 64 degrees QTcB Int : 416 ms Sinus bradycardia Otherwise normal ECG Confirmed by RK AMAYA MD ([id number]), editor & co founder LAITH OSULLIVAN ([id number]) on 03/04/2025 9:40:00 AM Referred By: JOSE Confirmed By: RK AMAYA MD 03/04/25 0940 Date Rk Amaya MD CC: Dr. Malaika Landry DO; Dr. Sherry Fierro MD; Dr. Maurice Diaz MD Signed Normal [facility] Absolute lymphocyte countOrd ered By: Malaika Landry on 02-28-2025 Lymphocytes Auto (Unsp spec) [#/Vol] 1.07 10*3/uL 0.83-4.51 [facility] Absolute neutrophil countOrd ered By: Malaika Landry on 02-28-2025 Neutrophils (Bld) [#/Vol] 7.9 10*3/uL High 2.0-7.7 [facility] Activated partial thrombopla stin time (aPTT) in platelet poor plasma by coagulation aOrdered By: Malaika Landry on 02-28-2025 aPTT Coag (PPP) [Time] 25.8 s 24.1-36.2 [facility] Anion gap in Serum or Plasma Ordered By: Malaika Landry on 02-28-2025 Anion gap [Moles/Vol] 10 mmol/L 5-15 [facility] Automated lymphocyte count a s percentage of total leukocytesOrdered By: Malaika Landry on 02-28-2025 Lymphocytes/100 WBC Auto (Unsp spec) 11.4 % Low 19-41 [facility] BUN/creatinine ratioOrdered By: Malaika Landry on 02-28-2025 Urea nitrogen/Creatinine [Mass ratio] 23.7 mg/mg High - [facility] Basic Metabolic Profile (BMP )on 02-28-2025 BUN/CRE 23.7 RATIO High 05-27 [facility] Comment on above: Performed By: #### L 501.4021, L100.0100, L500.2500 ####[facility] [address] [place], [address] Calcium [Mass/Vol] 9.3 mg/dL Normal 7.6-11.0 [facility] Comment on above: Performed By: #### L 501.4021, L100.0100, L500.2500 ####[facility] [address] [place], [address] Chloride [Moles/Vol] 105 mmol/L Normal 98-108 [facility] Comment on above: Performed By: #### L 501.4021, L100.0100, L500.2500 ####[facility] [address] [place], [address] CO2 [Moles/Vol] 23.7 mmol/L Normal 21.0-32.0 [facility] Comment on above: Performed By: #### L 501.4021, L100.0100, L500.2500 ####[facility] [address] [place], [address] Creatinine [Mass/Vol] 0.76 mg/dL Normal 0.70-1.20 [facility] Comment on above: Performed By: #### L 501.4021, L100.0100, L500.2500 ####[facility] [address] [place], [address] ECRCL 76.55 ml/min Normal 50-250 [facility] Comment on above: Performed By: #### L 501.4021, L100.0100, L500.2500 ####[facility] [address] [place], [address] GAP 10 Normal 5-15 [facility] Comment on above: Performed By: #### L 501.4021, L100.0100, L500.2500 ####[facility] [address] [place], [address] GFR/1.73 sq M.predicted among non-blacks MDRD (S/P/Bld) [Vol rate/Area] 90 mL/min/{1.73_m2} Normal >60 [facility] Comment on above: Result Comment: mL/m in/1.73m2 CKD-EPI Creatinine Equation (2020) Performed By: #### L 501.4021, L100.0100, L500.2500 ####[facility] [address] [place], [address] Glucose [Mass/Vol] 118 mg/dL High 70-99 [facility] Comment on above: Performed By: #### L 501.4021, L100.0100, L500.2500 ####[facility] [address] [place], [address] Potassium [Moles/Vol] 3.7 mmol/L Normal 3.3-5.1 [facility] Comment on above: Performed By: #### L 501.4021, L100.0100, L500.2500 ####[facility] [address] [place], [address] Sodium [Moles/Vol] 139 mmol/L Normal 133-145 [facility] Comment on above: Performed By: #### L 501.4021, L100.0100, L500.2500 ####[facility] [address] [place], [address] Urea nitrogen [Mass/Vol] 18 mg/dL Normal 4-19 [facility] Comment on above: Performed By: #### L 501.4021, L100.0100, L500.2500 ####[facility] [address] [place], [address] Basophil percentageOrdered B y: Malaika Landry on 02-28-2025 Basophils/100 WBC (Bld) 0.4 % 0-1 [facility] CBC W/Diff, Automatedon 02-06 Absolute Lymph 1.07 X10 3/uL Normal 0.83-4.51 [facility] Comment on above: Order Comment: Comme nts: If not done in prior 24 hours Performed By: #### L 100.0100, L300.3900, L300.4310 #### [facility] [address] [place], [address] Absolute Neut 7.9 X10 3/uL High 2.0-7.7 [facility] Comment on above: Order Comment: Comme nts: If not done in prior 24 hours Performed By: #### L 100.0100, L300.3900, L300.4310 #### [facility] [address] [place], [address] Basophils/100 WBC (Bld) 0.4 % Normal 0-1 [facility] Comment on above: Order Comment: Comme nts: If not done in prior 24 hours Performed By: #### L 100.0100, L300.3900, L300.4310 #### [facility] [address] [place], [address] Eosinophils/100 WBC (Bld) 0.6 % Normal 0-5 [facility] Comment on above: Order Comment: Comme nts: If not done in prior 24 hours Performed By: #### L 100.0100, L300.3900, L300.4310 #### [facility] [address] [place], [address] Erythrocyte distribution width (RBC) [Ratio] 12.8 % Normal 11.6-14.6 [facility] Comment on above: Order Comment: Comme nts: If not done in prior 24 hours Performed By: #### L 100.0100, L300.3900, L300.4310 #### [facility] [address] [place], [address] Hematocrit (Bld) [Volume fraction] 38.5 % Normal 37-47 [facility] Comment on above: Order Comment: Comme nts: If not done in prior 24 hours Performed By: #### L 100.0100, L300.3900, L300.4310 #### [facility] [address] [place], [address] Hemoglobin (Bld) [Mass/Vol] 13.0 g/dL Normal 12.0-15.0 [facility] Comment on above: Order Comment: Comme nts: If not done in prior 24 hours Performed By: #### L 100.0100, L300.3900, L300.4310 #### [facility] [address] [place], [address] IG% 0.300 Normal 0.0-0.9 [facility] Comment on above: Order Comment: Comme nts: If not done in prior 24 hours Result Comment: IG% - Immature Granulocytes (promyelocytes, myelocytes and metamyelocytes) > 1% indicates that a LEFT SHIFT is Present. Performed By: #### L 100.0100, L300.3900, L300.4310 #### [facility] [address] [place], [address] Lymphocytes/100 WBC (Bld) 11.4 % Low 19-41 [facility] Comment on above: Order Comment: Comme nts: If not done in prior 24 hours Performed By: #### L 100.0100, L300.3900, L300.4310 #### [facility] [address] [place], [address] MCH (RBC) [Entitic mass] 28.6 pg Normal 27.0-32.0 [facility] Comment on above: Order Comment: Comme nts: If not done in prior 24 hours Performed By: #### L 100.0100, L300.3900, L300.4310 #### [facility] [address] [place], [address] MCHC (RBC) [Mass/Vol] 33.8 g/dL Normal 32-36 [facility] Comment on above: Order Comment: Comme nts: If not done in prior 24 hours Performed By: #### L 100.0100, L300.3900, L300.4310 #### [facility] [address] [place], [address] MCV (RBC) [Entitic vol] 84.8 fL Normal 81-99 [facility] Comment on above: Order Comment: Comme nts: If not done in prior 24 hours Performed By: #### L 100.0100, L300.3900, L300.4310 #### [facility] [address] [place], [address] Monocytes/100 WBC (Bld) 3.4 % Normal 0-10 [facility] Comment on above: Order Comment: Comme nts: If not done in prior 24 hours Performed By: #### L 100.0100, L300.3900, L300.4310 #### [facility] [address] [place], [address] Neutrophils/100 WBC (Bld) 83.9 % High 47-70 [facility] Comment on above: Order Comment: Comme nts: If not done in prior 24 hours Performed By: #### L 100.0100, L300.3900, L300.4310 #### [facility] [address] [place], [address] Nucleated RBC (Bld) [#/Vol] 0 10*3/uL Normal 0-5 [facility] Comment on above: Order Comment: Comme nts: If not done in prior 24 hours Performed By: #### L 100.0100, L300.3900, L300.4310 #### [facility] [address] [place], [address] Platelet mean volume (Bld) [Entitic vol] 10.2 fL Normal 6.2-12.0 [facility] Comment on above: Order Comment: Comme nts: If not done in prior 24 hours Performed By: #### L 100.0100, L300.3900, L300.4310 #### [facility] [address] [place], [address] Platelets (Bld) [#/Vol] 247 10*3/uL Normal 150-450 [facility] Comment on above: Order Comment: Comme nts: If not done in prior 24 hours Performed By: #### L 100.0100, L300.3900, L300.4310 #### [facility] [address] [place], [address] RBC (Bld) [#/Vol] 4.54 10*6/uL Normal 4.2-5.4 [facility] Comment on above: Order Comment: Comme nts: If not done in prior 24 hours Performed By: #### L 100.0100, L300.3900, L300.4310 #### [facility] [address] [place], [address] RDW SD 39.7 fl Normal 35.1-43.9 [facility] Comment on above: Order Comment: Comme nts: If not done in prior 24 hours Performed By: #### L 100.0100, L300.3900, L300.4310 #### [facility] [address] [place], [address] WBC (Bld) [#/Vol] 9.4 10*3/uL Normal 4.4-11.0 [facility] Comment on above: Order Comment: Comme nts: If not done in prior 24 hours Performed By: #### L 100.0100, L300.3900, L300.4310 #### [facility] [address] [place], [address] Absolute Lymph 0.81 X10 3/uL Low 0.83-4.51 [facility] Comment on above: Performed By: #### L 501.4021, L100.0100, L500.2500 ####[facility] [address] [place], [address] Absolute Neut 6.8 X10 3/uL Normal 2.0-7.7 [facility] Comment on above: Performed By: #### L 501.4021, L100.0100, L500.2500 ####[facility] [address] [place], [address] Basophils/100 WBC (Bld) 0.6 % Normal 0-1 [facility] Comment on above: Performed By: #### L 501.4021, L100.0100, L500.2500 ####[facility] [address] [place], [address] Eosinophils/100 WBC (Bld) 0.5 % Normal 0-5 [facility] Comment on above: Performed By: #### L 501.4021, L100.0100, L500.2500 ####[facility] [address] [place], [address] Erythrocyte distribution width (RBC) [Ratio] 12.8 % Normal 11.6-14.6 [facility] Comment on above: Performed By: #### L 501.4021, L100.0100, L500.2500 ####[facility] [address] [place], [address] Hematocrit (Bld) [Volume fraction] 38.3 % Normal 37-47 [facility] Comment on above: Performed By: #### L 501.4021, L100.0100, L500.2500 ####[facility] [address] [place], [address] Hemoglobin (Bld) [Mass/Vol] 12.9 g/dL Normal 12.0-15.0 [facility] Comment on above: Performed By: #### L 501.4021, L100.0100, L500.2500 ####[facility] [address] [place], [address] IG% 0.400 Normal 0.0-0.9 [facility] Comment on above: Result Comment: IG% - Immature Granulocytes (promyelocytes, myelocytes and metamyelocytes) > 1% indicates that a LEFT SHIFT is Present. Performed By: #### L 501.4021, L100.0100, L500.2500 ####[facility] [address] [place], [address] Lymphocytes/100 WBC (Bld) 10.0 % Low 19-41 [facility] Comment on above: Performed By: #### L 501.4021, L100.0100, L500.2500 ####[facility] [address] [place], [address] MCH (RBC) [Entitic mass] 28.5 pg Normal 27.0-32.0 [facility] Comment on above: Performed By: #### L 501.4021, L100.0100, L500.2500 ####[facility] [address] [place], [address] MCHC (RBC) [Mass/Vol] 33.7 g/dL Normal 32-36 [facility] Comment on above: Performed By: #### L 501.4021, L100.0100, L500.2500 ####[facility] [address] [place], [address] MCV (RBC) [Entitic vol] 84.5 fL Normal 81-99 [facility] Comment on above: Performed By: #### L 501.4021, L100.0100, L500.2500 ####[facility] [address] [place], [address] Monocytes/100 WBC (Bld) 4.8 % Normal 0-10 [facility] Comment on above: Performed By: #### L 501.4021, L100.0100, L500.2500 ####[facility] [address] [place], [address] Neutrophils/100 WBC (Bld) 83.7 % High 47-70 [facility] Comment on above: Performed By: #### L 501.4021, L100.0100, L500.2500 ####[facility] [address] [place], [address] Nucleated RBC (Bld) [#/Vol] 0 10*3/uL Normal 0-5 [facility] Comment on above: Performed By: #### L 501.4021, L100.0100, L500.2500 ####[facility] [address] [place], [address] Platelet mean volume (Bld) [Entitic vol] 10.4 fL Normal 6.2-12.0 [facility] Comment on above: Performed By: #### L 501.4021, L100.0100, L500.2500 ####[facility] [address] [place], [address] Platelets (Bld) [#/Vol] 237 10*3/uL Normal 150-450 [facility] Comment on above: Performed By: #### L 501.4021, L100.0100, L500.2500 ####[facility] [address] [place], [address] RBC (Bld) [#/Vol] 4.53 10*6/uL Normal 4.2-5.4 [facility] Comment on above: Performed By: #### L 501.4021, L100.0100, L500.2500 ####[facility] [address] [place], [address] RDW SD 39.2 fl Normal 35.1-43.9 [facility] Comment on above: Performed By: #### L 501.4021, L100.0100, L500.2500 ####[facility] [address] [place], [address] WBC (Bld) [#/Vol] 8.1 10*3/uL Normal 4.4-11.0 [facility] Comment on above: Performed By: #### L 501.4021, L100.0100, L500.2500 ####[facility] [address] [place], [address] Carbon dioxide, total [Moles /volume] in Central venous bloodOrdered By: Malaika Landry on 02-28-2025 CO2 [Moles/Vol] 23.7 mmol/L 21.0-32.0 [facility] Chest PA and Lateralon 02-28 Chest PA and Lateral [facility] Imaging Services [address] [address] Chest PA and Lateral MR#: [id number] Acct: [id number] Name: NATHAN MURRELL Rep #: [id number] : 1965 F 59 From: Sly Freitas MD PCP: Dr. Sherry Fierro MD Status: [facility] Study: Chest PA and Lateral Date of Exam: 02/28/25 Exam# [id number] Ordering Dr: Malaika Landry DO PROCEDURE: CHEST PA AND LATERAL 02/28/2025 REASON FOR EXAM: CHEST PAIN TECHNIQUE: CHEST PA AND LATERAL COMPARISON: August 26, 2022 FINDINGS: Heart size and mediastinal configuration are within normal limits. There is no focal infiltrate or consolidation. There is no pneumothorax or effusion. Aortic calcifications are visible. There is no acute bony abnormality. RAD/Chest PA and Lateral IMPRESSION: No acute process is identified in the chest. Reading Location: [facility] CC: Dr. Malaika Landry, DO; Dr. Sherry Fierro MD Cross Tie Cutter: Signed [facility] Chloride assayOrdered By: Edin Landry on 02-28-2025 Chloride [Moles/Vol] 105 mmol/L 98-108 [facility] Echo Completeon 02-28-2025 Echo Complete [facility] [address] [place] [address] Echo Complete 03/01/25 1322 MR#: [id number] Acct: [id number] Name: NATHAN MURRELL Rep #: [id number] : 1965 59 From: Rk Amaya MD Attending Dr: Dr. Maurice Diaz MD Status : ADM IN Ordering Dr: Evon Vo MD Date: 02/28/25 Location: PCU Sex: F C Admitted: 02/28/25 Reason For Study Reason For Study: CHEST PAIN Procedure This was a 2D Doppler, Color Flow transthoracic echocardiogram. Exam performed portable in patient room. Left Ventricle Normal LV size. The left ventricular ejection fraction is 60 %. Segmental dysfunction with preserved ejection fraction (see wall motion). Mild segmental systolic dysfunction (see wall motion). Stage 2 diastolic dysfunction. Mid-Inferior: Hypokinetic. Inferior [place] : Hypokinetic. The rest of the wall segments are normal. Right Ventricle Normal RV size. Normal systolic function. Atria Normal left atrium. Normal right atrium. Mitral Valve Normal mitral valve. Tricuspid Valve Normal tricuspid valve. Mild (1+) tricuspid valve insufficiency. Pulmonary artery systolic pressure is 33 mmHg. Aortic Valve Trisinus/trileaflet aortic valve. Pulmonic Valve Normal pulmonic valve. Great Vessels Normal aortic root. The pulmonary artery is normal size. Inferior vena cava collapse with respiration. Pericardium/Pleural No pericardial effusion. MMode/2D Measurements Calculations LVIDd: 4.2 cm IVSd: 1.0 cm LAV(MOD-bp): 39.6 ml LVIDs: 2.5 cm LVPWd: 1.1 cm LAV(MOD-bp) Indexed: 22.4 ml/m2 RVDd: 3.4 cm FS: 40.4 % LAV(MOD-sp2): 32.3 ml LAV(MOD-sp4): 45.5 ml SV(MOD-sp4): 50.0 ml SV(sp4-el): 50.4 ml LVAd ap4: 23.9 cm2 LVLd ap4: 7.2 cm SI(MOD-sp4): 28.3 ml/m2 EDV(MOD-sp4): 67.0 ml EDV(sp4-el): 67.1 ml LVAs ap4: 10.5 cm2 LVLs ap4: 5.6 cm ESV(MOD-sp4): 17.0 ml ESV(sp4-el): 16.7 ml EF(MOD-sp4): 74.6 % EF(sp4-el): 75.1 % LA A4 area: 16.4 cm2 RA A4 area: 15.3 cm2 Time Measurements MV dec time: 0.26 sec Doppler Measurements Calculations MV E max caro: 78.9 cm/sec Lat Peak E' Caro: 8.4 cm/sec Med Peak E' Caro: 6.9 cm/sec MV A max caro: 70.7 cm/sec E/E' lat: 9.4 E/E' med: 11.5 MV E/A: 1.1 MV V2 max: 82.7 cm/sec MV dec slope: 307.5 cm/sec2 Ao V2 max: 124.0 cm/sec MV max P.7 mmHg Ao max P.2 mmHg MV V2 mean: 50.4 cm/sec Ao V2 mean: 82.8 cm/sec MV mean P.2 mmHg Ao mean P.2 mmHg MV V2 VTI: 30.3 cm Ao V2 VTI: 27.2 cm AV (velocity ratio): 0.90 LV V1 max: 110.4 cm/sec TR max caro: 269.5 cm/sec LV V1 max P.9 mmHg TR max P.0 mmHg LV V1 mean P.7 mmHg LV V1 mean: 78.2 cm/sec LV V1 VTI: 24.3 cm ECHO/Echo Complete Interpretation Summary Normal LV size. The left ventricular ejection fraction is 60 %. Segmental dysfunction with preserved ejection fraction (see wall motion). Mild segmental systolic dysfunction (see wall motion). Stage 2 diastolic dysfunction. Ordering Physician: Evon Vo Referring Physician: Sherry Fierro Performed By: Yoselin Griffin and Student 03/01/25 173 Date Rk Amaya MD CC: Dr. Sherry Fierro MD; Dr. Maurice Diaz MD; Dr. Evon Vo MD Date Dictated: 03/01/25 1322 Date Transcribed: 03/01/251729 Cross Tie Cutter: Signed [facility] Emergency Department Summary on 02-28-2025 Emergency Department Summary [facility] Medical Records Department [address] [place] [address] Emergency Department Summary 02/28/25 MR#: [id number] Acct: [id number] Name: NATHAN MURRELL Rep #: [id number] : 1965 59 From: Malaika Landry DO PCP: Dr. Sherry Fierro MD Status:REG ER Location: ED HPI History of Present Illness Chief Complaint: Anxiety Informant: patient Narrative Narrative: Patient is a 59-year-old female with history of thyroid cancer (previously treated and now on Synthroid), lifelong heart murmur and chronic lightheadedness presenting with chest discomfort. He states she had an episode last week where she was feeling overwhelmed that she is having a panic attack. It lasted for about 30 minutes. 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 Denies associated GI or symptoms. PFSH PFSH Medical History Heart murmur Hypothyroid removal of cancerous thyroid Home Medications ???Medication ???Instructions ???Recorded ???Last Taken ???Type liothyronine 5 mcg tablet 5 mcg PO DAILY 08/26/22 Unknown Hi story cholecalciferol (vitamin D3) 1,250 1,250 mcg PO QWEEK 02/28/25 Unkn own History mcg (50,000 unit) capsule levothyroxine 100 [...] weakness Psych mental status grossly normal Mood Affect: anxious; Negative for tearful Skin no rashes or les (more content not included)... [facility] Eosinophil percentageOrdered By: Malaika Landry on 02-28-2025 Eosinophils/100 WBC (Bld) 0.6 % 0-5 [facility] Erythrocyte distribution wid th ratioOrdered By: Malaika Landry on 02-28-2025 Erythrocyte distribution width (RBC) [Ratio] 12.8 % 11.6-14.6 [facility] Erythrocyte distribution wid th standard deviationOrdered By: Malaika Landry on 02-28-2025 Erythrocyte distribution width (RBC) [Ratio] 39.7 fl 35.1-43.9 [facility] Glomerular filtration rate ( GFR) estimation/1.73 sq m using serum, plasma, or whole bOrdered By: Malaika Landry on 02-28-2025 GFR/1.73 sq M.predicted among non-blacks MDRD (S/P/Bld) [Vol rate/Area] 90 mL/min/{1.73_m2} >60 [facility] Comment on above: mL/min/1.73m2 CKD-EP I Creatinine Equation (2020) [facility] Exam - Hospitalist [facility] Medical Records Department [address] [place] [address] H P Exam - Hospitalist 02/28/25 1713 MR#: [id number] Acct: [id number] Name: NATHAN MURRELL Rep #: [id number] : 1965 59 From: Evon Vo MD PCP: Dr. Sherry Fierro MD Status:REG ER Location: ED HPI - General General Date of Admission: 02/28/25 Date of Service: 02/28/25 Chief Complaint: Chest pain HPI Narrative NATHAN MURRELL, is a 59-year-old female history of thyroid cancer previously treated and now on Synthroid, chronic lightheadedness who presented to [facility] ED 02/28/2025 with chest discomfort. She had [...] has no other new or acute complaints. [facility] Medical History Heart murmur Hypothyroid removal of cancerous thyroid Home Medications ???Medication ???Instructions ???Recorded ???Last Taken ???Type liothyronine 5 mcg tablet 5 mcg PO DAILY 08/26/22 Unknown Hi story cholecalciferol (vitamin D3) 1,250 1,250 mcg PO QWEEK 02/28/25 Unkn own History mcg (50,000 unit) capsule levothyroxine 100 [...] Index (BMI) 23.8 Physical Exam Narrative General: A (more content not included)... [facility] Hematocrit Auto (Bld) [Volum e fraction]Ordered By: Malaika Landry on 02-28-2025 Hematocrit (Bld) [Volume fraction] 38.5 % 37-47 [facility] Hemoglobin measurementOrdere d By: Malaika Landry on 02-28-2025 Hemoglobin (Bld) [Mass/Vol] 13.0 g/dL 12.0-15.0 [facility] Immature granulocytes/100 WB C Auto (Bld)Ordered By: Malaika Landry on 02-28-2025 Immature granulocytes/100 WBC (Bld) 0.300 % 0.0-0.9 [facility] Comment on above: IG% - Immature Granu locytes (promyelocytes, myelocytes and metamyelocytes) > 1% indicates that a LEFT SHIFT is Present. International normalized rat io (INR) calculationOrdered By: Malaika Landry on 02-28-2025 INR Coag (Bld) [Relative time] 1.2 {INR} [facility] L501.4021on 02-28-2025 Trop T High Sen 106 ng/L Invalid Interpretation Code <=14 [facility] Comment on above: Result Comment: Crit ical Result(s) Called at 1414: by: ALEXX MCCALLUM TO [facility].??Results read back by same. Performed By: #### L 501.4021, L100.0100, L500.2500 ####[facility] [address] [place], [address] MCV (mean corpuscular volume ) determinationOrdered By: Malaika Landry on 02-28-2025 MCV (RBC) [Entitic vol] 84.8 fL 81-99 [facility] Mean corpuscular hemoglobin (MCH) determinationOrdered By: Malaika Landry on 02-28-2025 MCH (RBC) [Entitic mass] 28.6 pg 27.0-32.0 [facility] Mean corpuscular hemoglobin concentration (MCHC) determinationOrdered By: Malaika Landry on 02-28-2025 MCHC (RBC) [Mass/Vol] 33.8 g/dL 32-36 [facility] Mean platelet volume determi nationOrdered By: Malaika Landry on 02-28-2025 Platelet mean volume (Bld) [Entitic vol] 10.2 fL 6.2-12.0 [facility] Monocyte percentageOrdered B y: Malaika Landry on 02-28-2025 Monocytes/100 WBC (Bld) 3.4 % 0-10 [facility] Neutrophil percentageOrdered By: Malaika Landry on 02-28-2025 Neutrophils/100 WBC (Bld) 83.9 % High 47-70 [facility] Nucleated red blood cell per centageOrdered By: Malaika Landry on 02-28-2025 Nucleated RBC/100 WBC (Bld) [Ratio] 0 % 0-5 [facility] Partial Thromboplast Timeon 02-28-2025 aPTT Coag (Bld) [Time] 76.0 s High 24.1-36.2 [facility] Comment on above: Performed By: #### L 300.4310 #### [facility] [address] [place], [place], [address] aPTT Coag (Bld) [Time] 25.8 s Normal 24.1-36.2 [facility] Comment on above: Order Comment: Comme nts: If not done in prior 24 hours Performed By: #### L 100.0100, L300.3900, L300.4310 #### [facility] [address] [place], [address] Platelet countOrdered By: Edin Landry on 02-28-2025 Platelets (Bld) [#/Vol] 247 10*3/uL 150-450 [facility] Potassium measurement (mass/ volume)Ordered By: Malaika Landry on 02-28-2025 Potassium (Unsp spec) [Mass/Vol] 3.7 mmol/L 3.3-5.1 [facility] Prothrombin Time w/INRon INR Coag (PPP) [Relative time] 1.2 {INR} [facility] Comment on above: Order Comment: Comme nts: If not done in prior 24 hours Performed By: #### L 100.0100, L300.3900, L300.4310 #### [facility] [address] [place], [address] PT Coag (PPP) [Time] 15.3 s High 11.7-14.9 [facility] Comment on above: Order Comment: Comme nts: If not done in prior 24 hours Performed By: #### L 100.0100, L300.3900, L300.4310 #### [facility] [address] [place], [address] Prothrombin timeOrdered By: Malaika Landry on 02-28-2025 PT Coag (PPP) [Time] 15.3 s High 11.7-14.9 [facility] RBC Auto (Bld) [#/Vol]Ordere d By: Malaika Landry on 02-28-2025 RBC (Bld) [#/Vol] 4.54 10*6/uL 4.2-5.4 [facility] Serum creatinine measurement (mass/volume)Ordered By: Malaika Landry on 02-28-2025 Creatinine [Mass/Vol] 0.76 mg/dL 0.70-1.20 [facility] Serum glucose measurement (m ass/volume)Ordered By: Malaika Landry on 02-28-2025 Glucose [Mass/Vol] 118 mg/dL High 70-99 [facility] Serum or plasma calcium tip urement (mass/volume)Ordered By: Malaika Landry on 02-28-2025 Calcium [Mass/Vol] 9.3 mg/dL 7.6-11.0 [facility] Serum or plasma urea nitroge n measurement (mass/volume)Ordered By: Malaika Landry on 02-28-2025 Urea nitrogen [Mass/Vol] 18 mg/dL 4-19 [facility] Sodium levelOrdered By: Nettie Landry on 02-28-2025 Sodium [Moles/Vol] 139 mmol/L 133-145 [facility] Troponin T HS 2 HRon 025 Trop T High Sen 229 ng/L Invalid Interpretation Code <=14 [facility] Comment on above: Result Comment: Crit ical Result(s) Called at: Christina0 TO Leann BISHOP by:??Lam GAMEZ. Results read back by same. Performed By: #### L 499.0042 #### [facility] [address] [place], [place], [id number] (319) Troponin T HS 4 HRon 025 Trop T High Sen 429 ng/L Invalid Interpretation Code <=14 [facility] Comment on above: Result Comment: Crit ical Result(s) Called at: 0610 TO Jazmin ABDUL by:??Lam GAMEZ. Results read back by same. Performed By: #### L 499.0043 ####[facility] [address] [place], [place], [address](752) Troponin T.cardiac [Mass/vol ume] in Serum or Plasma by High sensitivity methodOrdered By: Malaika Landry on 02-28-2025 Troponin T.cardiac High sensitivity method [Mass/Vol] 429 ng/L High <14 [facility] Comment on above: Critical Result(s) C alled at: 0610 TO Jazmin ABDUL by: Lam GAMEZ. Results read back by same. Troponin T.cardiac High sensitivity method [Mass/Vol] 229 ng/L High <14 [facility] Comment on above: Critical Result(s) C alled at: Christina0 ANISHA BISHOP by: Lam GAMEZ. Results read back by same. Troponin T.cardiac High sensitivity method [Mass/Vol] 106 ng/L High <14 [facility] Comment on above: Critical Result(s) C alled at 1414: by: ALEXX MCCALLUM TO [facility]. Results read back by same. White blood cell (WBC) count Ordered By: Malaika Landry on 02-28-2025 WBC (Bld) [#/Vol] 9.4 10*3/uL 4.4-11.0 [facility] Comprehensive Metabolic Prof ilon 07-14-2024 Albumin [Mass/Vol] 3.5 g/dL Normal 3.2-5.0 [facility] Comment on above: Performed By: #### L 500.4050, L506.0400, L500.4100, L506.1000, L501.9520, L501.62534 #### [facility] [address] [place], [address] Albumin/Globulin [Mass ratio] 1.0 {ratio} Normal 0.9-2.4 [facility] Comment on above: Performed By: #### L 500.4050, L506.0400, L500.4100, L506.1000, L501.9520, L501.77150 #### [facility] [address] [place], [address] ALK P 64 U/L Normal 45-117 [facility] Comment on above: Performed By: #### L 500.4050, L506.0400, L500.4100, L506.1000, L501.9520, L501.99137 #### [facility] [address] [place], [address] ALT [Catalytic activity/Vol] 24 U/L Normal 13-56 [facility] Comment on above: Performed By: #### L 500.4050, L506.0400, L500.4100, L506.1000, L501.9520, L501.02391 #### [facility] [address] [place], [address] AST [Catalytic activity/Vol] 13 U/L Low 15-37 [facility] Comment on above: Performed By: #### L 500.4050, L506.0400, L500.4100, L506.1000, L501.9520, L501.38306 #### [facility] [address] [place], [address] Bilirubin [Mass/Vol] 0.70 mg/dL Normal 0.20-1.00 [facility] Comment on above: Result Comment: For patients on eltrombopag therapy, use of Dimension [place] TBIL is not recommended. Performed By: #### L 500.4050, L506.0400, L500.4100, L506.1000, L501.9520, L501.00042 #### [facility] [address] [place], [address] BUN/CRE 14.9 RATIO Normal 10-20 [facility] Comment on above: Performed By: #### L 500.4050, L506.0400, L500.4100, L506.1000, L501.9520, L501.05528 #### [facility] [address] [place], [address] CA,Total 9.1 mg/dL Normal 8.5-10.1 [facility] Comment on above: Performed By: #### L 500.4050, L506.0400, L500.4100, L506.1000, L501.9520, L501.59678 #### [facility] [address] [place], [address] Chloride [Moles/Vol] 108 mmol/L High 98-107 [facility] Comment on above: Performed By: #### L 500.4050, L506.0400, L500.4100, L506.1000, L501.9520, L501.65661 #### [facility] [address] [place], [address] CO2 [Moles/Vol] 30.0 mmol/L Normal 21.0-32.0 [facility] Comment on above: Performed By: #### L 500.4050, L506.0400, L500.4100, L506.1000, L501.9520, L501.20989 #### [facility] [address] [place], [address] Creatinine [Mass/Vol] 0.88 mg/dL Normal 0.55-1.02 [facility] Comment on above: Result Comment: The validity of the calculated GFR GFRAA in patients over 70 years has not been determined. Clinical correlation is essential. Performed By: #### L 500.4050, L506.0400, L500.4100, L506.1000, L501.9520, L501.28927 #### [facility] [address] [place], [address] EST GFR - AA 85 mL/min Normal >60 [facility] Comment on above: Result Comment: Afri can Mauritian GFR Calc Performed By: #### L 500.4050, L506.0400, L500.4100, L506.1000, L501.9520, L501.89565 #### [facility] [address] [place], [address] GAP 2 Low 5-15 [facility] Comment on above: Performed By: #### L 500.4050, L506.0400, L500.4100, L506.1000, L501.9520, L501.91413 #### [facility] [address] [place], [address] GFR/1.73 sq M.predicted among non-blacks MDRD (S/P/Bld) [Vol rate/Area] 70 mL/min/{1.73_m2} Normal >60 [facility] Comment on above: Result Comment: Non- GFR Calc Performed By: #### L 500.4050, L506.0400, L500.4100, L506.1000, L501.9520, L501.94579 #### [facility] [address] [place], [address] Globulin (S) [Mass/Vol] 3.5 g/dL Normal 2.2-4.2 [facility] Comment on above: Performed By: #### L 500.4050, L506.0400, L500.4100, L506.1000, L501.9520, L501.45922 #### [facility] [address] [place], [address] Glucose [Mass/Vol] 96 mg/dL Normal 74-106 [facility] Comment on above: Performed By: #### L 500.4050, L506.0400, L500.4100, L506.1000, L501.9520, L501.78560 #### [facility] [address] [place], [address] Potassium [Moles/Vol] 4.0 mmol/L Normal 3.5-5.1 [facility] Comment on above: Performed By: #### L 500.4050, L506.0400, L500.4100, L506.1000, L501.9520, L501.59130 #### [facility] [address] [place], [address] Sodium [Moles/Vol] 139 mmol/L Normal 136-145 [facility] Comment on above: Performed By: #### L 500.4050, L506.0400, L500.4100, L506.1000, L501.9520, L501.68054 #### [facility] [address] [place], [address] T PROT 7.0 g/dL Normal 6.4-8.2 [facility] Comment on above: Performed By: #### L 500.4050, L506.0400, L500.4100, L506.1000, L501.9520, L501.33568 #### [facility] [address] [place], [address] Urea nitrogen [Mass/Vol] 13 mg/dL Normal 7-18 [facility] Comment on above: Performed By: #### L 500.4050, L506.0400, L500.4100, L506.1000, L501.9520, L501.81938 #### [facility] [address] [place], [address] Free T3on 07-14-2024 Free T3 [Mass/Vol] 3.3 pg/mL Normal 2.18-3.98 [facility] Comment on above: Performed By: #### L 500.4050, L506.0400, L500.4100, L506.1000, L501.9520, L501.57613 ####[facility] [address] [place], [address] Lipid Profileon 07-14-2024 Cholesterol [Mass/Vol] 201 mg/dL High 200 [facility] Comment on above: Result Comment: <200 mg/dL Desirable 200-240 mg/dL Borderline >240 mg/dL High Risk Performed By: #### L 500.4050, L506.0400, L500.4100, L506.1000, L501.9520, L501.53537 #### [facility] [address] [place], [address] Cholesterol in HDL [Mass/Vol] 74 mg/dL Normal [facility] Comment on above: Result Comment: The drugs N-Acetylcysteine and Metamizole may falsely depress this assay. Reference Range HDL <40 mg/dL Low HDL Cholesterol HDL >or= 60 mg/dL High HDL Cholesterol Performed By: #### L 500.4050, L506.0400, L500.4100, L506.1000, L501.9520, L501.92169 #### [facility] [address] [place], [address] Cholesterol in LDL [Mass/Vol] 116 mg/dL Normal 0-130 [facility] Comment on above: Performed By: #### L 500.4050, L506.0400, L500.4100, L506.1000, L501.9520, L501.35860 #### [facility] [address] [place], [address] Cholesterol in VLDL [Mass/Vol] 11 mg/dL Normal 5-40 [facility] Comment on above: Performed By: #### L 500.4050, L506.0400, L500.4100, L506.1000, L501.9520, L501.70713 #### [facility] [address] [place], [address] Triglyceride [Mass/Vol] 53 mg/dL Normal [facility] Comment on above: Result Comment: The drugs N-Acetylcysteine and Metamizole may falsely depress this assay. Serum Triglycerides Reference Interval Normal <150 mg/dL Borderline high 150 - 199 mg/dL High 200 - 499 mg/dL Very High > or = 500 mg/dL Performed By: #### L 500.4050, L506.0400, L500.4100, L506.1000, L501.9520, L501.83231 #### [facility] [address] [place], [address] T4 Free Directon 07-14-2024 T4 FREE DIRECT 1.00 ng/dL Normal 0.76-1.46 [facility] Comment on above: Performed By: #### L 500.4050, L506.0400, L500.4100, L506.1000, L501.9520, L501.17341 ####[facility] [address] [place], [address] Thyroid Stim Hormone (TSH)on 07-14-2024 TSH 2.450 uIU/mL Normal 0.358-3.74 0 [facility] Comment on above: Performed By: #### L 500.4050, L506.0400, L500.4100, L506.1000, L501.9520, L501.02599 ####[facility] [address] [place], [address] Vitamin D,25 Hydroxyon 07-14 Vitamin D 25-OH 25.8 ng/mL Normal [facility] Comment on above: Result Comment: Erika min D 25(OH) Status Range Deficiency <20 ng/mL (50nmol/L) Insufficiency 20 - 30 ng/mL (50 - 75 nmol/L) Sufficiency 30 - 100 ng/mL (75 - 250 nmol/L) Toxicity >100 ng/mL (>250 nmol/L) Performed By: #### L 500.4050, L506.0400, L500.4100, L506.1000, L501.9520, L501.75867 #### [facility] [address] [place], [place], [address] Laboratory - Chemistry and C hemistry - challengeOrdered By: Marnie Isaac on 07-07-2023 Free T4 [Mass/Vol] 1.08 ng/dL 0.76-1.46 [facility] No Panel InformationOrdered By: Marnie Isaac on 07-07-2023 Thyroid Stimulating Hormone (TSH) 1.17 uIU/mL 0.358-3.74 [facility] Basophil percentageOrdered B y: Sherry Fierro on 03-28-2023 Chloride [Moles/Vol] 108 mmol/L 98-107 [facility] Glucose [Mass/Vol] 99 mg/dL 74-106 [facility] Potassium [Moles/Vol] 4.3 mmol/L 3.5-5.1 [facility] Sodium [Moles/Vol] 141 mmol/L 136-145 [facility] Laboratory - Chemistry and C hemistry - challengeOrdered By: Sherry Fierro on 03-28-2023 CO2 [Moles/Vol] 29.0 mmol/L 21.0-32.0 [facility] Free T4 [Mass/Vol] 1.03 ng/dL 0.76-1.46 [facility] Urea nitrogen/Creatinine [Mass ratio] 20.2 mg/mg 10-20 [facility] No Panel InformationOrdered By: Sherry Fierro on 03-28-2023 Estimated GFR (MDRD) Amer 78 mL/min >60 [facility] Comment on above: GFR Calc Estimated GFR (MDRD) Non-Af Amer 65 mL/min >60 [facility] Comment on above: Non- GFR Calc Free Triiodothyronine (T3) pg/dL 3.4 pg/mL 2.18-3.98 [facility] Thyroid Stimulating Hormone (TSH) 1.34 uIU/mL 0.358-3.74 [facility] Serum or plasma calcium tip urement (mass/volume)Ordered By: Sherry Fierro on 03-28-2023 Calcium [Mass/Vol] 9.7 mg/dL 8.5-10.1 [facility] Serum or plasma cortisol oz surement (mass/volume)Ordered By: Sherry Fierro on 03-28-2023 Cortisol [Mass/Vol] 13.70 ug/dL 3.44-22.45 [facility] Comment on above: Adult (AM) 5.27 - 22 .45 ug/dL Adult (PM) 3.44 - 16.76 ug/dLPlease note revised CORTISOL reference range effective 2019. Serum or plasma creatinine m easurement (mass/volume)Ordered By: Sherry Fierro on 03-28-2023 Creatinine [Mass/Vol] 0.94 mg/dL 0.55-1.02 [facility] Comment on above: The validity of the calculated GFR & GFRAA in patients over 70 years has not been determined. Clinical correlation is essential. Serum or plasma urea nitroge n measurement (mass/volume)Ordered By: Sherry Fierro on 03-28-2023 Urea nitrogen [Mass/Vol] 19 mg/dL 7-18 [facility] Thin prep Papanicolaou smear with manual screeningOrdered By: Sherry Fierro on 03-28-2023 Thin prep Papanicolaou smear with manual screening 4 5-15 [facility] Laboratory - Chemistry and C hemistry - challengeOrdered By: Dr. Leon on 01-07-2023 Free T4 [Mass/Vol] 0.83 ng/dL 0.76-1.46 [facility] No Panel InformationOrdered By: Dr. Leon on 01-07-2023 Thyroglobulin Antibody < 1.0 IU/mL 0.0-0.9 [facility] Comment on above: Thyroglobulin Antibo dy measured by Benedict CoulterMethodology Thyroglobulin Level < 0.1 ng/mL 1.5-38.5 [facility] Comment on above: According to the [employer],the reference interval for Thyroglobulin (TG) should berelated to euthyroid patients and not for patients whounderwent thyroidectomy. TG reference intervals for thesepatients depend on the residual mass of the thyroid tissueleft after surgery. Establishing a post-operative baselineis recommended. The assay limit of quantitation is 0.1ng/mLThyroglobulin measured by Benedict Recommind ImmunometricAssayPerformed at: [employer] [address] [id number] Director: Nito Steinberg PhD, Phone: [phone] Thyroid Stimulating Hormone (TSH) 6.82 uIU/mL 0.358-3.74 [facility] Laboratory - Chemistry and C hemistry - challengeOrdered By: Dr. Leon on 09-27-2022 Free T4 [Mass/Vol] 0.92 ng/dL 0.76-1.46 [facility] No Panel InformationOrdered By: Dr. Leon on 09-27-2022 Miscellaneous Test See comment [facility] Comment on above: TEST RESULT LIMITSCo mprehensive [...] was developed and its performance characteristicsdetermined by [employer]. It has not been cleared or approvedby the Food and Drug Administration. TESTING PERFORMED AT [facility]. ORIGINAL REPORT ON FILE IN LAB CONTAINS ADDITIONAL TEST SITE INFORMATION. Thyroid Stimulating Hormone (TSH) 1.58 uIU/mL 0.358-3.74 [facility] Absolute lymphocyte countOrd ered By: Dr. Landry on 08-26-2022 Lymphocytes Auto (Unsp spec) [#/Vol] 1.61 10*3/uL 0.83-4.51 [facility] Basophil percentageOrdered B y: Dr. Landry on 08-26-2022 Basophils/100 WBC (Bld) 0.8 % 0-1 [facility] Chloride [Moles/Vol] 106 mmol/L 98-107 [facility] Eosinophils/100 WBC (Bld) 4.2 % 0-5 [facility] Glucose [Mass/Vol] 95 mg/dL 74-106 [facility] Neutrophils (Bld) [#/Vol] 3.0 10*3/uL 2.0-7.7 [facility] Neutrophils/100 WBC (Bld) 56.1 % 47-70 [facility] Potassium [Moles/Vol] 3.6 mmol/L 3.5-5.1 [facility] Sodium [Moles/Vol] 140 mmol/L 136-145 [facility] WBC (Bld) [#/Vol] 5.3 10*3/uL 4.4-11.0 [facility] Blood erythrocytes count (nu mber/volume)Ordered By: Dr. Landry on 08-26-2022 RBC (Bld) [#/Vol] 4.52 10*6/uL 4.2-5.4 [facility] Blood hemoglobin measurement (mass/volume)Ordered By: Dr. Landry on 08-26-2022 Hemoglobin (Bld) [Mass/Vol] 13.0 g/dL 12.0-15.0 [facility] Blood lymphocytes/100 leukoc ytesOrdered By: Dr. Landry on 08-26-2022 Lymphocytes/100 WBC (Bld) 30.4 % 19-41 [facility] Blood monocytes/100 leukocyt esOrdered By: Dr. Landry on 08-26-2022 Monocytes/100 WBC (Bld) 8.3 % 0-10 [facility] Blood platelet mean volumeOr dered By: Dr. Landry on 08-26-2022 Platelet mean volume (Bld) [Entitic vol] 10.6 fL 6.2-12.0 [facility] Determination of erythrocyte mean corpuscular volume (MCV)Ordered By: Dr. Landry on 08-26-2022 MCV (RBC) [Entitic vol] 86.5 fL 81-99 [facility] Hematocrit Auto (Bld) [Volum e fraction]Ordered By: Dr. Landry on 08-26-2022 Hematocrit (Bld) [Volume fraction] 39.1 % 37-47 [facility] INR in Blood by Coagulation assayOrdered By: Dr. Landry on 08-26-2022 INR Coag (Bld) [Relative time] 1.2 {INR} [facility] Laboratory - Chemistry and C hemistry - challengeOrdered By: Dr. Landry on 08-26-2022 CO2 [Moles/Vol] 29.0 mmol/L 21.0-32.0 [facility] Magnesium [Mass/Vol] 2.6 mg/dL 1.6-2.6 [facility] Urea nitrogen/Creatinine [Mass ratio] 16.9 mg/mg 10-20 [facility] Laboratory - CoagulationOrde red By: Dr. Landry on 08-26-2022 aPTT Coag (Bld) [Time] 29.6 s 24.1-36.2 [facility] PT Coag (PPP) [Time] 15.0 s 11.7-14.9 [facility] Laboratory - Hematology and Cell countsOrdered By: Dr. Landry on 08-26-2022 Erythrocyte distribution width (RBC) [Entitic vol] 38.9 fL 35.1-43.9 [facility] Erythrocyte distribution width (RBC) [Ratio] 12.4 % 11.6-14.6 [facility] Immature granulocytes/100 WBC (Bld) 0.200 % 0.0-0.9 [facility] Comment on above: IG% - Immature Granu locytes (promyelocytes, myelocytes and metamyelocytes) > 1% indicates that a LEFT SHIFT is Present. MCH (RBC) [Entitic mass] 28.8 pg 27.0-32.0 [facility] Nucleated RBC/100 WBC (Bld) [Ratio] 0 % 0-5 [facility] MCHC Auto (RBC) [Mass/Vol]Or dered By: Dr. Landry on 08-26-2022 MCHC (RBC) [Mass/Vol] 33.2 g/dL 32-36 [facility] No Panel InformationOrdered By: Dr. Landry on 08-26-2022 Estimated Creatinine Clearance Calc 67.00 ml/min [facility] Estimated GFR (MDRD) Amer 84 mL/min >60 [facility] Comment on above: GFR Calc Estimated GFR (MDRD) Non-Af Amer 69 mL/min >60 [facility] Comment on above: Non- GFR Calc Thyroid Stimulating Hormone (TSH) 3.80 uIU/mL 0.358-3.74 [facility] Platelets bldOrdered By: Dr. Landry on 08-26-2022 Platelets (Bld) [#/Vol] 251 10*3/uL 150-450 [facility] Serum or plasma calcium tip urement (mass/volume)Ordered By: Dr. Landry on 08-26-2022 Calcium [Mass/Vol] 9.4 mg/dL 8.5-10.1 [facility] Serum or plasma creatinine m easurement (mass/volume)Ordered By: Dr. Landry on 08-26-2022 Creatinine [Mass/Vol] 0.89 mg/dL 0.55-1.02 [facility] Comment on above: The validity of the calculated GFR & GFRAA in patients over 70 years has not been determined. Clinical correlation is essential. Serum or plasma urea nitroge n measurement (mass/volume)Ordered By: Dr. Landry on 08-26-2022 Urea nitrogen [Mass/Vol] 15 mg/dL 7-18 [facility] Thin prep Papanicolaou smear with manual screeningOrdered By: Dr. Landry on 08-26-2022 Thin prep Papanicolaou smear with manual screening 5 5-15 [facility] CNOVon 07-30-2022 CNOV Office Visit (UCWSTR ) NATHAN MURRELL ([id number]) 1965 F Date Time Provider Department 07/30/22 12:15 PM LIAM PATEL [facility] During your visit today, we recorded the following information about you: Temperature Pulse Respiration Blood pressure 98.6 degrees 99/minute 20/minute 148/96 Weight 71.2 kg Liam Patel APRN.DIRECTOR EDUCATION 07/30/2022 12:43 PM Signed Subjective HPI Nontoxic-appearing female presents to urgent care with chief complaint of upper respiratory tract like infection. Duration of symptoms 3 days. Associated symptoms sore throat, nasal congestion, nasal discharge and nonproductive cough. Patient denies the use of any egtx-ree-cgxjghi medications or home remedies for symptom management. [...] etiology and (more content not included)... Normal [facility] Basophil percentageOrdered B y: Dr. Isaac on 05-27-2022 Bilirubin [Mass/Vol] 0.60 mg/dL 0.20-1.00 [facility] Comment on above: For patients on eltr ombopag therapy, use of Dimension [place] TBIL is not recommended. Chloride [Moles/Vol] 105 mmol/L 98-107 [facility] Glucose [Mass/Vol] 83 mg/dL 74-106 [facility] Potassium [Moles/Vol] 3.7 mmol/L 3.5-5.1 [facility] Protein [Mass/Vol] 7.6 g/dL 6.4-8.2 [facility] Sodium [Moles/Vol] 139 mmol/L 136-145 [facility] Laboratory - Chemistry and C hemistry - challengeOrdered By: Dr. Isaac on 05-27-2022 ALP [Catalytic activity/Vol] 63 U/L 45-117 [facility] ALT [Catalytic activity/Vol] 28 U/L 13-56 [facility] CO2 [Moles/Vol] 27.0 mmol/L 21.0-32.0 [facility] Free T4 [Mass/Vol] 1.00 ng/dL 0.76-1.46 [facility] Globulin (S) [Mass/Vol] 3.7 g/dL 2.2-4.2 [facility] Urea nitrogen/Creatinine [Mass ratio] 18.0 mg/mg 05-27 [facility] No Panel InformationOrdered By: Dr. Isaac on 05-27-2022 Estimated GFR (MDRD) Amer 78 mL/min >60 [facility] Comment on above: GFR Calc Estimated GFR (MDRD) Non-Af Amer 65 mL/min >60 [facility] Comment on above: Non- GFR Calc Free Triiodothyronine (T3) pg/dL 3.1 pg/mL 2.18-3.98 [facility] Thyroid Stimulating Hormone (TSH) 1.03 uIU/mL 0.358-3.74 [facility] Vitamin D 25-Hydroxy 34.0 ng/mL [facility] Comment on above: Vitamin D 25(OH) Sta tus Range Deficiency <20 ng/mL (50nmol/L) Insufficiency 20 - 30 ng/mL (50 - 75 nmol/L) Sufficiency 30 - 100 ng/mL (75 - 250 nmol/L) Toxicity >100 ng/mL (>250 nmol/L) Serum or plasma albumin tip urement (mass/volume)Ordered By: Dr. Isaac on 05-27-2022 Albumin [Mass/Vol] 3.9 g/dL 3.2-5.0 [facility] Serum or plasma albumin/glob ulin mass ratioOrdered By: Dr. Isaac on 05-27-2022 Albumin/Globulin [Mass ratio] 1.1 {ratio} 0.9-2.4 [facility] Serum or plasma calcium tip urement (mass/volume)Ordered By: Dr. Isaac on 05-27-2022 Calcium [Mass/Vol] 9.4 mg/dL 8.5-10.1 [facility] Serum or plasma creatinine m easurement (mass/volume)Ordered By: Dr. Isaac on 05-27-2022 Creatinine [Mass/Vol] 0.94 mg/dL 0.55-1.02 [facility] Comment on above: The validity of the calculated GFR & GFRAA in patients over 70 years has not been determined. Clinical correlation is essential. Serum or plasma urea nitroge n measurement (mass/volume)Ordered By: Dr. Isaac on 05-27-2022 Urea nitrogen [Mass/Vol] 17 mg/dL 7-18 [facility] Thin prep Papanicolaou smear with manual screeningOrdered By: Dr. Isaac on 05-27-2022 Thin prep Papanicolaou smear with manual screening 13 U/L 15-37 [facility] Thin prep Papanicolaou smear with manual screening 7 5-15 [facility] XR Chest PA and Lateralon IMPRESSION: Patchy opacities throughout both lungs, likely representing multifocal pneumonia. Cross Tie Cutter: PSCB Transcribe Date/Time: Jul 10 2021 2:30P Dictated by : MITRA MORALES MD This examination was interpreted and the report reviewed and electronically signed by: MITRA MORALES MD on Jul 10 2021 2:32PM [facility] DIVISION OF RADIOLOGY * * *Final Report* [...] soft tissues: None. DIVISION OF RADIOLOGY Provider, [facility] - 07/10/2021 * * *Final Report* * [...] throughout both lungs, likely representing multifocal pneumonia. Cross Tie Cutter: DIEGO Transcribe Date/Time: Jul 10 2021 2:30P Dictated by : MITRA MORALES MD This examination was interpreted and the report reviewed and electronically signed by: MITRA MORALES MD on Jul 10 2021 2:32PM EST [facility] Radiology Study observation (narrative) [facility] XR Chest PA and LateralOrder ed By: [facility] Provider on 07-10-2021 [facility] Vital Signs Date Time Vital Sign Value Performing Clinician Faci yumi 03-05-2025 09:46-0400 Body height 170.[address] Sherry Fierro MD Work Phone: [facility] 03-05-2025 09:46-0400 Body mass index (BMI) [Ratio] 23.3 kg/m2 Dr. Sherry Fierro MD Work Phone: [facility] 03-05-2025 09:46-0400 Body weight 67.[address] Sherry Fierro MD Work Phone: [facility] 03-05-2025 09:46-0400 Diastolic blood pressure 73 mm[Hg] Dr. Sherry Fierro MD Work Phone: [facility] 03-05-2025 09:46-0400 Heart rate 56 /min Dr. Sherry Fierro MD Work Phone: [facility] 03-05-2025 09:46-0400 Respiratory rate 18 /min Dr. Sherry Fierro MD Work Phone: [facility] 03-05-2025 09:46-0400 SaO2% (BldA) [Mass fraction] 97 % Dr. Sherry Fierro MD Work Phone: [facility] 03-05-2025 09:46-0400 Systolic blood pressure 118 mm[Hg] Dr. Sherry Fierro MD Work Phone: [facility] 03-02-2025 08:56-0400 Diastolic blood pressure 99 mm[Hg] Dr. Sherry Fierro MD Work Phone: 8(813)326-560738 [place] [address] 03-02-2025 08:56-0400 Heart rate 66 /min Dr. Sherry Fierro MD Work Phone: 0(662)543-664738 [place] [address] 03-02-2025 08:56-0400 Systolic blood pressure 140 mm[Hg] Dr. Sherry Fierro MD Work Phone: 3(738)181-679838 [place] [address] 03-02-2025 07:54-0400 Body temperature 96.8 [degF] Dr. Sherry Fierro MD Work Phone: 3(436)689-999838 [place] [address] 03-02-2025 07:54-0400 Respiratory rate 18 /min Dr. Sherry Fierro MD Work Phone: 0(494)236-223538 [place] [address] 03-02-2025 07:54-0400 SaO2% (BldA) [Mass fraction] 98 % Dr. Sherry Fierro MD Work Phone: 2(526)821-234938 [place] [address] 02-28-2025 20:14-0400 Body height 170.[address] Sherry Fierro MD Work Phone: 5(054)947-814138 [place] [address] 02-28-2025 20:14-0400 Body mass index (BMI) [Ratio] 22.7 kg/m2 Dr. Sherry Fierro MD Work Phone: 0(031)230-350838 [place] [address] 02-28-2025 20:14-0400 Body weight 65.[address] Sherry Fierro MD Work Phone: 0(835)591-141738 [place] [address] 02-28-2025 18:00-0400 Diastolic blood pressure 89 mm[Hg] Dr. Sherry Fierro MD Work Phone: 1(787)442-523238 [place] [address] 02-28-2025 18:00-0400 Heart rate 69 /min Dr. Sherry Fierro MD Work Phone: 8(656)929-820538 [place] [address] 02-28-2025 18:00-0400 Respiratory rate 21 /min Dr. Sherry Fierro MD Work Phone: [facility] 02-28-2025 18:00-0400 Systolic blood pressure 142 mm[Hg] Dr. Sherry Fierro MD Work Phone: [facility] 02-28-2025 16:44-0400 Body temperature 97 [degF] Dr. Sherry Fierro MD Work Phone: [facility] 02-28-2025 16:44-0400 SaO2% (BldA) [Mass fraction] 98 % Dr. Sherry Fierro MD Work Phone: [facility] 02-28-2025 12:18-0400 Body height 170.[address] Sherry Fierro MD Work Phone: [facility] 02-28-2025 12:18-0400 Body mass index (BMI) [Ratio] 23.8 kg/m2 Dr. Sherry Fierro MD Work Phone: [facility] 02-28-2025 12:18-0400 Body weight 69.[address] Sherry Fierro MD Work Phone: [facility] 01-18-2023 10:03-0400 Body height 170.[address] Sherry Fierro Work Phone: [facility] 01-18-2023 10:03-0400 Body mass index (BMI) [Ratio] 23.8 kg/m2 Dr. Sherry Fierro Work Phone: [facility] 01-18-2023 10:03-0400 Body temperature 97.1 [degF] Dr. Sherry Fierro Work Phone: [facility] 01-18-2023 10:03-0400 Body weight 68.[address] Sherry Fierro Work Phone: [facility] 01-18-2023 10:03-0400 Diastolic blood pressure 79 mm[Hg] Dr. Sherry Fierro Work Phone: [facility] 01-18-2023 10:03-0400 Heart rate 64 /min Dr. Sherry Fierro Work Phone: [facility] 01-18-2023 10:03-0400 Respiratory rate 16 /min Dr. Sherry Fierro Work Phone: [facility] 01-18-2023 10:03-0400 SaO2% (BldA) [Mass fraction] 98 % Dr. Sherry Fierro Work Phone: [facility] 01-18-2023 10:03-0400 Systolic blood pressure 114 mm[Hg] Dr. Sherry Fierro Work Phone: [facility] 10-12-2022 09:04-0500 Body height 170.[address] Sherry Fierro Work Phone: [facility] 10-12-2022 08:59-0500 Body mass index (BMI) [Ratio] 23.8 kg/m2 Dr. Sherry Fierro Work Phone: [facility] 10-12-2022 08:59-0500 Body temperature 97.6 [degF] Dr. Sherry Fierro Work Phone: [facility] 10-12-2022 08:59-0500 Body weight 68.[address] Sherry Fierro Work Phone: [facility] 10-12-2022 08:59-0500 Diastolic blood pressure 81 mm[Hg] Dr. Sherry Fierro Work Phone: [facility] 10-12-2022 08:59-0500 Heart rate 68 /min Dr. Sherry Fierro Work Phone: [facility] 10-12-2022 08:59-0500 Respiratory rate 17 /min Dr. Sherry Fierro Work Phone: [facility] 10-12-2022 08:59-0500 SaO2% (BldA) [Mass fraction] 98 % Dr. Sherry Fierro Work Phone: [facility] 10-12-2022 08:59-0500 Systolic blood pressure 146 mm[Hg] Dr. Sherry Fierro Work Phone: [facility] 09-27-2022 10:35-0500 Body height 170.[address] Sherry Fierro Work Phone: [facility] 09-27-2022 10:30-0500 Body mass index (BMI) [Ratio] 23.6 kg/m2 Dr. Sherry Fierro Work Phone: [facility] 09-27-2022 10:30-0500 Body temperature 98.1 [degF] Dr. Sherry Fierro Work Phone: [facility] 09-27-2022 10:30-0500 Body weight 68.[address] Sherry Fierro Work Phone: [facility] 09-27-2022 10:30-0500 Diastolic blood pressure 82 mm[Hg] Dr. Sherry Fierro Work Phone: 2(996)593-751499 [place] [address] 09-27-2022 10:30-0500 Heart rate 69 /min Dr. Sherry Fierro Work Phone: [facility] 09-27-2022 10:30-0500 Respiratory rate 18 /min Dr. Sherry Fierro Work Phone: [facility] 09-27-2022 10:30-0500 SaO2% (BldA) [Mass fraction] 97 % Dr. Sherry Fierro Work Phone: [facility] 09-27-2022 10:30-0500 Systolic blood pressure 129 mm[Hg] Dr. Sherry Fierro Work Phone: [facility] 09-08-2022 08:52-0500 Body mass index (BMI) [Ratio] 23 kg/m2 Dr. Sherry Fierro Work Phone: [facility] 09-08-2022 08:52-0500 Body temperature 98.6 [degF] Dr. Sherry Fierro Work Phone: [facility] 09-08-2022 08:52-0500 Body weight 66.[address] Sherry Fierro Work Phone: [facility] 09-08-2022 08:52-0500 Diastolic blood pressure 77 mm[Hg] Dr. Sherry Fierro Work Phone: [facility] 09-08-2022 08:52-0500 Heart rate 59 /min Dr. Sherry Fierro Work Phone: [facility] 09-08-2022 08:52-0500 Respiratory rate 17 /min Dr. Sherry Fierro Work Phone: [facility] 09-08-2022 08:52-0500 SaO2% (BldA) [Mass fraction] 97 % Dr. Sherry Fierro Work Phone: [facility] 09-08-2022 08:52-0500 Systolic blood pressure 114 mm[Hg] Dr. Sherry Fierro Work Phone: [facility] 08-26-2022 19:26-0500 Diastolic blood pressure 85 mm[Hg] [facility] 08-26-2022 19:26-0500 Heart rate 68 /min [facility] 08-26-2022 19:26-0500 Respiratory rate 18 /min [facility] 08-26-2022 19:26-0500 SaO2% (BldA) [Mass fraction] 98 % [facility] 08-26-2022 19:26-0500 Systolic blood pressure 138 mm[Hg] [facility] 08-26-2022 15:15-0500 Body height 170.18 cm [facility] 08-26-2022 15:15-0500 Body mass index (BMI) [Ratio] 23.4 kg/m2 [facility] 08-26-2022 15:15-0500 Body weight 67.94 kg [facility] 08-26-2022 14:48-0500 Body temperature 97.4 [degF] [facility] 07-30-2022 12:12-0500 Body temperature 98.6 [degF] Liam Patel APRN.CNP Work Phone: [facility] 07-30-2022 12:12-0500 Body weight 71.22 kg Liam Patel ACCESS NURSE.DIRECTOR EDUCATION Work Phone: [facility] 07-30-2022 12:12-0500 Diastolic blood pressure 96 mm[Hg] Liam Patel ACCESS NURSE.DIRECTOR EDUCATION Work Phone: [facility] 07-30-2022 12:12-0500 Heart rate 99 /min Liam Patel ACCESS NURSE.DIRECTOR EDUCATION Work Phone: [facility] 07-30-2022 12:12-0500 Respiratory rate 20 /min Liam Patel ACCESS NURSE.DIRECTOR EDUCATION Work Phone: [facility] 07-30-2022 12:12-0500 SaO2% (BldA) [Mass fraction] 96 % Liam Patel ACCESS NURSE.DIRECTOR EDUCATION Work Phone: [facility] 07-30-2022 12:12-0500 Systolic blood pressure 148 mm[Hg] Liam Patel ACCESS NURSE.DIRECTOR EDUCATION Work Phone: [facility] 07-21-2022 09:12-0500 Body height 170.18 cm [facility] Work Phone: Encounters Encounter Date Encounter Type Care Provider Facility Start: 04-29-2025 End: 04-29-2025 ambulatory HECTOR ABARCA APRN-DIRECTOR EDUCATION Facility:[facility] Start: 04-29-2025 End: 04-29-2025 Patient encounter procedure HECTOR ABARCA ACCESS NURSE-DIRECTOR EDUCATION [facility] Start: 03-05-2025 End: 03-05-2025 Patient encounter procedure Cliff HARRELL -[facility] Work Phone: Start: 03-05-2025 End: 03-05-[address] Sherry Fierro MD Work Phone: [facility] Start: 03-04-2025 Non-patient / Non-visit Dr. Rk Amaya MD -[facility] Start: 03-04-[address] Sherry lozano MD Work Phone: -[facility] Start: 03-02-2025 Non-patient / Non-visit Dr. Maurice Diaz MD -[facility] Work Phone: Start: 03-01-2025 ambulatory Rk Amaya Facility:[facility] Start: 03-01-2025 Non-patient / Non-visit Dr. Rk Amaya MD -[facility] Start: 03-01-2025 Non-patient / Non-visit Dr. Maurice Diaz MD -[facility] Work Phone: Start: 02-28-2025 End: 03-02-2025 Evaluation and management of inpatient Dr. Evon Vo MD -[facility] Work Phone: Start: 02-28-2025 ambulatory Sherry Go y:[facility] Start: 02-28-2025 Non-patient / Non-visit Dr. Evon Vo MD -[facility] Work Phone: Start: 07-20-2024 ambulatory Sherry Go y:[facility] Start: 07-14-2024 End: 07-14-2024 ambulatory Sherry Fierro Facility:[facility] Start: 07-07-2023 End: 07-07-2023 ambulatory [facility] Work Phone: Start: 07-07-2023 End: 07-07-2023 Patient encounter procedure [facility] Start: 03-28-2023 End: 03-28-[address] Sherry Fierro Work Phone: [facility] Work Phone: Start: 03-28-2023 End: 03-28-[address] Sherry Fierro Work Phone: [facility] Start: 03-07-2023 End: 03-08-2023 ambulatory POORNIMA BOOTH MD Facility:[facility] Start: 03-07-2023 End: 03-07-2023 Patient encounter procedure POORNIMA BOOTH MD [facility] Start: 01-18-2023 End: 01-18-[address] Sherry Fierro Work Phone: [facility] Work Phone: Start: 01-07-2023 End: 01-07-[address] Sherry Fierro Work Phone: [facility] Work Phone: Start: 01-07-2023 End: 01-07-[address] Sherry Fierro Work Phone: [facility] Start: 10-12-2022 End: 10-12-[address] Sherry Fierro Work Phone: [facility] Start: 09-27-[address] Sherry Fierro Work Phone: [facility] Start: 09-27-2022 End: 09-27-[address] Sherry Fierro Work Phone: [facility] Start: 09-23-2022 End: 09-23-2022 ambulatory Dr. Sherry Fierro Work Phone: [facility] Work Phone: Start: 09-23-2022 End: 09-23-[address] Sher[facility] Start: 09-08-2022 End: 09-08-[address] Sherry Fierro Work Phone: [facility] Start: 08-26-2022 End: 08-26-2022 Emergency department patient visit [facility] Start: 07-30-2022 End: 07-30-2022 ambulatory SHERRY FIERRO Facility:[facility] Start: 07-30-2022 End: 07-30-2022 Office outpatient visit 15 minutes Liam Patel APRN.DIRECTOR EDUCATION Work Phone: [facility] Comment on above: URI with cough and c ongestion (Primary Dx) Start: 07-21-2022 End: 07-21-2022 ambulatory [facility] Work Phone: Start: 07-21-2022 End: 07-21-2022 Patient encounter procedure [facility]Outpatient Bone Densitometry Start: 05-27-2022 End: 05-27-2022 ambulatory [facility] Work Phone: Start: 05-27-2022 End: 05-27-2022 [facility] encounter [facility] Start: 07-10-2021 End: 07-10-2021 Subsequent hospital visit by physician [facility] Work Phone: Radiology Comment on above: Cough [R05.9] Start: 06-30-2021 Telephone encounter Ladonna Mcdaniel APRN.DIRECTOR EDUCATION Work Phone: [facility] Comment on above: Erroneous encounter- disregard Procedures Date Procedure Procedure Detail Performing Clinician Start: 03-02-[address] Sherry Fierro MD Work Phone: Start: 03-01-2025 Catheterization HECTOR ABARCA ACCESS NURSE-DIRECTOR EDUCATION Comment on above: heart catheterizatio n Start: 02-28-[address] Sherry Fierro MD Work Phone: Start: 02-28-2025 X-ray of chest, PA a nd lateral views Dr. Sherry Fierro MD Work Phone: Start: 01-07-2023 MRI of brain with contrast Dr. Sherry Fierro Work Phone: Start: 09-23-2022 Radionuclide whole b nano bone study Dr. Sherry Fieror Work Phone: Start: 08-26-2022 CT of face Start: 08-26-2022 Plain chest X-ray Start: 08-26-2022 MRI of brain without contrast Start: 08-08-2022 Magnetic resonance imaging HECTOR ABARCA ACCESS NURSE-[facility] Comment on above: MRI of head x2 Start: 07-21-2022 Dual energy X-ray absorptiometry Start: 07-10-2021 Radiologic exam ches t 2 views Marion Lamb ACCESS NURSE.DIRECTOR EDUCATION Work Phone: Start: 05-08-2016 Lipid 1996 panel - S dunia or Plasma [facility] Work Phone: Start: 05-07-2016 Adult depression scr eening assessment Ladonna Mcdaniel ACCESS NURSE.DIRECTOR EDUCATION Work Phone: Start: 03-10-2016 Mammography Ladonna Mcdaniel APRN.DIRECTOR EDUCATION Work Phone: Start: 12-05-2015 Colonoscopy Ladonna Mcdaniel APRN.DIRECTOR EDUCATION Work Phone: Start: 08-08-2009 Thyroidectomy total/complete POORNIMA BOOTH MD Start: 08-08-1984 section POORNIMA BOOTH MD Ligation of fallopian tube R HANY BOOTH MD Plan of Treatment Date Care Activity Detail Author Start: 01-03-2030 Urine microalbumin profile DTaP,Tdap,Td Vaccine (2 - Td or Tdap) [facility] Start: 03-02-2025 Patient discharge [facility] Start: 03-01-2025 Notification of physician [facility] Start: 03-01-2025 Patient education [facility] Start: 03-01-2025 Provision of activity privileges [facility] Start: 03-01-2025 Pulse taking [facility] Start: 03-01-2025 Taking patient vital signs [facility] Start: 03-01-2025 Wound care [facility] Start: 03-01-2025 [facility] Start: 03-01-2025 Catheterization of vein [facility] Start: 03-01-2025 Notification of physician [facility] Start: 03-01-2025 Preoperative care [facility] Start: 03-01-2025 [facility] Start: 02-28-2025 Application of intermittent pneumatic compression device [facility] Start: 02-28-2025 Following clinical pathway protocol [facility] Start: 02-28-2025 Assessment of risk of venous thromboembolism [facility] Start: 02-28-2025 Inhalation therapy procedure [facility] Start: 02-28-2025 Insertion of catheter into peripheral vein [facility] Start: 02-28-2025 Measuring intake and output [facility] Start: 02-28-2025 Oxygen therapy [facility] Start: 02-28-2025 Providing care according to standard [facility] Start: 02-28-2025 Provision of activity privileges [facility] Start: 02-28-2025 Referral to [place] operator [facility] Start: 02-28-2025 Tobacco use cessation education [facility] Start: 02-28-2025 [facility] Start: 02-28-2025 Hospital admission, emergency, from emergency room, medical nature [facility] Start: 02-28-2025 Verification routine [facility] Start: 02-28-2025 Admission procedure [facility] Start: 02-28-2025 [facility] Start: 04-08-2024 Covid-19 Vaccine ( season) Covid-19 Vaccine ( season) [facility] Start: 04-08-2024 Influenza vaccination Influenza Vaccine (#1) [facility] Start: 01-18-2023 Patient referral [facility] Work Phone: Start: 09-27-2022 Procedure [facility] Start: 04-08-2022 Influenza vaccination INFLUENZA (#1) [facility] Start: 10-13-2021 Screening for malignant neoplasm of colon [facility] Start: 08-08-2021 DEPRESSION ASSESSMENT DEPRESSION ASSESSMENT [facility] Start: 05-08-2021 Lipid panel Lipid Screening [facility] Start: 05-08-2021 LIPID SCREEN LIPID SCREEN [facility] Start: 05-03-2021 DIABETES SCREEN DIABETES SCREEN [facility] Start: 05-03-2021 Diabetes Screening Diabetes Screening [facility] Start: 01-14-2020 HPV TESTING HPV TESTING [facility] Start: 01-14-2020 PAP TESTING PAP TESTING [facility] Start: 01-14-2020 Screening for malignant neoplasm of cervix Cervical Cancer Screening [facility] Start: 05-07-2017 Adult depression screening assessment DEPRESSION SCREENING [facility] Start: 03-10-2017 Mammography MAMMOGRAM [facility] Start: 03-10-2017 Screening for malignant neoplasm of breast Mammogram Screening [facility] Start: 12-04-2016 Colonoscopy COLONOSCOPY [facility] Start: 12-04-2016 COLORECTAL CANCER SCREENING COLORECTAL CANCER SCREENING [facility] Start: 12-04-2016 Screening for malignant neoplasm of colon Colonoscopy [facility] Start: 2014 SHINGRIX VACCINE (1 of 2) SHINGRIX VACCINE (1 of 2) [facility] Start: 2009 COLOGUARD (FIT-DNA) COLOGUARD (FIT-DNA) [facility] Start: [address] COLONOGRAPHY [facility] Start: 2009 FECAL OCCULT BLOOD FECAL OCCULT BLOOD [facility] Start: 2009 Screening for malignant neoplasm of colon [facility] Start: 2009 SIGMOIDOSCOPY SIGMOIDOSCOPY [facility] Start: 1983 Urine microalbumin profile DTAP,TDAP,TD (1 - Tdap) [facility] Start: 1982 Anxiety Screening Anxiety Screening [facility] Start: 1982 Depression Screening Depression Screening [facility] Start: 1982 HEPATITIS C SCREENING HEPATITIS C SCREENING [facility] Start: 1982 Hepatitis C screening Hepatitis C Screening [facility] Start: 1982 HIV SCREENING HIV SCREENING [facility] Start: 1982 HIV screening HIV Screening [facility] Start: 01-24-1965 COVID-19 VACCINE (#1) COVID-19 VACCINE (#1) [facility] Start: 1964 HEPATITIS B (1 of 3 - 3-dose series) HEPATITIS B (1 of 3 - 3-dose series) [facility] Erythrocyte mean corpuscular volume determination [facility] Hematocrit [Volume Fraction] of Blood [facility] Hemoglobin [Mass/vol ume] in Blood [facility] Hepatic function panel [facility] Leukocytes [#/volume ] in Blood [facility] Lipid 1996 panel - S dunia or Plasma [facility] Mean corpuscular hemoglobin concentration determination [facility] Mean corpuscular hemoglobin determination [facility] MR Brain WO and W co ntrast IV [facility] Neutrophil count [facility] Neutrophil percent differential count [facility] Patient Education ED Blackwood's Palsy [facility] Work Phone: Patient referral [facility] Work Phone: Platelets [#/volume] in Blood [facility] Red blood cell count [facility] Red cell distributio n width determination [facility] Immunizations Immunization Date Immunization Notes Care Provider [facility] 01-04-2020 tetanus toxoid, redu veto diphtheria toxoid, and acellular pertussis vaccine, adsorbed HECTOR ABARCA ACCESS NURSE-DIRECTOR EDUCATION [facility] [place] 06-01-2016 influenza virus vaccine, unspecified formulation [facility] Work Phone: [facility] Payers Date Payer Category Payer Private Health Insurance [id number] 2024 Private Health Insurance [id number] 2024 Self-pay [id number] 2015 Unknown MMO MMO [employer] [id number] 2015-Present [phone] [address] [place] [address] PPO [id number] 2015 Unknown [id number] 2015 Unknown [id number] 2007 Unknown ANTHYFN [id number] 2007 Unknown [id number] 1964 Unknown [id number] 27 1964 Unknown [id number] 27 Unknown [id number] 62 Unknown [id number] 62 Unknown [id number] 62 Unknown [id number] 62 Unknown [id number] 62 Unknown [id number] 62 Unknown [id number] 62 Unknown [id number] 62 Unknown [id number] 62 Social History Date Type Detail Facility Start: 04-20-2011 End: 04-15-2025 Tobacco smoking status NHIS Never smoked tobacco [facility] Work Phone: Start: 06-29-2021 End: 07-10-2021 Alcohol intake Current drinker of alcohol (finding) [facility] Start: 01-03-2014 History SDOH Alcohol Comment Seldom [facility] Start: 1965 Sex Assigned At Not on file [facility] Start: 06-10-2021 End: 07-20-2021 Exposure to SARS-CoV-2 (event) Not sure [facility] Start: 07-06-2021 End: 09-02-2022 Tobacco smoking status UTIS Unknown if ever smoked [facility] Start: 1965 Sex Assigned At Female W [facility] Start: 04-20-2011 Tobacco use and exposure Smoke less tobacco non-user [facility] Work Phone: Start: 05-13-2021 End: 07-10-2021 History of Social function [facility] Start: 05-13-2021 End: 07-10-2021 Tobacco use panel [facility] National Score (1-10 0), lower number is lower risk Not on file [facility] Sexual Orientation [facility] Start: 10-11-2019 Sex Female (finding) [facility] Functional Status Date Assessment Result Facility 03-02-2025 Functional status [facility] Work Phone: Mental Status Date Assessment Result Facility 03-02-2025 Cognitive function Voice/Name [facility] Work Phone: 08-26-2022 Cognitive function Level Of Cons ciousness Awake;Alert;Appropriate;Follow s [facility] Work Phone: Clinical Notes 07-10-2021 to 03-02-2025 Note Date & Type Note Facility 03-02-2025 Note [facility] Medical Records Department [address] [place] [address] Discharge Summary 03/02/25 1139 MR#: [id number] Acct: [id number] Name: NATHAN MURRELL Rep #: [id number] : 1965 59 From: Maurice Diaz MD PCP: Dr. Sherry Fierro MD Status:DIS IN Location: [place] [id number] Providers Date of Admission: 02/28/25 Primary Care Physician: Dr. Sherry Fierro MD Consultations 02/28/25 20:13 Consult: Cardiology Routine Consulting Provider: Navid Chamorro Reason for Consult: NSTEMI EMERGENT Consult: No MD Notified: Yes Date Notified: 02/28/25 Time Notified: 17:17 Method of Notification: ED Physician Initiated Reason For Visit: CHEST PAIN Diagnosis Discharge Diagnosis (1) Acute non-ST elevation myocardial infarction (NSTEMI): Status: Acute Code(s): I21.4 - Non-ST elevation (NSTEMI) myocardial infarction Medications at Discharge Home Medications liothyronine 5 mcg tablet 5 mcg PO DAILY 08/26/22 cholecalciferol (vitamin D3) 1,250 mcg (50,000 unit) capsule 1,250 mcg PO QWEEK 02/28/25 levothyroxine 100 mcg tablet 100 mcg PO DAILY 02/28/25 aspirin 81 mg chewable tablet 81 mg PO BREAKFAST 30 days #30 tabs 03/02/25 atorvastatin 80 mg tablet 80 mg PO QHS 30 days #30 tabs 03/02/25 metoprolol succinate 50 mg tablet,extended release 24 hr 50 mg PO DAILY 30 days #30 tabs 03/02/25 Hospital Course Operations None Procedures 2-D Echocardiogram and Cardiac catheterization Summary of Care Provided Minutes Spent on Discharge: 33 Hospital Course: Per HPI: NATHAN MURRELL, is a 59-year-old female history of thyroid cancer previously treated and now on Synthroid, chronic lightheadedness who presented to [facility] ED 02/28/2025 with chest discomfort. She had [...] has no other new or acute complaints. Hospital Course: 1. Non-STEMI/essential HTN/HLD???59-year-old female presented to the hospital with chest pain. She had an episode potentially a week prior that she thought it might have been a panic attack. On admission she had elevated troponins that were rising so she was started on a heparin drip. Cardiology was consulted and took her for a heart cath. Heart cath demonstrated coronary artery disease in the distal right coronary artery with PDA occlusion. They recommended medical therapy with aspirin, Lipitor, metoprolol. She has tolerated all his medications for the last 24 hours. Echocardiogram demonstrates an EF of 60% with stage II diastolic dysfunction and mild segmental systolic dysfunction in the inferior wall. She is feeling much better today and I discussed with her the possibility for discharge and she expressed understanding of the risk and benefits of going home and would like to go home today. I do recommend outpatient follow-up with her primary care doctor in 3 to 5 days and cardiology within the month. She does have a history of hypothyroidism secondary to treatment for thyroid cancer she will continue with her home thyroid medications. Physical Exam Narrative General: Alert, Oriented x3, Cooperative, No apparent distress HEENT: Atraumatic, PERRLA, EOMI, Normocephalic Oral: Moist Mucosa Neck: Supple, No JVD Lungs: Diminished, Normal air movement, No rhonchi, No wheeze, No rales Cardiovascular: Regular rate, Regular Rhythm, Normal S1, Normal S2, No murmurs Abdomen: Soft, Non Tender, Non-Distended, No Hepato-splenomegaly Extremities: No edema, Capillary Refill Less than 3 Seconds Skin: No rashes, No breakdown Musculoskeletal: No Tenderness to Palpation of Joints or Extremities Neurological: No f (more content not included)... [facility] 03-02-2025 Discharge summary [facility] 03-01-2025 Progress note Note Date/Time March 01, 2025 9:20am [facility] Medical Records Department [address] [place] [address] Progress Note - Hospitalist 03/01/25 0904 MR#: [id number] Acct: [id number] Name: NATHAN MURRELL Rep #:[id number] : 1965 59 From: Maurice maya MD PCP: Dr. Sherry Fierro MD Status:AD M IN Location: [facility] [id number] Subjective Subjective Chest pain is resolved but she did have rising troponins. Currently heparin drip plan for heart cath Objective Data Objective Data Vital Signs: Vital Signs Temp Pulse Resp BP Pulse Ox O2 Del Method 98.1 F 62 16 173/95 H 96 Room Air 03/01/25 07:39 03/01/25 07:39 03/01/25 07:39 03/01/25 07:39 03/01/25 02:15 03/01/25 07:39 Oxygen Delivery Method Room Air Weight: 145 lb 1.027 oz Body Mass Index (BMI) 22.7 Intake & Output: Intake and Output for Last 24 Hours 02/28/25 03/01/25 03/02/25 03:59 03:59 03:59 Intake Total 59.21 / 59.21 1058.89 / 1058.89 Balance 59.21 / 59.21 1058.89 / 1058.89 Lab / Micro Data 03/01/25 06:15 03/01/25 06:15 Labs: Laboratory Results - last 24 hr 02/28/25 13:10: WBC 8.1, RBC 4.53, Hgb 12.9, Hct 38.3, MCV 84.5, MCH 28.5, MCHC 33.7, RDW Std Deviation 39.2, RDW Coeff of Dewey 12.8, Plt Count 237, MPV 10.4, Immature Gran % (Auto) 0.400, Neut % (Auto) 83.7 H, Lymph % (Auto) 10.0 L, [place] % (Auto) 4.8, Eos % (Auto) 0.5, [...] 83.9 H, Lymph % (Auto) 11.4 L, [place] % (Auto) 3.4, Eos % (Auto) 0.6, Baso % (Auto) 0.4, Absolute Neuts (auto) 7.9 H, Absolute Lymphs (auto) 1.07, Nucleated RBC % 0, PT 15.3 H, INR 1.2, APTT 25.8 02/28/25 17:04: Troponin T Hi Sens 4Hr 429 H* 02/28/25 22:32: APTT 76.0 H 03/01/25 06:15: WBC 6.1, RBC 4.48, Hgb 12.7, Hct 38.7, MCV 86.4, MCH 28.3, MCHC 32.8, RDW Std Deviation 40.3, RDW Coeff of Dewey 12.8, Plt Count 227, MPV 10.7, Immature Gran % (Auto) 0.200, Neut % (Auto) 63.4, Lymph % (Auto) 25.2, [place] % (Auto) 7.7, Eos % (Auto) 2.8, Baso % (Auto) 0.7, Absolute Neuts (auto) 3.9, Absolute Lymphs (auto) 1.53, Nucleated RBC % 0, PT 16.0 H, INR 1.3, APTT 62.3 H,Sodium 144, Potassium 3.8, Chloride 109 H, Carbon Dioxide 23.3, Anion Gap 11, BUN 13, Creatinine 0.75, Estim Creat Clear Calc 77.57, Est GFR (MDRD) Non-Af 92,BUN/Creatinine Ratio 17.7, Glucose 100 H, Calcium 9.0 Radiography Diagnostic Testing: Radiology Impression Chest X-Ray 02/28/25 13:02 IMPRESSION: No acute process is identified in the chest. Reading Location: [facility] Rhythm Strip Rhythm Strip: Sinus Rhythm Rate: 57 Ectopy: None Physical Exam Narrative General: Alert, Oriented x3, Cooperative, No apparent distress HEENT: Atraumatic, PERRLA, EOMI, Normocephalic Oral: Moist Mucosa Neck: Supple, No JVD Lungs: Diminished, Normal air movement, No rhonchi, No wheeze, No rales Cardiovascular: Regular rate, Regular Rhythm, Normal S1, Normal S2, No murmurs Abdomen: Soft, Non Tender, Non-Distended, No Hepato-splenomegaly Extremities: No edema, Capillary Refill Less than 3 Seconds Skin: No rashes, No breakdown Musculoskeletal: No Tenderness to Palpation of Joints or Extremities Neurological: No focal neurological deficits, Motor Exam 5/5 strength throughout, Sensory exam intact to light touch and pain Psych/Mental Status: Normal Affect, Appropriate Assessment & Plan Assessment/Plan (1) Acute non-ST elevation myocardial infarction (NSTEMI): PLAN: Plan 1. Non-STEMI ? Plan for heart cath with rising troponins ? Continue with heparin drip ? Continue with aspirin and statin ? Echo is pending ? Appreciate cardiology's assistance 2. Hypothyroidism status post thyroid cancer treatment ? Continue with Synthroid and liothyronine ? Stable DVT: Heparin drip Charges/Coding Visit Charges Inpatient E&M: 08652 Subs Hosp L2 03/01/25 0920 <Electronically signed by Maurice Diaz MD> Cosigner Signature (if applicable): CC: ~ Signed [facility] Work Phone: 1(181) 220-749007-25-2025 Progress note [facility] Medical Records Department [address] [place] [address] Progress Note - Hospitalist 03/01/25 0904 MR#: [id number] Acct: [id number] Name: NATHAN MURRELL Rep #:[id number] : 1965 59 From: Maurice maya MD PCP: Dr. Sherry Fierro MD Status:AD M IN Location: [place] [address] Subjective Subjective Chest pain is resolved but she did have rising troponins. Currently heparin drip plan for heart cath Objective Data Objective Data Vital Signs: Vital Signs Temp Pulse Resp BP Pulse Ox O2 Del Method 98.1 F 62 16 173/95 H 96 Room Air 03/01/25 07:39 03/01/25 07:39 03/01/25 07:39 03/01/25 07:39 03/01/25 02:15 03/01/25 07:39 Oxygen Delivery Method Room Air Weight: 145 lb 1.027 oz Body Mass Index (BMI) 22.7 Intake & Output: Intake and Output for Last 24 Hours 02/28/25 03/01/25 03/02/25 03:59 03:59 03:59 Intake Total 59.21 / 59.21 1058.89 / 1058.89 Balance 59.21 / 59.21 1058.89 / 1058.89 Lab / Micro Data 03/01/25 06:15 03/01/25 06:15 Labs: Laboratory Results - last 24 hr 02/28/25 13:10: WBC 8.1, RBC 4.53, Hgb 12.9, Hct 38.3, MCV 84.5, MCH 28.5, MCHC 33.7, RDW Std Deviation 39.2, RDW Coeff of Dewey 12.8, Plt Count 237, MPV 10.4, Immature Gran % (Auto) 0.400, Neut % (Auto) 83.7 H, Lymph % (Auto) 10.0 L, [place] % (Auto) 4.8, Eos % (Auto) 0.5, [...] 83.9 H, Lymph % (Auto) 11.4 L, [place] % (Auto) 3.4, Eos % (Auto) 0.6, Baso % (Auto) 0.4, Absolute Neuts (auto) 7.9 H, Absolute Lymphs (auto) 1.07, Nucleated RBC % 0, PT 15.3 H, INR 1.2, APTT 25.8 02/28/25 17:04: Troponin T Hi Sens 4Hr 429 H* 02/28/25 22:32: APTT 76.0 H 03/01/25 06:15: WBC 6.1, RBC 4.48, Hgb 12.7, Hct 38.7, MCV 86.4, MCH 28.3, MCHC 32.8, RDW Std Deviation 40.3, RDW Coeff of Dewey 12.8, Plt Count 227, MPV 10.7, Immature Gran % (Auto) 0.200, Neut % (Auto) 63.4, Lymph % (Auto) 25.2, [place] % (Auto) 7.7, Eos % (Auto) 2.8, Baso % (Auto) 0.7, Absolute Neuts(auto) 3.9, Absolute Lymphs (auto) 1.53, Nucleated RBC % 0, PT 16.0 H, INR 1.3, APTT 62.3 H,Sodium 144, Potassium 3.8, Chloride 109 H, Carbon Dioxide 23.3, Anion Gap 11, BUN 13, Creatinine 0.75, Estim Creat Clear Calc 77.57, Est GFR (MDRD) Non-Af 92,BUN/Creatinine Ratio 17.7, Glucose 100 H, Calcium9.0 Radiography Diagnostic Testing: Radiology Impression Chest X-Ray 02/28/25 13:02 IMPRESSION: No acute process is identified in the chest. Reading [facility] Rhythm Strip Rhythm Strip: Sinus Rhythm Rate: 57 Ectopy: None Physical Exam Narrative General: Alert, Oriented x3, Cooperative, No apparent distress HEENT: Atraumatic, PERRLA, EOMI, Normocephalic Oral: Moist Mucosa Neck: Supple, No JVD Lungs: Diminished, Normal air movement, No rhonchi, No wheeze, No rales Cardiovascular: Regular rate, Regular Rhythm, Normal S1, Normal S2, No murmurs Abdomen: Soft, Non Tender, Non-Distended, No Hepato-splenomegaly Extremities: No edema, Capillary Refill Less than 3 Seconds Skin: No rashes, No breakdown Musculoskeletal: No Tenderness to Palpation of Joints or Extremities Neurological: No focal neurological deficits, Motor Exam 5/5 strength throughout, Sensory exam intact to light touch and pain Psych/Mental Status: Normal Affect, Appropriate Assessment & Plan Assessment/Plan (1) Acute non-ST elevation myocardial infarction (NSTEMI): PLAN: Plan 1. Non-STEMI ? Plan for heart cath with rising troponins ? Continue with heparin drip ? Continue with aspirin and statin ? Echo is pending ? Appreciate cardiology's assistance 2. Hypothyroidism status post thyroid cancer treatment ? Continue with Synthroid and liothyronine ? Stable DVT: Heparin drip Charges/Coding Visit Charges Inpatient E&M: 45952 Subs Hosp L2 03/01/25 0909 Cosigner Signature (if applicable): CC: ~ Signed [facility]07-24-2025 History and physical note Author Evon Vo [facility] Note Date/Time February 28, 2025 5:19 pm [facility] Medical Records Department [address] [place] [address] H&P Exam - Hospitalist 02/28/25 1713 MR#: [id number] Acct: [id number] Name: NATHAN MURRELL Rep #:[id number] : 1965 59 From: Evon Vo MD PCP: Dr. Sherry Fierro MD Status:RE G ER Location: ED HPI - General General Date of Admission: 02/28/25 Date of Service: 02/28/25 Chief Complaint: Chest pain HPI Narrative NATHAN MURRELL, is a 59-year-old female history of thyroid cancer previously treated and now on Synthroid, chronic lightheadedness who presented to [facility] ED 02/28/2025 with chest discomfort. She had [...] has no other new or acute complaints. [facility] Medical History Heart murmur Hypothyroid removal [...] 83.7 H, Lymph % (Auto) 10.0 L, [place] % (Auto) 4.8, Eos % (Auto) 0.5, [...] 83.9 H, Lymph % (Auto) 11.4 L, [place] % (Auto) 3.4, Eos % (Auto) 0.6, Baso % (Auto) 0.4, Absolute Neuts (auto) 7.9 H, Absolute Lymphs (auto) 1.07, Nucleated RBC % 0 Rhythm Strip Rhythm Strip: Sinus Rhythm Rate: 57 Ectopy: None Imaging Radiology Impression Chest X-Ray 02/28/25 13:02 IMPRESSION: No acute process is identified in the chest. Reading Location[facility] Assessment & Plan Assessment/Plan (1) Acute non-ST [...] Vo MD Charges/Coding Visit Charges Inpatient E&M: 76664 Init Hosp L1 02/28/25 1719 <Electronically signed by Evon Vo MD> Cosigner Signature (if applicable): CC: Dr. Sherry Fierro MD; Dr. Evon Vo MD~ Signed [facility] Work Phone: 1(563) 290-697407-24-2025 History and physical note Author Evon Vo [facility] Note Date/Time February 28, 2025 5:19 pm [facility] Medical Records Department [address] [place] [address] H&P Exam - Hospitalist 02/28/25 1713 MR#: [id number] Acct: [id number] Name: NATHAN MURRELL Rep #:[id number] : 1965 59 From: Evon Vo MD PCP: Dr. Sherry Fierro MD Status:RE G ER Location: ED HPI - General General Date of Admission: 02/28/25 Date of Service: 02/28/25 Chief Complaint: Chest pain HPI Narrative NATHAN MURRELL, is a 59-year-old female history of thyroid cancer previously treated and now on Synthroid, chronic lightheadedness who presented to [facility] ED 02/28/2025 with chest discomfort. She had [...] has no other new or acute complaints. [facility] Medical History Heart murmur Hypothyroid removal [...] 83.7 H, Lymph % (Auto) 10.0 L, [place] % (Auto) 4.8, Eos % (Auto) 0.5, [...] 83.9 H, Lymph % (Auto) 11.4 L, [place] % (Auto) 3.4, Eos % (Auto) 0.6, [...] Vo MD Charges/Coding Visit Charges Inpatient E&M: 43420 Init Hosp L1 02/28/25 1719 <Electronically signed by Evon Vo MD> Cosigner Signature (if applicable): CC: Dr. Sherry Fierro MD; Dr. Evon Vo MD~ Signed [facility] Work Phone: 1(362) 572-750007-24-2025 Evaluation note* Diagnosis Onset Date Resolution Status Admit Date Acute non-ST elevation myoca rdial infarction (NSTEMI) acute February 28, 2 025 5:15pm Chest pain acute February 28 5:15pm [facility] Work Phone: 1(499) 213-581007-24-2025 Evaluation note* Diagnosis Onset Date Resolution Status Admit Date Acute non-ST elevation myoca rdial infarction (NSTEMI) acute February 28, 2 025 5:15pm Chest pain acute February 28 5:15pm Acute non-ST elevation myoca rdial infarction (NSTEMI) acute March 05, 2 025 9:47am [facility] Work Phone: 1(757) 382-311707-24-2025 Discharge summary Author Malaika Landry [facility] Note Date/Time February 28, 2025 4:20 pm [facility] Medical Records Department [address] [place] [address] Emergency Department Summary 02/28/25 MR#: [id number] Acct: [id number] Name: NATHAN MURRELL Rep #:[id number] : [...] 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 Denies associated GI or symptoms. [facility] Medical History Heart murmur Hypothyroid removal [...] 83.7 H Lymph % (Auto) 10.0 L [place] % (Auto) 4.8 Eos % (Auto) 0.5 [...] in the chest. Reading Location: [facility] Rhythm Strip Rhythm Strip: Sinus Rhythm Rate: [...] Management Discussion w/another healthcare provider: Hospitalist and Gauger Chief Critical Care Time Critical Care Time: Yes Critical care time (excluding procedures): 30-74 minutes (40), Discussing w/Patient &/or Family/Flight Test Supervisor, Discussing w/Consultants and Arranging Admission or Transfer [...] MD [Primary Care Provider] - Print Language: Belarusian Disposition Disposition: Acute Care Hospital [facility] What to do if you have Problems For any increased pain, shortness of breath, bleeding, nausea or vomiting, chestpain, or any unexpected problems, contact your Primary Care Provider. Call [facility] ([phone]) or report to the closest Emergency Room. Call 911 if necessary. 02/28/25 1620 <Electronically signed by Malaika Landry DO> Cosigner Signature (if applicable): CC: Dr. Sherry Fierro MD ~ Signed [facility] Work Phone: 1(295) 489-978307-24-2025 History and physical note [facility] Medical Records Department [address] [place] [address] H&P Exam - Hospitalist 02/28/25 1713 MR#: [id number] Acct: [id number] Name: HANDYNATHAN A Rep #:[id number] : 1965 59 From: Evon Vo MD PCP: Dr. Sherry Fierro MD Status:RE G ER Location: ED HPI - General General Date of Admission: 02/28/25 Date of Service: 02/28/25 Chief Complaint: Chest pain HPI Narrative NATHAN MURRELL, is a 59-year-old female history of thyroid cancer previously treated and now on Synthroid, chronic lightheadedness who presented to [facility] ED 02/28/2025 with chest discomfort. She had [...] has no other new or acute complaints. [facility] Medical History Heart murmur Hypothyroid removal [...] 83.7 H, Lymph % (Auto) 10.0 L, [place] % (Auto) 4.8, Eos % (Auto) 0.5, [...] 83.9 H, Lymph % (Auto) 11.4 L, [place] % (Auto) 3.4, Eos % (Auto) 0.6, Baso % (Auto) 0.4, Absolute Neuts (auto) 7.9 H, Absolute Lymphs (auto) 1.07, Nucleated RBC % 0 Rhythm Strip Rhythm Strip: Sinus Rhythm Rate: 57 Ectopy: None Imaging Radiology Impression Chest X-Ray 02/28/25 13:02 IMPRESSION: No acute process is identified in the chest. Reading Location: [facility] Assessment & Plan Assessment/Plan (1) Acute non-ST [...] Vo MD Charges/Coding Visit Charges Inpatient E&M: 50850 Init Hosp L1 02/28/25 1719 Cosigner Signature (if applicable): CC: Dr. Sherry Fierro MD; Dr. 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 Denies associated GI or symptoms. [facility] Medical History Heart murmur Hypothyroid removal [...] 83.7 H Lymph % (Auto) 10.0 L [place] % (Auto) 4.8 Eos % (Auto) 0.5 [...] is identified in the chest. Reading Location: [facility] Rhythm Strip Rhythm Strip: Sinus Rhythm Rate: [...] Management Discussion w/another healthcare provider: Hospitalist and Gauger Chief Critical Care Time Critical Care Time: Yes Critical care time (excluding procedures): 30-74 minutes (40), Discussing w/Patient &/or Family/Flight Test Supervisor, Discussing w/Consultants and Arranging Admission or Transfer [...] MD [Primary Care Provider] - Print Language: Belarusian Disposition Disposition: Acute Care Hospital [facility] What to do if you have Problems For any increased pain, shortness of breath, bleeding, nausea or vomiting, chestpain, or any unexpected problems, contact your Primary Care Provider. Call [facility] ([phone]) or report tothe closest Emergency Room. Call 911 if necessary. 02/28/25 1620 Cosigner Signature (if applicable): CC: Dr. Sherry Fierro MD ~ Signed [facility]07-24-2025 Radiology Diagnostic study note [facility] Imaging Services [address] [place], [place] [id number] Chest PA and Lateral MR#: [id number] Acct: [id number] Name: NATHAN MURRELL Rep #: [id number] : 1965 F 59 From: Amberly Freitas MD PCP: Dr. Sherry Fierro MD Status: RE G ER Study:Chest PA and Lateral Date of Exam: 02/28/25 Exam# [id number] Ordering Dr: Danial Landry DO PROCEDURE: CHEST [...] Landry DO; Dr. Sherry Fierro MD ~ Cross Tie Cutter: Signed [facility]01-19-[address] Landry [facility] August 26, 2022 7:15pm Note Date/Time August 26, 2022 4 :25pm [facility] Medical Records Department [address] [place] [address] Emergency Department Summary 08/26/22 MR#: [id number] Acct: [id number] Name: NATHAN MURRELL Rep #:[id number] : [...] thinners. No other complaints at this time. 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 In the meantime patient was [...] % (Auto) 56.1 Lymph % (Auto) 30.4 [place] % (Auto) 8.3 Eos % (Auto) 4.2 [...] side of your face. At night use jorl-rwc-pxlbvzd eye ointment to keep your eye moist [...] your Primary Care Provider. Call [facility] ([phone]) or report to the closest Emergency Room. Call 911 if necessary. 08/26/221914 <Electronically signed by Malaika Landry DO> Cosigner Signature (if applicable): CC: Dr. Sherry Fierro MD ~ Signed [facility] Work Phone: 1(616) 635-595112-23-2022 NoteHNO ID: [id number] Author: Liam Patel APRN.DIRECTOR EDUCATION Service: ? Author Type: Nurse Practitioner Type: Progress Notes Filed: 07/30/2022 12:43 PM Note Text: Subjective HPI Nontoxic-appearing female presents to urgent care with chief complaint of upper respiratory tract like infection. Duration of symptoms 3 days. Associated symptoms sore throat, nasal congestion, nasal discharge and nonproductive cough. Patient denies the use of any fpmc-vlu-fylhley medications or home remedies for symptom management. [...] room for any new (more content not included)...[facility]12-23-2022 History of Present illness Narrative* Liam Patel, LATOSHA.[facility] - 07/30/2022 12:17 PM EST Subjective HPI Nontoxic-appearing female presents to urgent care with chief complaint of upper respiratory tract like infection. Duration of symptoms 3 days. Associated symptoms sore throat, nasal congestion, nasaldischarge and nonproductive cough. Patient denies the use of any khgj-hbc-kktcheq medications or home remedies for symptom management. [...] of care. This note was generated using Sand 9 software. It may contain errors in wording, punctuation, or spelling. Liam Patel APRN.ISIAH [facility] History of Present illness Narrative* Didi Platt [...] 10, 2021 2:18 PM [facility] Author Maurice Diaz [facility] Note Date/Time March 02, 2025 7:22 am [facility] Medical Records Department [address] [place] [address] Instructions for Home/Discharge Instructions 03/02/25 0719 MR#: [id number] Acct: [id number] Name: NATHAN MURRELL Rep #:[id number] : 1965 59 From: Maurice maya MD PCP: Dr. Sherry Fierro MD Status:AD M IN Discharge Instructions DC O2, CPAP, BIPAP needs Home O2 Discharge instructions: No Dressing / Incision Discharge Activity: Return to Normal Activity Dressing / Incision Call your doctor if you observe: Fever of 101 or Higher, Shortness of breath, Dizziness, Fainting spells, Swelling in the ankles, Chest pain and Increased palpitations (irregular heartbeat) Follow Up Care Test Results: Test results from this visit will be discussed in further detail at your follow- up appointment, if applicable. Discharge Plan Admission Admit Date/Time: 02/28/25 17:15 Attending Provider: Maurice Diaz Primary Care Provider: Sherry Fierro Consulting Providers: Navid Chamorro; Evon Vo Discharge Orders/Prescriptions Prescriptions: New aspirin 81 mg Tablet,Chewable 81 mg PO BREAKFAST 30 Days Qty: 30 0RF atorvastatin 80 mg Tablet 80 mg PO QHS 30 Days Qty: 30 0RF metoprolol succinate 50 mg Tablet Extended Release 24 Hr 50 mg PO DAILY 30 Days Qty: 30 0RF Continued liothyronine 5 mcg tablet 5 mcg PO DAILY levothyroxine 100 mcg tablet 100 mcg PO DAILY cholecalciferol (vitamin D3) 1,250 mcg (50,000 unit) capsule 1,250 mcg PO QWEEK Patient Comments: Take weekly on Sat. Referrals / Follow Up: Rk Amaya MD [Med Staff - Active Staff] - Within 1 Month (Can see midlevel) Sherry Fierro MD [Primary Care Provider] - Within 1 Week Disposition Disposition (needs filled in before D/C Order can be placed): Home, Self Care 03/02/25 07<Electronically signed by Maurice Diaz MD>Maurice Diaz MD CC: Dr. Sherry Fierro MD; Dr. Navid Chamorro MD; Dr. Evon Vo MD~ Signed [facility] Work Phone: Evaluation + Plan note Future Appointments Appointment Date:06/23/2023 09:00:00 AM Scheduled Provider:MARNIE ISAAC MD Location:[facility] Appointment Type:ENDO OV Future Scheduled Tests Laboratory* [...] BD Bone Density DEXA Axial Skeleton 05/31/22 [facility] Evaluation + Plan note Future Appointments Appointment Date:07/25/2025 08:45:00 AM Scheduled Provider:MARNIE ISAAC MD Location:[facility] Appointment Type:ENDO OV Future Scheduled Tests Laboratory* Thyroid Stimulating Hormone 07/19/25 * Free T4 07/19/25 * Free T3 07/19/25 * Lipid Profile 07/19/25 * Vitamin D Level 07/19/25 * Complete Metabolic Panel 07/19/25 [facility] Evaluation noteNo assessment information available [facility] Work Phone: Evaluation note* Diagnosis URI with cough and congestion- Primary [facility] Diagnosis Onset Date Resolution Status [id number] [facility] [id number] chronic History of thyroid cancer [facility] Work Phone: Evaluation note* Diagnosis Onset Date Resolution Status Vertigo acute [id number] chronic History of thyroid cancer [facility] Work Phone: Evaluation note* Diagnosis Cough [facility] Narrative No data available for this section [facility] Hospital Discharge instructions Additional Instructions 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 At night use rxsv-nvp-lvukqcr eye ointment to keep your eye moist [...] did not show any signs of a stroke.[facility] Work Phone: Hospital Discharge instructions No data available for this section [facility] Hospital Discharge instructionsAmbulatory Orders* Phase II, Outpatient Cardiac Rehab Location: None [facility] Work Phone: Progress note No data available for this section [facility] Reason for referral (narrative)No reason for referral information availableWTriHealth [facility] Work Phone: Health Concerns Infection Onset Date Last Indicated Resolved Time COVID-19 Rule-Out 06/29/2021 06/29/2021 06/30/2021 4:06 AM EST COVID-19 Confirmed 06/29/2021 06/29/2021 8:51 PM EST Advance Directives No Advanced Directives Records Found Advance Directive Response Recorded Date/ Time Living Will No July 06 11:30am Power of Sterile Processing Tech No July 06, 2021 11:30am Advance Directive Response Recorded Date/ Time Living Will No July 06 10:30am Power of Sterile Processing Tech No July 06, 2021 10:30am Advance Directive Response Recorded Date/ Time Living Will No August 26 3:10pm Power of Sterile Processing Tech No August 26, 2022 3:10pm Advance Directive Response Recorded Date/ Time Living Will No August 26 4:10pm Power of Sterile Processing Tech No August 26, 2022 4:10pm Advance Directive Response Recorded Date/ Time Do you have a Healthcare Power of Sterile Processing Tech? No February 28, 2025 12:27pm Advance Directive Response Recorded Date/ Time Do you have a Healthcare Power of Sterile Processing Tech? No February 28, 2025 8:14pm Summary Purpose Family History No Family History Records Found Relationship Condition Age at Onset Recorded Date/T [...] BONE SCAN MED ONC Reason for Visit [id number] History of thyroid cancer [id number] History of thyroid cancer Chief Complaint Abnormal findings on diagnostic imaging of skull a 2WKS NO LABS REVIEW BONE SCAN MED ONC 2WKS LABS PRIOR LESION AT BASE OF SKULL Reason for Visit [id number] History of thyroid cancer [id number] History of thyroid cancer Chief Complaint LESION AT BASE OF SK ULL 3MO LABS PRIOR REVIEW MRI Reason for Visit Vertigo [id number] History of thyroid cancer Chief Complaint Admit Date anxiety February 28, 2025 5:13 pm CHEST PAIN February 28, 2025 5:15 pm Reason for Visit Admit Date Acute non-ST elevation myocardial infarc tion (NSTEMI) February 28, 2025 5:15pm Chest pain February 28, 2025 5:15 pm Chief Complaint Admit Date anxiety February 28, 2025 5:13 pm CHEST PAIN February 28, 2025 5:15 pm CHEST PAIN March 01, 2025 9:04 am Chief Complaint Admit Date anxiety February 28, 2025 5:13 pm CHEST PAIN February 28, 2025 5:15 pm CHEST PAIN March 01, 2025 9:04 am CHEST PAIN March 02, 2025 11:3 9am Referral Order March 04, 2025 5:54 pm Chief Complaint Admit Date anxiety February 28, 2025 5:13 pm CHEST PAIN February 28, 2025 5:15 pm CHEST PAIN March 01, 2025 9:04 am CHEST PAIN March 02, 2025 11:3 9am Referral Order March 04, 2025 5:54 pm S/P [facility] 03/02March 05, 2025 9:47 am Reason for Visit Admit Date Acute non-ST elevation myocardial infarc tion (NSTEMI) February 28, 2025 5:15pm Chest pain February 28, 2025 5:15 pm Acute non-ST elevation myocardial infarc tion (NSTEMI) March 05, 2025 9:47am Additional Source Comments Source Comments (unrecognize d section and content) In the event this informatio n is protected by the Federal Confidentiality of Alcohol and Drug Abuse Patient Records regulations: The Federal rules restrict any use of the information to criminally investigate or prosecute any alcohol or drug abuse patient.[facility] the event this information is protected by the Federal Confidentiality of Alcohol and Drug Abuse Patient Records regulations: The Federal rules restrict any use of the information to criminally investigate or prosecute any alcohol or drug abuse patient.[facility] the event this information is protected by the Federal Confidentiality of Alcohol and Drug Abuse Patient Records regulations: The Federal rules restrict any use of the information to criminally investigate or prosecute any alcohol or drug abuse patient.[facility] Reason for Visit (unrecogniz ed section and content) Reason Comments Erroneous encounter-disregard Reason Comments Cough X3 daysExposure to F sonal, - testing with PCP Care Teams (unrecognized sec tion and content) 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 Sherry Fierro MD Family Provider Active Dr. Sherry Fierro MD Primary Care Provider Active Team Status: Inactive Member Role Status Dates Dr. Sherry Fierro MD Primary Care Pr ovider, Referring Provider Active Dr. Marnie Isaac MD Attending Provider Act miguel Team Status: Inactive Member Role Status Dates Dr. Sherry Fierro MD Primary Care Provider Active Dr. 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 Sherry Fierro MD Primary Care Provider Active Team Status: Active Member Role/Relationship Status Dates Dr. Sherry Fierro MD Primary Care Provider Active Start: February 28, 2025 Dr. Malaika Landry DO Emergency Provider Active Start: February 28, 2025 Dr. Evon Vo MD Attending Provider Active Start: February 28, 2025 Team Status: Active Member Role/Relationship Status Dates Dr. Sherry Fierro MD Primary Care Provider Active Start: February 28, 2025 Dr. Malaika Landry DO Emergency Provider Active Start: February 28, 2025 Dr. Evon Vo MD Admit Provider Active Star t: February 28, 2025 Dr. Evon Vo MD Attending Provider Active Start: February 28, 2025 Team Status: Inactive Member Role/Relationship Status Dates Dr. Sherry Fierro MD Primary Care Provider Active Start: February 28, 2025 End: March 02, 2025 Dr. Malaika Landry DO Emergency Provider Active Start: February 28, 2025 End: March 02, 2025 Dr. Evon Vo MD Admit Provider Active Star t: February 28, 2025 End: March 02, 2025 Dr. Evon Vo MD Other Provider Active Star t: February 28, 2025 End: March 02, 2025 Dr. Navid Chamorro MD Other Provider Active Start: February 28, 2025 End: March 02, 2025 Dr. Maurice Diaz MD Attending Provider Active Start: February 28, 2025 End: March 02, 2025 Team Status: Active Member Role/Relationship Status Dates Dr. Sherry Fierro MD Primary Care Provider Active Start: March 01, 2025 Dr. Malaika Landry DO Emergency Provider Active Start: March 01, 2025 Dr. Evon Vo MD Admit Provider Active Star t: March 01, 2025 Dr. Evon Vo MD Other Provider Active Star t: March 01, 2025 Dr. Navid Chamorro MD Other Provider Active Start: March 01, 2025 Dr. Maurice Diaz MD Attending Provider Active Start: March 01, 2025 Dr. Maurice Diaz MD Other Provider Active Start: March 01, 2025 Team Status: Active Member Role/Relationship Status Dates Dr. Sherry Fierro MD Primary Care Provider Active Start: March 01, 2025 Dr. Rk Amaya MD Attending Provider Active S tart: March 01, 2025 Team Status: Active Member Role/Relationship Status Dates Dr. Sherry Fierro MD Primary Care Provider Active Start: March 02, 2025 Dr. Malaika Landry DO Emergency Provider Active Start: March 02, 2025 Dr. Evon Vo MD Admit Provider Active Star t: March 02, 2025 Dr. Evon Vo MD Other Provider Active Star t: March 02, 2025 Dr. Navid Chamorro MD Other Provider Active Start: March 02, 2025 Dr. Maurice Diaz MD Attending Provider Active Start: March 02, 2025 Dr. Maurice Diaz MD Other Provider Active Start: March 02, 2025 Team Status: Active Member Role/Relationship Status Dates Dr. Sherry Fierro MD Primary Care Provider Active Start: March 04, 2025 Dr. Rk Amaya MD Attending Provider Active S tart: March 04, 2025 Team Status: Inactive Member Role/Relationship Status Dates Dr. Sherry Fierro MD Primary Care Provider Active Start: March 05, 2025 End: March 05, 2025 Dr. Sherry Fierro MD Referring Provider Active Start: March 05, 2025 End: March 05, 2025 JULIO CESAR Schofield Attending Provider Active St art: March 05, 2025 End: March 05, 2025 Goals (unrecognized section and content) Goals [...] alternate section No data available for this section INFORMATION SOURCE (unrecogn ized section and content) DATE CREATED AUTHOR 08/01/2022 [facility] DATE CREATED AUTHOR AUTHOR'S ORGANIZ ATION 03/09/2023 Counts include 234 beds at the [facility] [place] DATE CREATED AUTHOR AUTHOR'S ORGANIZ ATION 03/30/2025 [facility] DATE CREATED AUTHOR AUTHOR'S ORGANIZ ATION 05/10/2025 [facility] FOR RECORDS PERTAINING TO PATIENTS WHO ARE [...] BE BASED ON THE PRIMARY CLINICAL RECORDS. [facility] [employer] [facility] provides no warranty or guarantee of the accuracy or completeness of information in this document.
[2025-05-11 11:02] LABS: Cholesterol 193 mg/dL (<=200); Low Density Lipoprotein Calc. 122 mg/dL; Triglycerides 62 mg/dL; Very Low Density Lipoprotein 12 mg/dL (5-40); cholesterol:hdl ratio screen 3.27
[2025-05-11 11:04] LABS: AST(SGOT) 18 U/L (<=31); Alanine Aminotransfer ALT/SGPT 20 U/L (<=34); Albumin, Serum 4.3 g/dL (3.4-4.8); Alkaline Phosphatase 62 U/L (35-104); Bilirubin, Direct 0.26 mg/dL (0.00-0.30); Globulin 2.8 g/dL (2.2-4.2)
== END | disposition home or self-care (01) ==
LOC: LAB 08:58
PROVIDERS: PCP Family Medicine; Referring Provider Student in an Organized Health Care Education/Training Program; Visit Provider Student in an Organized Health Care Education/Training Program
DX: I25.2 Old myocardial infarction (principal)
CPT/HCPCS: 36415; 80061; 80076

== ENCOUNTER → 2025-07-16 | Outpatient (CLI) | payer OTHER, SELFPAY ==
[2025-07-16 17:37] LABS: AST(SGOT) 19 U/L (<=31); Alanine Aminotransfer ALT/SGPT 20 U/L (<=34); Albumin, Serum 4.3 g/dL (3.4-4.8); Alkaline Phosphatase 70 U/L (35-104); Anion Gap 11 (5-15); BUN 19 mg/dL (4-19); BUN/Creat Ratio 20.5 RATIO (10-20); Calcium,Total 9.9 mg/dL (7.6-11.0); Carbon Dioxide 25.7 mmol/L (21.0-32.0); Chloride 104 mmol/L (98-108); Cholesterol 192 mg/dL (<=200); Globulin 3.0 g/dL (2.2-4.2); Glucose 73 mg/dL (70-99); Low Density Lipoprotein Calc. 124 mg/dL; Potassium 4.3 mmol/L (3.3-5.1); Triglycerides 116 mg/dL; Very Low Density Lipoprotein 23 mg/dL (5-40); cholesterol:hdl ratio screen 4.04
[2025-07-16 18:07] LABS: Free T3 2.7 pg/mL (2.18-3.98); Vitamin D,25 Hydroxy 119.0 ng/mL (30-100)
== END | disposition home or self-care (01) ==
LOC: LAB 15:00
PROVIDERS: PCP Family Medicine; Referring Provider Internal Medicine Endocrinology, Diabetes & Metabolism; Visit Provider Internal Medicine Endocrinology, Diabetes & Metabolism
DX: C73 Malignant neoplasm of thyroid gland (principal); E03.9 Hypothyroidism, unspecified; E55.9 Vitamin D deficiency, unspecified
CPT/HCPCS: 36415; 80053; 80061; 82306; 84439; 84443; 84481